=== PATIENT | female | born 1940 | race Caucasian/White ===

== ENCOUNTER → 2017-04-30 10:43 | Outpatient (CLI) | payer MEDICARE, SELFPAY ==
[2017-04-30 12:15] LABS: Absolute Lymphocyte Count 0.93 X10^3/ul (0.83-4.51); Absolute Neutrophil Count 2.8 X10^3/uL (2.0-7.7); Basophil# 0.02 X10^3/uL; Basophil% 0.5 % (0-1); Eosinophil# 0.13 X10^3/uL; Hematocrit 44.8 % (37-47); Hemoglobin 15.1 g/dl (12.0-15.0); Lymphocyte # 0.93 X10^3/ul (4.0); Lymphocyte % 21.8 % (19-41); Mean Corp Hgb Conc 33.7 g/gl (32-36); Mean Corpuscular Hgb 31.3 pg (27.0-32.0); Mean Corpuscular Volume 92.9 fL (81-99); Mean Platelet Vol. 10.4 fl (6.2-12.0); Monocyte# 0.42 X10^3/uL; Monocyte% 9.8 % (0-10); Neutrophil # 2.76 X10^3/uL (2.7-7.7); Neutrophil % 64.7 % (47-70); Platelet Count 221 K/mm3 (150-450); RBC Distribution Width CV 13.1 % (11.6-14.6); RBC Distribution Width SD 43.3 fl (35.1-43.9); Red Blood Count 4.82 M/mm3 (4.2-5.4); White Blood Count 4.3 K/mm3 (4.4-11.0)
[2017-04-30 12:30] LABS: POSITIVE COUNT NO; POSITIVE DIFFERENTIAL NO; POSITIVE MORPHOLOGY NO
[2017-04-30 12:34] LABS: ALB/GLOB Ratio 1.1 RATIO (0.9-2.4); AST(SGOT) 15 U/L (15-37); Alanine Aminotransfer ALT/SGPT 22 U/L (13-56); Albumin, Serum 3.7 g/dL (3.2-5.0); Alkaline Phosphatase 84 U/L (45-117); Anion Gap 8 (5-15); BUN 16 mg/dL (7-18); BUN/Creat Ratio 20.1 RATIO (10-20); Calcium,Total 9.3 mg/dL (8.5-10.1); Chloride 106 mmol/L (98-107); EST Glomerular Filtration Rate 75 mL/min (>60); Est Glom Filt Rate - Afr Amer 90 mL/min (>60); Globulin 3.3 g/dL (2.2-4.2); Glucose 91 mg/dL (70-110); Potassium 4.3 mmol/L (3.5-5.1); Sodium Level 141 mmol/L (136-145)
== END ==
PROVIDERS: Family Provider Family Medicine; PCP Family Medicine; Visit Provider Internal Medicine Rheumatology
DX: M06.4 Inflammatory polyarthropathy (principal); I25.10 Atherosclerotic heart disease of native coronary artery without angina pectoris; K21.0 Gastro-esophageal reflux disease with esophagitis; M47.897 Other spondylosis, lumbosacral region; M16.11 Unilateral primary osteoarthritis, right hip; Q66.7 Congenital pes cavus; E78.5 Hyperlipidemia, unspecified; H93.13 Tinnitus, bilateral; M51.37 Other intervertebral disc degeneration, lumbosacral region
CPT/HCPCS: 36415; 80053; 85025

== ENCOUNTER → 2017-06-18 09:20 | Outpatient (CLI) | payer MEDICARE, SELFPAY ==
[2017-06-18 12:24] LABS: Cholesterol 234 mg/dL (200); High Density Lipoprotein 57 mg/dL; Triglycerides 186 mg/dL; Very Low Density Lipoprotein 37 mg/dL (5-40)
[2017-06-18 13:25] LABS: Vitamin D,25 Hydroxy 25.6 ng/mL (29.95-100.01)
== END ==
PROVIDERS: Family Provider Family Medicine; PCP Family Medicine; Visit Provider Family Medicine
DX: I10 Essential (primary) hypertension (principal); I25.10 Atherosclerotic heart disease of native coronary artery without angina pectoris; M81.0 Age-related osteoporosis without current pathological fracture
CPT/HCPCS: 36415; 80061; 82306

== ENCOUNTER → 2017-07-16 12:30 | Outpatient (CLI) | payer MEDICARE, SELFPAY ==
--- NOTE | 2017-07-16 12:32 | BI_ITS ---
MAMMOGRAPHY - BILATERAL SCREENING REASON FOR EXAM: Female, 76 years old. Routine annual screening examination. PERTINENT HISTORY: Aunt with breast cancer. Remote left excisional breast biopsy. TECHNIQUE: Digital bilateral breast hussein (3D mammographic acquisition) in the CC and MLO projections. 2-D mediolateral oblique (MLO) and craniocaudad (CC) views of both breasts were obtained. CAD: Full Field Digital Mammography with Computer Added Detection was performed. COMPARISON: Comparison is made with prior study dated March 03, 2015 and March 28, 2016. FINDINGS: Breast Composition: The breasts are heterogeneously dense, which may obscure small masses. There are no dominant masses or suspicious calcifications. Stable scattered bilateral calcifications. Focal skin thickening along the superior lateral portion of the left breast incomplete with prior excisional breast biopsy. No other significant abnormalities are identified. There has been no significant change since the prior study. BI/SCREENING MAMM (CAD), BILAT IMPRESSION: Stable bilateral screening mammogram. Yearly follow-up mammogram recommended. (A) ASSESSMENT CATEGORY: BIRADS Category 2: Benign. A letter regarding these results will be sent to the patient by the facility within 30 days. Approximately 10% of breast cancers are not detected by mammography. A normal mammogram should not delay biopsy of a clinically suspicious abnormality. [id number] Electronically Signed: Matty Hannah MD at 8:19 EDT Tel [phone], Service support ,
--- NOTE | 2017-07-16 12:36 | BD_ITS ---
STUDY: DUAL ENERGY X-RAY ABSORPTIOMETRY / DXA REASON FOR EXAM: Female, 76 years old. The patient is postmenopausal. Loss of height of 2 inches. TECHNIQUE: Bone Mineral Density (BMD) measurements of lumbar spine and left hip were obtained. The patient is status post right total hip replacement. COMPARISON: Comparison is made with prior study dated March 03, 2015. FINDINGS: Lumbar Spine (L1-L4): g/cm2 (0.936) / T-score (-1.9) / Z-score (-0.1) Findings are suggestive of normal bone density with a low fracture risk. Left Femur Total: g/cm2 (0.926) / T-score (-0.6) / Z-score (1.2) Left Femoral Neck: g/cm2 (0.878) / T-score (-1.2) / Z-score (0.8) The T-Scores on the most recent prior examination were: Lumbar Spine (L1-L4): There has been worsening of bone density since the previous examination. Left Femur Total: which represents a worsening of 2.8%. Right Femur Total: . BD/Dexa Bone Density Study IMPRESSION: The patient is considered osteopenic as outlined below according to World Geoffrey Organization (WHO) criteria with a moderate fracture risk. There has been worsening of bone density since the previous examination. Reference Information: The T-score is the number of standard deviations above or below the standard which is normal for young adults at their peak bone mineral density. The World Health Organization (WHO) interprets the T-scores as follows: Above -1 Normal bone density Between -1 and -2.5 Osteopenia Equal to / or below -2.5 Osteoporosis As a practical clinical guideline, osteopenia may be graded as follows: Mild -1 through -1.5 Moderate -1.6 through -2.0 Severe -2.1 through -2.4 The Z-score is the number of standard deviations above or below age-matched controls. A Z-score of less than -1.5 would be considered abnormal. References: 1. NIH Osteoporosis and Related Bone Diseases http://www.osteo.org 2. International Society for Clinical Densitometry http://www.iscd.org 3. National Osteoporosis Foundation http://www.nof.org Electronically Signed: Matty Hannah MD at 15:49 EDT Tel [phone], Service support ,
== END ==
PROVIDERS: Family Provider Family Medicine; PCP Family Medicine; Visit Provider Family Medicine
DX: Z12.31 Encounter for screening mammogram for malignant neoplasm of breast (principal); M81.0 Age-related osteoporosis without current pathological fracture
CPT/HCPCS: 77063; 77067; 77080

== ENCOUNTER → 2017-10-28 07:28 | Outpatient (CLI) | payer MEDICARE, SELFPAY ==
[2017-10-28 10:11] LABS: Absolute Lymphocyte Count 1.04 X10^3/ul (0.83-4.51); Absolute Neutrophil Count 2.9 X10^3/uL (2.0-7.7); Basophil# 0.01 X10^3/uL; Basophil% 0.2 % (0-1); Eosinophil# 0.15 X10^3/uL; Eosinophils% 3.4 % (0-5); Hematocrit 44.7 % (37-47); Lymphocyte # 1.04 X10^3/ul (4.0); Lymphocyte % 23.9 % (19-41); Mean Corp Hgb Conc 33.6 g/gl (32-36); Mean Corpuscular Hgb 31.1 pg (27.0-32.0); Mean Corpuscular Volume 92.7 fL (81-99); Mean Platelet Vol. 10.4 fl (6.2-12.0); Monocyte# 0.28 X10^3/uL; Monocyte% 6.4 % (0-10); Neutrophil # 2.86 X10^3/uL (2.7-7.7); Neutrophil % 65.9 % (47-70); Platelet Count 209 K/mm3 (150-450); RBC Distribution Width CV 12.6 % (11.6-14.6); Red Blood Count 4.82 M/mm3 (4.2-5.4); White Blood Count 4.4 K/mm3 (4.4-11.0)
[2017-10-28 10:20] LABS: Albumin, Serum 3.7 g/dL (3.2-5.0); BUN 16 mg/dL (7-18); BUN/Creat Ratio 19.4 RATIO (10-20); Creatinine, Serum 0.83 mg/dL (0.55-1.02); EST Glomerular Filtration Rate 71 mL/min (>60); Est Glom Filt Rate - Afr Amer 86 mL/min (>60); Glucose 92 mg/dL (74-106); POSITIVE COUNT NO; POSITIVE DIFFERENTIAL NO; POSITIVE MORPHOLOGY NO; Protein, Total 6.8 g/dL (6.4-8.2)
[2017-10-28 10:21] LABS: ALB/GLOB Ratio 1.2 RATIO (0.9-2.4); AST(SGOT) 16 U/L (15-37); Alanine Aminotransfer ALT/SGPT 21 U/L (13-56); Alkaline Phosphatase 71 U/L (45-117); Anion Gap 9 (5-15); Calcium,Total 9.2 mg/dL (8.5-10.1); Chloride 108 mmol/L (98-107); Globulin 3.1 g/dL (2.2-4.2); Potassium 4.1 mmol/L (3.5-5.1); Sodium Level 144 mmol/L (136-145)
== END ==
PROVIDERS: Family Provider Family Medicine; PCP Family Medicine; Visit Provider Internal Medicine Rheumatology
DX: M06.4 Inflammatory polyarthropathy (principal); K21.0 Gastro-esophageal reflux disease with esophagitis; M47.897 Other spondylosis, lumbosacral region; M16.11 Unilateral primary osteoarthritis, right hip
CPT/HCPCS: 36415; 80053; 85025

== ENCOUNTER → 2018-02-27 06:39 | Outpatient (CLI) | payer MEDICARE, SELFPAY ==
--- NOTE | 2018-02-27 06:41 | ECHOCS_ITS ---
Reason For Study: AFIB Procedure This was a 2D Doppler, Color Flow transthoracic echocardiogram. The study was technically difficult. Contrast injection was performed. ALLERGIC REACTION TO DEFINITY. Exam performed in department. Left Ventricle Normal LV size. Left ventricular systolic function is normal. The estimated ejection fraction is 65 %. No evidence for diastolic dysfunction. No regional wall motion abnormalities noted. Right Ventricle Normal RV size. Normal systolic function. Atria The left atrium is mildly enlarged. Normal right atrium. No doppler evidence for ASD. Mitral Valve There is mild mitral annular calcification. Extension of the mitral annular calcification onto the posterior mitral valve leaflet. Mild (1+) mitral valve insufficiency. Tricuspid Valve Normal tricuspid valve. Mild to moderate (1-2+) tricuspid valve insufficiency. Right ventricular systolic pressure estimated to be 28 mmHg. Aortic Valve Trisinus/trileaflet aortic valve. Normal aortic valve. Pulmonic Valve The pulmonic valve is not well visualized. Trivial pulmonic valve insufficiency. Great Vessels Normal sized aortic root. Pericardium/Pleural No pericardial effusion. Medication Diluted definity 3ml given slow IV push to enhance endocardial definition. PT EXPERIENCED FLANK PAIN REACTION TO USE OF DEFINITY. . MMode/2D Measurements & Calculations LVIDd: 3.8 cm IVSd: 1.1 cm Ao root diam: 2.9 cm LVIDs: 2.5 cm LVPWd: 1.1 cm RVDd: 3.3 cm FS: 35.0 % LAV(MOD-bp): 31.0 ml LA A4 area: 12.0 cm2 LA dimension(2D): 4.0 cm LAV(MOD-bp) Indexed: 18.3 ml/m2 LAV(MOD-sp2): 41.3 ml LAV(MOD-sp4): 23.3 ml RA A4 area: 9.4 cm2 Time Measurements MV dec time: 0.36 sec Doppler Measurements & Calculations MV E max ojsiah: 53.7 cm/sec Lat Peak E' Josiah: 8.5 cm/sec Med Peak E' Josiah: 5.7 cm/sec MV A max josiah: 81.2 cm/sec E/E' lat: 6.3 E/E' med: 9.3 MV E/A: 0.66 Ao V2 max: 110.3 cm/sec LV V1 max: 95.9 cm/sec PA V2 max: 80.7 cm/sec Ao max P.9 mmHg LV V1 max P.7 mmHg PI end-d josiah: 58.0 cm/sec TR max josiah: 252.0 cm/sec TR max P.4 mmHg Interpretation Summary The study was technically difficult. Contrast injection was performed. Left ventricular systolic function is normal. The estimated ejection fraction is 65 %. The left atrium is mildly enlarged. There is mild mitral annular calcification. Extension of the mitral annular calcification onto the posterior mitral valve leaflet. Mild (1+) mitral valve insufficiency. Mild to moderate (1-2+) tricuspid valve insufficiency. Trivial pulmonic valve insufficiency. Right ventricular systolic pressure estimated to be 28 mmHg. No evidence for diastolic dysfunction. Ordering Physician: Elan Barrios Referring Physician: MAYURI LEWIS Performed By: Aziza Chilel, DEREK, RVT
--- NOTE | 2018-02-27 09:26 | STRESSREP ---
Stress Test Report Date: 02/27/2018 Procedure: Exercise tolerance test/imaging study Indications: Shortness of breath/dyspnea; CAD; CABG; non-ST segment elevation VT; paroxysmal atrial fibrillation Consent: Per the patient Procedure: The patient exercised on a Rolo protocol for 5 minutes completing Stage I and 2 minutes of Stage II achieving a peak heart rate of 155 bpm (108 % predicted maximal heart rate) with a peak blood pressure 202/80 mmHg and a peak MET capacity of 7 METs. The baseline ECG demonstrated normal sinus rhythm. The peak exercise ECG demonstrated no obvious ECG changes. There was a rare PVC during recovery. The functional capacity was considered average. There was no complaint of chest discomfort during exercise or recovery. The examination was discontinued secondary to dyspnea. Impression: 1. Technically adequate (percent predicted maximal heart rate greater than 85%) exercise tolerance test 2. Peak exercise ECG no obvious ECG changes 3. There was a rare PVC during recovery 4. Nuclear images pending Myocardial perfusion imaging study: Technique: The patient was injected with 10.8 mCi of technetium 99m Cardiolite and subsequently rest SPECT Cardiolite nuclear imaging was obtained in the horizontal long, vertical long, and short axis views. The patient exercised on a Rolo protocol for 5 minutes completing Stage I and 2 minutes of Stage II achieving a peak heart rate of 155 bpm (108 % predicted maximal heart rate) with a peak blood pressure 202/80 mmHg and a peak MET capacity of 7 METs. The patient was injected with 31.2 mCi of technetium 99m Cardiolite and subsequently stress SPECT Cardiolite nuclear imaging was obtained in the horizontal long, vertical long, and short axis views. A gated Cardiolite study at peak stress was obtained. Interpretation: Rest and stress SPECT Cardiolite nuclear imaging status post realignment, normalization, and attenuation correction, demonstrates at rest of an area of diminished tracer uptake in portions of the mid to distal anterior segments which status post stress appears to improved/normalized. Otherwise status post stress there appears to be relative uniform tracer uptake.. There is end systolic thickening and brightening. The gated Cardiolite study demonstrates myocardial thickening and inward wall motion. The reported LVEF is 88 %. Impression: 1. Rest and stress SPECT Cardiolite nuclear imaging demonstrate myocardial perfusion changes at rest which appeared to improve/normalized following stress appearing compatible shifting soft tissue attenuation/artifact with no myocardial perfusion changes considered diagnostic for associated stress-induced myocardial ischemia or previous myocardial injury/infarction. 2. The gated Cardiolite study reports an LVEF of 88 %. This note was generated with [employer] software. It may contain incorrect words, spelling, and punctuation that were not noted in checking the note before signing.
--- NOTE | 2018-02-27 09:32 | STRESSREP_ITS ---
Stress Test Report Date: 02/27/2018 Procedure: Exercise tolerance test/imaging study Indications: Shortness of breath/dyspnea; CAD; CABG; non-ST segment elevation NM; paroxysmal atrial fibrillation Consent: Per the patient Procedure: The patient exercised on a Rolo protocol for 5 minutes completing Stage I and 2 minutes of Stage II achieving a peak heart rate of 155 bpm (108 % predicted maximal heart rate) with a peak blood pressure 202/80 mmHg and a peak MET capacity of 7 METs. The baseline ECG demonstrated normal sinus rhythm. The peak exercise ECG demonstrated no obvious ECG changes. There was a rare PVC during recovery. The functional capacity was considered average. There was no complaint of chest discomfort during exercise or recovery. The examination was discontinued secondary to dyspnea. Impression: 1. Technically adequate (percent predicted maximal heart rate greater than 85%) exercise tolerance test 2. Peak exercise ECG no obvious ECG changes 3. There was a rare PVC during recovery 4. Nuclear images pending Myocardial perfusion imaging study: Technique: The patient was injected with 10.8 mCi of technetium 99m Cardiolite and subsequently rest SPECT Cardiolite nuclear imaging was obtained in the horizontal long, vertical long, and short axis views. The patient exercised on a Rolo protocol for 5 minutes completing Stage I and 2 minutes of Stage II achieving a peak heart rate of 155 bpm (108 % predicted maximal heart rate) with a peak blood pressure 202/80 mmHg and a peak MET capacity of 7 METs. The patient was injected with 31.2 mCi of technetium 99m Cardiolite and subsequently stress SPECT Cardiolite nuclear imaging was obtained in the horizontal long, vertical long, and short axis views. A gated Cardiolite study at peak stress was obtained. Interpretation: Rest and stress SPECT Cardiolite nuclear imaging status post realignment, normalization, and attenuation correction, demonstrates at rest of an area of diminished tracer uptake in portions of the mid to distal anterior segments which status post stress appears to improved/normalized. Otherwise status post stress there appears to be relative uniform tracer uptake.. There is end systolic thickening and brightening. The gated Cardiolite study demonstrates myocardial thickening and inward wall motion. The reported LVEF is 88 %. Impression: 1. Rest and stress SPECT Cardiolite nuclear imaging demonstrate myocardial perfusion changes at rest which appeared to improve/normalized following stress appearing compatible shifting soft tissue attenuation/artifact with no myocardial perfusion changes considered diagnostic for associated stress-induced myocardial ischemia or previous myocardial injury/infarction. 2. The gated Cardiolite study reports an LVEF of 88 %. This note was generated with [employer] software. It may contain incorrect words, spelling, and punctuation that were not noted in checking the note before signing.
--- OUTSIDE RECORDS SUMMARY | 2018-04-24 06:41 | XMS RPT_ITS ---
:1940 Author Organization OHIP Support Name Relationship Address Phone MARLONFIGUEROA Unavailable [address] + [place] [address] R Unavailable Unavailable Unavailable FIGUEROA ALCALA Unavailable [address] + [place] [address] R Unavailable Unavailable Unavailable FIGUEROA ALCALA Unavailable [address] + [place] [address] R Unavailable Unavailable Unavailable FIGUEROA ALCALA Unavailable [address] + [place] [address] R Unavailable Unavailable Unavailable FIGUEROA ALCALA Unavailable [address] + [place] [address] R Unavailable Unavailable Unavailable FIGUEROA ALCALA Unavailable [address] + [place] [address] R Unavailable Unavailable Unavailable FIGUEROA ALCALA Unavailable [address] + [place] [address] R Unavailable Unavailable Unavailable FIGUEROA ALCALA Unavailable [address] + [place] [address] R Unavailable Unavailable Unavailable FIGUEROA ALCALA Unavailable [address] + [place] [address] R Unavailable Unavailable Unavailable FIGUEROA ALCALA Unavailable [address] + [place] [address] R Unavailable Unavailable Unavailable Care Team Providers Name Role Phone Elan Barrios Attending Unavailable Elan Barrios Referring Unavailable Elan Barrios Attending Unavailable Elan Barrios Referring Unavailable Jovanna Parish Attending Unavailable Jovanna Parish Referring Unavailable Mayuri Salas Primary Care Unavailable Mayuri Salas Attending Unavailable Mayuri Salas Primary Care Unavailable Mayuri Salas Attending Unavailable Mayuri Salas Primary Care Unavailable Jovanna Parish Attending Unavailable Jovanna Parish Referring Unavailable Josue, Mayuri Primary Care Unavailable Ayush, Figueroa Desouza Attending Unavailable Josue, Mayrui Referring Unavailable Josue, Mayuri Primary Care Unavailable Roof, Figueroa H Attending Unavailable Josue, Mayuri Primary Care Unavailable Moodispacamila, Elan Attending Unavailable Josue, Mayuri Referring Unavailable Moodispacamila, Elan Attending Unavailable Moodispaw, Elan Referring Unavailable Josue, Mayuri Primary Care Unavailable PROBLEMS PROBLEMS DATE TYPE CONDITION / CODE ATTENDING STATUS SOURCE 02/27/2018 Unknown I10 - Essential Moodispacamila, Elan Active [facility] (primary) Community hypertension / Hospital I10(ICD-10) Repository 02/27/2018 Unknown I25.10 - Moodispacamila, Elan Active [facility] Atherosclerotic heart Community disease of [facility] coronary artery Repository without angina pectoris / I25.10(ICD-10) 02/27/2018 Unknown I97.89 - Other Moodispaw, Elan Active [facility] postprocedural Community complications and Hospital disorders of the Repository circulatory system, not elsewhere classified / I97.89(ICD-10) 02/27/2018 Unknown I48.91 - Unspecified Moodispacamila, Elan Active [facility] atrial fibrillation / Community I48.91(ICD-10) Hospital Repository 02/27/2018 Unknown Z95.1 - Presence of Kelseaispacamila, Elan Active [facility] aortocoronary bypass Community graft / Z95.1(ICD-10) Hospital Repository 02/27/2018 Unknown E78.5 - Moodispacamila, Elan Active [facility] Hyperlipidemia, Community unspecified / Hospital E78.5(ICD-10) Repository 03/14/2018 Unknown R00.2 - Palpitations Elan Barrios Active [facility] / R00.2(ICD-10) Community Hospital Repository 10/28/2017 Unknown 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 / Community M06.4(ICD-10) Hospital Repository 10/28/2017 Unknown 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0 - Age-related Mayuri Salas Active [facility] osteoporosis without Community current pathological Hospital fracture / Repository M81.0(ICD-10) PROCEDURES PROCEDURES No Procedure Records FoundRESULTS RESULTS ECHO, COMPLETE W/ Observed: 02/27/2018 Status: F Source: [place] CONTRAST 2:14 PM [facility] REPOSITORY [facility] Cardiovascular Services [address] [place] [address] Echo Complete W/ Contrast 02/27/18 0929 MR#: [id number] Acct: [id number] Name: WESTON ALCALA Rep #: [id number] : 1940 77 From: Elan Barrios MD Attending Dr: Elan Barrios MD Status: REG CLI Ordering Dr: Elan Barrios MD Date: 02/27/18 Location: [facility] Sex: F C Admitted: Reason For Study: AFIB Procedure This was a 2D Doppler, Color Flow transthoracic echocardiogram. The study was technically difficult. Contrast injection was performed. ALLERGIC REACTION TO DEFINITY. Exam performed in department. Left Ventricle Normal LV size. Left ventricular systolic function is normal. The estimated ejection fraction is 65 %. No evidence for diastolic dysfunction. No regional wall motion abnormalities noted. Right Ventricle Normal RV size. Normal systolic function. Atria The left atrium is mildly enlarged. Normal right atrium. No doppler evidence for ASD. Mitral Valve There is mild mitral annular calcification. Extension of the mitral annular calcification onto the posterior mitral valve leaflet. Mild (1+) mitral valve insufficiency. Tricuspid Valve Normal tricuspid valve. Mild to moderate (1-2+) tricuspid valve insufficiency. Right ventricular systolic pressure estimated to be 28 mmHg. Aortic Valve Trisinus/trileaflet aortic valve. Normal aortic valve. Pulmonic Valve The pulmonic valve is not well visualized. Trivial pulmonic valve insufficiency. Great Vessels Normal sized aortic root. Pericardium/Pleural No pericardial effusion. Medication Diluted definity 3ml given slow IV push to enhance endocardial definition. PT EXPERIENCED FLANK PAIN REACTION TO USE OF DEFINITY. . MMode/2D Measurements AND Calculations LVIDd: 3.8 cm IVSd: 1.1 cm Ao root diam: 2.9 cm LVIDs: 2.5 cm LVPWd: 1.1 cm RVDd: 3.3 cm FS: 35.0 % LAV(MOD-bp): 31.0 ml LA A4 area: 12.0 cm2 LA dimension(2D): 4.0 cm LAV(MOD-bp) Indexed: 18.3 ml/m2 LAV(MOD-sp2): 41.3 ml LAV(MOD-sp4): 23.3 ml RA A4 area: 9.4 cm2 Time Measurements MV dec time: 0.36 sec Doppler Measurements AND Calculations MV E max josiah: 53.7 cm/sec Lat Peak E' Josiah: 8.5 cm/sec Med Peak E' Josiah: 5.7 cm/sec MV A max josiah: 81.2 cm/sec E/E' lat: 6.3 E/E' med: 9.3 MV E/A: 0.66 Ao V2 max: 110.3 cm/sec LV V1 max: 95.9 cm/sec PA V2 max: 80.7 cm/sec Ao max P.9 mmHg LV V1 max P.7 mmHg PI end-d josiah: 58.0 cm/sec TR max josiah: 252.0 cm/sec TR max P.4 mmHg Interpretation Summary The study was technically difficult. Contrast injection was performed. Left ventricular systolic function is normal. The estimated ejection fraction is 65 %. The left atrium is mildly enlarged. There is mild mitral annular calcification. Extension of the mitral annular calcification onto the posterior mitral valve leaflet. Mild (1+) mitral valve insufficiency. Mild to moderate (1-2+) tricuspid valve insufficiency. Trivial pulmonic valve insufficiency. Right ventricular systolic pressure estimated to be 28 mmHg. No evidence for diastolic dysfunction. Ordering Physician: Elan Barrios Referring Physician: MAYURI SALAS Performed By: Aziza Chilel, RDCS, RVT 02/27/18 1413 Date Elan Barrios MD CC: Mayuri Salas DO; Elan Barrios MD Date Dictated: 02/27/18 0929 Date Transcribed: 02/27/181412 Drier Helper: Signed STRESS REPORT Observed: 02/27/2018 Status: F Source: [place] 9:32 AM [facility] REPOSITORY [facility] Cardiovascular Services [place] [address] MR#: [id number] Acct: [id number] Name: WESTON ALCALA Rep #: [id number] : 1940 77 From: Elan Barrios MD Primary Care: Josue Mayuri CHAPA Status: REG CLI Ordering Dr: Sex: F C Stress Test Report Date: 02/27/2018 Procedure: Exercise tolerance test/imaging study Indications: Shortness of breath/dyspnea; CAD; CABG; non-ST segment elevation [place]; paroxysmal atrial fibrillation Consent: Per the patient Procedure: The patient exercised on a Rolo protocol for 5 minutes completing Stage I and 2 minutes of Stage II achieving a peak heart rate of 155 bpm (108 % predicted maximal heart rate) with a peak blood pressure 202/80 mmHg and a peak MET capacity of 7 METs. The baseline ECG demonstrated normal sinus rhythm. The peak exercise ECG demonstrated no obvious ECG changes. There was a rare PVC during recovery. The functional capacity was considered average. There was no complaint of chest discomfort during exercise or recovery. The examination was discontinued secondary to dyspnea. Impression: 1. Technically adequate (percent predicted maximal heart rate greater than 85%) exercise tolerance test 2. Peak exercise ECG no obvious ECG changes 3. There was a rare PVC during recovery 4. Nuclear images pending Myocardial perfusion imaging study: Technique: The patient was injected with 10.8 mCi of technetium 99m Cardiolite and subsequently rest SPECT Cardiolite nuclear imaging was obtained in the horizontal long, vertical long, and short axis views. The patient exercised on a Rolo protocol for 5 minutes completing Stage I and 2 minutes of Stage II achieving a peak heart rate of 155 bpm (108 % predicted maximal heart rate) with a peak blood pressure 202/80 mmHg and a peak MET capacity of 7 METs. The patient was injected with 31.2 mCi of technetium 99m Cardiolite and subsequently stress SPECT Cardiolite nuclear imaging was obtained in the horizontal long, vertical long, and short axis views. A gated Cardiolite study at peak stress was obtained. Interpretation: Rest and stress SPECT Cardiolite nuclear imaging status post realignment, normalization, and attenuation correction, demonstrates at rest of an area of diminished tracer uptake in portions of the mid to distal anterior segments which status post stress appears to improved/normalized. Otherwise status post stress there appears to be relative uniform tracer uptake.. There is end systolic thickening and brightening. The gated Cardiolite study demonstrates myocardial thickening and inward wall motion. The reported LVEF is 88 %. Impression: 1. Rest and stress SPECT Cardiolite nuclear imaging demonstrate myocardial perfusion changes at rest which appeared to improve/normalized following stress appearing compatible shifting soft tissue attenuation/artifact with no myocardial perfusion changes considered diagnostic for associated stress-induced myocardial ischemia or previous myocardial injury/infarction. 2. The gated Cardiolite study reports an LVEF of 88 %. This note was generated with [employer] software. It may contain incorrect words, spelling, and punctuation that were not noted in checking the note before signing. 02/27/18931 <Electronically signed by Elan Barrios MD> Date Elan Barrios MD CC: Mayuri Salas DO; Elan Barrios MD Date Dictated: 02/27/18925 Date Transcribed: 02/27/18925 Drier Helper: PM Signed CARDIOLOGY VISIT Observed: 02/07/2018 Status: F Source: [place] REPORT 5:44 PM [facility] REPOSITORY [facility] [address] [place] [address]. [address] [place] [address] OFFICE VISIT Date of Service: 02/07/18 MR#: [id number] Acct: [id number] Name: WESTON ALCALA Rep #: [id number] : 1940 Provider: Elan Barrios MD Age/Sex: 77/F Location: [facility] [place] Status: Signed HPI HPI Details: WESTON ALCALA, is a 77 F who presents to the office today for outpatient cardiovascular follow-up. She has been undergoing further evaluation and care of concerns of palpitations. She underwent a 30-day event monitor. She had an episode of an irregular nonsustained wide-complex tachycardia concerning for paroxysmal atrial fibrillation with aberrancy. She does describe intermittent symptoms of palpitations and/or flutters in her chest. She has had no near syncope or syncope. There is been no other concerning chest discomfort or difficulty breathing at this time. Intake Vital Signs02/07/18 Height 5 ft 3 in 02/07/18 Weight: 147 lb 02/07/18 Body Mass Index (BMI) 26.0 02/07/18 Blood Pressure 108/64 Intake Visit Reasons: PVCs Allergies Penicillins Adverse Reaction (Verified 02/07/18 09:18) Itching Tetanus Vaccines and Toxoid [Tetanus Vaccines AND Toxoid] Adverse Reaction (Verified 02/07/18 09:18) Swelling Medications Aspirin E.C. [Ecotrin] 81 mg PO DAILY@0800 11/26/16 [History Confirmed 02/07/18] alendronate 10 mg tablet 10 mg PO .week tab 11/25/17 [History Confirmed 02/07/18] hydroxychloroquine 200 mg tablet 300 mg PO DAILY 11/25/17 [History Confirmed 02/07/18] meloxicam 15 mg tablet 15 mg PO DAILY PRN 11/25/17 [History Confirmed 02/07/18] omeprazole 20 mg capsule,delayed release 20 mg PO .every other day cap 11/25/17 [History Confirmed 02/07/18] sertraline 25 mg tablet 25 mg PO DAILY 11/25/17 [History Confirmed 02/07/18] metoprolol tartrate 25 mg tablet 25 mg PO BID #180 tab 12/09/17 [Rx Confirmed 02/07/18] apixaban 5 mg tablet 5 mg PO BID #60 tab 02/07/18 [Rx Confirmed 02/07/18] calcium carbonate-vitamin D3 600 mg (1,500 mg)-800 unit tablet 1 tab PO DAILY 02/07/18 [History Confirmed 02/07/18] clindamycin HCl 300 mg capsule 600 mg PO DAILY PRN cap 02/07/18 [History Confirmed 02/07/18] [facility] Medical History Hyperlipemia (Chronic) Essential hypertension (Chronic) Postoperative atrial fibrillation (Acute) GERD (gastroesophageal reflux disease) (Chronic) Osteoarthritis (Chronic) NSTEMI (non-ST elevated myocardial infarction) (Chronic) Vitamin D deficiency (Chronic) Statin intolerance (Chronic) Hypercalcemia (Chronic) Angina pectoris (Resolved) Dyslipidemia (Inactive) Hypertension (Inactive) Surgical History History of coronary artery bypass graft (Chronic 09/17/16) History of cholecystectomy (Resolved) History of facial surgery (Resolved) History of foot surgery (Resolved) History of removal of cyst (Resolved) History of repair of right rotator cuff (Resolved) History of right hip replacement (Resolved) History of tubal ligation (Resolved) Family History Mother Heart disease Father Heart disease Brother Heart disease Brother Heart disease Sister Heart disease Social History Smoking Status: Never smoker alcohol intake: current alcohol intake frequency: a few times a month caffeine: No ROS Const Const: Positive for fatigue (tires out easily by the afternoon); negative for weakness, weight gain, weight loss, frequent falls or excessive sweating Eyes Eyes: Negative for change in vision, blurry vision or transient loss of vision ENT ENT: Positive for balance problems (slight unsteadiness); negative for dizziness Cardio Chest Pain: No Palpitations: Yes (occasional; feeling is brief, causes lightheadedness) feels like its: other (flutter) Edema: None Muscle aches with walking: None Resp Respiratory: Positive for SOB with activity (slight); negative for SOB at rest GI GI: Negative vomiting or vomiting blood/hematemesis : Negative for hematuria Musc Musc: Positive for balance problems (slight unsteadiness); negative for muscle aches/ myalgia, muscle weakness or joint pain Skin Skin: Negative non-healing lesions or rash Neuro Neuro: Negative for weakness, blurry vision, dizziness, lightheadedness, frequent falls or orthostatic symptoms Didier Hematologic/Lymphatic: Negative for easy bleeding Endo Endo: Positive for fatigue (tires out easily by the afternoon); negative for excessive sweating Psych Psych: Negative for anxiety or depression Allergy Allergy/Immunology: Negative for hives, Negative for rash Cardiology Exam Const Appearance: cooperative, healthy appearing, comfortable, no acute distress, well developed and well groomed Nutritional Appearance: average body habitus and well nourished Orientation: alert, awake and oriented x3 Head Head: normal to inspection, normocephalic and atraumatic Ears: hearing grossly normal bilaterally Nose: external nose normal Face and Sinus: face symmetric Mouth: oral mucosae normal Teeth and gingiva: fair dentition Eyes Eyelids: eyelids normal Conjunctivae: conjunctivae normal Pupils: PERRL EOM: EOM intact bilaterally Neck Neck: no JVD, normal visual inspection and full ROM Carotids: normal carotid upstroke Chest Chest inspection: normal inspection of the chest, normal respiratory effort and symmetric chest movement; negative cough Auscultation: Bilateral: Clear to Auscultation Cardio Palpation: normal PMI Rate: regular rate Rhythm: regular rhythm Heart sounds: S1 normal and S2 normal; negative rub, gallop or murmur GI GI: normal to inspection, bowel sounds present and soft Neuro General: alert, awake, oriented x3 and moves all extremities Skin Skin: no rashes or lesions noted Extremities Pulses: Normal: Right Posterior Tibial Pulse, Left Posterior Tibial Pulse, Right Radial Pulse, Left Radial Pulse Lower Extremity Edema: None: Bilateral Psych Psychological: normal affect Supplemental Info Stress test from October 2016 was a technically adequate ETT, peak ECG with no obvious ECG changes at heart rate achieved, and decreased functional capacity. Echocardiogram from August 2016 showed an estimate ejection fraction of 60%, trivial mitral valve regurgitation, and trivial tricuspid regurgitation. Assessment AND Plan 1. Atherosclerosis of campo coronary artery of campo heart without angina pectoris I25.10 S/P CABG with HALL to LAD, SVG to first diagonal, SVG to second diagonal, SVG to obtuse marginal, and SVG to PDA in August 2016; Plan At the present time she appears without any acute symptoms. She will continue evaluation care. Based upon her recurrent cardiac dysrhythmias was felt reasonable to reassess her for any obvious evidence of ongoing myocardial ischemia that may be contributing to her symptoms of these findings. Thus she will have a follow-up exercise tolerance test/imaging study. Orders Orders: 2. History of coronary artery bypass graft Z95.1 S/P CABG with HALL to LAD, SVG to first diagonal, SVG to second diagonal, SVG to obtuse marginal, and SVG to PDA in August 2016; Plan She does have a history of previous CABG. Again she will undergo medical management and follow-up as described above. Orders Orders: 3. Postoperative atrial fibrillation I97.89; I48.91 Plan She has had a history of postoperative atrial fibrillation. Her event monitor as noted above. She will be placed on additional medical therapy with an anticoagulant such as apixaban/Eliquis. She will undergo further noninvasive evaluation as deemed appropriate. Consideration will be given based on her evaluation with respect to possible antiarrhythmic therapy as well. This could include agents at her age with her cardiovascular disease process such as amiodarone therapy. Orders Orders: 4. Hyperlipidemia, unspecified hyperlipidemia type E78.5 Plan She will continue risk factor evaluation and care. Orders Orders: 5. Essential hypertension I10 Plan Her blood pressure appears to be reasonably well-controlled at this time. She will continue medical therapy and follow-up. Orders Orders: 6. Statin intolerance Z78.9 myalgia of the legs Plan She does have a history of statin intolerance. She is hesitant to restart any statin or other lipid-lowering therapy. Plan Detail Other Medications New: Additional Comments The above was discussed with her. She was agreeable to this approach. Thank you for allowing me to participate in the care of your patient. Please don't hesitate to call if any issues arise. This note was generated using a voice recognition system and there may be incorrect words, spelling or punctuation that were not noted when reviewing the office note prior to saving. 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 [place] [address] OFFICE VISIT Date of Service: 11/25/17 MR#: [id number] Acct: [id number] Name: WESTON ALCALA Rep #: [id number] : 1940 Provider: ASHLEY Peacock Age/Sex: 76/F Location: [facility] Status: Signed HPI HPI Details: WESTON ALCALA, is a 76 F who presents to the office today for a cardiovascular outpatient follow-up. She has a history of coronary artery disease status post bypass surgery with an HALL to LAD, SVG to first diagonal, SVG to second diagonal, SVG to obtuse marginal, and SVG to PDA in August 2016, possible postoperative atrial fibrillation, hypertension, and hyperlipidemia. Pt. denies chest, arm, jaw, or neck discomfort. Her exercise tolerance is stable via biking three days the week. Pt. denies symptoms of CHF, near syncope, or syncopal episodes. Pt. denies edema or claudication issues. Pt. denies orthopnea, PND, fever, chills, blood in urine, blood in stool, myalgia, or unexplainable fatigue. She states one episode of dizziness related to vertigo. She states brief random episodes of palpitations without secondary symptoms. Intake Vital Signs11/25/17 Height 5 ft 3 in 11/25/17 Weight: 149 lb 11/25/17 Body Mass Index (BMI) 26.4 11/25/17 Blood Pressure 128/70 11/25/17 Blood Pressure Location Lt brachial Intake Visit Reasons: 6 M FU Yam Curer Required: No Accompanied by: None Is patient in pain?: No Allergies Penicillins Adverse Reaction (Verified 11/25/17 11:23) Itching Tetanus Vaccines and Toxoid [Tetanus Vaccines AND Toxoid] Adverse Reaction (Verified 11/25/17 11:23) Swelling Medications Aspirin E.C. [Ecotrin] 81 mg PO DAILY@0800 11/26/16 [History Confirmed 11/25/17] Clindamycin 300 mg/50 ml-Ns 300 mg PO PRN PRN 11/26/16 [History Confirmed 11/25/17] Melatonin/Pyridoxine [Melatonin 5 mg Tablet] 1 ea PO 11/26/16 [History Confirmed 11/25/17] alendronate 10 mg tablet 10 mg PO .week tab 11/25/17 [History Confirmed 11/25/17] hydroxychloroquine 200 mg tablet 300 mg PO DAILY 11/25/17 [History Confirmed 11/25/17] meloxicam 15 mg tablet 15 mg PO DAILY PRN 11/25/17 [History Confirmed 11/25/17] metoprolol tartrate 25 mg tablet 25 mg PO BID 11/25/17 [History Confirmed 11/25/17] omeprazole 20 mg capsule,delayed release 20 mg PO .every other day cap 11/25/17 [History Confirmed 11/25/17] sertraline 25 mg tablet 25 mg PO DAILY 11/25/17 [History Confirmed 11/25/17] Ejection fraction %: 60 to 64 PFSH Medical History GERD (gastroesophageal reflux disease) (Chronic) Osteoarthritis (Chronic) NSTEMI (non-ST elevated myocardial infarction) (Chronic) Hypertension (Chronic) Dyslipidemia (Chronic) Vitamin D deficiency (Chronic) Statin intolerance (Chronic) Hypercalcemia (Chronic) Angina pectoris (Resolved) Surgical History History of coronary artery bypass graft (Chronic) History of cholecystectomy (Resolved) History of facial surgery (Resolved) History of foot surgery (Resolved) History of removal of cyst (Resolved) History of repair of right rotator cuff (Resolved) History of right hip replacement (Resolved) History of tubal ligation (Resolved) Family History Mother Heart disease Father Heart disease Brother Heart disease Brother Heart disease Sister Heart disease Social History Smoking Status: Never smoker alcohol intake: current alcohol intake frequency: a few times a month caffeine: No ROS Const Const: Negative for fatigue, weakness, body ache, fever(s) or chills ENT ENT: Positive for dizziness Cardio Chest Pain: No Palpitations: Yes Edema: None Muscle aches with walking: None Resp Respiratory: Negative for SOB with activity, SOB at rest, SOB orthopnea\SOB lying down or paroxysmal nocturnal dyspnea GI GI: Negative nausea, black,tarry stools, bright, red blood in stools or vomiting blood/hematemesis : Negative for hematuria or frequent nighttime urination/ nocturia Musc Musc: Negative for muscle aches/ myalgia Skin Skin: Negative non-healing lesions or rash Neuro Neuro: Positive for dizziness and lightheadedness; negative for weakness, near syncope, syncope or orthostatic symptoms Endo Endo: Negative for fatigue Allergy Allergy/Immunology: Negative for rash Cardiology Exam Const Appearance: cooperative, healthy appearing, comfortable and no acute distress Nutritional Appearance: average body habitus and well nourished Orientation: alert, awake and oriented x3 Head Head: normal to inspection Ears: hearing grossly normal bilaterally Nose: external nose normal Face and Sinus: face symmetric Mouth: oral mucosae normal Eyes General: appearance normal, both eyes and all related structures Eyelids: eyelids normal EOM: EOM intact bilaterally Neck Neck: no JVD and normal visual inspection Carotids: normal carotid upstroke Chest Chest inspection: normal inspection of the chest and normal respiratory effort; negative cough Auscultation: Bilateral: Clear to Auscultation Cardio Rate: regular rate Rhythm: regular rhythm Heart sounds: S1 normal and S2 normal; negative rub, gallop or murmur GI GI: normal to inspection Neuro General: alert, awake, oriented x3 and CN's II-XI intact bilaterally Skin Skin: no rashes or lesions noted Extremities Pulses: Normal: Right Posterior Tibial Pulse, Left Posterior Tibial Pulse, Right Radial Pulse, Left Radial Pulse Lower Extremity Edema: None: Bilateral Psych Psychological: normal affect Supplemental Info Stress test from October 2016 was a technically adequate ETT, peak ECG with no obvious ECG changes at heart rate achieved, and decreased functional capacity. Echocardiogram from August 2016 showed an estimate ejection fraction of 60%, trivial mitral valve regurgitation, and trivial tricuspid regurgitation. Assessment AND Plan 1. 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 Echocardiogram in August 2016 showed ejection fraction of 60%. Patient denies any chest pain, arm pain, jaw pain, neck pain, shortness of breath, or fatigue suggestive of angina at this time. We will continue to monitor this. We will not make any medication regimen changes and will continue risk factor modification. 2. History of coronary artery bypass graft Z95.1 S/P CABG with HALL to LAD, SVG to first diagonal, SVG to second diagonal, SVG to obtuse marginal, and SVG to PDA in August 2016; Plan She will continue current treatment plan as outlined above. 3. Palpitations R00.2 Plan Her palpitations are very brief and appear randomly. She denies any secondary symptoms with this. At this time we will continue to monitor. She was instructed to contact our office if her palpitations increase in frequency and/or a pattern develops. She will continue current beta-fabián and we will continue to monitor. 4. Essential hypertension I10 Plan Patient's blood pressure is well-controlled today in the office. We will continue to monitor this. We will not make any medication regimen changes. 5. Dyslipidemia E78.5 Plan Lipid panel from May showed cholesterol: 234, HDL: 57, LDL: 140, and triglycerides: 186. She states have upcoming appointment with primary care physician in which she believes this will be reevaluated. She has been installed intolerant to statin medications in the past. Thus, depending on her overall course she may require non-statin medications to assist this. 6. 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 Plan Detail Additional Comments Thank you for allowing us to participate in the patient's plan of care, if you have any questions please do not hesitate to call. This note was generated using a voice recognition system and there may be incorrect words, spelling, or punctuation that were not noted upon reviewing the office note prior to saving. 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 I25.10 History of coronary artery bypass graft Z95.1 Palpitations R00.2 Essential hypertension I10 Hypertension type: essential hypertension Dyslipidemia E78.5 Statin intolerance Z78.9 11/25/17 1641 <Electronically signed by Figueroa H Roof CHECK OUT CASHIER-C> Date Figueroa Desouza Roof CHECK OUT CASHIER-C Cosigner Signature: Date (if applicable) CC: Mayuri Salas DO CBC W/DIFF, AUTOMATED Collected: 10/28/2017 Status: F Source: [place] 7:35 AM [facility] REPOSITORY TYPE CODE TESTS RESULT OUT OF RANGE REFERENCE UNITS LAB L100.1000 4.4-11.0 K/mm3 Normal WBC 4.4 LAB L100.1200 4.2-5.4 M/mm3 Normal RBC 4.82 LAB L100.1300 12.0-15.0 g/dl Normal HGB 15.0 LAB L100.1400 37-47 % Normal HCT 44.7 LAB L100.1500 81-99 fL Normal MCV 92.7 LAB L100.1600 27.0-32.0 pg Normal MCH 31.1 LAB L100.1700 32-36 g/gl Normal MCHC 33.6 LAB L100.1810 11.6-14.6 % Normal RDW CV 12.6 LAB L100.1820 35.1-43.9 fl Normal RDW SD 42.0 LAB L100.1900 150-450 K/mm3 Normal PLT 209 LAB L100.2000 6.2-12.0 fl Normal MPV 10.4 LAB L100.2100 47-70 % Normal NEUT% 65.9 LAB L100.2200 19-41 % Normal LY% 23.9 LAB L100.2300 0-10 % Normal MONO% 6.4 LAB L100.2400 0-5 % Normal EO% 3.4 LAB L100.2500 0-1 % Normal BASO% 0.2 LAB L100.2550 0.0-0.9 % Normal IM GRAN % 0.200 Result Comment: IG% - Immature Granulocytes (promyelocytes, myelocytes and metamyelocytes) > 1% indicates that a LEFT SHIFT is Present. LAB L100.2620 2.0-7.7 X10 3/uL Normal Absolute Neut 2.9 LAB L100.2720 0.83-4.51 X10 3/ul Normal Absolute Lymph 1.04 Performed By: #### L100.0100 #### [facility] [address] [place], [address] COMPREHENSIVE METABOLIC Collected: 10/28/2017 Status: F Source: [place] [facility] 7:35 AM [facility] REPOSITORY TYPE CODE TESTS RESULT OUT OF RANGE REFERENCE UNITS LAB L501.0100 74-106 mg/dL Normal GLU 92 Result Comment: Please note revised GLUCOSE reference range effective 2017. LAB L501.1000 7-18 mg/dL Normal BUN 16 LAB L501.1100 0.55-1.02 mg/dL Normal CREAT,SERUM 0.83 Result Comment: The validity of the calculated GFR AND GFRAA in patients over 70 years has not been determined. Clinical correlation is essential. LAB L501.1110 >60 mL/min Normal EST GFR 71 Result Comment: Non- GFR Calc LAB L501.1115 >60 mL/min Normal EST GFR - AA 86 Result Comment: GFR Calc LAB L501.1300 10-20 RATIO Normal BUN/CRE 19.4 LAB L501.1500 6.4-8.2 g/dL T Normal PROT 6.8 LAB L501.1800 3.2-5.0 g/dL Normal ALB 3.7 LAB L501.1950 2.2-4.2 g/dL Normal GLOB 3.1 LAB L501.2000 0.9-2.4 RATIO Normal A/G 1.2 LAB L501.2200 8.5-10.1 mg/dL CA Normal 9.2 LAB L501.4100 15-37 U/L Normal AST 16 LAB L501.4305 45-117 U/L Normal ALK P 71 LAB L501.4405 13-56 U/L Normal ALT 21 LAB L501.4600 0.20-1.00 mg/dL T Normal BILI 0.60 LAB L501.5300 136-145 mmol/L NA Normal 144 LAB L501.5600 3.5-5.1 mmol/L K Normal 4.1 LAB L501.5900 98-107 mmol/L High CL 108 LAB L501.6100 21.0-32.0 mmol/L Normal CO2 27.0 LAB L501.6200 5-15 Normal GAP 9 Performed By: #### L500.4050 #### [facility] [address] [place], [address] DEXA BONE DENSITY Observed: 07/16/2017 Status: F Source: [place] STUDY 12:33 PM [facility] REPOSITORY [facility] Imaging Services [address] [place] [address] Dexa Bone Density Study MR#: [id number] Acct: [id number] Name: WESTON ALCALA Rep #: [id number] : 1940 F 76 From: Matty Hannah MD PCP: Mayuri Salas DO Status: REG CLI Study: Dexa Bone Density Study Date of Exam: 07/16/17 Exam# [id number] Ordering Dr: Mayuri Salas DO STUDY: DUAL ENERGY X-RAY ABSORPTIOMETRY / DXA REASON FOR EXAM: Female, 76 years old. The patient is postmenopausal. Loss of height of 2 inches. TECHNIQUE: Bone Mineral Density (BMD) measurements of lumbar spine and left hip were obtained. The patient is status post right total hip replacement. COMPARISON: Comparison is made with prior study dated March 03, 2015. FINDINGS: Lumbar Spine (L1-L4): g/cm2 (0.936) / T-score (-1.9) / Z-score (-0.1) Findings are suggestive of normal bone density with a low fracture risk. Left Femur Total: g/cm2 (0.926) / T-score (-0.6) / Z- score (1.2) Left Femoral Neck: g/cm2 (0.878) / T-score (-1.2) / Z- score (0.8) The T-Scores on the most recent prior examination were: Lumbar Spine (L1-L4): There has been worsening of bone density since the previous examination. Left Femur Total: which represents a worsening of 2.8%. Right Femur Total: . BD/Dexa Bone Density Study IMPRESSION: The patient is considered osteopenic as outlined below according to World Geoffrey Organization (WHO) criteria with a moderate fracture risk. There has been worsening of bone density since the previous examination. Reference Information: The T-score is the number of standard deviations above or below the standard which is normal for young adults at their peak bone mineral density. The World Health Organization (WHO) interprets the T-scores as follows: Above -1 Normal bone density Between -1 and -2.5 Osteopenia Equal to / or below -2.5 Osteoporosis As a practical clinical guideline, osteopenia may be graded as follows: Mild -1 through -1.5 Moderate -1.6 through -2.0 Severe -2.1 through -2.4 The Z-score is the number of standard deviations above or below age-matched controls. A Z-score of less than -1.5 would be considered abnormal. References: 1. NIH Osteoporosis and Related Bone Diseases http://www.osteo.org 2. International Society for Clinical Densitometry http://www.iscd.org 3. National Osteoporosis Foundation http://www.nof.org Electronically Signed: Matty Hannah MD at 15:49 EDT Tel [phone], Service support , CC: Mayuri Salas DO Drier Helper: Signed SCREENING MAMM (CAD), Observed: 07/16/2017 Status: F Source: [place] 12:33 PM [facility] REPOSITORY [facility] Imaging Services [address] [place] [address] SCREENING MAMM (CAD), BILAT MR#: [id number] Acct: [id number] Name: WESTON ALCALA Rep #: [id number] : 1940 F 76 From: Matty Hannah MD PCP: Mayuri Salas DO Status: REG CLI Study: SCREENING MAMM (CAD), BILAT Date of Exam: 07/16/17 Exam# [id number] Ordering Dr: Mayuri Salas DO MAMMOGRAPHY - BILATERAL SCREENING REASON FOR EXAM: Female, 76 years old. Routine annual screening examination. PERTINENT HISTORY: Aunt with breast cancer. Remote left excisional breast biopsy. TECHNIQUE: Digital bilateral breast hussein (3D mammographic acquisition) in the CC and MLO projections. 2-D mediolateral oblique (MLO) and craniocaudad (CC) views of both breasts were obtained. CAD: Full Field Digital Mammography with Computer Added Detection was performed. COMPARISON: Comparison is made with prior study dated March 03, 2015 and March 28, 2016. FINDINGS: Breast Composition: The breasts are heterogeneously dense, which may obscure small masses. There are no dominant masses or suspicious calcifications. Stable scattered bilateral calcifications. Focal skin thickening along the superior lateral portion of the left breast incomplete with prior excisional breast biopsy. No other significant abnormalities are identified. There has been no significant change since the prior study. BI/SCREENING MAMM (CAD), BILAT IMPRESSION: Stable bilateral screening mammogram. Yearly follow-up mammogram recommended. (A) ASSESSMENT CATEGORY: BIRADS Category 2: Benign. A letter regarding these results will be sent to the patient by the facility within 30 days. Approximately 10% of breast cancers are not detected by mammography. A normal mammogram should not delay biopsy of a clinically suspicious abnormality. [id number] Electronically Signed: Matty Hannah MD at 8:19 EDT Tel [phone], Service support , CC: Mayuri Salas DO Drier Helper: Signed LIPID PROFILE Collected: 06/18/2017 Status: F Source: [place] 9:23 AM [facility] REPOSITORY TYPE CODE TESTS RESULT OUT OF RANGE REFERENCE UNITS LAB L501.4900 200 mg/dL High CHOL 234 Result Comment: <200 mg/dL Desirable 200-240 mg/dL Borderline >240 mg/dL High Risk LAB L501.5000 mg/dL Normal TRIG 186 Result Comment: The drugs N-Acetylcysteine and Metamizole may falsely depress this assay. Serum Triglycerides Reference Interval Normal <150 mg/dL Borderline high 150 - 199 mg/dL High 200 - 499 mg/dL Very High > or = 500 mg/dL LAB L501.6400 mg/dL Normal HDL 57 Result Comment: The drugs N-Acetylcysteine and Metamizole may falsely depress this assay. Reference Range HDL <40 mg/dL Low HDL Cholesterol HDL >or= 60 mg/dL High HDL Cholesterol LAB L501.6500 0-130 mg/dL High LDL 140 LAB L501.6600 5-40 mg/dL Normal VLDL 37 Performed By: #### L500.4100 #### [facility] [address] [place], [address] VITAMIN D,25 HYDROXY Collected: 06/18/2017 Status: F Source: [place] 9:23 AM [facility] REPOSITORY TYPE CODE TESTS RESULT OUT OF REFERENCE UNITS RANGE LAB L506.1000 29.95-100.01 ng/mL Low Vitamin D 25.6 25-OH Result Comment: Vitamin D 25(OH) Status Range Deficiency <20 ng/mL (50nmol/L) Insuffciency 20 - 30 ng/mL (50 - 75 nmol/L) Sufficiency 30 - 100 ng/mL (75 - 250 nmol/L) Toxicity >100 ng/mL (>250 nmol/L) Performed By: #### L506.1000 #### [facility] [address] [place], [address] CBC W/DIFF, AUTOMATED Collected: 04/30/2017 Status: F Source: [place] 10:51 AM [facility] REPOSITORY TYPE CODE TESTS RESULT OUT OF RANGE REFERENCE UNITS LAB L100.1000 4.4-11.0 K/mm3 Low WBC 4.3 LAB L100.1200 4.2-5.4 M/mm3 Normal RBC 4.82 LAB L100.1300 12.0-15.0 g/dl High HGB 15.1 LAB L100.1400 37-47 % Normal HCT 44.8 LAB L100.1500 81-99 fL Normal MCV 92.9 LAB L100.1600 27.0-32.0 pg Normal MCH 31.3 LAB L100.1700 32-36 g/gl Normal MCHC 33.7 LAB L100.1810 11.6-14.6 % Normal RDW CV 13.1 LAB L100.1820 35.1-43.9 fl Normal RDW SD 43.3 LAB L100.1900 150-450 K/mm3 Normal PLT 221 LAB L100.2000 6.2-12.0 fl Normal MPV 10.4 LAB L100.2100 47-70 % Normal NEUT% 64.7 LAB L100.2200 19-41 % Normal LY% 21.8 LAB L100.2300 0-10 % Normal MONO% 9.8 LAB L100.2400 0-5 % Normal EO% 3.0 LAB L100.2500 0-1 % Normal BASO% 0.5 LAB L100.2550 0.0-0.9 % Normal IM GRAN % 0.200 Result Comment: IG% - Immature Granulocytes (promyelocytes, myelocytes and metamyelocytes) > 1% indicates that a LEFT SHIFT is Present. LAB L100.2620 2.0-7.7 X10 3/uL Normal Absolute Neut 2.8 LAB L100.2720 0.83-4.51 X10 3/ul Normal Absolute Lymph 0.93 Performed By: #### L100.0100 #### [facility] [address] [place], [place], [address] COMPREHENSIVE METABOLIC Collected: 04/30/2017 Status: F Source: [facility] 10:51 AM [facility] REPOSITORY TYPE CODE TESTS RESULT OUT OF RANGE REFERENCE UNITS LAB L501.0100 70-110 mg/dL Normal GLU 91 LAB L501.1000 7-18 mg/dL Normal BUN 16 LAB L501.1100 0.55-1.02 mg/dL Normal 0.80 CREAT,SERUM Result Comment: The validity of the calculated GFR AND GFRAA in patients over 70 years has not been determined. Clinical correlation is essential. LAB L501.1110 >60 mL/min Normal EST GFR 75 Result Comment: Non- GFR Calc LAB L501.1115 >60 mL/min Normal EST GFR - AA 90 Result Comment: GFR Calc LAB L501.1300 10-20 RATIO High BUN/CRE 20.1 LAB L501.1500 6.4-8.2 g/dL T Normal PROT 7.0 LAB L501.1800 3.2-5.0 g/dL Normal ALB 3.7 LAB L501.1950 2.2-4.2 g/dL Normal GLOB 3.3 LAB L501.2000 0.9-2.4 RATIO Normal A/G 1.1 LAB L501.2200 8.5-10.1 mg/dL CA Normal 9.3 LAB L501.4100 15-37 U/L Normal AST 15 LAB L501.4305 45-117 U/L Normal ALK P 84 LAB L501.4405 13-56 U/L Normal ALT 22 Result Comment: Please note revised ALT reference range effective 2017. LAB L501.4600 0.20-1.00 mg/dL Normal T BILI 0.70 LAB L501.5300 136-145 mmol/L Normal NA 141 LAB L501.5600 3.5-5.1 mmol/L Normal K 4.3 LAB L501.5900 98-107 mmol/L Normal CL 106 LAB L501.6100 21.0-32.0 mmol/L Normal CO2 27.0 LAB L501.6200 5-15 Normal GAP 8 Performed By: #### L500.4050 #### [facility] [address] [place], [address] ALLERGIES ALLERGIES DATE TYPE / CODE NAME / CODE REACTION SEVERITY SOURCE 02/07/2018 Drug Penicillins/F00 Itching Unknown [facility] Allergy/307 8431663(RXNORM) Hospital 906163(SNOM Repository ED CT) 02/07/2018 Drug Tetanus Swelling Unknown [facility] Allergy/416 [facility] 358558(SN Toxoid/[id number] Repository ED CT) 19(RXNORM) ENCOUNTERS ENCOUNTERS ADMIT/DISCHARGE ACCOUNT ADMITTING ENCOUNTER LOCATION SOURCE NUMBER CLASS 02/27/2018 [id number] Ambulatory BMSBuilding:[place] [facility] Repository 02/27/2018 [id number] Ambulatory [place] [facility] ing:[facility] Repository 02/07/2018/ [id number] Ambulatory BMSBuilding:B [place] [facility] 0 [facility] Repository 12/24/2017 [id number] Ambulatory [place] 6 [facility] Hospital ing:[facility] Repository 12/24/2017 [id number] Ambulatory BMSBuilding:[place] [facility] Repository 11/25/2017/ [id number] Ambulatory BMSBuilding:[place] [facility] 3 [facility] Repository 10/28/2017 [id number] Ambulatory [place] [facility] ing:MTLAB Repository 07/16/2017 [id number] Ambulatory [place] [facility] ing:OPBD Repository 06/18/2017 [id number] Ambulatory [place] [facility] ing:BFHLAB Repository 04/30/2017 [id number] Ambulatory [place] [facility] ing:MTLAB Repository PAYERS PAYERS ENCOUNTER GUARANTOR PAYER SUBSCRIBER SOURCE 02/27/2018 FIGUEROA [id number] Primary [place] Insurance[place] [facility] [place]: [id number] Hospital [address]Rlz: (330) [id number] Repository [phone] () Date:2507-69-77RJ [address] [place] [address]SK: 02/27/2018 Secondary NOT GIVENUNK [place] Insurance:SELF PAY [facility] Number: Effective Repository Date:2018-02-27 02/27/2018 FIGUEROA [id number] Primary [place] Insurance:AETTAYLOR TRANERB: [facility] [place]: [id number] Hospital [id number]: (330 [id number] Repository [phone] () Date:5453-07-39RU [address] [place] [address]AM: 02/27/2018 Secondary NOT GIVENUNK [place] Insurance:SELF PAY [facility] Number: Effective Repository Date:2018-02-07 02/07/2018 FIGUEROA Grady [id number] Primary [place] Insurance:AETNA [facility]: [id number] [facility] [address]Nau: (330) [id number] Repository [phone] ([phone]) Date:0512-83-31[address], [place] [address]UP: 02/07/2018 Secondary NOT GIVENUNK [place] Insurance:SELF PAY [facility] Number: Effective Repository Date:2018-02-07 12/24/2017 FIGUEROA Rasmussen [id number] Primary NOT GIVENUNK [place] Insurance:SELF PAY [facility] [address]Ihu: (330) Number: Effective Repository [phone] () Date:2017-12-23 12/24/2017 FIGUEROA Grady [id number] Primary [place] L [place] Insurance:AETNA [facility]: [id number] [address]Vqq: (330) [id number] Repository [phone] () Date:1108-88-42[address], [place] [address]SN: 12/24/2017 Secondary NOT GIVENUNK [place] Insurance:SELF PAY [facility] Number: Effective Repository Date:2017-10-25 11/25/2017 FIGUEROA Grady [id number] Primary [place] Insurance:[place]ETNA [place]OB[place] [facility] [place]: [id number] Hospital [address]Qwu: (330) [id number] Repository [phone] () Date:0902-56-18RY [address], [place] [address]TE: 11/25/2017 Secondary NOT GIVENUNK [place] Insurance:SELF PAY [facility] Number: Effective Repository Date:2017-10-25 10/28/2017 FIGUEROA [id number] Primary [place] L [place] Insurance:AETNA [facility]: [id number] Hospital [address]Zrp: (330) [id number] Repository [phone] () Date:3814-06-78[address], [place] [address]OV: 10/28/2017 Secondary NOT GIVENUNK [place] Insurance:SELF PAY [facility] Number: Effective Repository Date:2017-10-28 07/16/2017 FIGUEROA ALCALA3107 Primary [place] L [place] Insurance:AETNA MARCERDOB[facility] Number: [id number] Hospital [id number]: (330) [id number] Repository [phone] () Date:4369-06-24FA [address] [address]SX: 07/16/2017 Secondary NOT GIVENUNK [place] Insurance:SELF PAY [facility] Number: Effective Repository Date:2017-06-18 06/18/2017 FIGUEROA [id number] Primary [place] L [place] Insurance:AETNA MARCERDOB: [facility] Number: [id number] Hospital [address]Zmq: (330) [id number] Repository [phone] () Date:1787-27-39SZ [address], [place] [address]VD: 06/18/2017 Secondary NOT GIVENUNK [place] Insurance:SELF PAY [facility] Number: Effective Repository Date:2017-06-18 04/30/2017 Figueroa Alcala3107 Primary [place]STON L [place] Insurance:AETNA MARCERDOB[facility] Number: [id number] Hospital [address]Mgm: (576) [id number] Repository [phone] () Date:1260-18-80HE [address] [place] [address]TO: 04/30/2017 Secondary NOT GIVENUNK [place] Insurance:SELF PAY [facility]: Effective Repository Date:2017-04-30
== END ==
PROVIDERS: Family Provider Family Medicine; PCP Family Medicine; Referring Provider Internal Medicine Cardiovascular Disease; Visit Provider Internal Medicine Cardiovascular Disease
DX: I25.10 Atherosclerotic heart disease of native coronary artery without angina pectoris (principal); I48.91 Unspecified atrial fibrillation; E78.5 Hyperlipidemia, unspecified; I10 Essential (primary) hypertension; I97.89 Other postprocedural complications and disorders of the circulatory system, not elsewhere classified; Z95.1 Presence of aortocoronary bypass graft
CPT/HCPCS: 78452; 93017; 93306; A9500; Q9957; A4216; C8929

== ENCOUNTER → 2018-04-17 10:42 | Outpatient (CLI) | payer MEDICARE, SELFPAY ==
[2018-04-17 12:18] LABS: Absolute Lymphocyte Count 0.65 X10^3/ul (0.83-4.51); Absolute Neutrophil Count 2.9 X10^3/uL (2.0-7.7); Basophil# 0.01 X10^3/uL; Basophil% 0.3 % (0-1); Eosinophil# 0.14 X10^3/uL; Eosinophils% 3.6 % (0-5); Hematocrit 43.8 % (37-47); Hemoglobin 14.5 g/dl (12.0-15.0); Lymphocyte # 0.65 X10^3/ul (4.0); Lymphocyte % 16.5 % (19-41); Mean Corp Hgb Conc 33.1 g/gl (32-36); Mean Corpuscular Volume 93.8 fL (81-99); Mean Platelet Vol. 10.5 fl (6.2-12.0); Monocyte# 0.24 X10^3/uL; Monocyte% 6.1 % (0-10); Neutrophil # 2.88 X10^3/uL (2.7-7.7); Neutrophil % 73.2 % (47-70); Platelet Count 214 K/mm3 (150-450); RBC Distribution Width SD 43.4 fl (35.1-43.9); Red Blood Count 4.67 M/mm3 (4.2-5.4); White Blood Count 3.9 K/mm3 (4.4-11.0)
[2018-04-17 12:24] LABS: POSITIVE COUNT NO; POSITIVE DIFFERENTIAL NO; POSITIVE MORPHOLOGY NO
[2018-04-17 12:54] LABS: ALB/GLOB Ratio 1.1 RATIO (0.9-2.4); AST(SGOT) 16 U/L (15-37); Alanine Aminotransfer ALT/SGPT 25 U/L (13-56); Albumin, Serum 3.6 g/dL (3.2-5.0); Alkaline Phosphatase 72 U/L (45-117); Anion Gap 12 (5-15); BUN 17 mg/dL (7-18); BUN/Creat Ratio 20.2 RATIO (10-20); Calcium,Total 9.4 mg/dL (8.5-10.1); Chloride 108 mmol/L (98-107); Creatinine, Serum 0.84 mg/dL (0.55-1.02); EST Glomerular Filtration Rate 70 mL/min (>60); Est Glom Filt Rate - Afr Amer 84 mL/min (>60); Globulin 3.2 g/dL (2.2-4.2); Glucose 146 mg/dL (74-106); Potassium 4.1 mmol/L (3.5-5.1); Protein, Total 6.8 g/dL (6.4-8.2); Sodium Level 140 mmol/L (136-145)
--- OUTSIDE RECORDS SUMMARY | 2018-06-22 01:31 | XMS RPT_ITS ---
:1940 Author Organization OHIP Support Name Relationship Address Phone FIGUEROA ALCALA Unavailable [address] + [place] [address] R Unavailable Unavailable Unavailable FIGUEROA ALCALA Unavailable [address] + [place] [address] R Unavailable Unavailable Unavailable FIGUEROA ALCALA Unavailable [address] + [place] [address] R Unavailable Unavailable Unavailable FIGUEROA ALCALA Unavailable [address] + [place] [address] R Unavailable Unavailable Unavailable FIGUEROA ALCALA Unavailable [address] + [place] [address] R Unavailable Unavailable Unavailable FIGUEROA ALCALA Unavailable [address] + [place] [address] R Unavailable Unavailable Unavailable FIGUEROA ALCALA Unavailable [address] + [place] [address] R Unavailable Unavailable Unavailable FIGUEROA ALCALA Unavailable [address] + [place] [address] R Unavailable Unavailable Unavailable FIGUEROA ALCALA Unavailable [address] + [place] [address] R Unavailable Unavailable Unavailable FIGUEROA ALCALA Unavailable [address] + [place] [address] R Unavailable Unavailable Unavailable FIGUEROA ALCALA Unavailable [address] + [place] [address] R Unavailable Unavailable Unavailable Care Team Providers Name Role Phone Elan Barrios Attending Unavailable Elan Barrios Referring Unavailable Elan Barrios Attending Unavailable Elan Barrios Referring Unavailable Jovanna Parish Attending Unavailable Jovanna Parish Referring Unavailable Mayuri Salas Primary Care Unavailable Mayuri Salas Attending Unavailable Josue, Mayuri Primary Care Unavailable Josue, Mayuri Attending Unavailable Josue, Mayuri Primary Care Unavailable Vellansantos, Jovanna Attending Unavailable Vellansantos, Jovanna Referring Unavailable Josue, Mayuri Primary Care Unavailable Vellanki, Jovanna Attending Unavailable Vellanki, Jovanna Referring Unavailable Josue, Mayuri Primary Care Unavailable Ayush Figueroa Desouza Attending Unavailable Josue, Mayuri Referring Unavailable Josue, Mayuri Primary Care Unavailable Roof, Figueroa H Attending Unavailable Josue, Mayuri Primary Care Unavailable Moodisadriano, Elan Attending Unavailable Josue, Mayuri Referring Unavailable Moodispaw, Elan Attending Unavailable Moodispaw, Elan Referring Unavailable Josue, Mayuri Primary Care Unavailable PROBLEMS PROBLEMS DATE TYPE CONDITION / CODE ATTENDING STATUS SOURCE 02/27/2018 Unknown I10 - Essential MoodElan soto Active [place] (primary) Community hypertension / Hospital I10(ICD-10) Repository 02/27/2018 Unknown I25.10 - MoodispaElan jensen Active [place] Atherosclerotic heart Community disease of [facility] coronary artery Repository without angina pectoris / I25.10(ICD-10) 02/27/2018 Unknown I97.89 - Other MoodispaElan jensen Active [place] postprocedural Community complications and Hospital disorders of the Repository circulatory system, not elsewhere classified / I97.89(ICD-10) 02/27/2018 Unknown I48.91 - Unspecified MoodisElan [place] Active [place] atrial fibrillation / Community I48.91(ICD-10) Hospital Repository 02/27/2018 Unknown Z95.1 - Presence of Elan Barrios Active [place] aortocoronary bypass Community graft / Z95.1(ICD-10) Hospital Repository 02/27/2018 Unknown E78.5 - MoodispaElan jensen Active [place] Hyperlipidemia, Community unspecified / Hospital E78.5(ICD-10) Repository 03/14/2018 Unknown R00.2 - Palpitations Elan Barrios Active [place] / R00.2(ICD-10) Community Hospital Repository 10/28/2017 Unknown 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 / Community M06.4(ICD-10) Hospital Repository 10/28/2017 Unknown 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, Community unspecified / Hospital M15.9(ICD-10) Repository 10/28/2017 Unknown K21.0 - Jovanna Parish Active [place] Gastro-esophageal Community reflux disease with Hospital esophagitis / Repository K21.0(ICD-10) 10/28/2017 Unknown M47.897 - Other Jovanna Parish Active [place] spondylosis, Community lumbosacral region / Hospital M47.897(ICD-10) Repository 10/28/2017 Unknown M16.11 - Unilateral oJvanna Parish Active [place] primary Community osteoarthritis, right Hospital hip / M16.11(ICD-10) Repository 06/18/2017 Unknown M81.0 - Age-related Mayuri Salas Active [place] osteoporosis without Community current pathological Hospital fracture / Repository M81.0(ICD-10) PROCEDURES PROCEDURES No Procedure Records FoundRESULTS RESULTS CBC W/DIFF, AUTOMATED Collected: 04/17/2018 Status: F Source: [place] 10:45 AM [facility] RE[facility] TYPE CODE TESTS RESULT OUT OF RANGE REFERENCE UNITS LAB L100.1000 4.4-11.0 K/mm3 Low WBC 3.9 LAB L100.1200 4.2-5.4 M/mm3 Normal RBC 4.67 LAB L100.1300 12.0-15.0 g/dl Normal HGB 14.5 LAB L100.1400 37-47 % Normal HCT 43.8 LAB L100.1500 81-99 fL Normal MCV 93.8 LAB L100.1600 27.0-32.0 pg Normal MCH 31.0 LAB L100.1700 32-36 g/gl Normal MCHC 33.1 LAB L100.1810 11.6-14.6 % Normal RDW CV 13.0 LAB L100.1820 35.1-43.9 fl Normal RDW SD 43.4 LAB L100.1900 150-450 K/mm3 Normal PLT 214 LAB L100.2000 6.2-12.0 fl Normal MPV 10.5 LAB L100.2100 47-70 % High NEUT% 73.2 LAB L100.2200 19-41 % Low LY% 16.5 LAB L100.2300 0-10 % Normal MONO% 6.1 LAB L100.2400 0-5 % Normal EO% 3.6 LAB L100.2500 0-1 % Normal BASO% 0.3 LAB L100.2550 0.0-0.9 % Normal IM GRAN % 0.300 Result Comment: IG% - Immature Granulocytes (promyelocytes, myelocytes and metamyelocytes) > 1% indicates that a LEFT SHIFT is Present. LAB L100.2620 2.0-7.7 X10 3/uL Normal Absolute Neut 2.9 LAB L100.2720 0.83-4.51 X10 3/ul Low Absolute Lymph 0.65 Performed By: #### L100.0100 #### [facility] [place] [facility] [address] [place], [address] COMPREHENSIVE METABOLIC Collected: 04/17/2018 Status: F Source: [facility] 10:45 AM [facility] REPOSITORY TYPE CODE TESTS RESULT OUT OF RANGE REFERENCE UNITS LAB L501.0100 74-106 mg/dL High GLU 146 Result Comment: Fasting Glucose result greater than or equal to 126 mg/dL suggests DIABETES MELLITUS per A.D.A. criteria. Please note revised GLUCOSE reference range effective 2017. LAB L501.1000 7-18 mg/dL Normal BUN 17 LAB L501.1100 0.55-1.02 mg/dL Normal CREAT,SERUM 0.84 Result Comment: The validity of the calculated GFR AND GFRAA in patients over 70 years has not been determined. Clinical correlation is essential. LAB L501.1110 >60 mL/min Normal EST GFR 70 Result Comment: Non- GFR Calc LAB L501.1115 >60 mL/min Normal EST GFR - AA 84 Result Comment: GFR Calc LAB L501.1300 10-20 RATIO High BUN/CRE 20.2 LAB L501.1500 6.4-8.2 g/dL T Normal PROT 6.8 LAB L501.1800 3.2-5.0 g/dL Normal ALB 3.6 LAB L501.1950 2.2-4.2 g/dL Normal GLOB 3.2 LAB L501.2000 0.9-2.4 RATIO Normal A/G 1.1 LAB L501.2200 8.5-10.1 mg/dL CA Normal 9.4 LAB L501.4100 15-37 U/L Normal AST 16 Result Comment: Slight Hemolysis, Result may be falsely increased. LAB L501.4305 45-117 U/L Normal ALK P 72 LAB L501.4405 13-56 U/L Normal ALT 25 LAB L501.4600 0.20-1.00 mg/dL Normal T BILI 0.50 LAB L501.5300 136-145 mmol/L Normal NA 140 LAB L501.5600 3.5-5.1 mmol/L Normal K 4.1 Result Comment: Slight Hemolysis, Result may be falsely increased. LAB L501.5900 98-107 mmol/L High CL 108 LAB L501.6100 21.0-32.0 mmol/L Low CO2 20.0 LAB L501.6200 5-15 Normal GAP 12 Performed By: #### L500.4050 #### [facility] [place] [facility] [address] [place], [address] ECHO, COMPLETE W/ Observed: 02/27/2018 Status: F Source: [place] CONTRAST 2:14 PM [facility] REPOSITORY [facility] Cardiovascular Services [address] [place] [address] Echo Complete W/ Contrast 02/27/18 0929 MR#: [id number] Acct: [id number] Name: WESTON ALCALA Rep #: [id number] : 1940 77 From: Elan Barrios MD Attending Dr: Elan Barrios MD Status: REG CLI Ordering Dr: Elan Barrios MD Date: 02/27/18 Location: [facility] Sex: F C Admitted: Reason For Study: [...] Referring Physician: MAYURI SALAS Performed By: Aziza Chilel RDCS, RVT 02/27/18 1413 Date Elan Barrios MD CC: Mayuri Salas DO; Elan Barrios MD Date Dictated: 02/27/18928 Date Transcribed: 02/27/18 141 Rn Building: Signed STRESS REPORT Observed: 02/27/2018 Status: F Source: [place] 9:32 AM [facility] REPOSITORY [facility] Cardiovascular Services [address] [place] [address] MR#: [id number] Acct: [id number] Name: WESTON ALCALA Rep #: [id number] : 1940 77 From: Elan Barrios MD Primary Care: Mayuri Salas DO Status: REG CLI Ordering Dr: Sex: F C Stress Test Report Date: 02/27/2018 Procedure: Exercise tolerance test/imaging study Indications: Shortness of breath/dyspnea; CAD; CABG; non-ST segment elevation GA; paroxysmal atrial fibrillation Consent: Per the patient [...] 88 %. This note was generated with Placester software. It may contain incorrect words, spelling, and punctuation that were not noted in checking the note before signing. 02/27/18931 <Electronically signed by Elan Barrios MD> Date Elan Barrios MD CC: Mayuri Salas DO; Elan Barrios MD Date Dictated: 02/27/18925 Date Transcribed: 02/27/18925 Rn Building: PM Signed CARDIOLOGY VISIT Observed: 02/07/2018 Status: F Source: [place] REPORT 5:44 PM [facility] REPOSITORY [place] [facility] [address] [place] [address] OFFICE VISIT Date of Service: 02/07/18 MR#: [id number] Acct: [id number] Name: WESTON ALCALA Rep #: [id number] : 1940 Provider: Elan Barrios MD Age/Sex: 77/F Location: [facility] Status: Signed HPI HPI [...] [Tetanus Vaccines AND Toxoid] Adverse Reaction (Verified 02/07/18:) Swelling Medications Aspirin E.C. [Ecotrin] 81 mg [...] DAILY PRN cap 02/07/18 [History Confirmed 02/07/18] [facility] Medical History Hyperlipemia (Chronic) Essential hypertension [...] regurgitation. Assessment AND Plan 1. Atherosclerosis of [place] coronary artery of [place] heart without angina pectoris I25.10 S/P CABG [...] Code Off vis,est,level 4 Diagnoses Atherosclerosis of [place] coronary artery of [place] heart without angina pectoris I25.10 History of coronary artery bypass graft Z95.1 Postoperative atrial fibrillation I97.89; I48.91 Hyperlipidemia, unspecified hyperlipidemia type E78.5 Hyperlipidemia type: unspecified Essential hypertension I10 Statin intolerance Z78.9 Coding Level of Care Code Off vis,est,level 4 Diagnoses Atherosclerosis of [place] coronary artery of [place] heart without angina pectoris I25.10 History of coronary artery bypass graft Z95.1 Postoperative atrial fibrillation I97.89; I48.91 Hyperlipidemia, unspecified hyperlipidemia type E78.5 Hyperlipidemia type: unspecified Essential hypertension I10 Statin intolerance Z78.9 02/07/18 1744 <Electronically signed by Elan Barrios MD> Date Elan Barrios MD Cosigner Signature: Date (if applicable) CC: Mayuri Salas DO CARDIOLOGY VISIT Observed: 11/25/2017 Status: F Source: [place] REPORT 4:41 PM [facility] REPOSITORY [place] [facility] [address] [place] [address] OFFICE VISIT Date of Service: 11/25/17 MR#: [id number] Acct: [id number] Name: WESTON ALCALA Rep #: [id number] : 1940 Provider: ASHLEY Peacock Age/Sex: 76/F Location: [facility] Status: Signed HPI HPI [...] brachial Intake Visit Reasons: 6 M FU Registration Scheduling Specialist Required: No Accompanied by: None Is patient [...] regurgitation. Assessment AND Plan 1. Atherosclerosis of [place] coronary artery of [place] heart without angina pectoris I25.10 S/P CABG [...] prior to saving. 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) 14 Months Coding Level of Care Code Off vis,est,level 3 Diagnoses Atherosclerosis of [place] coronary artery of [place] heart without angina pectoris I25.10 History of coronary artery bypass graft Z95.1 Palpitations R00.2 Essential hypertension I10 Hypertension type: essential hypertension Dyslipidemia E78.5 Statin intolerance Z78.9 Coding Level of Care Code Off vis,est,level 3 Diagnoses Atherosclerosis of [place] coronary artery of [place] heart without angina pectoris I25.10 History of coronary artery bypass graft Z95.1 Palpitations R00.2 Essential hypertension I10 Hypertension type: essential hypertension Dyslipidemia E78.5 Statin intolerance Z78.9 11/25/17 1641 <Electronically signed by Figueroa VICK> Date Figueroa VICK Cosigner Signature: Date (if applicable) CC: Mayuri Salas DO CBC W/DIFF, AUTOMATED Collected: 10/28/2017 Status: F Source: [place] 7:35 AM [facility] REPOSITORY TYPE CODE TESTS RESULT OUT [...] Lymph 1.04 Performed By: #### L100.0100 #### [facility] [address] [place], [address] COMPREHENSIVE METABOLIC Collected: 10/28/2017 Status: F Source: [facility] 7:35 AM [facility] REPOSITORY TYPE CODE TESTS RESULT OUT [...] GAP 9 Performed By: #### L500.4050 #### [facility] [place] [facility] [address] [facility] [place], [address] DEXA BONE DENSITY Observed: 07/16/2017 Status: F Source: [place] STUDY 12:33 PM [facility] REPOSITORY [facility] Imaging Services [address] [place] [address] Dexa Bone Density Study MR#: [id number] Acct: [id number] Name: WESTON ALCALA Rep #: [id number] : 1940 F 76 From: Matty Hannah MD PCP: Mayuri Salas DO Status: REG CLI Study: Dexa Bone Density Study Date of Exam: 07/16/17 Exam# [id number] Ordering Dr: Mayuri Salas DO STUDY: DUAL [...] Matty Hannah MD at 15:49 EDT Tel [phone], Service support , CC: Mayuri Salas DO Rn Building: Signed SCREENING MAMM (CAD), Observed: 07/16/2017 Status: F Source: [place] BILAT 12:33 PM [facility] REPOSITORY [facility] Imaging Services [address] [place] [address] SCREENING MAMM (CAD), BILAT MR#: [id number] Acct: [id number] Name: WESTON ALCALA Rep #: [id number] : 1940 F 76 From: Matty Hannah MD PCP: Mayuri Salas DO Status: REG CLI Study: SCREENING MAMM (CAD), BILAT Date of Exam: 07/16/17 Exam# [id number] Ordering Dr: Mayuri Salas DO MAMMOGRAPHY - [...] delay biopsy of a clinically suspicious abnormality. [id number] Electronically Signed: Matty [place] MD at 8:19 EDT Tel [phone], Service support , CC: Mayuri Salas DO Rn Building: Signed LIPID PROFILE Collected: 06/18/2017 Status: F Source: [place] 9:23 AM [facility] REPOSITORY TYPE CODE TESTS RESULT OUT [...] VLDL 37 Performed By: #### L500.4100 #### [facility] [place] [facility] [address] [place], [place], [address] VITAMIN D,25 HYDROXY Collected: 06/18/2017 Status: F Source: [place] 9:23 AM [facility] REPOSITORY TYPE CODE TESTS RESULT OUT OF REFERENCE UNITS RANGE LAB L506.1000 29.95-100.01 ng/mL Low Vitamin D 25.6 25-OH Result Comment: Vitamin D 25(OH) Status Range Deficiency <20 ng/mL (50nmol/L) Insuffciency 20 - 30 ng/mL (50 - 75 nmol/L) Sufficiency 30 - 100 ng/mL (75 - 250 nmol/L) Toxicity >100 ng/mL (>250 nmol/L) Performed By: #### L506.1000 #### [facility] [address] [place], [address] CBC W/DIFF, AUTOMATED Collected: 04/30/2017 Status: F Source: [place] 10:51 AM [facility] REPOSITORY TYPE CODE TESTS RESULT OUT [...] Lymph 0.93 Performed By: #### L100.0100 #### [facility] [address] [place], [place], [address] COMPREHENSIVE METABOLIC Collected: 04/30/2017 Status: F Source: [facility] 10:51 AM [facility] REPOSITORY TYPE CODE TESTS RESULT OUT [...] GAP 8 Performed By: #### L500.4050 #### [facility] [address] [facility] [place], [address] ALLERGIES ALLERGIES DATE TYPE / CODE NAME / CODE REACTION SEVERITY SOURCE 02/07/2018 Drug Penicillins/F00 Itching Unknown [facility] Allergy/176 5530187(RXNORM) Hospital 619504(SNOM Repository ED CT) 02/07/2018 Drug Tetanus Swelling Unknown [facility] Allergy/416 Vaccines and Hospital 529586([facility] Toxoid/[id number] Repository ED CT) 19(RXNORM) ENCOUNTERS ENCOUNTERS ADMIT/DISCHARGE ACCOUNT ADMITTING ENCOUNTER LOCATION SOURCE NUMBER CLASS 04/17/2018 [id number] Ambulatory [place] 6 [facility] Hospital ing:MTLAB Repository 02/27/2018 [id number] Ambulatory BMSBuilding:W [place] 9 [facility] Repository 02/27/2018 [id number] Ambulatory [place] 8 [facility] Hospital ing:[facility] Repository 02/07/2018/ [id number] Ambulatory BMSBuilding:B [place] 8 0 [facility] Repository 12/24/2017 [id number] Ambulatory [place] 6 [facility] ing:[facility] Repository 12/24/2017 [id number] Ambulatory BMSBuilding:W [place] 9 [facility] Repository 11/25/2017/ [id number] Ambulatory BMSBuilding:B [place] 8 3 [facility] Repository 10/28/2017 [id number] Ambulatory [place] 2 [facility] Hospital ing:MTLAB Repository 07/16/2017 [id number] Amb[place] 8 [facility] Hospital ing:OPBD Repository 06/18/2017 [id number] Ambulatory [place] 9 [facility] Hospital ing:BFHLAB Repository 04/30/2017 [id number] Ambulatory [place] 0 [facility] Hospital ing:MTLAB Repository PAYERS PAYERS ENCOUNTER GUARANTOR PAYER SUBSCRIBER SOURCE 04/17/2018 FIGUEROA ALCALA3107 Primary WESTON L [place] [address] Insurance:NOLA MARINB: [facility] Number: [id number] Hospital [address]Djd: (325) [id number] Repository [phone] () Date:1857-36-52CO [address] [place] [address]YC: 04/17/2018 Secondary NOT GIVENUNK [place] Insurance:SELF PAY [facility] Number: Effective Repository Date:2018-04-17 02/27/2018 FIGUEROA ARMENTA07 Primary WESTON L [place] [address] Insurance[facility]NOLA MARINB[facility]: [id number] Hospital 67234Kex: (330) [id number] Repository [phone] (HP) Date:3863-06-81JJ [address], [place] [address]HR: 02/27/2018 Secondary NOT GIVENUNK [place] Insurance:SELF PAY [facility] Number: Effective Repository Date:2018-02-27 02/27/2018 FIGUEROA ALCALA3107 Primary WESTON L [place] [address] Insurance:AETTAYLOR MARINB: [facility]: [id number] Hospital 63300Pgt: (330) [id number] Repository [phone] () Date:1310-88-23AU [address], [place] [address]BR: 02/27/2018 Secondary NOT GIVENUNK [place] Insurance:SELF PAY [facility] Number: Effective Repository Date:2018-02-07 02/07/2018 FIGUEROA ALCALA3107 Primary WESTON L [place] [address] Insurance:AEKYLE MARINB[facility] Number: [id number] Hospital [address]29[address]Obj: (330) [id number] Repository [phone] () Date:5800-57-96SU [address] [place] [address]YB: 02/07/2018 Secondary NOT GIVENUNK [place] Insurance:SELF PAY [facility] Number: Effective Repository Date:2018-02-07 12/24/2017 FIGUEROA TRANER3107 Primary NOT GIVENUNK [place] [address] Insurance:SELF PAY [facility] [address]Pih: (330) Number: Effective Repository [phone] () Date:2017-12-23 12/24/2017 FIGUEROA TRANER3107 Primary WESTON L [place] [address] Insurance:AETNA MARLONDOB: [facility]: [id number] Hospital [address]Efh: (330) [id number] Repository [phone] (HP) Date:0663-40-91MB [address] [place], [place] [address]WH: 12/24/2017 Secondary NOT GIVENUNK [place] Insurance:SELF PAY [facility] Number: Effective Repository Date:2017-10-25 11/25/2017 FIGUEROA ALCALA3107 Primary WESTON L [place] [address] Insurance:AETNA HOWERDOB: [facility] luz [facility]: [id number] Hospital 18237Zvo: (330) [id number] Repository [phone] (HP) Date:5061-88-38MI [address] [place] [address]KE: 11/25/2017 Secondary NOT GIVENUNK [place] Insurance:SELF PAY [facility] Number: Effective Repository Date:2017-10-25 10/28/2017 FIGUEROA ALCALA3107 Primary WESTON L [place] [address] Insurance:AETNA HOWERDOB: [facility] luz [facility] Number: [id number] Hospital [address]Uat: (330) [id number] Repository [phone] (HP) Date:1853-09-81VY [address] [place] [address]WB: 10/28/2017 Secondary NOT GIVENUNK [place] Insurance:SELF PAY [facility] Number: Effective Repository Date:2017-10-28 07/16/2017 FIGUEROA ALCALA3107 Primary WESTON L [place] [address] Insurance:AETNA MARCERDOB: [facility]: [id number] Hospital 65[address]Rcu: (330) [id number] Repository [phone] (HP) Date:5849-09-17FN [address] [place] [address]YA: 07/16/2017 Secondary NOT GIVENUNK [place] Insurance:SELF PAY [facility] Number: Effective Repository Date:2017-06-18 06/18/2017 FIGUEROA ALCALA3107 Primary WESTON L [place] [address] Insurance:AETTAYLOR MARINB: [facility] Number: [id number] Hospital [address]Bvf: (330) [id number] Repository [phone] () Date:9469-19-40VJ [address], [place] [address]FQ: 06/18/2017 Secondary NOT GIVENUNK [place] Insurance:SELF PAY [facility] Number: Effective Repository Date:2017-06-18 04/30/2017 Figueroa Alcala3107 Primary WESTON L [place] Insurance:AETTAYLOR MARINB: [facility] Number: [id number] Hospital [address]Drx: (330) [id number] Repository [phone] () Date:3909-01-23XF [address], [place] [address]KO: 04/30/2017 Secondary NOT GIVENUNK [place] Insurance:SELF PAY [facility] Number: Effective Repository Date:2017-04-30
== END ==
PROVIDERS: Family Provider Family Medicine; PCP Family Medicine; Referring Provider Internal Medicine Rheumatology; Visit Provider Internal Medicine Rheumatology
DX: K21.0 Gastro-esophageal reflux disease with esophagitis (principal); M06.4 Inflammatory polyarthropathy; M47.897 Other spondylosis, lumbosacral region; M16.11 Unilateral primary osteoarthritis, right hip
CPT/HCPCS: 36415; 80053; 85025

== ENCOUNTER → 2018-06-13 10:51 | Outpatient (CLI) | payer MEDICARE, SELFPAY ==
[2018-05-28 11:01] VITALS: BMI 26.0
[2018-06-13 13:17] LABS: CRP < 2.90 mg/L (0.0-3.0); Cholesterol 218 mg/dL (200); High Density Lipoprotein 61 mg/dL; Triglycerides 159 mg/dL; Very Low Density Lipoprotein 32 mg/dL (5-40)
[2018-06-13 13:22] LABS: Vitamin D,25 Hydroxy 31.7 ng/mL (29.95-100.01)
== END ==
PROVIDERS: Family Provider Family Medicine; PCP Family Medicine; Visit Provider Family Medicine
DX: I10 Essential (primary) hypertension (principal); I25.10 Atherosclerotic heart disease of native coronary artery without angina pectoris; E55.9 Vitamin D deficiency, unspecified; M85.80 Other specified disorders of bone density and structure, unspecified site
CPT/HCPCS: 36415; 80061; 82306; 86140

== ENCOUNTER → 2018-10-09 | Outpatient (CLI) | payer MEDICARE, SELFPAY ==
[2018-05-28 11:01] VITALS: BMI 26.0
[2018-10-09 12:37] LABS: Absolute Lymphocyte Count 0.61 X10^3/ul (0.83-4.51); Absolute Neutrophil Count 2.2 X10^3/uL (2.0-7.7); Basophil# 0.03 X10^3/uL; Basophil% 0.8 % (0-1); Eosinophil# 0.27 X10^3/uL; Eosinophils% 7.6 % (0-5); Hematocrit 43.4 % (37-47); Hemoglobin 14.3 g/dl (12.0-15.0); Lymphocyte # 0.61 X10^3/ul (4.0); Lymphocyte % 17.2 % (19-41); Mean Corp Hgb Conc 32.9 g/gl (32-36); Mean Platelet Vol. 10.4 fl (6.2-12.0); Monocyte# 0.38 X10^3/uL; Monocyte% 10.7 % (0-10); Neutrophil # 2.24 X10^3/uL (2.7-7.7); Neutrophil % 63.4 % (47-70); Platelet Count 217 K/mm3 (150-450); RBC Distribution Width CV 13.1 % (11.6-14.6); RBC Distribution Width SD 42.9 fl (35.1-43.9); Red Blood Count 4.77 M/mm3 (4.2-5.4); White Blood Count 3.5 K/mm3 (4.4-11.0)
[2018-10-09 12:40] LABS: POSITIVE COUNT NO; POSITIVE DIFFERENTIAL NO; POSITIVE MORPHOLOGY NO
[2018-10-09 12:46] LABS: ALB/GLOB Ratio 1.1 RATIO (0.9-2.4); AST(SGOT) 17 U/L (15-37); Alanine Aminotransfer ALT/SGPT 22 U/L (13-56); Albumin, Serum 3.5 g/dL (3.2-5.0); Alkaline Phosphatase 74 U/L (45-117); Anion Gap 5 (5-15); BUN 14 mg/dL (7-18); BUN/Creat Ratio 16.9 RATIO (10-20); Chloride 110 mmol/L (98-107); Creatinine, Serum 0.83 mg/dL (0.55-1.02); EST Glomerular Filtration Rate 71 mL/min (>60); Est Glom Filt Rate - Afr Amer 86 mL/min (>60); Globulin 3.1 g/dL (2.2-4.2); Glucose 81 mg/dL (74-106); Potassium 4.2 mmol/L (3.5-5.1); Protein, Total 6.6 g/dL (6.4-8.2); Sodium Level 140 mmol/L (136-145)
== END | disposition home or self-care (01) ==
LOC: MTLAB 09:51
PROVIDERS: Family Provider Family Medicine; PCP Family Medicine; Referring Provider Internal Medicine Rheumatology; Visit Provider Internal Medicine Rheumatology
DX: M06.4 Inflammatory polyarthropathy (principal); K21.0 Gastro-esophageal reflux disease with esophagitis; M47.897 Other spondylosis, lumbosacral region; M16.11 Unilateral primary osteoarthritis, right hip; Q66.7 Congenital pes cavus; E78.5 Hyperlipidemia, unspecified; H93.13 Tinnitus, bilateral; M51.37 Other intervertebral disc degeneration, lumbosacral region; I25.10 Atherosclerotic heart disease of native coronary artery without angina pectoris; Z95.5 Presence of coronary angioplasty implant and graft
CPT/HCPCS: 36415; 80053; 85025

== ENCOUNTER → 2019-01-26 | Outpatient (CLI) | payer MEDICARE, SELFPAY ==
[2019-01-19 11:14] VITALS: BMI 26.7
[2019-01-26 12:45] LABS: AST(SGOT) 18 U/L (15-37); Alanine Aminotransfer ALT/SGPT 21 U/L (13-56); Albumin, Serum 3.8 g/dL (3.2-5.0); Alkaline Phosphatase 77 U/L (45-117); Cholesterol 236 mg/dL (200); Globulin 3.3 g/dL (2.2-4.2); High Density Lipoprotein 59 mg/dL; Protein, Total 7.1 g/dL (6.4-8.2); Triglycerides 240 mg/dL; Very Low Density Lipoprotein 48 mg/dL (5-40)
== END | disposition home or self-care (01) ==
LOC: MTLAB 09:59
PROVIDERS: Family Provider Family Medicine; PCP Family Medicine; Referring Provider Internal Medicine Cardiovascular Disease; Visit Provider Internal Medicine Cardiovascular Disease
DX: E78.00 Pure hypercholesterolemia, unspecified (principal)
CPT/HCPCS: 36415; 80061; 80076

== ENCOUNTER → 2019-04-13 10:21 | Outpatient (CLI) | payer MEDICARE, SELFPAY ==
[2019-01-19 11:14] VITALS: BMI 26.7
[2019-04-13 13:07] LABS: Absolute Lymphocyte Count 0.71 X10^3/uL (0.83-4.51); Absolute Neutrophil Count 2.6 X10^3/uL (2.0-7.7); Basophil# 0.02 X10^3/uL; Basophil% 0.5 % (0-1); Eosinophil# 0.08 X10^3/uL; Eosinophils% 2.2 % (0-5); Hematocrit 43.8 % (37-47); Hemoglobin 14.4 g/dL (12.0-15.0); Lymphocyte # 0.71 X10^3/ul (4.0); Lymphocyte % 19.2 % (19-41); Mean Corp Hgb Conc 32.9 g/dL (32-36); Mean Corpuscular Hgb 30.6 pg (27.0-32.0); Mean Platelet Vol. 10.2 fl (6.2-12.0); Monocyte# 0.29 X10^3/uL; Monocyte% 7.9 % (0-10); NRBC Flagged by Analyzer 0 % (0-5); Neutrophil # 2.57 X10^3/uL (2.7-7.7); Neutrophil % 69.7 % (47-70); Platelet Count 227 K/mm3 (150-450); RBC Distribution Width CV 12.6 % (11.6-14.6); RBC Distribution Width SD 43.2 fl (35.1-43.9); Red Blood Count 4.71 M/mm3 (4.2-5.4); White Blood Count 3.7 K/mm3 (4.4-11.0)
[2019-04-13 13:44] LABS: ALB/GLOB Ratio 1.3 RATIO (0.9-2.4); AST(SGOT) 16 U/L (15-37); Alanine Aminotransfer ALT/SGPT 20 U/L (13-56); Albumin, Serum 3.8 g/dL (3.2-5.0); Alkaline Phosphatase 73 U/L (45-117); Anion Gap 6 (5-15); BUN 10 mg/dL (7-18); BUN/Creat Ratio 12.5 RATIO (10-20); Calcium,Total 9.5 mg/dL (8.5-10.1); Chloride 111 mmol/L (98-107); EST Glomerular Filtration Rate 74 mL/min (>60); Est Glom Filt Rate - Afr Amer 90 mL/min (>60); Glucose 103 mg/dL (74-106); Potassium 4.1 mmol/L (3.5-5.1); Protein, Total 6.8 g/dL (6.4-8.2); Sodium Level 140 mmol/L (136-145)
[2019-05-02 13:57] VITALS: BMI 26.7
== END ==
PROVIDERS: Family Provider Family Medicine; PCP Family Medicine; Referring Provider Internal Medicine Rheumatology; Visit Provider Internal Medicine Rheumatology
DX: M06.4 Inflammatory polyarthropathy (principal); K21.0 Gastro-esophageal reflux disease with esophagitis; M47.897 Other spondylosis, lumbosacral region; M16.11 Unilateral primary osteoarthritis, right hip; E78.5 Hyperlipidemia, unspecified; H93.13 Tinnitus, bilateral; M51.37 Other intervertebral disc degeneration, lumbosacral region; I25.10 Atherosclerotic heart disease of native coronary artery without angina pectoris; Z95.1 Presence of aortocoronary bypass graft
CPT/HCPCS: 36415; 80053; 85025

== ENCOUNTER 2019-08-26 12:18 | Emergency (ER) | payer MEDICARE, SELFPAY ==
[2019-07-21 11:46] VITALS: BMI 26.7
[2019-08-26 12:20] VITALS: BP 117/82; PULSE 85; RESP 17; TEMP 36.1; O2SAT 95; BMI 26.4
--- NOTE | 2019-08-26 12:45 | CT_ITS ---
STUDY: CT ABDOMEN AND PELVIS WITH CONTRAST REASON FOR EXAM: Female, 78 years old. PT STATED RT ABDOMINAL PAIN, HX HTN, GERD, CABG, GAGE, TUBAL LIGATION, RT HIP REPLACEMENT RADIATION DOSAGE (If Supplied By Facility): CTDIvol = ( 10.75 ) mGy, DLP = ( 435.33 ) mGycm TECHNIQUE: Transaxial images were obtained from the dome of the diaphragm to the symphysis pubis without oral contrast. IV 100mL Isovue-300 was administered. Sagittal and coronal images were reconstructed. Individualized dose optimization techniques were used for this CT. COMPARISON: None. FINDINGS: Calcified granuloma in the left lower lobe. Prior CABG. There is decreased attenuation of the liver consistent with steatosis. There are surgical clips in the gallbladder fossa consistent with a prior cholecystectomy. Minimal dilatation of the central intrahepatic biliary ducts most likely secondary to the postcholecystectomy state. The distal common bile duct measures 7.1 mm. Normal spleen. Normal pancreas. Normal bilateral adrenal glands. Normal right kidney. There is a 1.7 cm cyst in the midportion of the left kidney. Normal visualized stomach. Normal small intestine. There are multiple colonic diverticula consistent with diverticulosis. Diverticulosis of the right hemicolon. The appendix is visualized and appears normal. There is diffuse atherosclerotic calcification of the abdominal aorta and major visceral branches., without a demonstrated aneurysm. Normal inferior vena cava. Normal retroperitoneum. Normal urinary bladder. There is a 2.4 cm x 2.1 cm cyst in the right ovary. There is also evidence of a 3.1 cm x 2.7 cm cyst in the left ovary. Normal abdominal wall. There are mild degenerative changes of the visualized lumbar spine. The patient is status post right total hip replacement. CT/Abdomen/Pelvis W IV Cont ONLY IMPRESSION: Bilateral ovarian cysts. Fatty infiltration of the liver. The patient is status post cholecystectomy. Small left renal cyst. Electronically Signed: Matty Hannah, at 15:03 EDT , Service support ,
--- NOTE | 2019-08-26 12:47 | RAD_ITS ---
STUDY: X-RAY - PELVIS AND RIGHT HIP REASON FOR EXAM: Female, 78 years old. CHRONIC PAIN, WORSE TODAY, NO INJURY TECHNIQUE: 3 views of the pelvis and hip. COMPARISON: Comparison is made with prior examination dated November 30, 2014 and April 12, 2015. FINDINGS: There is a non-specific bowel gas pattern. Contrast is seen within the urinary bladder most likely secondary to recent contrast injection. There are multiple calcified phleboliths. Normal bilateral iliac wings, sacroiliac joints and visualized sacrum. Normal bilateral superior and inferior pubic rami. Normal pubic symphysis. Normal bilateral ischial tuberosities. The patient is status post right total hip replacement. There is good alignment. No acute abnormality is seen. RAD/HIP, UNI W/ Pelvis 2-3 Views IMPRESSION: Status post right total hip replacement. No acute abnormality is seen. Electronically Signed: Matty Hannah, at 14:51 EDT , Service support ,
[2019-08-26] MEDS: Morphine 2 MG/ML Syringe IV (13:03)
[2019-08-26] MEDS: Ondansetron 4 MG/2 ML Vial IV (13:03)
[2019-08-26 13:05] LABS: Absolute Lymphocyte Count 0.47 X10^3/uL (0.83-4.51); Absolute Neutrophil Count 5.4 X10^3/uL (2.0-7.7); Basophil# 0.02 X10^3/uL; Basophil% 0.3 % (0-1); Eosinophil# 0.03 X10^3/uL; Eosinophils% 0.5 % (0-5); Hematocrit 42.3 % (37-47); Hemoglobin 13.9 g/dL (12.0-15.0); Lymphocyte # 0.47 X10^3/ul (4.0); Lymphocyte % 7.5 % (19-41); Mean Corp Hgb Conc 32.9 g/dL (32-36); Mean Corpuscular Hgb 31.2 pg (27.0-32.0); Mean Corpuscular Volume 95.1 fL (81-99); Mean Platelet Vol. 10.2 fl (6.2-12.0); Monocyte# 0.32 X10^3/uL; Monocyte% 5.1 % (0-10); NRBC Flagged by Analyzer 0 % (0-5); Neutrophil # 5.44 X10^3/uL (2.7-7.7); Neutrophil % 86.3 % (47-70); POSITIVE DIFFERENTIAL YES; Platelet Count 187 K/mm3 (150-450); RBC Distribution Width CV 12.7 % (11.6-14.6); RBC Distribution Width SD 44.1 fl (35.1-43.9); Red Blood Count 4.45 M/mm3 (4.2-5.4); White Blood Count 6.3 K/mm3 (4.4-11.0)
--- NOTE | 2019-08-26 13:13 | ED.DCSUM_ITS ---
- ER Visit Summary Date of Service: 08/26/19 Chief Complaint: Right hip pain History of Present Illness: The patient is a 78 F presenting with right hip pain. Patient states this started 2 days ago. She states she was planting jiménez before this started but does not believe this is related. No recent fa lls. She is able to ambulate. She tried Tylenol this morning. She has pain in her right posterior hip/buttock. Pain does not radiate to her leg. Denies numbness or weakness. Denies bowel or bladder incontinence. She states she also has right lower abdominal pain. She denies nausea or vomiting. Denies urinary complaints. Denies other complaints. Physical Examination: Vitals are stable. Patient is afebrile. Alert no acute distress. HEENT exam is unremarkable. Neck is supple. Lungs are clear and equal bilaterally. Heart is regular rate and rhythm. Abdomen is soft mild right lower quadrant tenderness no guarding or rebound Back: Tenderness of the right sciatic notch. No midline tenderness Extremities right hip nontender to palpation. No pain with logrolling Skin is warm and dry. No focal neurologic deficit. Remainder of exam is unremarkable. Emergency Department Course and Treatment: She was given morphine, Zofran IV. CBC unremarkable. Right hip x-ray and CT abdomen are pending. This will be checked out to the oncoming physician. Disposition: Pending Impression: Right hip pain This note was generated with makemoji dictation software. It may contain incorrect words, spelling, and punctuation that were not noted in review of the chart prior to signing ED Disposition - Plan for ED Patient: Referrals: Joss Salas DO [Primary Care Provider] -
--- NOTE | 2019-08-26 13:13 | NURSING ---
CHEMISTRIES HEMOLIZED
[2019-08-26 13:30] LABS: Differential Indicated SCAN CRITERIA MET
[2019-08-26 13:37] LABS: Differential Comment SCANNED
[2019-08-26 14:14] LABS: Anion Gap 6 (5-15); BUN 19 mg/dL (7-18); BUN/Creat Ratio 24.5 RATIO (10-20); Chloride 113 mmol/L (98-107); Creatinine, Serum 0.78 mg/dL (0.55-1.02); EST Glomerular Filtration Rate 76 mL/min (>60); Est Glom Filt Rate - Afr Amer 92 mL/min (>60); Estimated Creatinine Clearance 38.35 ml/min; Glucose 124 mg/dL (74-106); Potassium 4.1 mmol/L (3.5-5.1); Sodium Level 141 mmol/L (136-145)
--- NOTE | 2019-08-26 14:26 | ED.DEP ---
ED Disposition - Plan for ED Patient: Instructions: Understanding Sciatica Prescriptions: Hydrocodone Bitart/Apap 5-325 [[place] 5MG-325MG] 1 tablet PO Q6H PRN PRN 3 Days #10 tablet PRN Reason: Pain Referrals: Joss Salas DO [Primary Care Provider] -
[2019-08-26 14:49] LABS: Bacteria 0 SEEN /hpf (None Seen); Mucous, Urine 0 SEEN /hpf (<or=2+); Red Blood Cells-Urine 0 SEEN /hpf (0-5)
[2019-08-26 14:53] LABS: Color, Urine Yellow (Yellow); Glucose, Dipstick Normal (Normal); Ketone-Dipstick Negative (Negative); Leukocyte Esterase-Dipstick 25 /ul (Negative); Nitrite-Dipstick Negative (Negative); Occult Blood-Urine Negative /ul (Negative); Protein-Dipstick Negative (Negative); Urine Bilirubin Dipstick Negative (Negative); Urine Clarity Sl. Cloudy (Clear); Urine Urobilinogen Normal (Normal); Urine pH 6.5 (5.0 - 8.0)
[2019-08-26 15:04] VITALS: BP 123/71; PULSE 67; RESP 16; O2SAT 96
[2019-08-26 15:05] LABS: Squamous Epithelial Cells - UA 0-5 SEEN /hpf (5-10); White Blood Cells 0-5 SEEN /hpf (0-5)
--- NOTE | 2019-08-26 15:28 | ED.RN ---
pt very pleasant
== END 2019-08-26 15:28 | disposition home or self-care (01) ==
LOC: ED 13:12
PROVIDERS: Emergency Provider Emergency Medicine; PCP Family Medicine
DX: M25.551 Pain in right hip (principal); M54.30 Sciatica, unspecified side; I25.10 Atherosclerotic heart disease of native coronary artery without angina pectoris; I10 Essential (primary) hypertension; Z95.1 Presence of aortocoronary bypass graft; Z79.899 Other long term (current) drug therapy; Z79.82 Long term (current) use of aspirin; K21.9 Gastro-esophageal reflux disease without esophagitis
CPT/HCPCS: 73502; 74177; 80048; 81001; 85025; 96374; 96375; 99284; Q9967; A4216; J2405

== ENCOUNTER → 2019-09-24 12:21 | Outpatient (CLI) | payer MEDICARE, SELFPAY ==
[2019-08-26 12:20] VITALS: BMI 26.4
[2019-09-24 15:18] LABS: Absolute Lymphocyte Count 0.94 X10^3/uL (0.83-4.51); Absolute Neutrophil Count 2.9 X10^3/uL (2.0-7.7); Basophil# 0.02 X10^3/uL; Basophil% 0.5 % (0-1); Eosinophil# 0.09 X10^3/uL; Eosinophils% 2.1 % (0-5); Hematocrit 45.1 % (37-47); Hemoglobin 14.1 g/dL (12.0-15.0); Lymphocyte # 0.94 X10^3/ul (4.0); Lymphocyte % 21.7 % (19-41); Mean Corp Hgb Conc 31.3 g/dL (32-36); Mean Corpuscular Hgb 30.4 pg (27.0-32.0); Mean Corpuscular Volume 97.2 fL (81-99); Mean Platelet Vol. 10.3 fl (6.2-12.0); Monocyte# 0.37 X10^3/uL; Monocyte% 8.5 % (0-10); NRBC Flagged by Analyzer 0 % (0-5); Neutrophil # 2.91 X10^3/uL (2.7-7.7); Platelet Count 239 K/mm3 (150-450); RBC Distribution Width CV 12.8 % (11.6-14.6); RBC Distribution Width SD 45.5 fl (35.1-43.9); Red Blood Count 4.64 M/mm3 (4.2-5.4); White Blood Count 4.3 K/mm3 (4.4-11.0)
[2019-09-24 15:36] LABS: ALB/GLOB Ratio 1.1 RATIO (0.9-2.4); AST(SGOT) 16 U/L (15-37); Alanine Aminotransfer ALT/SGPT 23 U/L (13-56); Albumin, Serum 3.6 g/dL (3.2-5.0); Alkaline Phosphatase 73 U/L (45-117); Anion Gap 8 (5-15); BUN 13 mg/dL (7-18); BUN/Creat Ratio 16.2 RATIO (10-20); Calcium,Total 9.7 mg/dL (8.5-10.1); Chloride 109 mmol/L (98-107); EST Glomerular Filtration Rate 74 mL/min (>60); Est Glom Filt Rate - Afr Amer 89 mL/min (>60); Globulin 3.2 g/dL (2.2-4.2); Glucose 101 mg/dL (74-106); Potassium 4.2 mmol/L (3.5-5.1); Protein, Total 6.8 g/dL (6.4-8.2); Sodium Level 140 mmol/L (136-145)
== END ==
PROVIDERS: PCP Family Medicine; Referring Provider Internal Medicine Rheumatology; Visit Provider Internal Medicine Rheumatology
DX: M06.4 Inflammatory polyarthropathy (principal); K21.0 Gastro-esophageal reflux disease with esophagitis; M47.897 Other spondylosis, lumbosacral region; M16.11 Unilateral primary osteoarthritis, right hip; E78.5 Hyperlipidemia, unspecified; H93.13 Tinnitus, bilateral; M51.37 Other intervertebral disc degeneration, lumbosacral region; I25.10 Atherosclerotic heart disease of native coronary artery without angina pectoris; I97.89 Other postprocedural complications and disorders of the circulatory system, not elsewhere classified
CPT/HCPCS: 36415; 80053; 85025

== ENCOUNTER → 2020-03-28 11:50 | Outpatient (CLI) | payer MEDICARE, SELFPAY ==
[2020-03-28 15:22] LABS: Absolute Lymphocyte Count 0.78 X10^3/uL (0.83-4.51); Basophil# 0.02 X10^3/uL; Basophil% 0.5 % (0-1); Eosinophil# 0.07 X10^3/uL; Eosinophils% 1.7 % (0-5); Hematocrit 42.5 % (37-47); Hemoglobin 13.8 g/dL (12.0-15.0); Lymphocyte # 0.78 X10^3/ul (4.0); Lymphocyte % 18.8 % (19-41); Mean Corp Hgb Conc 32.5 g/dL (32-36); Mean Corpuscular Volume 92.4 fL (81-99); Mean Platelet Vol. 10.2 fl (6.2-12.0); Monocyte# 0.31 X10^3/uL; Monocyte% 7.5 % (0-10); NRBC Flagged by Analyzer 0 % (0-5); Neutrophil # 2.97 X10^3/uL (2.7-7.7); Neutrophil % 71.3 % (47-70); Platelet Count 203 K/mm3 (150-450); RBC Distribution Width CV 12.6 % (11.6-14.6); White Blood Count 4.2 K/mm3 (4.4-11.0)
[2020-03-28 16:08] LABS: ALB/GLOB Ratio 1.2 RATIO (0.9-2.4); AST(SGOT) 19 U/L (15-37); Alanine Aminotransfer ALT/SGPT 24 U/L (13-56); Albumin, Serum 3.5 g/dL (3.2-5.0); Alkaline Phosphatase 75 U/L (45-117); Anion Gap 8 (5-15); BUN 16 mg/dL (7-18); BUN/Creat Ratio 21.2 RATIO (10-20); Calcium,Total 9.5 mg/dL (8.5-10.1); Chloride 108 mmol/L (98-107); Creatinine, Serum 0.76 mg/dL (0.55-1.02); EST Glomerular Filtration Rate 79 mL/min (>60); Est Glom Filt Rate - Afr Amer 95 mL/min (>60); Glucose 82 mg/dL (74-106); Potassium 4.2 mmol/L (3.5-5.1); Protein, Total 6.5 g/dL (6.4-8.2); Sodium Level 139 mmol/L (136-145)
== END ==
PROVIDERS: PCP Family Medicine; Referring Provider Internal Medicine Rheumatology; Visit Provider Internal Medicine Rheumatology
DX: M06.4 Inflammatory polyarthropathy (principal); M47.897 Other spondylosis, lumbosacral region; M16.11 Unilateral primary osteoarthritis, right hip
CPT/HCPCS: 36415; 80053; 85025

== ENCOUNTER → 2020-04-19 09:05 | Outpatient (CLI) | payer MEDICARE, SELFPAY ==
[2020-04-18 15:04] VITALS: BMI 26.4
[2020-04-19 10:22] LABS: AST(SGOT) 14 U/L (15-37); Alanine Aminotransfer ALT/SGPT 19 U/L (13-56); Albumin, Serum 3.6 g/dL (3.2-5.0); Alkaline Phosphatase 80 U/L (45-117); Bilirubin, Direct 0.11 mg/dL (0.00-0.30); Cholesterol 212 mg/dL (200); Globulin 3.2 g/dL (2.2-4.2); High Density Lipoprotein 60 mg/dL; Protein, Total 6.8 g/dL (6.4-8.2); Triglycerides 152 mg/dL; Very Low Density Lipoprotein 30 mg/dL (5-40)
== END ==
PROVIDERS: PCP Family Medicine; Referring Provider Internal Medicine Cardiovascular Disease; Visit Provider Internal Medicine Cardiovascular Disease
DX: E78.00 Pure hypercholesterolemia, unspecified (principal)
CPT/HCPCS: 36415; 80061; 80076

== ENCOUNTER 2020-05-18 15:52 | Outpatient (RCR) | payer MEDICARE, SELFPAY ==
[2020-04-18 15:04] VITALS: BMI 26.4
== END 2020-05-18 23:59 ==
LOC: IMMUN 15:52
PROVIDERS: PCP Family Medicine; Referring Provider Family Medicine; Visit Provider Family Medicine
DX: Z23 Encounter for immunization (principal)
CPT/HCPCS: 0011A; 0012A; 91301

== ENCOUNTER → 2020-09-21 13:27 | Outpatient (CLI) | payer MEDICARE, SELFPAY ==
[2020-04-18 15:04] VITALS: BMI 26.4
[2020-09-21 15:09] LABS: Absolute Neutrophil Count 4.4 X10^3/uL (2.0-7.7); Basophil# 0.02 X10^3/uL; Basophil% 0.4 % (0-1); Eosinophil# 0.12 X10^3/uL; Eosinophils% 2.2 % (0-5); Hematocrit 44.4 % (37-47); Hemoglobin 14.3 g/dL (12.0-15.0); Lymphocyte % 12.6 % (19-41); Mean Corp Hgb Conc 32.2 g/dL (32-36); Mean Corpuscular Hgb 30.7 pg (27.0-32.0); Mean Corpuscular Volume 95.3 fL (81-99); Mean Platelet Vol. 9.7 fl (6.2-12.0); Monocyte# 0.33 X10^3/uL; Monocyte% 5.9 % (0-10); NRBC Flagged by Analyzer 0 % (0-5); Neutrophil # 4.37 X10^3/uL (2.7-7.7); Neutrophil % 78.5 % (47-70); Platelet Count 224 K/mm3 (150-450); RBC Distribution Width CV 12.6 % (11.6-14.6); RBC Distribution Width SD 44.4 fl (35.1-43.9); Red Blood Count 4.66 M/mm3 (4.2-5.4); White Blood Count 5.6 K/mm3 (4.4-11.0)
[2020-09-21 15:28] LABS: ALB/GLOB Ratio 1.2 RATIO (0.9-2.4); AST(SGOT) 18 U/L (15-37); Alanine Aminotransfer ALT/SGPT 22 U/L (13-56); Albumin, Serum 3.7 g/dL (3.2-5.0); Alkaline Phosphatase 83 U/L (45-117); Anion Gap 4 (5-15); BUN 14 mg/dL (7-18); BUN/Creat Ratio 15.9 RATIO (10-20); Calcium,Total 9.4 mg/dL (8.5-10.1); Chloride 110 mmol/L (98-107); Creatinine, Serum 0.88 mg/dL (0.55-1.02); EST Glomerular Filtration Rate 66 mL/min (>60); Est Glom Filt Rate - Afr Amer 79 mL/min (>60); Globulin 3.2 g/dL (2.2-4.2); Glucose 127 mg/dL (74-106); Potassium 4.3 mmol/L (3.5-5.1); Protein, Total 6.9 g/dL (6.4-8.2); Sodium Level 140 mmol/L (136-145)
== END ==
PROVIDERS: PCP Family Medicine; Referring Provider Internal Medicine Rheumatology; Visit Provider Internal Medicine Rheumatology
DX: M06.4 Inflammatory polyarthropathy (principal); M47.897 Other spondylosis, lumbosacral region; M16.11 Unilateral primary osteoarthritis, right hip; E78.5 Hyperlipidemia, unspecified; H93.13 Tinnitus, bilateral; M51.37 Other intervertebral disc degeneration, lumbosacral region; I25.10 Atherosclerotic heart disease of native coronary artery without angina pectoris; I97.89 Other postprocedural complications and disorders of the circulatory system, not elsewhere classified
CPT/HCPCS: 36415; 80053; 85025

== ENCOUNTER → 2020-10-13 12:32 | Outpatient (CLI) | payer MEDICARE, SELFPAY ==
[2020-04-18 15:04] VITALS: BMI 26.4
--- NOTE | 2020-10-13 12:37 | BI_ITS ---
MAMMOGRAPHY - BILATERAL SCREENING REASON FOR EXAM: Female, 79 years old. Routine annual screening examination. PERTINENT HISTORY: Aunt with breast cancer. Remote left excisional breast biopsy. TECHNIQUE: Digital bilateral breast sandy (3D mammographic acquisition) in the CC and MLO projections. 2-D mediolateral oblique (MLO) and craniocaudad (CC) views of both breasts were obtained. CAD: Full Field Digital Mammography with Computer Added Detection was performed. COMPARISON: Comparison is made with prior study dated 07/16/2017 and 03/28/2016. FINDINGS: Breast Composition: The breasts are heterogeneously dense, which may obscure small masses. There are no dominant masses or suspicious calcifications. Scattered bilateral calcifications. No focal cluster is seen. Once again, focal skin thickening is seen along the superior lateral portion of the left breast in keeping with history of prior excisional biopsy. No other significant abnormalities are identified. There has been no significant change since the prior study. BI/SCRN MAMM (CAD)W/SANDY BILAT IMPRESSION: Stable bilateral screening mammogram. Yearly follow-up mammogram recommended. (A) ASSESSMENT CATEGORY: BIRADS Category 2: Benign. A letter regarding these results will be sent to the patient by the facility within 30 days. Approximately 10% of breast cancers are not detected by mammography. A normal mammogram should not delay biopsy of a clinically suspicious abnormality. [id number] Electronically Signed: Matty Hannah MD at 13:38 EDT , Service support ,
--- NOTE | 2020-10-13 12:59 | BD_ITS ---
STUDY: DUAL ENERGY X-RAY ABSORPTIOMETRY / DXA REASON FOR EXAM: Female, 79 years old. M810. The patient is postmenopausal. Loss of height. TECHNIQUE: Bone Mineral Density (BMD) measurements of lumbar spine and left hip were obtained. The patient is status post right hip replacement. COMPARISON: Comparison is made with prior study dated 07/16/2017. FINDINGS: Lumbar Spine (L1-L4): g/cm2 (0.925) / T-score (-0.8) / Z-score (1.7) Findings are suggestive of normal bone density with a low fracture risk. Left Femur Total: g/cm2 (0.858) / T-score (-0.7) / Z-score (1.4) Left Femoral Neck: g/cm2 (0.732) / T-score (-1.1) / Z-score (1.2) The T-Scores on the most recent prior examination were: Lumbar Spine (L1-L4): There has been worsening of bone density since the previous examination. Left Femur Total: which represents a worsening of 0.4%. BD/Dexa Bone Density Study IMPRESSION: The patient is considered osteopenic as outlined below according to World Geoffrey Organization (WHO) criteria with a low fracture risk. There has been worsening of bone density since the previous examination. Reference Information: The T-score is the number of standard deviations above or below the standard which is normal for young adults at their peak bone mineral density. The World Health Organization (WHO) interprets the T-scores as follows: Above -1 Normal bone density Between -1 and -2.5 Osteopenia Equal to / or below -2.5 Osteoporosis As a practical clinical guideline, osteopenia may be graded as follows: Mild -1 through -1.5 Moderate -1.6 through -2.0 Severe -2.1 through -2.4 The Z-score is the number of standard deviations above or below age-matched controls. A Z-score of less than -1.5 would be considered abnormal. References: 1. NIH Osteoporosis and Related Bone Diseases www osteo.org 2. International Society for Clinical Densitometry www iscd.org 3. National Osteoporosis Foundation www nof.org Electronically Signed: Matty Hannah MD at 12:00 EDT , Service support ,
== END ==
PROVIDERS: PCP Family Medicine; Referring Provider Family Medicine; Visit Provider Family Medicine
DX: M81.0 Age-related osteoporosis without current pathological fracture (principal); Z12.31 Encounter for screening mammogram for malignant neoplasm of breast
CPT/HCPCS: 77063; 77067; 77080

== ENCOUNTER → 2020-10-21 10:47 | Outpatient (CLI) | payer MEDICARE, SELFPAY ==
[2020-10-20 14:33] VITALS: BMI 26.7
[2020-10-21 12:29] LABS: AST(SGOT) 15 U/L (15-37); Alanine Aminotransfer ALT/SGPT 22 U/L (13-56); Albumin, Serum 3.7 g/dL (3.2-5.0); Alkaline Phosphatase 71 U/L (45-117); Bilirubin, Direct 0.16 mg/dL (0.00-0.30); Cholesterol 134 mg/dL (200); Globulin 2.9 g/dL (2.2-4.2); High Density Lipoprotein 67 mg/dL; Protein, Total 6.6 g/dL (6.4-8.2); Triglycerides 134 mg/dL; Very Low Density Lipoprotein 27 mg/dL (5-40)
== END ==
PROVIDERS: PCP Family Medicine; Referring Provider Nurse Practitioner Family; Visit Provider Nurse Practitioner Family
DX: E78.2 Mixed hyperlipidemia (principal)
CPT/HCPCS: 36415; 80061; 80076

== ENCOUNTER → 2021-02-01 12:59 | Outpatient (CLI) | payer MEDICARE, SELFPAY ==
--- NOTE | 2021-02-01 13:02 | US_ITS ---
STUDY: ULTRASOUND OF THE FEMALE PELVIS - COMPLETE REASON FOR EXAM: Female, 80 years old. RLQ PAIN LMP: Patient is postmenopausal. TECHNIQUE: Transabdominal and Transvaginal TECHNICAL QUALITY: Adequate. COMPARISON: None. FINDINGS: The uterus is anteverted and is in a midline position. The uterus measures 5.6 cm x 3.3 cm x 1.6 cm. Normal uterine cervix. The endometrium measures 2 mm in thickness, and is hyperechoic. There is no demonstrated endometrial mass. There is no demonstrated myometrial mass. I.U.D. - The patient does not have an I.U.D. The right ovary is visualized. The right ovary measures 1.1 cm x 0.9 cm x 0.8 cm. There is no right ovarian cyst or ovarian mass. There is no visualized right adnexal mass or complex lesion. There is normal arterial and normal venous vascularity. The left ovary is non-visualized. There is no fluid in the cul-de-sac. The pre void volume of the bladder was 131 ml. US/Pelvic (Non ) IMPRESSION: Normal female pelvis. Electronically Signed: Matty Hannah MD at 15:37 EDT , Service support ,
--- NOTE | 2021-02-01 13:03 | US_ITS ---
STUDY: ULTRASOUND OF THE FEMALE PELVIS - COMPLETE REASON FOR EXAM: Female, 80 years old. RLQ PAIN LMP: Patient is postmenopausal. TECHNIQUE: Transabdominal and Transvaginal TECHNICAL QUALITY: Adequate. COMPARISON: None. FINDINGS: The uterus is anteverted and is in a midline position. The uterus measures 5.6 cm x 3.3 cm x 1.6 cm. Normal uterine cervix. The endometrium measures 2 mm in thickness, and is hyperechoic. There is no demonstrated endometrial mass. There is no demonstrated myometrial mass. I.U.D. - The patient does not have an I.U.D. The right ovary is visualized. The right ovary measures 1.1 cm x 0.9 cm x 0.8 cm. There is no right ovarian cyst or ovarian mass. There is no visualized right adnexal mass or complex lesion. There is normal arterial and normal venous vascularity. The left ovary is non-visualized. There is no fluid in the cul-de-sac. The pre void volume of the bladder was 131 ml. US/Transvaginal Non- IMPRESSION: Normal female pelvis. Electronically Signed: Matty Hannah MD at 15:37 EDT , Service support ,
== END ==
PROVIDERS: PCP Family Medicine; Referring Provider Family Medicine; Visit Provider Family Medicine
DX: R10.31 Right lower quadrant pain (principal)
CPT/HCPCS: 76830; 76856

== ENCOUNTER → 2021-03-17 13:36 | Outpatient (CLI) | payer MEDICARE, SELFPAY ==
[2021-03-17 15:21] LABS: Absolute Lymphocyte Count 0.68 X10^3/uL (0.83-4.51); Absolute Neutrophil Count 3.2 X10^3/uL (2.0-7.7); Basophil# 0.04 X10^3/uL; Basophil% 0.9 % (0-1); Eosinophil# 0.31 X10^3/uL; Eosinophils% 6.7 % (0-5); Hematocrit 42.1 % (37-47); Lymphocyte # 0.68 X10^3/ul (0.83-4.51); Lymphocyte % 14.7 % (19-41); Mean Corp Hgb Conc 33.3 g/dL (32-36); Mean Corpuscular Hgb 30.4 pg (27.0-32.0); Mean Corpuscular Volume 91.5 fL (81-99); Mean Platelet Vol. 9.7 fl (6.2-12.0); Monocyte# 0.35 X10^3/uL; Monocyte% 7.5 % (0-10); NRBC Flagged by Analyzer 0 % (0-5); Neutrophil # 3.23 X10^3/uL (2.7-7.7); Neutrophil % 69.6 % (47-70); Platelet Count 252 K/mm3 (150-450); RBC Distribution Width CV 12.4 % (11.6-14.6); RBC Distribution Width SD 41.7 fl (35.1-43.9); White Blood Count 4.6 K/mm3 (4.4-11.0)
[2021-03-17 15:44] LABS: ALB/GLOB Ratio 1.1 RATIO (0.9-2.4); AST(SGOT) 17 U/L (15-37); Alanine Aminotransfer ALT/SGPT 25 U/L (13-56); Albumin, Serum 3.5 g/dL (3.2-5.0); Alkaline Phosphatase 85 U/L (45-117); Anion Gap 5 (5-15); BUN 15 mg/dL (7-18); Calcium,Total 9.7 mg/dL (8.5-10.1); Chloride 111 mmol/L (98-107); Creatinine, Serum 0.88 mg/dL (0.55-1.02); EST Glomerular Filtration Rate 66 mL/min (>60); Est Glom Filt Rate - Afr Amer 79 mL/min (>60); Globulin 3.2 g/dL (2.2-4.2); Glucose 103 mg/dL (74-106); Potassium 4.1 mmol/L (3.5-5.1); Protein, Total 6.7 g/dL (6.4-8.2); Sodium Level 141 mmol/L (136-145)
== END ==
PROVIDERS: PCP Family Medicine; Referring Provider Internal Medicine Rheumatology; Visit Provider Internal Medicine Rheumatology
DX: M06.4 Inflammatory polyarthropathy (principal); K21.00 Gastro-esophageal reflux disease with esophagitis, without bleeding; M47.897 Other spondylosis, lumbosacral region; M16.11 Unilateral primary osteoarthritis, right hip; Q66.70 Congenital pes cavus, unspecified foot; E78.5 Hyperlipidemia, unspecified; H93.13 Tinnitus, bilateral; M51.37 Other intervertebral disc degeneration, lumbosacral region; I25.10 Atherosclerotic heart disease of native coronary artery without angina pectoris; I97.89 Other postprocedural complications and disorders of the circulatory system, not elsewhere classified
CPT/HCPCS: 36415; 80053; 85025

== ENCOUNTER 2021-04-22 08:20 | Outpatient (CLI) | payer MEDICARE, SELFPAY ==
[2021-04-22 09:48] LABS: AST(SGOT) 16 U/L (15-37); Alanine Aminotransfer ALT/SGPT 22 U/L (13-56); Albumin, Serum 3.7 g/dL (3.2-5.0); Alkaline Phosphatase 79 U/L (45-117); Bilirubin, Direct 0.15 mg/dL (0.00-0.30); Cholesterol 142 mg/dL (200); Globulin 3.3 g/dL (2.2-4.2); High Density Lipoprotein 69 mg/dL; Triglycerides 113 mg/dL; Very Low Density Lipoprotein 23 mg/dL (5-40)
== END 2021-04-22 23:59 | disposition short-term general hospital (02) ==
LOC: LAB 08:24
PROVIDERS: PCP Family Medicine; Visit Provider Nurse Practitioner Family
DX: E78.00 Pure hypercholesterolemia, unspecified (principal); E78.2 Mixed hyperlipidemia
CPT/HCPCS: 36415; 80061; 80076

== ENCOUNTER 2021-05-12 15:11 | Observation (INO) | payer MEDICARE, SELFPAY ==
[2021-05-12] VITALS (12 sets, daily range): BP systolic 97–132; BP diastolic 68–102; PULSE 74–102; RESP 11–18; TEMP 36.1–37.6; O2SAT 95–99; BMI 25.0; BMI 24.6
--- NOTE | 2021-05-12 16:07 | EDS_ITS ---
HPI History of Present Illness Chief Complaint: Chest Pain Informant: patient Onset/Context/Timing Onset: Days (2) Activity at onset: gradual Timing: Intermittent Location: Substernal Worsened By: Nothing Relieved By: Rest Associated Symptoms: Positive for Palpitations; Negative for Nausea, Vomiting, Diaphoresis, Dyspnea, Cough, Fever, Lightheadedness and Acid Reflux Narrative Narrative: Patient presents with chest pain that has been intermittent over the past 2 days. Patient states it comes on gradually. Patient is unsure how long it lasts for. Patient states it is over the substernal area. Patient states it goes away with rest. Patient describes it as a dull, aching, and pressure. Patient admits to some occasional palpitations. Patient denies any nausea or vomiting. Patient denies any diaphoresis. Patient denies any shortness of breath or cough. Patient denies any radiation of the pain. CVD Risk Factors: Positive for Hypertension, Hypercholesterolemia and Family History 1' </=55; Negative for Diabetes and Smoking PE Risk Factors: Negative for Recent Travel/Surgery, Recent Immobilization, Prior DVT or PE, Cancer and OCP + Smoking + >/=35 PFSH PFS Medical History Angina pectoris Arthritis Atherosclerotic heart disease of [place] coronary artery without angina pectoris Dyslipidemia Essential hypertension GERD (gastroesophageal reflux disease) Hemorrhoids Hypercalcemia Hypertension Mixed hyperlipidemia Myocardial infarct NSTEMI (non-ST elevated myocardial infarction) Osteoarthritis Osteoporosis Postoperative atrial fibrillation Vitamin D deficiency Wears hearing aid in both ears Home Medications aspirin 81 mg PO DAILY@199911/26/16 [History Last Taken 05/11/21] sertraline 25 mg tablet 25 mg PO DAILY 11/25/17 [History Last Taken 05/12/21] cholecalciferol (vitamin D3) 50 mcg (2,000 unit) tablet 2,000 unit PO DAILY 01/19/19 [History Last Taken 05/12/21] metoprolol tartrate 25 mg tablet 25 mg PO BID #180 tab 09/19/20 [Rx Last Taken 05/12/21] apixaban 5 mg tablet 5 mg PO BID #180 tab 09/28/20 [Rx Last Taken 05/12/21] alendronate 70 mg tablet 70 mg PO SA tab 03/15/21 [History Last Taken 05/06/21] hydroxychloroquine 200 mg tablet 200 mg PO DAILY tab 03/15/21 [History Last Taken 05/12/21] evolocumab 140 mg/mL subcutaneous pen injector 140 mg SC Q2W #2 ml 03/16/21 [Rx Last Taken 05/04/21] hydroxychloroquine 100 mg PO QHS 05/12/21 [History Last Taken 05/11/21] Allergy/AdvReac Type Severity Reaction Status Date / Time Zsfzpev-LEI-PwZ Reductase AdvReac Severe myalgias Verified 05/12/21 15:14 Inhibitor [Yboqgmz-Sjz-Aap Reductase Inhibitor] Penicillins AdvReac Itching Verified 05/12/21 15:14 Tetanus Vaccines and Toxoid AdvReac Swelling Verified 05/12/21 15:14 [Tetanus Vaccines & Toxoid] Family History Mother Heart disease Father Heart disease Brother Heart disease Brother Heart disease Sister Heart disease Surgical History History of cholecystectomy History of coronary artery bypass graft (~09/17/16) History of facial surgery History of foot surgery History of removal of cyst History of repair of right rotator cuff History of right hip replacement History of tubal ligation Social History Smoking Status: Never smoker alcohol intake: current alcohol intake frequency: a few times a month caffeine: No ROS ROS ED Constitutional Constitutional ED: Denies chills or fever(s) Eyes Eyes: Denies blurry vision or change in vision ENT ENT ED: Denies rhinorrhea or sore throat Cardiovascular Cardiovascular: Reports chest pain and palpitations Respiratory/Chest Respiratory/Chest: Denies cough or dyspnea Gastrointestinal Gastrointestinal: Reports nausea; Denies abdominal pain or vomiting Genitourinary Genitourinary ED: Denies dysuria or hematuria Musculoskeletal Musculoskeletal: Reports back pain; Denies neck pain Integumentary Denies abscess or rash Neurologic Neurologic: Denies headache(s) or weakness Allergic/Immunologic Allergic/Immunologic ED: Denies mouth swelling or urticaria EXAM Physical Exam Const Vital Signs: 05/12/21 15:12 05/12/21 15:29 05/12/21 16:17 Temperature 97 F L Temperature Source Temporal Pulse Rate 102 H 101 H 74 Respiratory Rate 18 11 L 16 Respiratory Effort Normal Blood Pressure 132/102 H 131/97 H 122/68 H Blood Pressure Mean 112 108 86 Pulse Ox 99 98 97 Oxygen Delivery Method Room Air Room Air Room Air 05/12/21 17:04 05/12/21 17:06 Temperature Temperature Source Pulse Rate 94 Respiratory Rate 13 Respiratory Effort Blood Pressure 97/78 Blood Pressure Mean 84 Pulse Ox 98 97 Oxygen Delivery Method Room Air Room Air Positive well nourished and well developed General Appearance ED: well developed HEENT normocephalic and atraumatic Eyes PERRL and EOMs intact bilaterally Neck supple and no JVD Chest Wall palpation of chest normal Resp normal respiratory effort and clear to auscultation bilaterally Effort and Inspection: Negative for respiratory distress Cardio regular rate, regular rhythm and no murmurs GI normal to inspection, nondistended, normoactive bowel sounds, soft to palpation, non-tender and non-distended Extremity normal to inspection General Extremety ED: Negative for edema or tenderness General Extremity: Negative for edema Neuro oriented x3, CN's II-XII intact bilaterally and no sensory deficits noted Sensorium / Orientation: awake and alert Motor Exam: strength 5/5 throughout Psych mental status grossly normal Heart Score History: Moderately Suspicious ECG: Nonspecific Repolarization Age: >/= 65 years Risk Factors: >/= 3 Risk Factors or History of CAD Troponin: </= Normal Limit Score: 6 MDM MDM MDM Narrative Medical decision making narrative: EKG was obtained. On my interpretation, there is a sinus tachycardia with a rate of 101. There are nonspecific ST-T wave changes. Portable 1 view chest x-ray was obtained. On my interpretation, lung crouch are clear. There is normal cardiac silhouette. Bony thorax is normal. There is no acute process noted. Radiologist also interpreted the x- ray and agrees. CBC and basic metabolic profile were obtained and were within normal limits. Initial high-sensitivity troponin was normal at 4. 2-hour repeat high-sensitivity troponin was ordered and is unchanged at 4. Case was discussed with the hospitalist. She will admit the patient to PCU for observation. Patient understood and was agreeable with the plan. All questions were answered. Lab Data Attestation: I reviewed the patient's lab results. Labs: Laboratory Results - last 24 hr 05/12/21 05/12/21 05/12/21 15:30 15:30 17:40 WBC 4.5 RBC 4.96 Hgb 15.3 H Hct 45.2 MCV 91.1 MCH 30.8 MCHC 33.8 RDW Std Deviation 42.8 RDW Coeff of [place] 12.9 Plt Count 227 MPV 10.0 Immature Gran % (Auto) 0.400 Neut % (Auto) 65.9 Lymph % (Auto) 22.3 [place] % (Auto) 7.6 Eos % (Auto) 3.1 Baso % (Auto) 0.7 Absolute Neuts (auto) 3.0 Absolute Lymphs (auto) 1.00 Nucleated RBC % 0 Sodium 140 Potassium 4.1 Chloride 110 H Carbon Dioxide 25.0 Anion Gap 5 BUN 16 Creatinine 0.90 Estim Creat Clear Calc 44.86 Est GFR (MDRD) Af Amer 77 Est GFR (MDRD) Non-Af 64 BUN/Creatinine Ratio 17.7 Glucose 98 Calcium 9.9 Troponin I High Sens 4 4 Radiography Chest X-Ray - ED: 1 View, Read by ED Physician, Read by Radiologist and Normal Diagnostic Testing: Clinical Impression(s) from Imaging Studies Chest X-Ray 05/12/21 16:55 IMPRESSION: No radiographic evidence of acute cardiopulmonary disease. at 1716 Reported and signed by: Liu Barrera MD Electronically Signed: Liu Barrera MD at 17:15 EST Reading Location ID and State: [address] [place] [address] Tel , Service support , EKG Initial EKG: Attestation: I personally reviewed and interpreted this EKG as follows: Interpretation: Sinus Rhythm (101) and Non-Specific ST Changes Treatment and Re-Evaluation Vital Sign Attestation:: Vital signs were reviewed prior to admission. They are stable. Discharge Plan Dx/Rx/DC Orders Clinical Impression: Chest pain Disposition Disposition: Acute Care Hospital [facility] Discharge Date/Time: 05/12/21 19:19
--- NOTE | 2021-05-12 16:37 | EKG12_ITS ---
Test Reason : CP Blood Pressure : / mmHG Vent. Rate : 101 BPM Atrial Rate : 101 BPM P-R Int : 080 ms QRS Dur : 074 ms QT Int : 346 ms P-R-T Axes : 000 050 031 degrees QTc Int : 448 ms Ectopic atrial tachycardia with Premature atrial complexes Nonspecific ST abnormality Abnormal ECG Confirmed by DENTON THOMPSON, RUBEN ([id number]), market editor KAMRAN CHAVEZ ([id number]) on 05/16/2021 9:52:07 AM Referred By: JOSE ALFREDO/TUCKER Confirmed By:RUBEN CHAWLA MD
--- NOTE | 2021-05-12 16:55 | RAD_ITS ---
HISTORY: chest pain EXAMINATION/TECHNIQUE: XR Chest 1 View: Portable upright AP chest x-ray COMPARISON: 09/11/16 FINDINGS: LINES/DEVICES: None. LUNGS: No consolidation, edema or effusion. No pneumothorax. MEDIASTINUM AND CARDIOVASCULAR STRUCTURES: Cardiac silhouette not enlarged. Stable CABG changes. Central airways and mediastinal contour are unremarkable. BONES AND SOFT TISSUES: No acute bony abnormalities. RAD/Chest 1 View (Portable) IMPRESSION: No radiographic evidence of acute cardiopulmonary disease. at 1716 Reported and signed by: Liu Barrera MD Electronically Signed: Liu Barrera MD at 17:15 EST ,
[2021-05-12 16:58] LABS: Basophil# 0.03 X10^3/uL; Basophil% 0.7 % (0-1); Eosinophil# 0.14 X10^3/uL; Eosinophils% 3.1 % (0-5); Hematocrit 45.2 % (37-47); Hemoglobin 15.3 g/dL (12.0-15.0); Lymphocyte % 22.3 % (19-41); Mean Corp Hgb Conc 33.8 g/dL (32-36); Mean Corpuscular Hgb 30.8 pg (27.0-32.0); Mean Corpuscular Volume 91.1 fL (81-99); Monocyte# 0.34 X10^3/uL; Monocyte% 7.6 % (0-10); NRBC Flagged by Analyzer 0 % (0-5); Neutrophil # 2.95 X10^3/uL (2.7-7.7); Neutrophil % 65.9 % (47-70); Platelet Count 227 K/mm3 (150-450); RBC Distribution Width CV 12.9 % (11.6-14.6); RBC Distribution Width SD 42.8 fl (35.1-43.9); Red Blood Count 4.96 M/mm3 (4.2-5.4); White Blood Count 4.5 K/mm3 (4.4-11.0)
[2021-05-12 17:19] LABS: Anion Gap 5 (5-15); BUN 16 mg/dL (7-18); BUN/Creat Ratio 17.7 RATIO (10-20); Calcium,Total 9.9 mg/dL (8.5-10.1); Chloride 110 mmol/L (98-107); EST Glomerular Filtration Rate 64 mL/min (>60); Est Glom Filt Rate - Afr Amer 77 mL/min (>60); Estimated Creatinine Clearance 44.86 ml/min; Glucose 98 mg/dL (74-106); Potassium 4.1 mmol/L (3.5-5.1); Sodium Level 140 mmol/L (136-145); Troponin-I HS 4 pg/mL (3.0-54.0)
[2021-05-12] MEDS: Aspirin 81 MG TAB.CHEW 324 MG PO (17:38)
[2021-05-12 18:17] LABS: Troponin-I HS 4 pg/mL (3.0-54.0)
--- NOTE | 2021-05-12 19:17 | PCM.HP.STD ---
[facility] - General General Date of Admission: 05/12/21 Date of Service: 05/12/21 HPI Narrative WESTON MASON, is a 80 F who presented to the emergency department was [facility] on 05/12/2021 with a chief complaint of chest pain. The patient has a known history of coronary artery disease and had a CABG 5 years ago. She states that over the last couple days she has had some intermittent chest pain that seems to be worse with exertion. It is located in the left substernal area and radiates into her left arm and her subscapular area. She has no associated shortness of breath, diaphoresis, or nausea. She does state the symptoms improved with rest. She indicates that the symptoms are similar to the symptoms she had prior to her CABG being performed for her coronary artery disease. In the emergency department her vital signs were stable. Her CBC is unremarkable other than a mildly elevated hemoglobin of 15.3. Her BMP is unremarkable. Her EKG shows no ST-T wave changes consistent with acute ischemia. A troponin and a delta troponin were negative at 4. Her chest x-ray shows no acute cardiopulmonary process. Given a heart score of 5 and her symptoms being similar to previous coronary disease request for admission was made. There was indication at her last cardiology appointment that if she has symptoms a stress test and echo would be performed. I did discuss the case with cardiology to assure that they would not want to just proceed with cardiac catheterization given her previous CABG and symptoms being similar and they were okay with proceeding with a stress test at this time. [facility] Medical History Angina pectoris Arthritis Atherosclerotic heart disease of [place] coronary artery without angina pectoris Dyslipidemia Essential hypertension GERD (gastroesophageal reflux disease) Hemorrhoids Hypercalcemia Hypertension Mixed hyperlipidemia Myocardial infarct NSTEMI (non-ST elevated myocardial infarction) Osteoarthritis Osteoporosis Postoperative atrial fibrillation Vitamin D deficiency Wears hearing aid in both ears Home Medications aspirin 81 mg PO DAILY@199911/26/16 [History Last Taken 05/11/21] sertraline 25 mg tablet 25 mg PO DAILY 11/25/17 [History Last Taken 05/12/21] cholecalciferol (vitamin D3) 50 mcg (2,000 unit) tablet 2,000 unit PO DAILY 01/19/19 [History Last Taken 05/12/21] metoprolol tartrate 25 mg tablet 25 mg PO BID #180 tab 06/21/21 [Rx Last Taken 05/12/21] apixaban 5 mg tablet 5 mg PO BID #180 tab 09/28/20 [Rx Last Taken 05/12/21] alendronate 70 mg tablet 70 mg PO SA tab 03/15/21 [History Last Taken 05/06/21] hydroxychloroquine 200 mg tablet 200 mg PO DAILY tab 03/15/21 [History Last Taken 05/12/21] evolocumab 140 mg/mL subcutaneous pen injector 140 mg SC Q2W #2 ml 03/16/21 [Rx Last Taken 05/04/21] hydroxychloroquine 100 mg PO QHS 05/12/21 [History Last Taken 05/11/21] Allergy/AdvReac Type Severity Reaction Status Date / Time [id number]-[id number]-CeH Reductase AdvReac Severe myalgias Verified 05/12/21 15:14 Inhibitor [Fxifhtv-Vuc-Zjf Reductase Inhibitor] Penicillins AdvReac Itching Verified 05/12/21 15:14 Tetanus Vaccines and Toxoid AdvReac Swelling Verified 05/12/21 15:14 [Tetanus Vaccines & Toxoid] Family History Mother Heart disease Father Heart disease Brother Heart disease Brother Heart disease Sister Heart disease Surgical History History of cholecystectomy History of coronary artery bypass graft (~09/17/16) History of facial surgery History of foot surgery History of removal of cyst History of repair of right rotator cuff History of right hip replacement History of tubal ligation Social History Smoking Status: Never smoker alcohol intake: current alcohol intake frequency: a few times a month caffeine: No ROS Constitutional Constitutional: Denies anorexia, change in weight, chills, fatigue, fever(s), malaise, night sweats, weakness or other Eyes Eyes: Denies blurry vision, change in eye color, change in vision, discharge from eye(s), double vision, erythema, eye pain, loss of vision or other ENT HEENT: Denies abnormal hearing, dysphagia, ear pain, epistaxis, headache(s), hearing loss, nasal congestion, nasal discharge, post nasal drip, sinus pressure, sore throat or other Cardiovascular Cardiovascular: Reports chest pain; Denies claudication, dyspnea on exertion, edema, lightheadedness, orthopnea, palpitations, paroxysmal nocturnal dyspnea, rapid heart rate, syncope or other Respiratory/Chest Respiratory/Chest: Denies cough, dyspnea, excessive phlegm production, hemoptysis, productive cough, shortness of breath at rest, shortness of breath with exertion, wheezing or other Gastrointestinal Gastrointestinal: Denies abdominal pain, coffee ground emesis, constipation, diarrhea, dyspepsia, hematemesis, hematochezia, loose stools, melena, nausea, vomiting or other Genitourinary Genitourinary: Denies burning urination, difficulty urinating, dysuria, hematuria, nocturia, urinary frequency, urinary hesitancy, urinary incontinence, urinary urgency or other Musculoskeletal Musculoskeletal: Reports back pain; Denies arthralgias, joint pain, joint stiffness, joint swelling, myalgias, neck pain or other Neurologic Neurologic: Denies abnormal gait, abnormal speech, confusion, disequilibrium, dizziness, focal weakness, headache(s), numbness, paresthesias, seizure-like activity, seizures, syncope, tingling, tremor(s) or other Psychiatric Psychiatric: Denies anxiety, depression, homicidal ideation, suicidal ideation or other Endocrine Endocrinology: Denies change in body appearance, cold intolerance, excessive sweating, heat intolerance, polydipsia, polyuria or other Hematologic/Lymphatic Hematologic/Lymphatic: Denies anemia, easy bleeding, easy bruising, lymphadenopathy or other Allergic/Immunologic Allergic/Immunologic: Denies rhinitis, hives, eczemia, asthma or other Vital Signs Vital Signs Vital Signs: 05/12/21 15:12 05/12/21 15:29 05/12/21 16:17 Temperature 97 F L Temperature Source Temporal Pulse Rate 102 H 101 H 74 Respiratory Rate 18 11 L 16 Respiratory Effort Normal Blood Pressure 132/102 H 131/97 H 122/68 H Blood Pressure Mean 112 108 86 Pulse Ox 99 98 97 Oxygen Delivery Method Room Air Room Air Room Air 05/12/21 17:04 05/12/21 17:06 05/12/21 18:18 Temperature Temperature Source Pulse Rate 94 92 Respiratory Rate 13 16 Respiratory Effort Blood Pressure 97/78 124/73 H Blood Pressure Mean 84 90 Pulse Ox 98 97 95 Oxygen Delivery Method Room Air Room Air Room Air 05/12/21 18:25 Temperature 97.0 F L Temperature Source Temporal Pulse Rate 98 Respiratory Rate 16 Respiratory Effort Blood Pressure 124/73 H Blood Pressure Mean 90 Pulse Ox 98 Oxygen Delivery Method Room Air Weight Weight: 68.039 kg Body Mass Index (BMI) 25.0 Physical Exam Const alert, oriented x3, no apparent distress, average body habitus, healthy appearing and well nourished Constitutional Narrative: Older white female sitting up in bed in the emergency department, appears comfortable nontoxic, very pleasant General Appearance: cooperative HEENT normocephalic, head/scalp atraumatic, hearing grossly normal bilaterally and moist oral mucous membranes HEENT Narrative: Mallampati is 2, no thrush Eyes PERRL, EOMs intact bilaterally and conjunctivae normal Eyes Narrative: No scleral icterus Neck no lymphadenopathy, supple, no JVD and no carotid bruits Neck Narrative: Trachea midline, no thyroid enlargement noted Resp normal respiratory effort, no retractions, no use of accessory muscles and clear to auscultation bilaterally Auscultation: Negative for crackles, rales, rhonchi or wheezes Cardio regular rate, regular rhythm, S1 normal heart sound, S2 normal heart sound, no murmurs, no rub, no gallops, no clicks and no JVD GI normal to inspection, nondistended, normoactive bowel sounds, soft to palpation, non-tender and non-distended; Negative for hepatosplenomegaly Extremity no clubbing, cyanosis or edema Peripheral Pulses: Yes pulses 2+ throughout Skin no rashes or lesions noted, no wounds, skin turgor normal, no jaundice, no petechiae and no mottling Neuro oriented x3, CN's II-XII intact bilaterally, moves all extremities and no focal motor deficits Sensorium / Orientation: awake and alert Speech: speech normal Motor Exam: strength 5/5 throughout Psych affect normal Psych Narrative: Very pleasant Results Lab / Micro Data Attestation: I reviewed the patient's lab results. Result Diagrams: 05/12/21 15:30 05/12/21 15:30 Labs: Laboratory Results - last 24 hr 05/12/21 15:30: WBC 4.5, RBC 4.96, Hgb 15.3 H, Hct 45.2, MCV 91.1, MCH 30.8, MCHC 33.8, RDW Std Deviation 42.8, RDW Coeff of [place] 12.9, Plt Count 227, MPV 10.0, Immature Gran % (Auto) 0.400, Neut % (Auto) 65.9, Lymph % (Auto) 22.3, [place] % (Auto) 7.6, Eos % (Auto) 3.1, Baso % (Auto) 0.7, Absolute Neuts (auto) 3.0, Absolute Lymphs (auto) 1.00, Nucleated RBC % 0 05/12/21 15:30: Sodium 140, Potassium 4.1, Chloride 110 H, Carbon Dioxide 25.0, Anion Gap 5, BUN 16, Creatinine 0.90, Estim Creat Clear Calc 44.86, Est GFR (MDRD) Af Amer 77, Est GFR (MDRD) Non-Af 64, BUN/Creatinine Ratio 17.7, Glucose 98, Calcium 9.9, Troponin I High Sens 4 05/12/21 17:40: Troponin I High Sens 4 Micro: Microbiology 05/12/21 18:25 Nasal Secretion SARS-CoV-2 Antigen (Rapid) - Final Radiology Impression Chest X-Ray 05/12/21 16:55 IMPRESSION: No radiographic evidence of acute cardiopulmonary disease. at 1716 Reported and signed by: Liu Barrera MD Electronically Signed: Liu Barrera MD at 17:15 EST Reading Location ID and State: [address] [place] [address] Tel , Service support , Assessment & Plan Assessment/Plan (1) Chest pain: PLAN: Chest pain -Cardiac enzymes -EKG with no changes consistent with acute ischemia -Continue home aspirin -Continue home metoprolol -Check echocardiogram -Stress test as per discussion with cardiology -Cardiology consult CAD -Patient with CABG in 2017 with HALL to LAD, SVG to first diagonal, SVG to second diagonal, SVG to obtuse marginal, and SVG to PDA -Continue home medications -Assessment as above Postoperative atrial fibrillation -Continue beta-fabián and home Eliquis -Patient is currently in sinus rhythm Hyperlipidemia -Patient is statin intolerant -Takes Repatha at home -Restart upon discharge Hypertension -Continue metoprolol Rheumatoid arthritis -Continue hydroxychloroquine Vitamin D deficiency -Continue home vitamin D supplementation Osteoporosis -Restart alendronate at discharge DVT prophylaxis -Continue apixaban CODE STATUS -Full code as verified with the patient upon admission to the emergency department Charges/Coding Visit Charges Inpatient E&M: 41279 Init Hosp L3
--- NOTE | 2021-05-12 21:24 | EKG12_ITS ---
Test Reason : CP ADMISSION Blood Pressure : / mmHG Vent. Rate : 090 BPM Atrial Rate : 090 BPM P-R Int : 084 ms QRS Dur : 078 ms QT Int : 374 ms P-R-T Axes : -87 058 031 degrees QTc Int : 457 ms Unusual P axis: Consider ectopic atrial rhythm Abnormal ECG Confirmed by DENTON THOMPSON, RUBEN ([id number]), pictures editor KAMRAN CHAVEZ ([id number]) on 05/16/2021 1:18:54 PM Referred By: NATIVIDAD Confirmed By:RUBEN CHAWLA MD
[2021-05-12] MEDS: Hydroxychloroquine 200 MG Tablet 100 MG PO (22:06)
[2021-05-12] MEDS: APIXABAN 5 MG TABLET PO (22:06)
[2021-05-12] MEDS: Metoprolol Tartrate 25 MG Tablet PO (22:06)
[2021-05-12] MEDS: 0.9% Saline Lock 10 ML Syringe IV (22:10)
[2021-05-12 23:26] LABS: Troponin-I HS 6 pg/mL (3.0-54.0)
[2021-05-13] VITALS (7 sets, daily range): BP systolic 106–144; BP diastolic 66–72; PULSE 75–90; RESP 16–18; TEMP 36.3–37; O2SAT 95–99
[2021-05-13 05:25] LABS: Absolute Lymphocyte Count 0.75 X10^3/uL (0.83-4.51); Absolute Neutrophil Count 2.1 X10^3/uL (2.0-7.7); Basophil# 0.03 X10^3/uL; Basophil% 0.9 % (0-1); Eosinophil# 0.15 X10^3/uL; Eosinophils% 4.5 % (0-5); Hematocrit 41.6 % (37-47); Hemoglobin 14.1 g/dL (12.0-15.0); Lymphocyte # 0.75 X10^3/ul (0.83-4.51); Lymphocyte % 22.6 % (19-41); Mean Corp Hgb Conc 33.9 g/dL (32-36); Mean Corpuscular Hgb 31.2 pg (27.0-32.0); Mean Platelet Vol. 9.3 fl (6.2-12.0); Monocyte# 0.32 X10^3/uL; Monocyte% 9.6 % (0-10); NRBC Flagged by Analyzer 0 % (0-5); Neutrophil # 2.07 X10^3/uL (2.7-7.7); Neutrophil % 62.4 % (47-70); Platelet Count 185 K/mm3 (150-450); RBC Distribution Width CV 12.9 % (11.6-14.6); RBC Distribution Width SD 43.4 fl (35.1-43.9); Red Blood Count 4.52 M/mm3 (4.2-5.4); White Blood Count 3.3 K/mm3 (4.4-11.0)
[2021-05-13 05:52] LABS: ALB/GLOB Ratio 1.1 RATIO (0.9-2.4); AST(SGOT) 15 U/L (15-37); Alanine Aminotransfer ALT/SGPT 23 U/L (13-56); Albumin, Serum 3.2 g/dL (3.2-5.0); Alkaline Phosphatase 69 U/L (45-117); Anion Gap 5 (5-15); BUN 12 mg/dL (7-18); BUN/Creat Ratio 15.6 RATIO (10-20); Calcium,Total 9.2 mg/dL (8.5-10.1); Chloride 110 mmol/L (98-107); Creatinine, Serum 0.77 mg/dL (0.55-1.02); EST Glomerular Filtration Rate 77 mL/min (>60); Est Glom Filt Rate - Afr Amer 93 mL/min (>60); Estimated Creatinine Clearance 40.38 ml/min; Globulin 2.9 g/dL (2.2-4.2); Glucose 98 mg/dL (74-106); Potassium 3.9 mmol/L (3.5-5.1); Protein, Total 6.1 g/dL (6.4-8.2); Sodium Level 141 mmol/L (136-145)
--- NOTE | 2021-05-13 05:55 | EKG12_ITS ---
Test Reason : AM EKG Blood Pressure : / mmHG Vent. Rate : 080 BPM Atrial Rate : 080 BPM P-R Int : 124 ms QRS Dur : 088 ms QT Int : 390 ms P-R-T Axes : -84 070 042 degrees QTc Int : 449 ms Unusual P axis: consider ectopic atrial rhythm Abnormal ECG Confirmed by DENTON THOMPSON, RUBEN ([id number]), editorial assistant KAMRAN CHAVEZ ([id number]) on 05/16/2021 1:17:43 PM Referred By: MARLON Confirmed By:RUBEN CHAWLA MD
--- NOTE | 2021-05-13 05:55 | ECHOD_ITS ---
Reason For Study: CHEST PAIN Procedure This was a 2D Doppler, Color Flow transthoracic echocardiogram. The study was technically difficult. PREVIOUS REACTION TO DEFINITY - DO NOT USE. Exam performed portable in patient room. Left Ventricle Normal left ventricle. The estimated ejection fraction is 55-60 %. Right Ventricle Normal right ventricle. Atria Normal left atrium. Normal right atrium. Mitral Valve There is mild mitral annular calcification. Mild (1+) mitral valve insufficiency. Tricuspid Valve Normal tricuspid valve. Aortic Valve Aortic sclerosis, no stenosis. Pulmonic Valve The pulmonic valve is not well visualized. Great Vessels Normal aortic root. Pericardium/Pleural No pericardial effusion. MMode/2D Measurements & Calculations LVIDd: 3.6 cm IVSd: 0.82 cm Ao root diam: 3.2 cm LVIDs: 2.8 cm LVPWd: 0.85 cm RVDd: 3.5 cm FS: 20.0 % LAV(MOD-bp): 29.6 ml LVAd ap4: 17.2 cm2 SV(MOD-sp4): 23.0 ml LAV(MOD-bp) Indexed: 17.4 ml/m2 LVLd ap4: 6.1 cm LAV(MOD-sp2): 30.9 ml EDV(MOD-sp4): 39.9 ml LAV(MOD-sp4): 27.9 ml EDV(sp4-el): 40.9 ml LVAs ap4: 10.0 cm2 LVLs ap4: 5.0 cm ESV(MOD-sp4): 16.9 ml ESV(sp4-el): 16.9 ml EF(MOD-sp4): 57.6 % EF(sp4-el): 58.7 % SV(sp4-el): 24.0 ml LA A4 area: 12.7 cm2 LA dimension(2D): 3.2 cm RA A4 area: 8.9 cm2 Doppler Measurements & Calculations MV E max josiah: 65.0 cm/sec Lat Peak E' Josiah: 10.3 cm/sec Med Peak E' Josiah: 8.3 cm/sec MV A max josiah: 97.1 cm/sec E/E' lat: 6.3 E/E' med: 7.9 MV E/A: 0.67 Ao V2 max: 86.2 cm/sec LV V1 max: 77.7 cm/sec Ao max P.0 mmHg LV V1 max P.4 mmHg ECHO/Echo Complete Interpretation Summary The estimated ejection fraction is 55-60 %. Mild MR Grade #1 Diastolic Dysfunction Ordering Physician: Angie Lara Referring Physician: MAYURI LEWIS Performed By: Aziza Chilel, DEREK, RVT
[2021-05-13] MEDS: Aspirin E.C. 81 MG Tablet PO (06:24)
--- NOTE | 2021-05-13 08:25 | NURSING ---
Pt to stress test via [employer]
[2021-05-13] MEDS: Hydroxychloroquine 200 MG Tablet PO (10:17)
[2021-05-13] MEDS: Metoprolol Tartrate 25 MG Tablet PO (10:20)
[2021-05-13] MEDS: Cholecalciferol (VIT D3) 25 MCG TABLET (1,000 UNITS) 50 MCG PO (10:21)
[2021-05-13] MEDS: Sertraline 50 MG Tablet 25 MG PO (10:22)
--- NOTE | 2021-05-13 10:29 | STRESSREP ---
Stress Test Report Pharmacologic/regadenoson myocardial perfusion stress test. Indication; 80-year-old patient with known history of CAD, has coronary artery bypass surgery/CABG 5 years ago, history of hypertension, paroxysmal atrial fibrillation and history of rheumatoid arthritis with hypertension hyperlipidemia Presented to the ER complaining of symptoms of chest pain, has been ongoing for couple of days with some radiation to the left shoulder and relieved with rest Cardiac evaluation with a series of high sensitive troponin is negative and based on her risk factors with a history of CAD and presented with chest pain she underwent Lexiscan sestamibi stress test. Stress protocol: Resting EKG demonstrates. Normal sinus rhythm. Nonspecific T wave changes noted in V1 0.4 mg of regadenoson was infused per usual protocol followed by rapid intravenous saline flush injection continuous EKG monitoring was performed. The maximum heart rate attained was 103 bpm which was 73% of maximum predicted heart rate. Stress EKG showed[, no significant change from the resting EKG, with maximum heart rate of 103 bpm. Arrhythmia: No arrhythmia demonstrated Symptoms: Patient had no symptoms of chest pain Blood pressure at rest: 142/72 mmHg blood pressure at the end of stress: 142/72 mmHg Myocardial perfusion protocol. 13.6 mCi ]of Technetium 99m Sestamibi was injected at rest. [ 0.4 mg ]of Regadenoson was infused per usual protocol peak infusion 41.8 mCi ]of Technetium 99m sestamibi was injected. Stress images were obtained stress and rest images were reconstructed and compared in the short axis vertical and horizontal long axis. Gated images were also obtained Perfusion SPECT analysis: Review of the images demonstrate normal uptake of sestamibi at rest, post stress images demonstrate similar uptake of sestamibi to the resting images, homogeneous tracer uptake With no evidence of reversible myocardial ischemia. Gated SPECT analysis: The gated ejection fraction is 77% with normal LV wall motion Normal LV systolic function Conclusion: Negative Lexiscan sestamibi myocardial perfusion study for reversible myocardial ischemia Normal LV systolic function with normal Low ventricular wall motion. Lulu Knight MD,FACC,[facility]
--- NOTE | 2021-05-13 11:34 | PCM.DC.SUM ---
Providers Date of Admission: 05/12/21 Primary Care Physician: Dr. Joss Salas, Consultations 05/12/21 19:35 Consult: Cardiology Routine Consulting Provider: Lulu Knight Reason for Consult: Chest pain EMERGENT Consult: No MD Notified: Yes Date Notified: 05/12/21 Time Notified: 18:49 Method of Notification: Text Reason For Visit: CHEST PAIN Diagnosis Discharge Diagnosis (1) Chest pain: Status: Acute Code(s): R07.9 - Chest pain, unspecified Medications at Discharge Home Medications aspirin 81 mg PO DAILY@199911/26/16 sertraline 25 mg tablet 25 mg PO DAILY 11/25/17 cholecalciferol (vitamin D3) 50 mcg (2,000 unit) tablet 2,000 unit PO DAILY 01/19/19 metoprolol tartrate 25 mg tablet 25 mg PO BID #180 tab 09/19/20 apixaban 5 mg tablet 5 mg PO BID #180 tab 09/28/20 alendronate 70 mg tablet 70 mg PO SA tab 03/15/21 hydroxychloroquine 200 mg tablet 200 mg PO DAILY tab 03/15/21 evolocumab 140 mg/mL subcutaneous pen injector 140 mg SC Q2W #2 ml 03/16/21 hydroxychloroquine 100 mg PO QHS 05/12/21 Hospital Course Procedures 2-D Echocardiogram and Stress test Summary of Care Provided Minutes Spent on Discharge: 37 Hospital Course: Mrs Alcala, is a 80 F who presented to the emergency department was [facility] on 05/12/2021 with a chief complaint of chest pain. The patient has a known history of coronary artery disease and had a CABG 5 years ago. She stated that over the last couple days prior to admission she had been experiencing some intermittent chest pain that seems to be worse with exertion. It is located in the left substernal area and radiates into her left arm and her subscapular area. She had no associated shortness of breath, diaphoresis, or nausea. She did state the symptoms improved with rest. She indicated that the symptoms are similar to the symptoms she had prior to her CABG being performed for her coronary artery disease but not exactly the same. In the emergency department her vital signs were stable. Her CBC is unremarkable other than a mildly elevated hemoglobin of 15.3. Her BMP is unremarkable. Her EKG shows no ST-T wave changes consistent with acute ischemia. A troponin and a delta troponin were negative at 4. Her chest x-ray shows no acute cardiopulmonary process. Given a heart score of 5 and her symptoms being similar to previous coronary disease she was admitted to the PCU for further work-up. I did discuss the case with cardiology to assure that they would not want to just proceed with cardiac catheterization given her previous CABG and symptoms on presentation and they recommended proceeding with a stress test. Her stress test was able to be performed on 05/13/2021 and was negative for any reversible myocardial ischemia and her LV was noted to be low normal wall motion. An echocardiogram was also performed and showed an EF of 55 to 60% with normal wall motion, mild mitral regurgitation, and grade 1 diastolic dysfunction. She was having no chest pain on the day of discharge and was anxious to go home. It was recommended she follow-up with her patient care provider in the next 1 to 2 months and follow-up with her PCP in the next 1 to 2 weeks. Discharge Diagnosis: Atypical chest pain Mitral regurgitation Grade 1 diastolic dysfunction CAD Postoperative atrial fibrillation Hyperlipidemia Hypertension RA Vitamin D deficiency Osteoporosis Physical Exam Const alert, oriented x3, no apparent distress, average body habitus, healthy appearing and well nourished Constitutional Narrative: Older white female sitting up in bed in the emergency department, appears comfortable nontoxic, very pleasant General Appearance: cooperative Orientation / Consciousness: awake Exam Limitations: no limitations HEENT normocephalic, head/scalp atraumatic, hearing grossly normal bilaterally and moist oral mucous membranes HEENT Narrative: Mallampati is two, no thrush, dentition is fair Eyes PERRL, EOMs intact bilaterally and conjunctivae normal Eyes Narrative: No scleral icterus Neck no lymphadenopathy, supple, no JVD and no carotid bruits Neck Narrative: Trachea midline, no thyroid enlargement noted Resp normal respiratory effort, no retractions, no use of accessory muscles and clear to auscultation bilaterally Auscultation: Negative for crackles, rales, rhonchi or wheezes Cardio regular rate, regular rhythm, S1 normal heart sound, S2 normal heart sound, no murmurs, no rub, no gallops, no clicks and no JVD GI normal to inspection, nondistended, normoactive bowel sounds, soft to palpation, non-tender and non-distended; Negative for hepatosplenomegaly Extremity no clubbing, cyanosis or edema Extremity Narrative: Pedal pulses are 2+ Skin no rashes or lesions noted, no wounds, skin turgor normal, no jaundice, no petechiae and no mottling Neuro oriented x3, CN's II-XII intact bilaterally, moves all extremities and no focal motor deficits Sensorium / Orientation: awake and alert Speech: speech normal Motor Exam: strength 5/5 throughout Psych affect normal Psych Narrative: Very pleasant Weight / BMI Weight Weight: 67.086 kg Body Mass Index (BMI) 24.6 ABG / Lab / Microbiology Data Result Diagrams: 05/13/21 05:08 05/13/21 05:08 Laboratory: Laboratory Results - last 24 hr 05/12/21 15:30: WBC 4.5, RBC 4.96, Hgb 15.3 H, Hct 45.2, MCV 91.1, MCH 30.8, MCHC 33.8, RDW Std Deviation 42.8, RDW Coeff of Dimas 12.9, Plt Count 227, MPV 10.0, Immature Gran % (Auto) 0.400, Neut % (Auto) 65.9, Lymph % (Auto) 22.3, Harding % (Auto) 7.6, Eos % (Auto) 3.1, Baso % (Auto) 0.7, Absolute Neuts (auto) 3.0, Absolute Lymphs (auto) 1.00, Nucleated RBC % 0 05/12/21 15:30: Sodium 140, Potassium 4.1, Chloride 110 H, Carbon Dioxide 25.0, Anion Gap 5, BUN 16, Creatinine 0.90, Estim Creat Clear Calc 44.86, Est GFR (MDRD) Af Amer 77, Est GFR (MDRD) Non-Af 64, BUN/Creatinine Ratio 17.7, Glucose 98, Calcium 9.9, Troponin I High Sens 4 05/12/21 17:40: Troponin I High Sens 4 05/12/21 22:40: Troponin I High Sens 6 05/13/21 05:08: WBC 3.3 L, RBC 4.52, Hgb 14.1, Hct 41.6, MCV 92.0, MCH 31.2, MCHC 33.9, RDW Std Deviation 43.4, RDW Coeff of Dimas 12.9, Plt Count 185, MPV 9.3, Immature Gran % (Auto) 0.000, Neut % (Auto) 62.4, Lymph % (Auto) 22.6, Hard[place] % (Auto) 9.6, Eos % (Auto) 4.5, Baso % (Auto) 0.9, Absolute Neuts (auto) 2.1, Absolute Lymphs (auto) 0.75 L, Nucleated RBC % 0 05/13/21 05:08: Sodium 141, Potassium 3.9, Chloride 110 H, Carbon Dioxide 26.0, Anion Gap 5, BUN 12, Creatinine 0.77, Estim Creat Clear Calc 40.38, Est GFR (MDRD) Af Amer 93, Est GFR (MDRD) Non-Af 77, BUN/Creatinine Ratio 15.6, Glucose 98, Calcium 9.2, Phosphorus 3.0, Total Bilirubin 0.60, AST 15, ALT 23, Alkaline Phosphatase 69, Total Protein 6.1 L, Albumin 3.2, Globulin 2.9, Albumin/Globulin Ratio 1.1 Microbiology: Microbiology 05/12/21 18:25 Nasal Secretion SARS-CoV-2 Antigen (Rapid) - Final Radiography Diagnostic Testing: Radiology Impression Chest X-Ray 05/12/21 16:55 IMPRESSION: No radiographic evidence of acute cardiopulmonary disease. at 1716 Reported and signed by: Liu Barrera MD Electronically Signed: Liu Barrera MD at 17:15 EST Reading Location ID and State: [address] [place] [address] Tel , Service support , D/C Instructions Discharge Diet: Low fat / Low cholesterol Discharge Activity: Return to Normal Activity Meaningful Use Info Meaningful Use Diagnoses (Choose all that apply): None applicable Discharge Plan Admission Admit Date/Time: 05/12/21 18:15 Primary Reason for Your Visit: Chest Pain Attending Provider: Angie Lara Primary Care Provider: Joss Salas Consulting Providers: Lulu Knight Discharge Orders/Prescriptions Prescriptions: Continued sertraline 25 mg tablet 25 mg PO DAILY RF: 0 cholecalciferol (vitamin D3) 2,000 unit tablet 2,000 unit PO DAILY RF: 0 hydroxychloroquine [Plaquenil] 200 mg tablet 200 mg PO DAILY RF: 0 alendronate 70 mg tablet 70 mg PO SA RF: 0 aspirin 81 MG tablet 81 mg PO DAILY@1999 RF: 0 hydroxychloroquine 200 mg tablet 100 mg PO QHS RF: 0 metoprolol tartrate 25 mg tablet 25 mg PO BID Qty: 180 RF: 3 Eliquis 5 mg tablet 5 mg PO BID Qty: 180 RF: 3 Repatha SureClick 140 mg/mL pen injector 140 mg SC Q2W Qty: 2 RF: 11 Referrals / Follow Up: Joss Salas DO [Primary Care Provider] - Within 2 Weeks Elan Barrios MD [STAFF PHYSICIAN] - Within 1 Month Disposition Disposition (needs filled in before D/C Order can be placed): Home, Self Care Charges/Coding Visit Charges Inpatient E&M: 23770 Disch Hosp
[2021-05-13] MEDS: APIXABAN 5 MG TABLET PO (11:40)
--- NOTE | 2021-05-13 14:01 | NURSING ---
Reviewed and agree with Lexi ROBERTO documentation.
--- NOTE | 2021-05-13 15:04 | CON.PCM.CA_ITS ---
Assessment & Plan Assessment/Plan (1) Atherosclerosis of [place] coronary artery of [place] heart without angina pectoris: (2) Mixed hyperlipidemia: (3) History of coronary artery bypass graft: (4) Postoperative atrial fibrillation: (5) Angina pectoris: PLAN: This patient 8-year-old with known history of CAD Shawna had a history of CABG With HALL to LAD, SVG to D1, SVG to second diagonal, SVG to obtuse marginal and SVG to PDA this was done in August 2016 Patient also had a history of hypertension, hyperlipidemia and has paroxysmal atrial fibrillation she has been in sinus rhythm This presentation is with symptoms of chest pain with negative cardiac biomarkers and there were no significant change in the electrocardiogram Cardiac exam essentially normal. Cardiac care plan recommendations; 1. Marker perfusion study using regadenoson sestamibi myocardial perfusion study showed no evidence of reversible ischemia 2. The echocardiographic assessment showed LV function is preserved 3. I reviewed all the current medication, will continue current treatment 4. Patient to follow-up with the primary child protective services social worker Dr. Barrios for continuation of cardiac care Under evaluation of her angina, possible adding long-acting nitrate and Ranexa as an outpatient if she continues to have symptoms of chest pain. And patient had a history of rheumatoid arthritis and osteoporosis which could explain her symptoms of left shoulder discomfort HPI Consult Data Date of Consult: 05/13/21 HPI Narrative Reason for Consultation: Patient with known CAD, CABG, presented with chest pain HPI Narrative: WESTON MASON, is a 80 F who presents [facility] Medical History Angina pectoris Arthritis Atherosclerotic heart disease of [place] coronary artery without angina pectoris Dyslipidemia Essential hypertension GERD (gastroesophageal reflux disease) Hemorrhoids Hypercalcemia Hypertension Mixed hyperlipidemia Myocardial infarct NSTEMI (non-ST elevated myocardial infarction) Osteoarthritis Osteoporosis Postoperative atrial fibrillation Vitamin D deficiency Wears hearing aid in both ears Home Medications aspirin 81 mg PO DAILY@199911/26/16 [History Last Taken 05/11/21] sertraline 25 mg tablet 25 mg PO DAILY 11/25/17 [History Last Taken 05/12/21] cholecalciferol (vitamin D3) 50 mcg (2,000 unit) tablet 2,000 unit PO DAILY 01/19/19 [History Last Taken 05/12/21] metoprolol tartrate 25 mg tablet 25 mg PO BID #180 tab 09/19/20 [Rx Last Taken 05/12/21] apixaban 5 mg tablet 5 mg PO BID #180 tab 09/28/20 [Rx Last Taken 05/12/21] alendronate 70 mg tablet 70 mg PO SA tab 03/15/21 [History Last Taken 05/06/21] hydroxychloroquine 200 mg tablet 200 mg PO DAILY tab 03/15/21 [History Last Taken 05/12/21] evolocumab 140 mg/mL subcutaneous pen injector 140 mg SC Q2W #2 ml 03/16/21 [Rx Last Taken 05/04/21] hydroxychloroquine 100 mg PO QHS 05/12/21 [History Last Taken 05/11/21] Allergy/AdvReac Type Severity Reaction Status Date / Time Oiojmqv-EMI-VvQ Reductase AdvReac Severe myalgias Verified 05/12/21 15:14 Inhibitor [Yzctatg-Yat-Gzt Reductase Inhibitor] Penicillins AdvReac Itching Verified 05/12/21 15:14 Tetanus Vaccines and Toxoid AdvReac Swelling Verified 05/12/21 15:14 [Tetanus Vaccines & Toxoid] Family History Mother Heart disease Father Heart disease Brother Heart disease Brother Heart disease Sister Heart disease Surgical History History of cholecystectomy History of coronary artery bypass graft (~09/17/16) History of facial surgery History of foot surgery History of removal of cyst History of repair of right rotator cuff History of right hip replacement History of tubal ligation Social History Smoking Status: Never smoker alcohol intake: current alcohol intake frequency: a few times a month caffeine: No Physical Exam Narrative Patient alert and orientated Symptom chest pain resolved Cardiovascular exam; S1-S2 regular, no murmur no systolic or diastolic murmur Chest exam clear to auscultation bilaterally Examination abdomen is soft Examination lower extremity no clubbing no cyanosis no extremity edema. Risk Stratification Risk Stratification Applicable: No Objective Data Vital Signs: Vital Signs Temp Pulse Resp BP Pulse Ox 98.6 F 85 16 115/72 99 05/13/21 10:00 05/13/21 10:20 05/13/21 10:00 05/13/21 10:20 05/13/21 10:00 Oxygen Delivery Method Room Air Weight: 147 lb 14.4 oz Body Mass Index (BMI) 24.6 Intake & Output: Intake and Output for Last 24 Hours 05/11/21 05/12/21 05/13/21 23:59 23:59 23:59 Intake Total 300 / 300 480 / 480 Balance 300 / 300 480 / 480 Lab / Micro Data Result Diagrams: 05/13/21 05:08 05/13/21 05:08 Labs: Laboratory Results - last 24 hr 05/12/21 15:30: WBC 4.5, RBC 4.96, Hgb 15.3 H, Hct 45.2, MCV 91.1, MCH 30.8, MCHC 33.8, RDW Std Deviation 42.8, RDW Coeff of Dimas 12.9, Plt Count 227, MPV 10.0, Immature Gran % (Auto) 0.400, Neut % (Auto) 65.9, Lymph % (Auto) 22.3, [place] % (Auto) 7.6, Eos % (Auto) 3.1, Baso % (Auto) 0.7, Absolute Neuts (auto) 3.0, Absolute Lymphs (auto) 1.00, Nucleated RBC % 0 05/12/21 15:30: Sodium 140, Potassium 4.1, Chloride 110 H, Carbon Dioxide 25.0, Anion Gap 5, BUN 16, Creatinine 0.90, Estim Creat Clear Calc 44.86, Est GFR (MDRD) Af Amer 77, Est GFR (MDRD) Non-Af 64, BUN/Creatinine Ratio 17.7, Glucose 98, Calcium 9.9, Troponin I High Sens 4 05/12/21 17:40: Troponin I High Sens 4 05/12/21 22:40: Troponin I High Sens 6 05/13/21 05:08: WBC 3.3 L, RBC 4.52, Hgb 14.1, Hct 41.6, MCV 92.0, MCH 31.2, MCHC 33.9, RDW Std Deviation 43.4, RDW Coeff of Dimas 12.9, Plt Count 185, MPV 9.3, Immature Gran % (Auto) 0.000, Neut % (Auto) 62.4, Lymph % (Auto) 22.6, [place] % (Auto) 9.6, Eos % (Auto) 4.5, Baso % (Auto) 0.9, Absolute Neuts (auto) 2.1, Absolute Lymphs (auto) 0.75 L, Nucleated RBC % 0 05/13/21 05:08: Sodium 141, Potassium 3.9, Chloride 110 H, Carbon Dioxide 26.0, Anion Gap 5, BUN 12, Creatinine 0.77, Estim Creat Clear Calc 40.38, Est GFR (MDRD) Af Amer 93, Est GFR (MDRD) Non-Af 77, BUN/Creatinine Ratio 15.6, Glucose 98, Calcium 9.2, Phosphorus 3.0, Total Bilirubin 0.60, AST 15, ALT 23, Alkaline Phosphatase 69, Total Protein 6.1 L, Albumin 3.2, Globulin 2.9, Albumin/Globulin Ratio 1.1 Micro: Microbiology 05/12/21 18:25 Nasal Secretion SARS-CoV-2 Antigen (Rapid) - Final Cardiology Labs/Tests 05/12/21 15:30: WBC 4.5, RBC 4.96, Hgb 15.3 H, Hct 45.2, MCV 91.1, MCH 30.8, MCHC 33.8, Plt Count 227, MPV 10.0, Immature Gran % (Auto) 0.400, Neut % (Auto) 65.9, Lymph % (Auto) 22.3, [place] % (Auto) 7.6, Eos % (Auto) 3.1, Baso % (Auto) 0.7, Absolute Neuts (auto) 3.0, Nucleated RBC % 0 05/12/21 15:30: Sodium 140, Potassium 4.1, Chloride 110 H, Carbon Dioxide 25.0, Anion Gap 5, BUN 16, Creatinine 0.90, Est GFR (MDRD) Af Amer 77, Est GFR (MDRD) Non-Af 64, BUN/Creatinine Ratio 17.7, Glucose 98, Calcium 9.9 05/13/21 05:08: WBC 3.3 L, RBC 4.52, Hgb 14.1, Hct 41.6, MCV 92.0, MCH 31.2, MCHC 33.9, Plt Count 185, MPV 9.3, Immature Gran % (Auto) 0.000, Neut % (Auto) 62.4, Lymph % (Auto) 22.6, [place] % (Auto) 9.6, Eos % (Auto) 4.5, Baso % (Auto) 0.9, Absolute Neuts (auto) 2.1, Nucleated RBC % 0 05/13/21 05:08: Sodium 141, Potassium 3.9, Chloride 110 H, Carbon Dioxide 26.0, Anion Gap 5, BUN 12, Creatinine 0.77, Est GFR (MDRD) Af Amer 93, Est GFR (MDRD) Non-Af 77, BUN/Creatinine Ratio 15.6, Glucose 98, Calcium 9.2, Phosphorus 3.0, Total Bilirubin 0.60 Rhythm: EKG: ECHO: Stress Test: Cardiac Cath: PCI: CT Surgery: Holter monitor: EPS: PPM: CXR: Chest CT Scan: Radiography Diagnostic Testing: Radiology Impression Chest X-Ray 05/12/21 16:55 IMPRESSION: No radiographic evidence of acute cardiopulmonary disease. at 1716 Reported and signed by: Liu Barrera MD Electronically Signed: Liu Barrera MD at 17:15 EST Reading Location ID and State: [facility] / [place] Tel , Service support , Echocardiogram 05/13/21 05:55 Interpretation Summary The estimated ejection fraction is 55-60 %. Mild MR Grade #1 Diastolic Dysfunction Ordering Physician: Angie Lara Referring Physician: MAYURI LEWIS Performed By: Aziza Chilel, RDCS, RVT
== END 2021-05-13 14:00 | disposition home or self-care (01) ==
LOC: ED 18:22 → PCU 18:37
PROVIDERS: Admitting Provider Internal Medicine; Emergency Provider Emergency Medicine; PCP Family Medicine; Visit Provider Internal Medicine
DX: I25.10 Atherosclerotic heart disease of native coronary artery without angina pectoris (principal); M06.9 Rheumatoid arthritis, unspecified; I48.0 Paroxysmal atrial fibrillation; M81.0 Age-related osteoporosis without current pathological fracture; E55.9 Vitamin D deficiency, unspecified; Z79.01 Long term (current) use of anticoagulants; I10 Essential (primary) hypertension; I34.0 Nonrheumatic mitral (valve) insufficiency; R00.2 Palpitations; E78.2 Mixed hyperlipidemia; K21.9 Gastro-esophageal reflux disease without esophagitis; M19.90 Unspecified osteoarthritis, unspecified site; I25.2 Old myocardial infarction; Z95.1 Presence of aortocoronary bypass graft; Z79.82 Long term (current) use of aspirin; Z79.899 Other long term (current) drug therapy; Z79.83 Long term (current) use of bisphosphonates; R94.31 Abnormal electrocardiogram [ECG] [EKG]
CPT/HCPCS: 36415; 71045; 78452; 80048; 80053; 84100; 84484; 85025; 87426; 93005; 93017; 93306; 99218; 99251; 99285; A9500; A4216; G0378; G0463; J2785

== ENCOUNTER → 2021-09-15 | Outpatient (CLI) | payer MEDICARE, SELFPAY ==
[2021-09-15 11:58] LABS: Absolute Lymphocyte Count 0.79 X10^3/uL (0.83-4.51); Absolute Neutrophil Count 2.6 X10^3/uL (2.0-7.7); Basophil# 0.03 X10^3/uL; Basophil% 0.8 % (0-1); Eosinophil# 0.15 X10^3/uL; Eosinophils% 3.8 % (0-5); Hematocrit 42.6 % (37-47); Hemoglobin 14.2 g/dL (12.0-15.0); Lymphocyte # 0.79 X10^3/ul (0.83-4.51); Lymphocyte % 20.1 % (19-41); Mean Corp Hgb Conc 33.3 g/dL (32-36); Mean Corpuscular Hgb 31.1 pg (27.0-32.0); Mean Corpuscular Volume 93.4 fL (81-99); Mean Platelet Vol. 9.5 fl (6.2-12.0); Monocyte# 0.28 X10^3/uL; Monocyte% 7.1 % (0-10); NRBC Flagged by Analyzer 0 % (0-5); Neutrophil # 2.64 X10^3/uL (2.7-7.7); Neutrophil % 66.9 % (47-70); Platelet Count 205 K/mm3 (150-450); RBC Distribution Width CV 12.9 % (11.6-14.6); RBC Distribution Width SD 44.2 fl (35.1-43.9); Red Blood Count 4.56 M/mm3 (4.2-5.4); White Blood Count 3.9 K/mm3 (4.4-11.0)
[2021-09-15 12:13] LABS: ALB/GLOB Ratio 1.2 RATIO (0.9-2.4); AST(SGOT) 14 U/L (15-37); Alanine Aminotransfer ALT/SGPT 21 U/L (13-56); Albumin, Serum 3.5 g/dL (3.2-5.0); Alkaline Phosphatase 78 U/L (45-117); Anion Gap 6 (5-15); BUN 19 mg/dL (7-18); BUN/Creat Ratio 20.1 RATIO (10-20); Calcium,Total 9.7 mg/dL (8.5-10.1); Chloride 110 mmol/L (98-107); Creatinine, Serum 0.94 mg/dL (0.55-1.02); EST Glomerular Filtration Rate 61 mL/min (>60); Est Glom Filt Rate - Afr Amer 73 mL/min (>60); Globulin 2.8 g/dL (2.2-4.2); Glucose 128 mg/dL (74-106); Potassium 4.2 mmol/L (3.5-5.1); Protein, Total 6.3 g/dL (6.4-8.2); Sodium Level 141 mmol/L (136-145)
== END | disposition home or self-care (01) ==
LOC: LAB 11:19
PROVIDERS: PCP Family Medicine; Referring Provider Internal Medicine Rheumatology; Visit Provider Internal Medicine Rheumatology
DX: M06.4 Inflammatory polyarthropathy (principal); K21.00 Gastro-esophageal reflux disease with esophagitis, without bleeding; M47.897 Other spondylosis, lumbosacral region; M16.11 Unilateral primary osteoarthritis, right hip; Q66.70 Congenital pes cavus, unspecified foot; E78.5 Hyperlipidemia, unspecified; H93.13 Tinnitus, bilateral; M51.37 Other intervertebral disc degeneration, lumbosacral region; I25.10 Atherosclerotic heart disease of native coronary artery without angina pectoris; I97.89 Other postprocedural complications and disorders of the circulatory system, not elsewhere classified
CPT/HCPCS: 36415; 80053; 85025

== ENCOUNTER → 2021-10-25 | Outpatient (CLI) | payer MEDICARE, SELFPAY ==
[2021-10-30 21:01] LABS: Fats, Neutral Normal (.); Fats, Total Increased (.)
== END | disposition home or self-care (01) ==
LOC: LABSPEC 10:42
PROVIDERS: PCP Family Medicine; Referring Provider Internal Medicine Gastroenterology; Visit Provider Internal Medicine Gastroenterology
DX: R10.9 Unspecified abdominal pain (principal); R19.7 Diarrhea, unspecified
CPT/HCPCS: 82705

== ENCOUNTER → 2021-11-10 | Outpatient (CLI) | payer MEDICARE, SELFPAY ==
[2021-11-15 12:31] LABS: Pancreatic Elastase, Fecal 116 (>200)
== END | disposition home or self-care (01) ==
LOC: MTLAB 15:36
PROVIDERS: PCP Family Medicine; Referring Provider Internal Medicine Gastroenterology; Visit Provider Internal Medicine Gastroenterology
DX: R10.9 Unspecified abdominal pain (principal); R19.7 Diarrhea, unspecified
CPT/HCPCS: 82653

== ENCOUNTER → 2022-04-17 | Outpatient (CLI) | payer MEDICARE, SELFPAY ==
[2022-04-17 11:19] LABS: AST(SGOT) 19 U/L (15-37); Alanine Aminotransfer ALT/SGPT 25 U/L (13-56); Albumin, Serum 3.7 g/dL (3.2-5.0); Alkaline Phosphatase 74 U/L (45-117); Bilirubin, Direct 0.18 mg/dL (0.00-0.30); Cholesterol 138 mg/dL (200); High Density Lipoprotein 74 mg/dL; Protein, Total 6.7 g/dL (6.4-8.2); Triglycerides 124 mg/dL; Very Low Density Lipoprotein 25 mg/dL (5-40)
== END | disposition home or self-care (01) ==
LOC: LAB 09:50
PROVIDERS: PCP Family Medicine; Referring Provider Internal Medicine Cardiovascular Disease; Visit Provider Internal Medicine Cardiovascular Disease
DX: E78.00 Pure hypercholesterolemia, unspecified (principal)
CPT/HCPCS: 36415; 80061; 80076

== ENCOUNTER → 2022-04-30 | Outpatient (CLI) | payer MEDICARE, SELFPAY ==
[2022-04-30 13:40] LABS: Absolute Lymphocyte Count 0.86 X10^3/uL (0.83-4.51); Basophil# 0.04 X10^3/uL; Basophil% 0.9 % (0-1); Eosinophil# 0.17 X10^3/uL; Eosinophils% 3.8 % (0-5); Hematocrit 44.7 % (37-47); Hemoglobin 14.5 g/dL (12.0-15.0); Lymphocyte # 0.86 X10^3/ul (0.83-4.51); Lymphocyte % 19.1 % (19-41); Mean Corp Hgb Conc 32.4 g/dL (32-36); Mean Corpuscular Hgb 30.6 pg (27.0-32.0); Mean Corpuscular Volume 94.3 fL (81-99); Mean Platelet Vol. 10.1 fl (6.2-12.0); Monocyte% 8.9 % (0-10); NRBC Flagged by Analyzer 0 % (0-5); Neutrophil # 3.01 X10^3/uL (2.7-7.7); Neutrophil % 66.9 % (47-70); Platelet Count 230 K/mm3 (150-450); RBC Distribution Width CV 12.6 % (11.6-14.6); RBC Distribution Width SD 43.7 fl (35.1-43.9); Red Blood Count 4.74 M/mm3 (4.2-5.4); White Blood Count 4.5 K/mm3 (4.4-11.0)
[2022-04-30 14:10] LABS: ALB/GLOB Ratio 1.2 RATIO (0.9-2.4); AST(SGOT) 24 U/L (15-37); Alanine Aminotransfer ALT/SGPT 33 U/L (13-56); Albumin, Serum 3.6 g/dL (3.2-5.0); Alkaline Phosphatase 91 U/L (45-117); Anion Gap 8 (5-15); BUN 16 mg/dL (7-18); BUN/Creat Ratio 18.9 RATIO (10-20); Calcium,Total 9.8 mg/dL (8.5-10.1); Chloride 107 mmol/L (98-107); Creatinine, Serum 0.85 mg/dL (0.55-1.02); EST Glomerular Filtration Rate 68 mL/min (>60); Est Glom Filt Rate - Afr Amer 83 mL/min (>60); Globulin 3.1 g/dL (2.2-4.2); Glucose 96 mg/dL (74-106); Potassium 4.4 mmol/L (3.5-5.1); Protein, Total 6.7 g/dL (6.4-8.2); Sodium Level 141 mmol/L (136-145)
== END | disposition home or self-care (01) ==
PROVIDERS: PCP Family Medicine; Referring Provider Internal Medicine Rheumatology; Visit Provider Internal Medicine Rheumatology
DX: M06.4 Inflammatory polyarthropathy (principal); K21.00 Gastro-esophageal reflux disease with esophagitis, without bleeding; M47.897 Other spondylosis, lumbosacral region; M16.11 Unilateral primary osteoarthritis, right hip; Q66.70 Congenital pes cavus, unspecified foot; E78.5 Hyperlipidemia, unspecified; H93.13 Tinnitus, bilateral; M51.37 Other intervertebral disc degeneration, lumbosacral region; I97.89 Other postprocedural complications and disorders of the circulatory system, not elsewhere classified
CPT/HCPCS: 36415; 80053; 85025

== ENCOUNTER → 2023-01-09 | Outpatient (CLI) | payer MEDICARE, SELFPAY ==
--- NOTE | 2023-01-09 10:55 | BD_ITS ---
STUDY: DUAL ENERGY X-RAY ABSORPTIOMETRY / DXA REASON FOR EXAM: Female, 82 years old. 733.00OsteoporosisBONE DENSITY REASON FOR EXAM TECHNIQUE: Bone Mineral Density (BMD) measurements of lumbar spine and left hip were obtained. COMPARISON: Comparison is made with prior study dated October 13, 2020. FINDINGS: Lumbar Spine (L1-L4): g/cm2 (0.905) / T-score (-1.0) / Z-score (1.7) Findings are suggestive of osteopenia with a low fracture risk. Left Femur Total: g/cm2 (0.861) / T-score (-0.7) / Z-score (1.5) Left Femoral Neck: g/cm2 (0.686) / T-score (-1.5) / Z-score (0.9) The T-Scores on the most recent prior examination were: Lumbar Spine (L1-L4): There has been worsening of bone density since the previous examination. Left Femur Total: which represents an improvement of 0.3%. BD/Dexa Bone Density Study IMPRESSION: The patient is considered osteopenic as outlined below according to World Geoffrey Organization (WHO) criteria with a low fracture risk. There has been worsening of bone density since the previous examination. Reference Information: The T-score is the number of standard deviations above or below the standard which is normal for young adults at their peak bone mineral density. The World Health Organization (WHO) interprets the T-scores as follows: Above -1 Normal bone density Between -1 and -2.5 Osteopenia Equal to / or below -2.5 Osteoporosis As a practical clinical guideline, osteopenia may be graded as follows: Mild -1 through -1.5 Moderate -1.6 through -2.0 Severe -2.1 through -2.4 The Z-score is the number of standard deviations above or below age-matched controls. A Z-score of less than -1.5 would be considered abnormal. References: 1. NIH Osteoporosis and Related Bone Diseases www osteo.org 2. International Society for Clinical Densitometry www iscd.org 3. National Osteoporosis Foundation www nof.org Electronically Signed: Matty Hannah MD at 12:26 EDT ,
== END | disposition home or self-care (01) ==
LOC: OPBD 10:49
PROVIDERS: PCP Family Medicine; Referring Provider Family Medicine; Visit Provider Family Medicine
DX: M81.0 Age-related osteoporosis without current pathological fracture (principal)
CPT/HCPCS: 77080

== ENCOUNTER 2023-05-03 11:41 | Observation (INO) | payer MEDICARE, SELFPAY ==
[2023-05-03 11:41] VITALS: BP 144/77; PULSE 79; RESP 16; TEMP 36.3; O2SAT 98; BMI 26.7
--- NOTE | 2023-05-03 12:45 | RAD_ITS ---
STUDY: X-RAY CHEST REASON FOR EXAM: Female, 82 years old. Chest pain TECHNIQUE: Single AP portable view of the chest. COMPARISON: None. FINDINGS: EKG electrodes are seen. Stable elevation of the right hemidiaphragm. The lungs are clear and expanded. There is no demonstrated pleural abnormality. Sternal cerclage wires and vascular clips are present from a prior sternotomy and coronary artery bypass graft procedure (CABG). Normal mediastinum and shirin. Normal visualized pulmonary arteries. There is atherosclerotic calcification of the aortic arch with tortuosity. Normal visualized thoracic spine. Normal visualized ribs, clavicles, and shoulders. There is no demonstrated abnormality of the visualized soft tissue structures of the upper abdomen. RAD/Chest 1 View (Portable) IMPRESSION: No acute abnormality is seen. Electronically Signed: Matty Hannah MD at 13:23 EST ,
--- NOTE | 2023-05-03 12:47 | ED.VIS.DYS ---
HPI History of Present Illness Chief Complaint: Upper Extremity Injury Detail of Chief Complaint: Exertional dyspnea for weeks to months. Atypical left arm pain. Informant: patient Onset/Context/Timing Onset: Weeks and Month(s) Context: gradual and exertion Timing: Intermittent Quality: Positive for Dyspnea on exertion Current Severity: Gone Maximum Severity: Mild Worsened by: Exertion Relieved by: Rest Associated Symptoms Negative for cough or rhinorrhea Chest Pain: Positive for None Narrative Narrative: 82-year-old female history of prior NE, A-fib, CAD on Eliquis. She had a 5 way bypass 78 years ago at [facility]. Patient states over the last several weeks to months she has had exertional dyspnea worse with steps and walking. She denies any chest pain. The last several days she has had 8 traumatic left arm pain that comes and goes. No history of DVT or PE. No recent cardiac workup. Denies recent stress test. PE Risk Factors: Negative for Cancer, OCP + Smoking + > 35, Prior DVT or PE, Recent immobilization, Recent surgery or Recent travel Prior similar symptoms: No Recent Illness/Hospitalization: No PFSH PFSH Medical History Angina pectoris Arthritis Dyslipidemia Essential hypertension GERD (gastroesophageal reflux disease) Hemorrhoids Hypercalcemia Hypertension Mixed hyperlipidemia Myocardial infarct NSTEMI (non-ST elevated myocardial infarction) Osteoarthritis Osteoporosis Postoperative atrial fibrillation Vitamin D deficiency Wears hearing aid in both ears Home Medications aspirin 81 mg tablet,delayed release 81 mg PO DAILY@1999 heart health 11/26/16 [History Last Taken 05/11/21] sertraline 25 mg tablet 25 mg PO DAILY mental health 11/25/17 [History Last Taken 05/12/21] cholecalciferol (vitamin D3) 50 mcg (2,000 unit) tablet 2,000 unit PO DAILY vitamin 01/19/19 [History Last Taken 05/12/21] alendronate 70 mg tablet 70 mg PO SA BONES 03/15/21 [History Last Taken 05/06/21] clindamycin HCl 150 mg capsule 150 mg PO ONCE PRN Dentist 06/01/21 [History Last Taken Unknown] hydroxychloroquine 200 mg tablet (Plaquenil) 300 mg PO DAILY arthritis 04/16/22 [History Last Taken Unknown] metoprolol tartrate 25 mg tablet 25 mg PO BID #180 tabs 06/19/22 [Rx Last Taken Unknown] swumzl-ebhliwfh-kxyjfoq 36,000-114,000-180,000 unit capsule,delay rel (Creon) 1 cap PO BID 10/15/22 [History Last Taken Unknown] apixaban 5 mg tablet (Eliquis) 5 mg PO BID #180 tabs 02/15/23 [Rx Last Taken Unknown] evolocumab 140 mg/mL subcutaneous pen injector (Repatha SureClick) 140 mg subcut Q2W Hyperlipidemia, cannot take statins #2 mL 04/03/23 [Rx Last Taken Unknown] Allergy/AdvReac Type Severity Reaction Status Date / Time Fojgkyq-KSH-BeY Reductase AdvReac Severe myalgias Verified 10/15/22 14:33 Inhibitor [Nfsfkfr-Yui-Yvm Reductase Inhibitor] Penicillins AdvReac Itching Verified 10/15/22 14:33 Tetanus Vaccines and Toxoid AdvReac Swelling Verified 10/15/22 14:33 [Tetanus Vaccines & Toxoid] Family History Mother Heart disease Father Heart disease Brother Heart disease Brother Heart disease Sister Heart disease Surgical History History of cholecystectomy History of coronary artery bypass graft (~09/17/16) History of facial surgery History of foot surgery History of removal of cyst History of repair of right rotator cuff History of right hip replacement History of tubal ligation Social History Smoking Status: Never smoker alcohol intake: current alcohol intake frequency: a few times a month caffeine: No ROS ROS ED ROS Narrative Exertional dyspnea. Atypical left arm pain. Review of Systems ROS Unobtainable: Denies due to encephalopathy Constitutional Constitutional ED: Denies chills or fever(s) Eyes Eyes: Denies blurry vision ENT ENT ED: Denies ear pain Cardiovascular Cardiovascular: Denies chest pain, orthopnea, palpitations or racing heartbeat Respiratory/Chest Respiratory/Chest: Reports dyspnea and dyspnea on exertion; Denies cough or orthopnea Gastrointestinal Gastrointestinal: Denies abdominal pain Genitourinary Genitourinary ED: Denies dysuria or hematuria Musculoskeletal Musculoskeletal: Denies arthralgias, back pain or myalgias Integumentary Denies abscess or Abrasions Neurologic Neurologic: Denies headache(s) or paresthesias Psychiatric Psychiatric: Denies anxiety or depression Endocrine Endocrinology: Denies cold intolerance Hematologic/Lymphatic Hematologic/Lymphatic: Denies easy bleeding, easy bruising or lymphadenopathy Allergic/Immunologic Allergic/Immunologic ED: Denies mouth swelling, tongue swelling or urticaria EXAM Physical Exam Narrative Exam Narrative: 82-year-old female vital signs stable afebrile. Pulse ox 98% on room air no signs hypoxia. H EENT exam unremarkable. Neck nontender no JVD. Lungs are to auscultation bilaterally. Heart regular rate and rhythm rate about 80 no murmur. Chest wall nontender. Abdomen soft nontender. Moving all 4 extremities. Nontender no edema. Equal symmetrical radial pulses. Neurologically she is awake and alert with no focal motor deficits. Const Vital Signs: 05/03/23 11:41 05/03/23 12:58 05/03/23 13:01 Temperature 97.3 F L Temperature Source Temporal Pulse Rate 79 Respiratory Rate 16 Respiratory Effort Normal Blood Pressure 144/77 H Blood Pressure Mean 99 Pulse Ox 98 Oxygen Delivery Method Room Air Room Air Positive well nourished and well developed; Negative for obese, cachectic, contractures or unkempt General Appearance ED: well developed and NAD; Negative for unkempt, cachectic, contractures or pallor Nutritional Appearance: Negative for cachectic or obese HEENT Reports moist mucous membranes; Denies dry mucous membranes or other atraumatic; Negative for trauma, tenderness or other Mouth ED: No dry mucous membranes Mouth: No dry mucous membranes Eyes PERRL and EOMs intact bilaterally General Eye ED: Negative for pale conjunctiva, scleral icterus or other Neck no lymphadenopathy, supple, no meningeal signs and no JVD General: Negative for tenderness Lymph Lymphatic: Negative for other Chest Wall Chest: Negative for other Resp normal respiratory effort and clear to auscultation bilaterally Effort and Inspection: Negative for pain with movement Auscultation: Negative for rales, rhonchi or wheezes Cardio regular rate, regular rhythm, S1 normal heart sound, S2 normal heart sound and no murmurs Rate: Negative for bradycardia or tachycardic Rhythm: Negative for abnormal rhythm GI non-tender, non-distended and no masses Auscultation: normoactive bowel sounds Palpation: soft; Negative for tender, guarding or rebound tenderness present Back/Spine no CVA tenderness and normal to inspection General Back: Negative for CVA tenderness or tenderness Extremity normal to inspection General Extremety ED: Negative for edema or tenderness General Extremity: Negative for edema Neuro oriented x3 and CN's II-XII intact bilaterally Sensorium / Orientation: alert, oriented to person, oriented to place and oriented to time; Negative for orientation impaired or confused Speech: speech normal Motor Exam: strength 5/5 throughout Psych mental status grossly normal Appearance: Negative for unkempt Attitude: No agitated Mood & Affect: Negative for depressed, anxious or tearful Thought Process: normal thought process Skin no wounds and skin turgor normal General Skin Exam: Negative for jaundice or pallor Lesions: no lesions Rashes: no rashes Trauma: Negative for abrasion or laceration MDM MDM MDM Narrative Medical decision making narrative: 80-year-old female history of prior fibroid bypass and prior NE with exertional dyspnea progressing over the last several weeks to months. Today had atypical left arm pain that clinically did not appear to be musculoskeletal nor is reproducible. She will be put through a cardiac workup and discussion of inpatient versus outpatient stress testing. Repeat exam at 2:12 PM patient doing well. Symptom-free. She and I and her daughter discussed all her test results. Also her symptoms of exertional dyspnea now nonreproducible arm pain with her history of a 5 way bypass I think she needs stress testing or further cardiac workup they are comfortable with the plan. I have the hospitalist page. History & Record Review Discussion w/independent historian: Patient Additional record(s) reviewed:: Prior inpatient record, Prior outpatient record, Prior ED visit, Prior labs and No prior records Lab Data Attestation: I reviewed the patient's lab results. Lab results narrative: CBC normal. White count of 4. H&H 14 and 43. Platelets 209. Electrolytes gap of 1. Normal BUN and creatinine. Glucose 99. Initial troponin 4. Chest x-ray unremarkable. Labs: Laboratory Results - last 24 hr 05/03/23 12:55 WBC 4.8 RBC 4.67 Hgb 14.2 Hct 43.5 MCV 93.1 MCH 30.4 MCHC 32.6 RDW Std Deviation 43.4 RDW Coeff of Dimas 12.7 Plt Count 209 MPV 9.3 Immature Gran % (Auto) 0.600 Neut % (Auto) 74.5 H Lymph % (Auto) 15.1 L [place] % (Auto) 7.1 Eos % (Auto) 2.1 Baso % (Auto) 0.6 Absolute Neuts (auto) 3.5 Absolute Lymphs (auto) 0.72 L Nucleated RBC % 0 Sodium 141 Potassium 4.3 Chloride 112 H Carbon Dioxide 28.0 Anion Gap 1 L BUN 14 Creatinine 0.77 Estim Creat Clear Calc 52.27 Est GFR (MDRD) Af Amer 92 Est GFR (MDRD) Non-Af 76 BUN/Creatinine Ratio 18.2 Glucose 99 Calcium 10.0 Troponin I High Sens 4 Radiography Chest X-Ray - ED: 1 View, Read by ED Physician, Normal, Heart, Lungs, Mediastinum, Bony Structures, No Acute Disease and Chronic Changes Diagnostic Testing: Clinical Impression(s) from Imaging Studies Chest X-Ray 05/03/23 12:45 IMPRESSION: No acute abnormality is seen. Electronically Signed: Matty Hannah MD at 13:23 EST , Chest x-ray, portable, single view shows no acute abnormality. Interpreted both by myself and radiologist. Prior sternotomy. Normal cardiac silhouette. No infiltrates. No effusions. Rhythm Strip Rhythm Strip: Sinus Rhythm Rate: 80 Ectopy: None EKG Initial EKG: Attestation: I personally reviewed and interpreted this EKG as follows: Interpretation: Sinus Rhythm and No Acute Injury Pattern Comments: Normal sinus rhythm rate 80 no acute signs of NE or ischemia. No dysrhythmia. No S1Q3T3. Discharge Plan Triage Chief Complaint: Upper Extremity Injury ED Provider: Kee Sanchez Dx/Rx/DC Orders Clinical Impression: Exertional dyspnea, Hx of CABG, History of CAD (coronary artery disease) Prescriptions: No Action sertraline 25 mg tablet 25 mg PO DAILY cholecalciferol (vitamin D3) 2,000 unit tablet 2,000 unit PO DAILY hydroxychloroquine [Plaquenil] 200 mg tablet 300 mg PO DAILY alendronate 70 mg tablet 70 mg PO SA clindamycin HCl 150 mg capsule 150 mg PO ONCE PRN (Reason: Dentist) Creon 36,000-114,000- 180,000 unit capsule,delayed release(DR/EC) 1 cap PO BID Rx Instructions: administer with meals and/or snacks aspirin 81 MG tablet 81 mg PO DAILY@2000 metoprolol tartrate 25 mg tablet 25 mg PO BID Qty: 180 3RF Eliquis 5 mg tablet 5 mg PO BID Qty: 180 4RF Repatha SureClick 140 mg/mL pen injector 140 mg SC Q2W Qty: 2 11RF Primary Care Provider: Joss Salas Referrals: Joss Salas DO [Primary Care Provider] - Disposition Disposition: Acute Care Hospital [facility]
[2023-05-03 13:05] LABS: Absolute Lymphocyte Count 0.72 X10^3/uL (0.83-4.51); Absolute Neutrophil Count 3.5 X10^3/uL (2.0-7.7); Basophil# 0.03 X10^3/uL; Basophil% 0.6 % (0-1); Eosinophils% 2.1 % (0-5); Hematocrit 43.5 % (37-47); Hemoglobin 14.2 g/dL (12.0-15.0); Lymphocyte # 0.72 X10^3/ul (0.83-4.51); Lymphocyte % 15.1 % (19-41); Mean Corp Hgb Conc 32.6 g/dL (32-36); Mean Corpuscular Hgb 30.4 pg (27.0-32.0); Mean Corpuscular Volume 93.1 fL (81-99); Mean Platelet Vol. 9.3 fl (6.2-12.0); Monocyte# 0.34 X10^3/uL; Monocyte% 7.1 % (0-10); NRBC Flagged by Analyzer 0 % (0-5); Neutrophil # 3.54 X10^3/uL (2.7-7.7); Neutrophil % 74.5 % (47-70); Platelet Count 209 K/mm3 (150-450); RBC Distribution Width CV 12.7 % (11.6-14.6); RBC Distribution Width SD 43.4 fl (35.1-43.9); Red Blood Count 4.67 M/mm3 (4.2-5.4); White Blood Count 4.8 K/mm3 (4.4-11.0)
[2023-05-03 13:22] LABS: Anion Gap 1 (5-15); BUN 14 mg/dL (7-18); BUN/Creat Ratio 18.2 RATIO (10-20); Chloride 112 mmol/L (98-107); Creatinine, Serum 0.77 mg/dL (0.55-1.02); EST Glomerular Filtration Rate 76 mL/min (>60); Est Glom Filt Rate - Afr Amer 92 mL/min (>60); Estimated Creatinine Clearance 52.27 ml/min; Glucose 99 mg/dL (74-106); Potassium 4.3 mmol/L (3.5-5.1); Sodium Level 141 mmol/L (136-145); Troponin-I HS 4 pg/mL (3.0-54.0)
[2023-05-03 13:41] VITALS: BP 137/68; PULSE 71; RESP 16; O2SAT 96
[2023-05-03 14:28] VITALS: BP 147/73; PULSE 63; RESP 18; O2SAT 97
--- NOTE | 2023-05-03 14:52 | HP.PCM.HOS_ITS ---
HPI - General General Date of Admission: 05/03/23 Date of Service: 05/03/23 Chief Complaint: Arm pain and SOB HPI Narrative WESTON MASON, is a 82 F with a history of coronary artery disease status post CABG around 2016, A-fib on RA Sol who presented to [facility] 05/03/2023 due to increasing shortness of breath on exertion and left arm discomfort. Reports that the shortness of breath has been present for a couple of months and is worse with exertion and better with rest and over the past couple weeks she began to have dull left arm pain that radiates down her left arm has difficulty associating any relieving or exacerbating factors. In the ED workup fairly benign however given patient's risk factors and history hospitalist contacted for admission for cardiac workup. Patient evaluated with family member at bedside and she reports she has been trying to ignore her symptoms thinking that maybe they will get better however today she is having shortness of breath and arm pain and overall was not feeling well and said that these are the same symptoms she had before she was evaluated and had to have her CABG after which her symptoms subsequently went away. No swelling in extremities, denies any other current complaints. [facility] Medical History Angina pectoris Arthritis Dyslipidemia Essential hypertension GERD (gastroesophageal reflux disease) Hemorrhoids Hypercalcemia Hypertension Mixed hyperlipidemia Myocardial infarct NSTEMI (non-ST elevated myocardial infarction) Osteoarthritis Osteoporosis Postoperative atrial fibrillation Vitamin D deficiency Wears hearing aid in both ears Home Medications aspirin 81 mg tablet,delayed release 81 mg PO DAILY@1999 heart health 11/26/16 [History Last Taken 05/03/23] sertraline 25 mg tablet 25 mg PO DAILY mental health 11/25/17 [History Last Taken 05/03/23] cholecalciferol (vitamin D3) 50 mcg (2,000 unit) tablet 2,000 unit PO DAILY vitamin 01/19/19 [History Last Taken 05/02/23] clindamycin HCl 150 mg capsule 150 mg PO ONCE PRN Dentist 06/01/21 [History Last Taken Unknown] metoprolol tartrate 25 mg tablet 25 mg PO BID #180 tabs 06/19/22 [Rx Last Taken 05/03/23] klgvio-aggzfzlf-dcgdzue 36,000-114,000-180,000 unit capsule,delay rel (Creon) 1 cap PO BID 10/15/22 [History Last Taken Unknown] apixaban 5 mg tablet (Eliquis) 5 mg PO BID #180 tabs 02/15/23 [Rx Last Taken 05/03/23] evolocumab 140 mg/mL subcutaneous pen injector (Repatha SureClick) 140 mg subcut Q2W Hyperlipidemia, cannot take statins #2 mL 04/03/23 [Rx Last Taken 05/02/23] Al hyd-Mg tr-alg ac-sod bicarb 80 mg-14.2 mg chewable tablet (Gaviscon) 1 tab PO DAILY PRN heartburn 05/03/23 [History Last Taken Unknown] ascorbic acid (vitamin C) 500 mg tablet (Vitamin C) 500 mg PO DAILY supplement 05/03/23 [History Last Taken 05/02/23] chlorhexidine gluconate 0.12 % mouthwash 15 ml PO BID dental implant 05/03/23 [History Last Taken Unknown] dexlansoprazole 60 mg capsule,biphase delayed release 60 mg PO DAILY heartburn 05/03/23 [History Last Taken 05/03/23] Allergy/AdvReac Type Severity Reaction Status Date / Time Ronomyw-WSH-UcO Reductase AdvReac Severe myalgias Verified 10/15/22 14:33 Inhibitor [Aqxjlep-Oju-Hcj Reductase Inhibitor] Penicillins AdvReac Itching Verified 10/15/22 14:33 Tetanus Vaccines and Toxoid AdvReac Swelling Verified 10/15/22 14:33 [Tetanus Vaccines & Toxoid] Family History Mother Heart disease Father Heart disease Brother Heart disease Brother Heart disease Sister Heart disease Surgical History History of cholecystectomy History of coronary artery bypass graft (~09/17/16) History of facial surgery History of foot surgery History of removal of cyst History of repair of right rotator cuff History of right hip replacement History of tubal ligation Social History Smoking Status: Never smoker alcohol intake: current alcohol intake frequency: a few times a month caffeine: No ROS ROS Narrative General: Denies fever/chills HENT: Denies headache, denies stuffy nose, denies sore throat EYES: Denies changes in vision Resp: Denies cough, increasing shortness of breath on exertion Cardiac: Denies chest pain does have pain into the left arm GI: Denies abdominal pain, denies changes in bowel, denies nausea/vomiting : Denies changes in urination Extremity: Denies swelling MSK: Denies weakness Neuro: Denies any numbness/tingling Heme: Denies any bleeding or bruising Skin: Denies rashes Psychiatric: No complaints voiced Vital Signs Vital Signs Vital Signs: 05/03/23 11:41 05/03/23 12:58 05/03/23 13:01 Temperature 97.3 F L Temperature Source Temporal Pulse Rate 79 Respiratory Rate 16 Respiratory Effort Normal Blood Pressure 144/77 H Blood Pressure Mean 99 Pulse Ox 98 Oxygen Delivery Method Room Air Room Air 05/03/23 13:41 05/03/23 14:28 Temperature Temperature Source Pulse Rate 71 63 Respiratory Rate 16 18 Respiratory Effort Blood Pressure 137/68 H 147/73 H Blood Pressure Mean 91 97 Pulse Ox 96 97 Oxygen Delivery Method Room Air Weight Weight: 70.624 kg Body Mass Index (BMI) 26.7 Physical Exam Narrative General: Alert, oriented, no apparent distress HEENT: Atraumatic, normocephalic Eyes: Anicteric, normal conjunctiva, extraocular movements grossly intact Neck: Supple Respiratory: Clear to auscultation bilaterally, normal respiratory effort Cardiovascular: Regular rate and rhythm GI: Soft, nontender, nondistended Extremities: No edema Musculoskeletal: Moving all extremities Neuro: No overt focal neurological deficits Skin: No rashes appreciated Psych: Cooperative Results Lab / Micro Data 05/03/23 12:55 05/03/23 12:55 Labs: Laboratory Results - last 24 hr 05/03/23 12:55: WBC 4.8, RBC 4.67, Hgb 14.2, Hct 43.5, MCV 93.1, MCH 30.4, MCHC 32.6, RDW Std Deviation 43.4, RDW Coeff of Dimas 12.7, Plt Count 209, MPV 9.3, Immature Gran % (Auto) 0.600, Neut % (Auto) 74.5 H, Lymph % (Auto) 15.1 L, [place] % (Auto) 7.1, Eos % (Auto) 2.1, Baso % (Auto) 0.6, Absolute Neuts (auto) 3.5, Absolute Lymphs (auto) 0.72 L, Nucleated RBC % 0, Sodium 141, Potassium 4.3, Chloride 112 H, Carbon Dioxide 28.0, Anion Gap 1 L, BUN 14, Creatinine 0.77, Estim Creat Clear Calc 52.27, Est GFR (MDRD) Af Amer 92, Est GFR (MDRD) Non-Af 76, BUN/Creatinine Ratio 18.2, Glucose 99, Calcium 10.0, Troponin I High Sens 4 Rhythm Strip Rhythm Strip: Sinus Rhythm Rate: 80 Ectopy: None Imaging Radiology Impression Chest X-Ray 05/03/23 12:45 IMPRESSION: No acute abnormality is seen. Electronically Signed: Matty Hannah MD at 13:23 EST , Assessment & Plan Assessment/Plan (1) Dyspnea: (2) Atherosclerosis of [place] coronary artery of [place] heart without angina pectoris: (3) Essential hypertension: (4) GERD (gastroesophageal reflux disease): (5) Postoperative atrial fibrillation: PLAN: Plan #SOB and arm pain, concern for anginal equivalent -Has history of CABG in 2016 and reports she had the same symptoms leading up to that and the symptoms resolved after intervention -Patient had a stress test in 2021 which was negative, given patient's history and symptoms unclear if repeating stress test is of high utility as if it was negative I would still have suspicion that this could be anginal equivalent so we will consult cardiology for stress versus cath -EKG normal sinus rhythm with rate of 80 -Initial troponin 4, will trend troponin -Will order echo -Aspirin, patient intolerant of statins -Continue beta-fabián -Lipid panel in the a.m. -Heart healthy diet, n.p.o. at midnight in the event patient does require any te sting or intervention # A-fib -Presently normal sinus rhythm -Continue metoprolol -Continue Eliquis #Rheumatoid arthritis -Patient on hydroxychloroquine #HPL -Intolerant of statins -On repatha at home #GERD -Continue PPI -Not complaining of any symptoms of GERD # Depression -Does not seem to be presently having any symptoms -Continue sertraline #DVT ppx: Eliquis Rina Cosby, MD Charges/Coding Visit Charges Inpatient E&M: 98380 Init Hosp L2
--- NOTE | 2023-05-03 15:34 | ECHOD_ITS ---
Reason For Study: Dyspnea/SOB Procedure This was a 2D Doppler, Color Flow transthoracic echocardiogram. PREVIOUS REACTION TO DEFINITY - DO NOT USE. Exam performed portable in patient room. Left Ventricle Normal left ventricle. The estimated ejection fraction is 55-60 %. Right Ventricle Normal right ventricle. Normal systolic function. Atria Normal left atrium. Normal right atrium. Mitral Valve There is mild mitral annular calcification. Mild (1+) mitral valve insufficiency. Tricuspid Valve Normal tricuspid valve. Aortic Valve Trisinus/trileaflet aortic valve. Pulmonic Valve The pulmonic valve is not well visualized. Great Vessels Normal aortic root. Pericardium/Pleural No pericardial effusion. MMode/2D Measurements & Calculations LVIDd: 3.1 cm IVSd: 1.3 cm Ao root diam: 2.8 cm LVIDs: 1.8 cm LVPWd: 1.3 cm RVDd: 3.9 cm FS: 41.6 % LAV(MOD-bp): 20.8 ml LVAd ap4: 16.4 cm2 SV(MOD-sp4): 22.5 ml LAV(MOD-bp) Indexed: 11.8 ml/m2 LVLd ap4: 5.8 cm LAV(MOD-sp2): 21.4 ml EDV(MOD-sp4): 37.9 ml LAV(MOD-sp4): 15.9 ml EDV(sp4-el): 39.3 ml LVAs ap4: 9.2 cm2 LVLs ap4: 4.7 cm ESV(MOD-sp4): 15.4 ml ESV(sp4-el): 15.3 ml EF(MOD-sp4): 59.5 % EF(sp4-el): 61.1 % SV(sp4-el): 24.0 ml LA A4 area: 9.6 cm2 LA dimension(2D): 3.5 cm RA A4 area: 7.4 cm2 TAPSE: 1.7 cm Time Measurements MV dec time: 0.24 sec Doppler Measurements & Calculations MV E max josiah: 60.5 cm/sec Lat Peak E' Josiah: 10.9 cm/sec Med Peak E' Josiah: 7.1 cm/sec MV A max josiah: 95.3 cm/sec E/E' lat: 5.5 E/E' med: 8.5 MV E/A: 0.63 Ao V2 max: 89.5 cm/sec LV V1 max: 82.6 cm/sec MV dec slope: 248.3 cm/sec2 Ao max P.2 mmHg LV V1 max P.7 mmHg Ao V2 mean: 67.1 cm/sec Ao mean P.0 mmHg Ao V2 VTI: 20.4 cm PA V2 max: 80.1 cm/sec TR max josiah: 209.1 cm/sec TR max P.5 mmHg ECHO/Echo Complete Interpretation Summary The estimated ejection fraction is 55-60 %. Mild mitral regurgitation/MR In comparison to previous echo in May 2021 no significant change noted. Ordering Physician: Rina Cosby Referring Physician: Joss Salas Performed By: Olya Peacock, DEREK, RVT
--- OUTSIDE RECORDS SUMMARY | 2023-05-03 16:08 | XMS RPT_ITS | CCD ---
Author Name Unknown Address [address] [place] [address] Organization [facility] Care Team Providers Care Supervisor Border Department Name Role Phone Bakari Skeltoni Unavailable Unavailable TRISTIN JONES Unavailable Unavailable NOEL BRUNSON Unavailable Unavailable EVERARDO CANTU Unavailable Unavailable Allergies Allergy Classification Reported Allergen(s) Allergy Type Date of Onset Reaction(s) Facility (2 sources) Hmg-Coa Reductase Inhibitors (Statins) drug allergy 11-14-2016 myalgias [facility] Work Phone: (1 source) Penicillins (Antibiotic) drug allergy 11-14-2016 [facility] Work Phone: (1 source) TETNUS TOXOID drug allergy 11-14-2016 [facility] Work Phone: Medications Completed/Discontinued Medications Medication Drug Class(es) Dates Sig (Normalized) Sig (Original) aspirin 81 mg oral tablet (2 sources) Nonsteroidal Anti-inflammatory Drug Start: 7 take 1 tablet by mouth once daily ASPIRIN EC LOW DOSE 81 MG TBEC One tablet by mouth daily ASPIRIN [id number] Elan Barrios MD clindamycin 300 mg oral capsule (1 source) Lincosamide Antibacterial Start: 7 take 2 tablets by mouth every hour CLINDAMYCIN HCL 300 MG CAPS 2 tablets by mouth 1 hr prior to procedure CLINDAMYCIN HCL [id number] Elan Barrios MD clopidogrel 75 mg oral tablet (3 sources) P2Y12 Platelet Inhibitor Start: 7 End: 7 take 1 tablet by mouth once daily PLAVIX 75 MG TABS One tablet by mouth daily for 3 months post op 09/18/16 CLOPIDOGREL BISULFATE [id number] Elan Barrios MD hydroxychloroquine sulfate 200 mg oral tablet (1 source) Antirheumatic Agent Start: 7 take 1 tablet by mouth once daily PLAQUENIL 200 MG TABS One and one half tablet by mouth daily HYDROXYCHLOROQUINE SULFATE [id number] Elan Barrios MD melatonin 5 mg oral tablet (2 sources) Start: 7 take 1 tablet by mouth once daily as needed MELATONIN 5 MG TABS One tablet by mouth daily as needed MELATONIN [id number] Elan Barrios MD meloxicam 15 mg oral tablet (1 source) Nonsteroidal Anti-inflammatory Drug Start: 7 MELOXICAM 15 MG TABS as needed MELOXICAM [id number] Arya Peacock NP metoprolol tartrate 25 mg oral tablet (2 sources) beta-Adrenergic Glory Start: 7 take 1 tablet by mouth twice daily METOPROLOL TARTRATE 25 MG TABS One tablet by mouth twice daily METOPROLOL TARTRATE [id number] Arya Peacock NP Problems Active Problems Problem Classification Problem Date Documented Date Episodic/Chronic Acute myocardial infarction (1 source) Non-ST elevation (NSTEMI) myocardial infarction; Translations: [Non-ST elevation (NSTEMI) myocardial infarction] Onset: 11-14-2016 11-14-2016 Chronic Coronary atherosclerosis and other heart disease (1 source) Atherosclerotic heart disease of [place] coronary artery without angina pectoris; Translations: [Atherosclerotic heart disease of [place] coronary artery without angina pectoris] Onset: 11-14-2016 11-14-2016 Chronic Disorders of lipid metabolism (1 source) Hyperlipidemia; Translations: [Hyperlipidemia, unspecified] Onset: 11-14-2016 11-14-2016 Chronic Essential hypertension (1 source) Hypertensive disorder; Translations: [Essential (primary) hypertension] Onset: 11-14-2016 11-14-2016 Chronic Unclassified (1 source) Long-term drug therapy; Translations: [Other 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) drug therapy] Onset: 11-14-2016 11-14-2016 Unclassified (1 source) Unknown / UNK(Unknown) Onset: 10-03-2016 Past or Other Problems Problem Classification Problem Date Documented Da te Episodic/Chronic Coronary atherosclerosis and other heart disease (1 source) Presence of aortocoronary bypass graft; Translations: [Presence of aortocoronary bypass graft] Onset: 11-14-2016 11-14-2016 Episodic Pleurisy; pneumothorax; pulmonary collapse (1 source) Pleural effusion Onset: 10-03-2016 Episodic Unclassified (1 source) Liver function tests abnormal; Translations: [Abnormal results of liver function studies] Onset: 11-14-2016 11-14-2016 Episodic Results Test Name Value Interpretation Reference Range Facil ity Vital Signs Date Time Vital Sign Value Performing Clinician Guillermo dow 02-18-2017 08:43-0500 BMI (Body Mass Index) 24.97 kg/m2 [facility] Work Phone: 02-18-2017 08:43-0500 BP Diastolic 62 mm[Hg] [facility] Work Phone: 02-18-2017 08:43-0500 BP Systolic 112 mm[Hg] [facility] Work Phone: 02-18-2017 08:43-0500 Height 160.02 cm [facility] Work Phone: 02-18-2017 08:43-0500 Pulse (Heart Rate) 84 /min [facility] Work Phone: 02-18-2017 08:43-0500 Respiratory Rate 20 /min [facility] Work Phone: 02-18-2017 08:43-0500 Weight 63.96 kg [facility] Work Phone: Encounters Encounter Date Encounter Type Care Provider Facility Start: 10-03-2016 End: 10-04-2016 Ambulatory PHY WO ID REFERRING Facility:[facility] Procedures Date Procedure Procedure Detail Performing Clinician Start: 02-18-2017 End: 02-18-2017 Follow Up Appt 9 months Arya Peacock NP Work Phone: Start: 02-18-2017 End: 02-18-2017 PFM Arya Peacock NP Work Phone: Start: 11-15-2016 End: 11-28-2016 Cardiovascular stress test using treadmill Elan Barrios MD Start: 11-15-2016 End: 11-15-2016 Ecg routine ecg w/least 12 lds w/i&r Elan Barrios MD Start: 11-15-2016 End: 11-15-2016 Follow Up Appt 3 months Elan Barrios MD Start: 11-15-2016 End: 11-15-2016 MMM Elan Barrios MD Start: 11-15-2016 End: 11-16-2016 Referral to emergency service restorer Elan jensen MD Plan of Treatment Date Care Activity Detail Author Start: 11-25-2017 End: 11-25-2017 Appointment Appointment [facility] Phone: Start: 02-18-2017 End: 02-18-2017 Follow Up Appt 9 months Follow Up Appt 9 months [facility] Work Phone: Start: 02-18-2017 End: 02-18-2017 PFM PFM [facility] Work Phone: Start: 11-15-2016 End: 11-21-2016 Cardiac [facility] [address] [facility] [place] [address] [facility] Phone: Start: 11-15-2016 End: 11-15-2016 Cardiovascular stress test using treadmill Treadmill stress test (no imaging) [facility] Phone: Start: 11-15-2016 End: 11-15-2016 Ecg routine ecg w/least 12 lds w/i&r EKG (In office) [facility] Phone: Start: 11-15-2016 End: 11-15-2016 Follow Up Appt 3 months Follow Up Appt 3 months [employer] Phone: Start: 11-15-2016 End: 11-15-2016 MMM MMM [facility] [employer] [facility] [facility] Work Phone: Payers Date Payer Category Payer Unknown [id number] Summary Purpose Family History No Family History Records Found Advance Directives No Advanced Directives Records Found Additional Source Comments INFORMATION SOURCE (unrecogn ized section and content) FOR RECORDS PERTAINING TO PATIENTS WHO ARE OR HAVE BEEN ENROLLED IN A CHEMICAL DEPENDENCY/SUBSTANCEABUSE PROGRAM, SOME INFORMATION MAY BE OMITTED. This clinical summary was aggregated from multiple sources. Caution should be exercised in using it in the provision of clinical care. This summary normalizes information from multiple sources, and as a consequence, information in this document may materially change the coding, format and clinical context of patient data. In addition, data may be omitted in some cases. CLINICAL DECISIONS SHOULD BE BASED ON THE PRIMARY CLINICAL RECORDS. [employer] provides no warranty or guarantee of the accuracy or completeness of information in this document.
[2023-05-03 16:40] LABS: Troponin-I HS 5 pg/mL (3.0-54.0)
[2023-05-03 16:42] VITALS: BMI 26.9
[2023-05-03 16:50] VITALS: BP 141/66; PULSE 63; RESP 18; TEMP 36.3; O2SAT 100
--- NOTE | 2023-05-03 16:52 | PCM.CONS.C ---
Assessment & Plan Assessment/Plan (1) History of CAD (coronary artery disease): (2) Hx of CABG: (3) History of coronary artery bypass graft: (4) Exertional dyspnea: (5) Angina pectoris: PLAN: 82-year-old patient admitted through the ED?[facility] With symptoms of left arm discomfort with increasing symptoms of shortness of breath on exertion. Evidently the symptoms have been for a couple of months and is worse with exertion relieved with rest. She been seen and followed at the cardiology clinic and she has been stable from cardiac standpoint Patient has history of CAD status post CABG August 2016 With HALL to LAD, SVG to OM, SVG to diagonal, SVG to PDA. Also had a history of hyperlipidemia and hypertension She usually checks her blood pressure at home she noted blood pressure elevated to the range of 170s. Card exam essentially normal Cardiac care plan recommendations; I reviewed the current evaluation in the hospital which included the EKG I do not see an significant ST?T abnormality in the EKG And the cardiac biomarkers have been negative. Also reviewed and discussed her current medication continue current treatment Will evaluate dysphagia and further with a D-dimer level as well Lexiscan sestamibi and echocardiogram which will be set up for tomorrow. Lulu Knight MD,[facility] HPI Consult Data Date of Consult: 05/03/23 HPI Narrative Reason for Consultation: Chest pain/unstable angina HPI Narrative: WESTON MASON, is a 82 F who presents [facility] Medical History Angina pectoris Arthritis Dyslipidemia Essential hypertension GERD (gastroesophageal reflux disease) Hemorrhoids Hypercalcemia Hypertension Mixed hyperlipidemia Myocardial infarct NSTEMI (non-ST elevated myocardial infarction) Osteoarthritis Osteoporosis Postoperative atrial fibrillation Vitamin D deficiency Wears hearing aid in both ears Home Medications aspirin 81 mg tablet,delayed release 81 mg PO DAILY@1999 heart health 11/26/16 [History Last Taken 05/03/23] sertraline 25 mg tablet 25 mg PO DAILY mental health 11/25/17 [History Last Taken 05/03/23] cholecalciferol (vitamin D3) 50 mcg (2,000 unit) tablet 2,000 unit PO DAILY vitamin 01/19/19 [History Last Taken 05/02/23] clindamycin HCl 150 mg capsule 150 mg PO ONCE PRN Dentist 06/01/21 [History Last Taken Unknown] metoprolol tartrate 25 mg tablet 25 mg PO BID #180 tabs 06/19/22 [Rx Last Taken 05/03/23] yijhgn-cukatagz-rszhdmh 36,000-114,000-180,000 unit capsule,delay rel (Creon) 1 cap PO BID 10/15/22 [History Last Taken Unknown] apixaban 5 mg tablet (Eliquis) 5 mg PO BID #180 tabs 02/15/23 [Rx Last Taken 05/03/23] evolocumab 140 mg/mL subcutaneous pen injector (Repatha SureClick) 140 mg subcut Q2W Hyperlipidemia, cannot take statins #2 mL 04/03/23 [Rx Last Taken 05/02/23] Al hyd-Mg tr-alg ac-sod bicarb 80 mg-14.2 mg chewable tablet (Gaviscon) 1 tab PO DAILY PRN heartburn 05/03/23 [History Last Taken Unknown] ascorbic acid (vitamin C) 500 mg tablet (Vitamin C) 500 mg PO DAILY supplement 05/03/23 [History Last Taken 05/02/23] chlorhexidine gluconate 0.12 % mouthwash 15 ml PO BID dental implant 05/03/23 [History Last Taken Unknown] dexlansoprazole 60 mg capsule,biphase delayed release 60 mg PO DAILY heartburn 05/03/23 [History Last Taken 05/03/23] Allergy/AdvReac Type Severity Reaction Status Date / Time Jeftpzk-OFM-JfE Reductase AdvReac Severe myalgias Verified 10/15/22 14:33 Inhibitor [Zkwuhjm-Cmf-Abn Reductase Inhibitor] Penicillins AdvReac Itching Verified 10/15/22 14:33 Tetanus Vaccines and Toxoid AdvReac Swelling Verified 10/15/22 14:33 [Tetanus Vaccines & Toxoid] Family History Mother Heart disease Father Heart disease Brother Heart disease Brother Heart disease Sister Heart disease Surgical History History of cholecystectomy History of coronary artery bypass graft (~09/17/16) History of facial surgery History of foot surgery History of removal of cyst History of repair of right rotator cuff History of right hip replacement History of tubal ligation Social History Smoking Status: Never smoker alcohol intake: current alcohol intake frequency: a few times a month caffeine: No Physical Exam Cardio Cardio Narrative: Seen and evaluated bedside along with the nursing staff jail manager showed normal sinus Cardiac exam S1-S2 regular Chest exam clear to auscultation bilaterally Examination lower extremity no lower extremity edema. Risk Stratification Risk Stratification Applicable: Yes Age >/= 65: Yes >/= 3 CAD Risk Factors (HTN, HLD, DM, family hx of CAD, or current smoker): Yes Aspirin Use in the Past 7 Days: Yes Severe Angina (>/= episodes in 24 hours): No EKG ST Changes >/= 0.5mm: No Positive Cardiac Marker: No GLORIA Risk Stratification Score: 3 GLORIA % Risk: 13% Risk Objective Data Vital Signs: Vital Signs Temp Pulse Resp BP Pulse Ox O2 Del Method 97.3 F L 63 18 147/73 H 97 Room Air 05/03/23 11:41 05/03/23 14:28 05/03/23 14:28 05/03/23 14:28 05/03/23 14:28 05/03/23 13:41 Oxygen Delivery Method Room Air Weight: 152 lb 1.903 oz Body Mass Index (BMI) 26.9 Lab / Micro Data 05/03/23 12:55 05/03/23 12:55 Labs: Laboratory Results - last 24 hr 05/03/23 12:55: WBC 4.8, RBC 4.67, Hgb 14.2, Hct 43.5, MCV 93.1, MCH 30.4, MCHC 32.6, RDW Std Deviation 43.4, RDW Coeff of Dimas 12.7, Plt Count 209, MPV 9.3, Immature Gran % (Auto) 0.600, Neut % (Auto) 74.5 H, Lymph % (Auto) 15.1 L, [place] % (Auto) 7.1, Eos % (Auto) 2.1, Baso % (Auto) 0.6, Absolute Neuts (auto) 3.5, Absolute Lymphs (auto) 0.72 L, Nucleated RBC % 0, Sodium 141, Potassium 4.3, Chloride 112 H, Carbon Dioxide 28.0, Anion Gap 1 L, BUN 14, Creatinine 0.77, Estim Creat Clear Calc 52.27, Est GFR (MDRD) Af Amer 92, Est GFR (MDRD) Non-Af 76, BUN/Creatinine Ratio 18.2, Glucose 99, Calcium 10.0, Troponin I High Sens 4 05/03/23 15:50: Troponin I High Sens 5 Rhythm Strip Rhythm Strip: Sinus Rhythm Rate: 80 Ectopy: None Cardiology Labs/Tests 05/03/23 12:55: WBC 4.8, RBC 4.67, Hgb 14.2, Hct 43.5, MCV 93.1, MCH 30.4, MCHC 32.6, Plt Count 209, MPV 9.3, Immature Gran % (Auto) 0.600, Neut % (Auto) 74.5 H, Lymph % (Auto) 15.1 L, [place] % (Auto) 7.1, Eos % (Auto) 2.1, Baso % (Auto) 0.6, Absolute Neuts (auto) 3.5, Nucleated RBC % 0, Sodium 141, Potassium 4.3, Chloride 112 H, Carbon Dioxide 28.0, Anion Gap 1 L, BUN 14, Creatinine 0.77, Est GFR (MDRD) Af Amer 92, Est GFR (MDRD) Non-Af 76, BUN/Creatinine Ratio 18.2, Glucose 99, Calcium 10.0 Rhythm: EKG: ECHO: Stress Test: Cardiac Cath: PCI: CT Surgery: Holter monitor: EPS: PPM: CXR: Chest CT Scan: Radiography Diagnostic Testing: Radiology Impression Chest X-Ray 05/03/23 12:45 IMPRESSION: No acute abnormality is seen. Electronically Signed: Matty Hannah MD at 13:23 EST ,
[2023-05-03 17:09] LABS: D-Dimer Quantitative (DVT/PE) 0.34 FEU/ug/m (0.27-0.49)
[2023-05-03] MEDS: Aspirin 81 MG TAB.CHEW 324 MG PO (17:15)
--- OUTSIDE RECORDS SUMMARY | 2023-05-03 17:57 | XMS RPT_ITS | CCD ---
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 Name Role Phone Bakari Skeltoni Unavailable Unavailable TRISTIN JONES Unavailable Unavailable NOEL BRUNSON Unavailable Unavailable EVERARDO CANTU Unavailable Unavailable Allergies Allergy Classification Reported Allergen(s) Allergy Type Date of Onset Reaction(s) Facility (2 sources) Hmg-Coa Reductase Inhibitors (Statins) drug allergy 11-14-2016 myalgias [facility] Work Phone: (1 source) Penicillins (Antibiotic) drug allergy 11-14-2016 [facility] Work Phone: (1 source) TETNUS TOXOID drug allergy 11-14-2016 [facility] Work Phone: Medications Completed/Discontinued Medications Medication Drug Class(es) Dates Sig (Normalized) Sig (Original) aspirin 81 mg oral tablet (2 sources) Nonsteroidal Anti-inflammatory Drug Start: 7 take 1 tablet by mouth once daily ASPIRIN EC LOW DOSE 81 MG TBEC One tablet by mouth daily ASPIRIN [id number] Elan Barrios MD clindamycin 300 mg oral capsule (1 source) Lincosamide Antibacterial Start: 7 take 2 tablets by mouth every hour CLINDAMYCIN HCL 300 MG CAPS 2 tablets by mouth 1 hr prior to procedure CLINDAMYCIN HCL 59938043601 Elan Barrios MD clopidogrel 75 mg oral tablet (3 sources) P2Y12 Platelet Inhibitor Start: 7 End: 7 take 1 tablet by mouth once daily PLAVIX 75 MG TABS One tablet by mouth daily for 3 months post op 09/18/16 CLOPIDOGREL BISULFATE [id number] Elan Barrios MD hydroxychloroquine sulfate 200 mg oral tablet (1 source) Antirheumatic Agent Start: 7 take 1 tablet by mouth once daily PLAQUENIL 200 MG TABS One and one half tablet by mouth daily HYDROXYCHLOROQUINE SULFATE 46859560486 Elan Barrios MD melatonin 5 mg oral tablet (2 sources) Start: 7 take 1 tablet by mouth once daily as needed MELATONIN 5 MG TABS One tablet by mouth daily as needed MELATONIN [id number] Elan Barrios MD meloxicam 15 mg oral tablet (1 source) Nonsteroidal Anti-inflammatory Drug Start: 7 MELOXICAM 15 MG TABS as needed MELOXICAM [id number] Arya Peacock NP metoprolol tartrate 25 mg oral tablet (2 sources) beta-Adrenergic Glory Start: 7 take 1 tablet by mouth twice daily METOPROLOL TARTRATE 25 MG TABS One tablet by mouth twice daily METOPROLOL TARTRATE [id number] Arya Peacock NP Problems Active Problems Problem Classification Problem Date Documented Date Episodic/Chronic Acute myocardial infarction (1 source) Non-ST elevation (NSTEMI) myocardial infarction; Translations: [Non-ST elevation (NSTEMI) myocardial infarction] Onset: 11-14-2016 11-14-2016 Chronic Coronary atherosclerosis and other heart disease (1 source) Atherosclerotic heart disease of [place] coronary artery without angina pectoris; Translations: [Atherosclerotic heart disease of [place] coronary artery without angina pectoris] Onset: 11-14-2016 11-14-2016 Chronic Disorders of lipid metabolism (1 source) Hyperlipidemia; Translations: [Hyperlipidemia, unspecified] Onset: 11-14-2016 11-14-2016 Chronic Essential hypertension (1 source) Hypertensive disorder; Translations: [Essential (primary) hypertension] Onset: 11-14-2016 11-14-2016 Chronic Unclassified (1 source) Long-term drug therapy; Translations: [Other intermission coordinator (current) drug therapy] Onset: 11-14-2016 11-14-2016 Unclassified [...] End: 10-04-2016 Ambulatory PHY WO ID REFERRING Facility:[facility] Procedures Date Procedure Procedure Detail Performing Clinician [...] MD Start: 11-15-2016 End: 11-16-[address] Referral to performing arts road manager Elan jensen MD Plan of Treatment Date Care Activity Detail Author Start: 11-25-2017 End: 11-25-2017 Appointment Appointment [email or web address] Phone: Start: 02-18-2017 End: 02-18-2017 Follow Up Appt 9 months Follow Up Appt 9 months [employer] Work Phone: Start: 02-18-2017 End: 02-18-2017 PFM PFM [facility] Work Phone: Start: 11-15-2016 End: 11-21-2016 Cardiac Rehab [facility] [address] [facility] [place] [place], [address] [email or web address] Phone: Start: 11-15-2016 End: 11-15-2016 Cardiovascular stress test using treadmill Treadmill stress test (no imaging) [email or web address] Phone: Start: 11-15-2016 End: 11-15-2016 Ecg routine ecg w/least 12 lds w/i&r EKG (In office) [email or web address] Phone: Start: 11-15-2016 End: 11-15-2016 Follow Up Appt 3 months Follow Up Appt 3 months [employer] Phone: Start: 11-15-2016 End: 11-15-2016 MMM MMM [facility] Work Phone: Payers Date Payer Category Payer Unknown [id number] Summary Purpose Family History No Family History [...] BE BASED ON THE PRIMARY CLINICAL RECORDS. [employer] provides no warranty or guarantee of the accuracy or completeness of information in this document.
[2023-05-03 19:51] LABS: Troponin-I HS 4 pg/mL (3.0-54.0)
[2023-05-03 21:06] VITALS: BP 116/62; PULSE 62
[2023-05-03] MEDS: Metoprolol Tartrate 25 MG Tablet PO (21:06)
[2023-05-03 22:20] VITALS: BP 116/62; PULSE 92; RESP 16; TEMP 36.7; O2SAT 98
[2023-05-04 04:40] VITALS: BP 127/59; PULSE 68; RESP 18; TEMP 36.6; O2SAT 97
[2023-05-04] MEDS: Aspirin E.C. 81 MG Tablet PO (04:55)
[2023-05-04 06:16] LABS: Absolute Lymphocyte Count 0.73 X10^3/uL (0.83-4.51); Basophil# 0.03 X10^3/uL; Basophil% 0.7 % (0-1); Eosinophil# 0.09 X10^3/uL; Eosinophils% 2.1 % (0-5); Hematocrit 39.6 % (37-47); Hemoglobin 13.1 g/dL (12.0-15.0); Lymphocyte # 0.73 X10^3/ul (0.83-4.51); Lymphocyte % 17.2 % (19-41); Mean Corp Hgb Conc 33.1 g/dL (32-36); Mean Corpuscular Volume 90.8 fL (81-99); Mean Platelet Vol. 9.5 fl (6.2-12.0); Monocyte# 0.36 X10^3/uL; Monocyte% 8.5 % (0-10); NRBC Flagged by Analyzer 0 % (0-5); Neutrophil # 3.01 X10^3/uL (2.7-7.7); Platelet Count 183 K/mm3 (150-450); RBC Distribution Width CV 12.7 % (11.6-14.6); RBC Distribution Width SD 41.8 fl (35.1-43.9); Red Blood Count 4.36 M/mm3 (4.2-5.4); White Blood Count 4.2 K/mm3 (4.4-11.0)
[2023-05-04 07:03] LABS: Anion Gap 3 (5-15); BUN 13 mg/dL (7-18); BUN/Creat Ratio 19.3 RATIO (10-20); Calcium,Total 9.6 mg/dL (8.5-10.1); Chloride 112 mmol/L (98-107); Cholesterol 120 mg/dL (200); Creatinine, Serum 0.67 mg/dL (0.55-1.02); EST Glomerular Filtration Rate 89 mL/min (>60); Est Glom Filt Rate - Afr Amer 108 mL/min (>60); Estimated Creatinine Clearance 50.53 ml/min; Glucose 115 mg/dL (74-106); High Density Lipoprotein 60 mg/dL; Potassium 4.1 mmol/L (3.5-5.1); Sodium Level 141 mmol/L (136-145); Thyroid Stim Hormone (TSH) 2.27 uIU/mL (0.358-3.74); Triglycerides 145 mg/dL; Very Low Density Lipoprotein 29 mg/dL (5-40)
[2023-05-04 09:11] VITALS: BP 136/69; PULSE 83; RESP 12; TEMP 36.6; O2SAT 98
[2023-05-04] MEDS: Acetaminophen 325 MG Tablet 650 MG PO (09:12)
[2023-05-04 09:13] VITALS: PULSE 83
[2023-05-04] MEDS: Metoprolol Tartrate 25 MG Tablet PO (09:13)
--- NOTE | 2023-05-04 12:25 | PN.CARD_ITS ---
Subjective Subjective Seen and evaluated today at bedside along with the nursing staff Symptoms of chest pain resolved no further reported symptoms Objective Data Vital Signs: Vital Signs Temp Pulse Resp BP Pulse Ox O2 Del Method 97.9 F 83 12 136/69 H 98 Room Air 05/04/23 09:11 05/04/23 09:13 05/04/23 09:11 05/04/23 09:11 05/04/23 09:11 05/04/23 09:11 Oxygen Delivery Method Room Air Weight: 152 lb 1.903 oz Body Mass Index (BMI) 26.9 Intake & Output: Intake and Output for Last 24 Hours 05/02/23 05/03/23 05/04/23 23:59 23:59 23:59 Intake Total 240 / 540 300 / 300 Balance 240 / 540 300 / 300 Lab / Micro Data 05/04/23 05:29 05/04/23 05:29 Labs: Laboratory Results - last 24 hr 05/03/23 12:55: WBC 4.8, RBC 4.67, Hgb 14.2, Hct 43.5, MCV 93.1, MCH 30.4, MCHC 32.6, RDW Std Deviation 43.4, RDW Coeff of Dimas 12.7, Plt Count 209, MPV 9.3, Immature Gran % (Auto) 0.600, Neut % (Auto) 74.5 H, Lymph % (Auto) 15.1 L, [place] % (Auto) 7.1, Eos % (Auto) 2.1, Baso % (Auto) 0.6, Absolute Neuts (auto) 3.5, Absolute Lymphs (auto) 0.72 L, Nucleated RBC % 0, D-Dimer Quant (PE/DVT) 0.34, Sodium 141, Potassium 4.3, Chloride 112 H, Carbon Dioxide 28.0, Anion Gap 1 L, BUN 14, Creatinine 0.77, Estim Creat Clear Calc 52.27, Est GFR (MDRD) Af Amer 92, Est GFR (MDRD) Non-Af 76, BUN/Creatinine Ratio 18.2, Glucose 99, Calcium 10.0, Troponin I High Sens 4 05/03/23 15:50: Troponin I High Sens 5 05/03/23 19:17: Troponin I High Sens 4 05/04/23 05:29: WBC 4.2 L, RBC 4.36, Hgb 13.1, Hct 39.6, MCV 90.8, MCH 30.0, MCHC 33.1, RDW Std Deviation 41.8, RDW Coeff of Dimas 12.7, Plt Count 183, MPV 9.5, Immature Gran % (Auto) 0.500, Neut % (Auto) 71.0 H, Lymph % (Auto) 17.2 L, [place] % (Auto) 8.5, Eos % (Auto) 2.1, Baso % (Auto) 0.7, Absolute Neuts (auto) 3.0, Absolute Lymphs (auto) 0.73 L, Nucleated RBC % 0, Sodium 141, Potassium 4.1, Chloride 112 H, Carbon Dioxide 26.0, Anion Gap 3 L, BUN 13, Creatinine 0.67, Estim Creat Clear Calc 50.53, Est GFR (MDRD) Af Amer 108, Est GFR (MDRD) Non-Af 89, BUN/Creatinine Ratio 19.3, Glucose 115 H, Calcium 9.6, Triglycerides 145, Cholesterol 120, LDL Cholesterol 31, VLDL Cholesterol 29, HDL Cholesterol 60, TSH 2.27 Rhythm Strip Rhythm Strip: Sinus Rhythm Rate: 80 Ectopy: None Cardiology Labs/Tests 05/03/23 12:55: WBC 4.8, RBC 4.67, Hgb 14.2, Hct 43.5, MCV 93.1, MCH 30.4, MCHC 32.6, Plt Count 209, MPV 9.3, Immature Gran % (Auto) 0.600, Neut % (Auto) 74.5 H , Lymph % (Auto) 15.1 L, [place] % (Auto) 7.1, Eos % (Auto) 2.1, Baso % (Auto) 0.6, Absolute Neuts (auto) 3.5, Nucleated RBC % 0, D-Dimer Quant (PE/DVT) 0.34, Sodium 141, Potassium 4.3, Chloride 112 H, Carbon Dioxide 28.0, Anion Gap 1 L, BUN 14, Creatinine 0.77, Est GFR (MDRD) Af Amer 92, Est GFR (MDRD) Non-Af 76, BUN/Creatinine Ratio 18.2, Glucose 99, Calcium 10.0 05/04/23 05:29: WBC 4.2 L, RBC 4.36, Hgb 13.1, Hct 39.6, MCV 90.8, MCH 30.0, MCHC 33.1, Plt Count 183, MPV 9.5, Immature Gran % (Auto) 0.500, Neut % (Auto) 71.0 H, Lymph % (Auto) 17.2 L, [place] % (Auto) 8.5, Eos % (Auto) 2.1, Baso % (Auto) 0.7, Absolute Neuts (auto) 3.0, Nucleated RBC % 0, Sodium 141, Potassium 4.1, Chloride 112 H, Carbon Dioxide 26.0, Anion Gap 3 L, BUN 13, Creatinine 0.67, Est GFR (MDRD) Af Amer 108, Est GFR (MDRD) Non-Af 89, BUN/Creatinine Ratio 19.3, Glucose 115 H, Calcium 9.6, Triglycerides 145, Cholesterol 120, LDL Cholesterol 31, VLDL Cholesterol 29, HDL Cholesterol 60 Rhythm: EKG: ECHO: Stress Test: Cardiac Cath: PCI: CT Surgery: Holter monitor: EPS: PPM: CXR: Chest CT Scan: Radiography Diagnostic Testing: Radiology Impression Chest X-Ray 05/03/23 12:45 IMPRESSION: No acute abnormality is seen. Electronically Signed: Matty Hannah MD at 13:23 EST , Assessment & Plan Assessment/Plan (1) History of CAD (coronary artery disease): (2) History of coronary artery bypass graft: (3) Hx of CABG: (4) Exertional dyspnea: PLAN: Plan 82-year-old patient with known history of CAD -CABG 2017 Paroxysmal A-fib has been on Eliquis. Presented to the hospital with increasing symptoms of shortness of breath on exertion and symptoms of chest pain with some radiation to the left arm She had further evaluation by nuclear stress test which showed no evidence of reversible ischemia. Cardiac care plan recommendation I reviewed and discussed all her current medication. Patient has a extensive cardiac history with a history of CABG 2017 With HALL to LAD, SVG to diagonal, SVG to OM and SVG to PDA. Also she has a atrial fibrillation and has been on anticoagulation with Eliquis. 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 Underlying cardiac rhythm is normal sinus And the EKG showed normal sinus rhythm Recommend to follow-up with the cardiology team to establish for cardiac care Patient can be discharged from cardiac standpoint.
--- NOTE | 2023-05-04 12:59 | DCINST_ITS ---
Discharge Instructions Diet Discharge Diet: Low fat / Low cholesterol Activity Discharge Activity: Return to Normal Activity Dressing / Incision Call your doctor if you observe: Fever of 101 or Higher, Shortness of breath, Dizziness, Fainting spells, Swelling in the ankles, Chest pain and Increased palpitations (irregular heartbeat) Follow Up Care Test Results: Test results from this visit will be discussed in further detail at your follow- up appointment, if applicable. Discharge Plan Admission Admit Date/Time: 05/03/23 15:00 Attending Provider: Neftaly Yanez Primary Care Provider: Joss Salas Consulting Providers: Lulu Knight; Rina Cosby Discharge Orders/Prescriptions Prescriptions: Continued sertraline 25 mg tablet 25 mg PO DAILY cholecalciferol (vitamin D3) 2,000 unit tablet 2,000 unit PO DAILY clindamycin HCl 150 mg capsule 150 mg PO ONCE PRN (Reason: Dentist) Patient Comments: pt state she takes when she goes to the dentist. taken in april, but not within the past week. Creon 36,000-114,000- 180,000 unit capsule,delayed release(DR/EC) 1 cap PO BID Patient Comments: pt states she hasnt had med in about 3 weeks, on backorder Rx Instructions: administer with meals and/or snacks aspirin 81 MG tablet 81 mg PO DAILY@2000 dexlansoprazole 60 mg capsule,biphase delayed releas 60 mg PO DAILY Rx Instructions: takes in am Gaviscon 80-14.2 mg tablet,chewable 1 tab PO DAILY PRN (Reason: heartburn) chlorhexidine gluconate 0.12 % mouthwash 15 ml PO BID Patient Comments: daughter states she is going to take a cotton ball and dab some of this mouthwash on dental implant. implant scheduled for 05/29/23, pt not using this med yet ascorbic acid (vitamin C) [Vitamin C] 500 mg tablet 500 mg PO DAILY metoprolol tartrate 25 mg tablet 25 mg PO BID Qty: 180 3RF Eliquis 5 mg tablet 5 mg PO BID Qty: 180 4RF Repatha SureClick 140 mg/mL pen injector 140 mg SC Q2W Qty: 2 11RF Referrals / Follow Up: Jorge L Merchant MD [Med Staff - Active Staff] - Within 1 Month Joss Salas DO [Primary Care Provider] - Within 1 Week Disposition Disposition (needs filled in before D/C Order can be placed): Home, Self Care
--- NOTE | 2023-05-04 13:03 | STRESSREP_ITS ---
Stress Test Report Pharmacologic Lexiscan myocardial perfusion stress test. Indication; 82-year-old patient presented with symptoms of shortness of breath and chest pain Patient had history of CAD CABG in 2017 Stress protocol: Resting EKG demonstrates. Normal sinus rhythm. 0.4 mg of regadenoson was infused per usual protocol followed by rapid intravenous saline flush injection continuous EKG monitoring was performed. The maximum heart rate attained was 107 bpm which was 77% of maximum predicted heart . Stress EKG showed[, no significant change from the resting EKG, with maximum heart rate of 107bpm. Arrhythmia: No arrhythmia demonstrated Symptoms: Patient had no symptoms of chest pain Blood pressure at rest: 130/84 mmHg blood pressure at the end of stress: 130/84 mmHg Myocardial perfusion protocol. 11 mCi ]of Technetium 99m Sestamibi was injected at rest. [ 0.4 mg ]of Regadenoson was infused per usual protocol peak infusion[36 mCi ]of Technetium 99m sestamibi was injected. Stress images were obtained stress and rest images were reconstructed and compared in the short axis vertical and horizontal long axis. Gated images were also obtained Perfusion SPECT analysis: Review of the images demonstrate normal uptake of sestamibi at rest, post stres s images demonstrate similar uptake of sestamibi to the resting images, homogeneous tracer uptake With no evidence of reversible myocardial ischemia. Gated SPECT analysis: The gated ejection fraction is 81%. LV wall motion showed hyperdynamic left ventricle. Conclusion: Negative Lexiscan sestamibi myocardial perfusion study for reversible myocardial ischemia Hyperdynamic left ventricle. Patient has no symptoms to report, in particular no chest pain Lulu Knight MD,FACC,[facility] [place]
--- NOTE | 2023-05-04 14:42 | PCM.DC.SUM ---
Providers Date of Admission: 05/03/23 Primary Care Physician: Dr. Joss Salas, DO Consultations 05/03/23 15:34 Consult: Cardiology Routine Consulting Provider: Lulu Knight Reason for Consult: Hx CABG, concern for anginal equivalent, sx same as before cabg EMERGENT Consult: No MD Notified: Yes Date Notified: 05/03/23 Time Notified: 15:39 Method of Notification: Text Reason For Visit: CP R/O Diagnosis Discharge Diagnosis (1) History of CAD (coronary artery disease): Status: Acute Code(s): Z86.79 - Personal history of other diseases of the circulatory system (2) History of coronary artery bypass graft: Status: Chronic Code(s): Z95.1 - Presence of aortocoronary bypass graft (3) Exertional dyspnea: Status: Acute Code(s): R06.09 - Other forms of dyspnea Medications at Discharge Home Medications aspirin 81 mg tablet,delayed release 81 mg PO DAILY@1999 heart health 11/26/16 sertraline 25 mg tablet 25 mg PO DAILY mental health 11/25/17 cholecalciferol (vitamin D3) 50 mcg (2,000 unit) tablet 2,000 unit PO DAILY vitamin 01/19/19 clindamycin HCl 150 mg capsule 150 mg PO ONCE PRN Dentist 06/01/21 metoprolol tartrate 25 mg tablet 25 mg PO BID #180 tabs 06/19/22 nxhcxa-[id number]-bjzpeyf 36,000-114,000-180,000 unit capsule,delay rel (Creon) 1 cap PO BID 10/15/22 apixaban 5 mg tablet (Eliquis) 5 mg PO BID #180 tabs 02/15/23 evolocumab 140 mg/mL subcutaneous pen injector (Repatha SureClick) 140 mg subcut Q2W Hyperlipidemia, cannot take statins #2 mL 04/03/23 Al hyd-Mg tr-alg ac-sod bicarb 80 mg-14.2 mg chewable tablet (Gaviscon) 1 tab PO DAILY PRN heartburn 05/03/23 ascorbic acid (vitamin C) 500 mg tablet (Vitamin C) 500 mg PO DAILY supplement 05/03/23 chlorhexidine gluconate 0.12 % mouthwash 15 ml PO BID dental implant 05/03/23 dexlansoprazole 60 mg capsule,biphase delayed release 60 mg PO DAILY heartburn 05/03/23 Hospital Course Operations None Procedures Nuclear stress test and Transthoracic echo Summary of Care Provided Minutes Spent on Discharge: 31 Hospital Course: Per HPI: WESTON MASON, is a 82 F with a history of coronary artery disease status post CABG around 2016, A-fib on Eliquis, RA who presented to [facility] 05/03/2023 due to increasing shortness of breath on exertion and left arm discomfort. Reports that the shortness of breath has been present for a couple of months and is worse with exertion and better with rest and over the past couple weeks she began to have dull left arm pain that radiates down her left arm has difficulty associating any relieving or exacerbating factors. In the ED workup fairly benign however given patient's risk factors and history hospitalist contacted for admission for cardiac workup. Patient evaluated with family member at bedside and she reports she has been trying to ignore her symptoms thinking that maybe they will get better however today she is having shortness of breath and arm pain and overall was not feeling well and said that these are the same symptoms she had before she was evaluated and had to have her CABG after which her symptoms subsequently went away. No swelling in extremities, denies any other current complaints. Hospital Course: 1. Shortness of breath with arm pain/CAD status post CABG/A-fib/HTN/HLD?82-year-old female presented to the hospital with left arm pain and numbness all the way down to her left pinky finger. She states that it is similar to her previous CABG but she does not remember having the numbness in her pinky. Given her her history of a 5 vessel CABG, she was admitted and cardiology was consulted. Cardiology felt that we could proceed with an echo and stress test and depending on results potentially of further with a heart cath. Stress test and echo were performed on the day of discharge and they were both unremarkable. Cardiology felt that she would be safe for discharge with close outpatient follow-up with cardiology and to continue her current medications. She denies any chest pain today and says that her left arm pain is resolved. She will resume her Eliquis as well as her aspirin and metoprolol on discharge. Unfortunately she is allergic to statin therapy. I discussed with her the plan for discharge today she expressed understanding of the risk benefits of going home and would like to go home today. 2. Anxiety, depression, rheumatoid arthritis, GERD are all chronic medical conditions which complicate her care. Her home medications were continued where appropriate Physical Exam Narrative General: Alert, Oriented x3, Cooperative, No apparent distress HEENT: Atraumatic, PERRLA, EOMI, Normocephalic Oral: Moist Mucosa Neck: Supple, No JVD Lungs: Diminished, Normal air movement, No rhonchi, No wheeze, No rales Cardiovascular: Regular rate, Regular Rhythm, Normal S1, Normal S2, No murmurs Abdomen: Soft, Non Tender, Non-Distended, No Hepato-splenomegaly Extremities: No edema, Capillary Refill Less than 3 Seconds Skin: No rashes, No breakdown Musculoskeletal: No Tenderness to Palpation of Joints or Extremities, left upper extremity exam does not elicit any further pain or numbness or tingling in her left arm or hand. Neurological: No focal neurological deficits, Motor Exam 5/5 strength throughout, Sensory exam intact to light touch and pain Psych/Mental Status: Normal Affect, Appropriate Weight / BMI Weight Weight: 152 lb 1.903 oz Body Mass Index (BMI) 26.9 ABG / Lab / Microbiology Data 05/04/23 05:29 05/04/23 05:29 Laboratory: Laboratory Results - last 24 hr 05/03/23 12:55: D-Dimer Quant (PE/DVT) 0.34 05/03/23 15:50: Troponin I High Sens 5 05/03/23 19:17: Troponin I High Sens 4 05/04/23 05:29: WBC 4.2 L, RBC 4.36, Hgb 13.1, Hct 39.6, MCV 90.8, MCH 30.0, MCHC 33.1, RDW Std Deviation 41.8, RDW Coeff of Dimas 12.7, Plt Count 183, MPV 9.5, Immature Gran % (Auto) 0.500, Neut % (Auto) 71.0 H, Lymph % (Auto) 17.2 L, [place] % (Auto) 8.5, Eos % (Auto) 2.1, Baso % (Auto) 0.7, Absolute Neuts (auto) 3.0, Absolute Lymphs (auto) 0.73 L, Nucleated RBC % 0, Sodium 141, Potassium 4.1, Chloride 112 H, Carbon Dioxide 26.0, Anion Gap 3 L, BUN 13, Creatinine 0.67, Estim Creat Clear Calc 50.53, Est GFR (MDRD) Af Amer 108, Est GFR (MDRD) Non-Af 89, BUN/Creatinine Ratio 19.3, Glucose 115 H, Calcium 9.6, Triglycerides 145, Cholesterol 120, LDL Cholesterol 31, VLDL Cholesterol 29, HDL Cholesterol 60, TSH 2.27 Radiography Diagnostic Testing: Radiology Impression Echocardiogram 05/03/23 15:34 Interpretation Summary The estimated ejection fraction is 55-60 %. Mild mitral regurgitation/MR In comparison to previous echo in May 2021 no significant change noted. Ordering Physician: Rina Cosby Referring Physician: Joss Salas Performed By: Olya Peacock RDCS, RVT D/C Instructions Discharge Diet: Low fat / Low cholesterol Call your doctor if you observe: Fever of 101 or Higher, Shortness of breath, Dizziness, Fainting spells, Swelling in the ankles, Chest pain and Increased palpitations (irregular heartbeat) Meaningful Use Info Meaningful Use Diagnoses (Choose all that apply): None applicable Discharge Plan Admission Admit Date/Time: 05/03/23 15:00 Attending Provider: Neftaly Yanez Primary Care Provider: Joss Salas Consulting Providers: Lulu Knight; Rina Cosby Discharge Orders/Prescriptions Prescriptions: Continued sertraline 25 mg tablet 25 mg PO DAILY cholecalciferol (vitamin D3) 2,000 unit tablet 2,000 unit PO DAILY clindamycin HCl 150 mg capsule 150 mg PO ONCE PRN (Reason: Dentist) Patient Comments: pt state she takes when she goes to the dentist. taken in april, but not within the past week. Creon 36,000-114,000- 180,000 unit capsule,delayed release(DR/EC) 1 cap PO BID Patient Comments: pt states she hasnt had med in about 3 weeks, on backorder Rx Instructions: administer with meals and/or snacks aspirin 81 MG tablet 81 mg PO DAILY@2000 dexlansoprazole 60 mg capsule,biphase delayed releas 60 mg PO DAILY Rx Instructions: takes in am Gaviscon 80-14.2 mg tablet,chewable 1 tab PO DAILY PRN (Reason: heartburn) chlorhexidine gluconate 0.12 % mouthwash 15 ml PO BID Patient Comments: daughter states she is going to take a cotton ball and dab some of this mouthwash on dental implant. implant scheduled for 05/29/23, pt not using this med yet ascorbic acid (vitamin C) [Vitamin C] 500 mg tablet 500 mg PO DAILY metoprolol tartrate 25 mg tablet 25 mg PO BID Qty: 180 3RF Eliquis 5 mg tablet 5 mg PO BID Qty: 180 4RF Repatha SureClick 140 mg/mL pen injector 140 mg SC Q2W Qty: 2 11RF Referrals / Follow Up: Jorge L Merchant MD [Med Staff - Active Staff] - Within 1 Month Joss Salas DO [Primary Care Provider] - Within 1 Week Disposition Disposition (needs filled in before D/C Order can be placed): Home, Self Care Charges/Coding Visit Charges Inpatient E&M: 19462 Disch Hosp >30min
== END 2023-05-04 13:03 | disposition home or self-care (01) ==
LOC: ED 14:36 → PCU 15:27
PROVIDERS: Internal Medicine Interventional Cardiology; Admitting Provider Internal Medicine; Emergency Provider Emergency Medicine; PCP Family Medicine; Visit Provider Family Medicine
DX: R06.02 Shortness of breath (principal); M06.9 Rheumatoid arthritis, unspecified; I48.91 Unspecified atrial fibrillation; I25.10 Atherosclerotic heart disease of native coronary artery without angina pectoris; K21.9 Gastro-esophageal reflux disease without esophagitis; Z79.01 Long term (current) use of anticoagulants; I10 Essential (primary) hypertension; Z79.82 Long term (current) use of aspirin; E78.2 Mixed hyperlipidemia; F41.9 Anxiety disorder, unspecified; Z95.1 Presence of aortocoronary bypass graft; I25.2 Old myocardial infarction; E55.9 Vitamin D deficiency, unspecified; Z79.899 Other long term (current) drug therapy; F32.A Depression, unspecified; M79.602 Pain in left arm; R20.0 Anesthesia of skin
CPT/HCPCS: 36415; 71045; 78452; 80048; 80061; 84443; 84484; 85025; 85379; 93005; 93017; 93306; 99221; 99285; A9500; G0378; J2785

== ENCOUNTER → 2023-05-31 | Outpatient (CLI) | payer MEDICARE, SELFPAY ==
--- NOTE | 2023-05-31 13:52 | CDU_ITS ---
Reason For Study: DIZZINESS Rt. Velocities/BP Lt. Velocities/BP Prox CCA 99.2/14.6 cm/sec. Prox CCA 95.7/22.0 cm/sec. Mid CCA 68.8/12.7 cm/sec. Mid CCA 88.3/20.8 cm/sec. Dist CCA 58.9/9.5 cm/sec. Dist CCA 96.5/25.3 cm/sec. Prox ICA 80.9/8.5 cm/sec. Prox ICA 63.6/18.6 cm/sec. Mid ICA 50.4/12.0 cm/sec. Mid ICA 75.7/20.8 cm/sec. Dist ICA 71.3/19.7 cm/sec. Dist ICA 76.8/23.0 cm/sec. Rt. ICA/CCA = 80.9/68.8=1.2. Lt. ICA/CCA = 76.8/88.3=0.9. Prox ECA 78.7/12.7 cm/sec. Prox ECA 73.2/8.1 cm/sec. Rt. Vert. 50.0/18.8 cm/sec. Lt. Vert. 57.0/13.1 cm/sec. Right Extracranial There is homogeneous, smooth atherosclerotic plaque noted in the right common carotid artery. There is homogeneous, smooth atherosclerotic plaque noted in the right internal carotid artery. There is homogeneous, smooth atherosclerotic plaque noted in the right external carotid artery. Antegrade flow is noted in the right vertebral artery. Left Extracranial There is intimal thickening but no significant atherosclerotic plaque noted in the left common carotid artery. There is intimal thickening but no significant atherosclerotic plaque noted in the left internal carotid artery. There is homogeneous, smooth atherosclerotic plaque noted in the left external carotid artery. Antegrade flow is noted in the left vertebral artery. Procedure Carotid Duplex [id number]. This is a Carotid Duplex examination using B-mode, color flow and specral Doppler. Exam performed in department. VL/Carotid Duplex Ultrasound Interpretation Summary Mild (<50%) stenosis right extracranial internal carotid. Normal left extracranial internal carotid. Patent and antegrade vertebrals bilaterally. Ordering Physician: Malika Henson Referring Physician: Joss Salas Performed By: Laurie Sloan, DEREK, RVT
== END | disposition home or self-care (01) ==
LOC: CVS 13:51
PROVIDERS: PCP Family Medicine; Referring Provider Nurse Practitioner Gerontology; Visit Provider Nurse Practitioner Gerontology
DX: R42 Dizziness and giddiness (principal)
CPT/HCPCS: 93880

== ENCOUNTER → 2023-11-20 | Outpatient (CLI) | payer MEDICARE, SELFPAY | END | disposition home or self-care (01) | LOC: LABSPEC 12:29 | PROVIDERS: PCP Family Medicine; Referring Provider Family Medicine; Visit Provider Family Medicine | DX: R82.90 Unspecified abnormal findings in urine (principal) | CPT/HCPCS: 87086; 87088; 87186 ==

== ENCOUNTER 2023-11-21 10:31 | Observation (INO) | payer MEDICARE, SELFPAY ==
[2023-11-21] VITALS (16 sets, daily range): BP systolic 118–151; BP diastolic 61–87; PULSE 53–81; RESP 14–19; TEMP 36.1–36.6; O2SAT 97–99; BMI 38.2; BMI 26.4
--- NOTE | 2023-11-21 10:47 | CT_ITS ---
STUDY: CTA HEAD AND NECK WITH CONTRAST REASON FOR EXAM: Female, 82 years old. Neuro deficit, acute, stroke suspected RADIATION DOSAGE (If Supplied By Facility): CTDIvol = ( 27.80 ) mGy, DLP = ( 1353.96 ) mGycm TECHNIQUE: CT angiography was performed with a multi-detector CT scanner. Data acquisition was obtained from the skull base through the vertex following intravenous administration of 100mL [id number]. MIP images were reconstructed from the axial data set. Post-processing of the angiographic images was performed, with multiplanar reformation and 3D reconstruction. Individualized dose optimization techniques were used for this CT. COMPARISON: No relevant priors. FINDINGS: Normal bilateral petrous carotid arteries. There is calcified plaque formation of the right cavernous carotid artery, with a moderate stenosis (50-75%). There is calcified plaque formation of the left cavernous carotid artery, with a mild stenosis (less than 50%). Normal right A1 segments of the anterior cerebral artery. Normal left A1 segments of the anterior cerebral artery. Normal intact anterior communicating artery (ACOM). Normal bilateral A2 segments of the anterior cerebral arteries. Normal right M1 and M2 segments of the middle cerebral arteries, with a normal M1 bifurcation. Normal left M1 and M2 segments of the middle cerebral arteries, with a normal M1 bifurcation. Normal right posterior communicating artery (PCOM). Normal left posterior communicating artery (PCOM). Normal bilateral vertebral arteries. Normal basilar artery with a normal basilar bifurcation. The visualized bilateral superior cerebellar (SCA) arteries are normal. Normal bilateral P1, P2 and visualized P3 segments of the posterior cerebral arteries. There is no demonstrated aneurysm of the tetlin of [place]. Mild cerebral atrophy. Mild degree of cerebellar atrophy. Prior midline sternotomy. AORTIC ARCH: There is atherosclerotic calcific plaque formation of the aortic arch and great vessels arising from the aortic arch, without a hemodynamically significant stenosis. There is a normal origin of the brachiocephalic, left common carotid, and left subclavian arteries. RIGHT CAROTID ARTERIES: Normal right common carotid artery (CCA). Normal right common carotid bulb. Normal origin of the right internal carotid (ICA) artery without a hemodynamically significant stenosis. Normal visualized cervical portion of the right internal carotid artery. Normal origin of the right external carotid artery (ECA). LEFT CAROTID ARTERIES: Normal left common carotid artery (CCA). Normal left common carotid bulb. Normal origin of the left internal carotid (ICA) artery without a hemodynamically significant stenosis. Normal visualized cervical portion of the left internal carotid artery. Normal origin of the left external carotid artery (ECA). VERTEBRAL ARTERIES: Normal bilateral vertebral arteries. CT/CTA Head AND Neck W/ Contrast IMPRESSION: Cerebral and cerebellar atrophy. 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 Electronically Signed: Matty Hannah MD at 12:39 EDT ,
--- NOTE | 2023-11-21 10:59 | EDS_ITS ---
HPI History of Present Illness Chief Complaint: Dizziness Informant: patient and family Onset/Context/Timing Onset: Today Context: Gradual Onset Timing: Continuous Current Severity: Mild Maximum Severity: Mild Narrative Narrative: 80-year-old female history of prior OR and [address] way bypass. Was diagnosed with a UTI and took her for Cipro this morning. Today around 8 AM had dizziness. Just felt off balance and generally weak. Double vision. Denies vomiting. No diarrhea or fever. No headache or falls. She actually drove herself to the dentist this morning told him she was not feeling well and her daughter came in picked her up took her home and then brought her into the emergency department. Patient is never had a stroke. She is on the blood thinner Eliquis due to her cardiac history. She took that this morning also. Prior similar symptoms: No Recent Illness/Hospitalization: No PFSH PFSH Medical History Wears hearing aid in both ears Osteoporosis Myocardial infarct Hemorrhoids Arthritis Mixed hyperlipidemia Essential hypertension Postoperative atrial fibrillation Angina pectoris Hypercalcemia Vitamin D deficiency Dyslipidemia Hypertension NSTEMI (non-ST elevated myocardial infarction) Osteoarthritis GERD (gastroesophageal reflux disease) Home Medications ?Medication ?Instructions ?Recorded ?Last Taken ?Type aspirin 81 mg tablet,delayed 81 mg PO DAILY@1999 heart health 11/26/16 05/03/23 History release sertraline 25 mg tablet 25 mg PO DAILY mental health 11/25/17 05/03/23 History cholecalciferol (vitamin D3) 50 2,000 unit PO DAILY vitamin 01/19/19 05/02/23 History mcg (2,000 unit) tablet clindamycin HCl 150 mg capsule 150 mg PO ONCE PRN Dentist 06/01/21 11/21/23 History nzgkhd-gcwzcfqy-bvnyimc 1 cap PO BID 10/15/22 Unknown History 36,000-114,000-180,000 unit capsule,delay rel (Creon) Al hyd-Mg tr-alg ac-sod bicarb 80 1 tab PO DAILY PRN heartburn 05/03/23 Unknown History mg-14.2 mg chewable tablet (Gaviscon) dexlansoprazole 60 mg 60 mg PO DAILY heartburn 05/03/23 05/03/23 History capsule,biphase delayed release metoprolol tartrate 25 mg tablet 25 mg PO BID #180 tabs 06/14/23 11/21/23 Rx evolocumab 140 mg/mL subcutaneous 140 mg subcut Q2W Hyperlipidemia, 07/01/23 Unknown Rx pen injector (Osbaldo Diego) cannot take statins #6 mL apixaban 5 mg tablet (Eliquis) 5 mg PO BID #180 tabs 07/22/23 11/21/23 Rx ciprofloxacin HCl 500 mg tablet 500 mg PO BID 11/21/23 Unknown History Allergy/AdvReac Type Severity Reaction Status Date / Time Fsdmgyr-KZV-IpK Reductase AdvReac Severe myalgias Verified 05/23/23 10:36 Inhibitor (Wlcjfhc-Itv-Dvt Reductase Inhibitor) Penicillins AdvReac Itching Verified 05/23/23 10:36 Tetanus Vaccines and Toxoid AdvReac Swelling Verified 05/23/23 10:36 (Tetanus Vaccines & Toxoid) Family History Mother Heart disease Father Heart disease Brother Heart disease Brother Heart disease Sister Heart disease Surgical History History of coronary artery bypass graft (~09/17/16) History of tubal ligation History of removal of cyst History of repair of right rotator cuff History of right hip replacement History of cholecystectomy History of foot surgery History of facial surgery Social History Smoking Status: Never smoker alcohol intake: current alcohol intake frequency: a few times a month caffeine: No ROS ROS ED ROS Narrative Denies recent illness. Is being treated for UTI. Denies vomiting, diarrhea or fever. Constitutional Constitutional ED: Denies chills or fever(s) Eyes Eyes: Denies blurry vision ENT ENT ED: Denies ear pain Cardiovascular Cardiovascular: Denies chest pain Respiratory/Chest Respiratory/Chest: Denies cough or dyspnea Gastrointestinal Gastrointestinal: Denies abdominal pain Genitourinary Genitourinary ED: Denies dysuria or hematuria Musculoskeletal Musculoskeletal: Denies arthralgias Integumentary Denies abscess Neurologic Neurologic: Denies headache(s) Psychiatric Psychiatric: Denies anxiety Endocrine Endocrinology: Denies cold intolerance Hematologic/Lymphatic Hematologic/Lymphatic: Reports none Allergic/Immunologic Allergic/Immunologic ED: Denies mouth swelling, tongue swelling or urticaria EXAM Physical Exam Narrative Exam Narrative: Well-appearing 82-year-old female. Vital signs stable afebrile. Pulse ox 98% on room air no hypoxia. No distress. Sitting upright in bed. Daughter in the room. H EENT exam unremarkable. No droop. Normal voice. No slurring. Pupils round reactive light. No trauma. Neck nontender. Lungs clear. Heart regular rhythm no murmur. Chest wall nontender. Abdomen soft nontender. Moving all 4 extremities. 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 Dorsi plantarflexion intact. Fingertip to nose within normal limits. She can lift either leg without a drift. Her NIH score is currently 0. Const Vital Signs: 11/21/23 10:33 11/21/23 10:54 11/21/23 10:57 Temperature 97 F L Temperature Source Temporal Pulse Rate 81 60 Respiratory Rate 14 19 H Blood Pressure 139/61 H 140/63 H Blood Pressure Mean 87 88 Pulse Ox 98 99 Oxygen Delivery Method Room Air Room Air 11/21/23 11:47 11/21/23 12:00 11/21/23 12:00 Temperature Temperature Source Pulse Rate 66 59 L 61 Respiratory Rate 15 17 16 Blood Pressure 131/63 H 118/61 124/87 H Blood Pressure Mean 85 80 99 Pulse Ox 97 99 Oxygen Delivery Method Room Air Room Air 11/21/23 12:30 11/21/23 13:00 11/21/23 13:30 Temperature Temperature Source Pulse Rate 62 60 61 Respiratory Rate 16 16 16 Blood Pressure 118/61 151/73 H 138/80 H Blood Pressure Mean 80 99 99 Pulse Ox 99 99 99 Oxygen Delivery Method Room Air 11/21/23 14:00 11/21/23 15:11 Temperature 97.2 F L Temperature Source Oral Pulse Rate 59 L 54 L Respiratory Rate 16 17 Blood Pressure 118/64 142/69 H Blood Pressure Mean 82 93 Pulse Ox 98 97 Oxygen Delivery Method Positive well nourished and well developed; Negative for cachectic, contractures or unkempt General Appearance ED: well developed and NAD; Negative for unkempt, cachectic, contractures, cyanotic, diaphoretic or pallor Nutritional Appearance: Negative for cachectic HEENT Reports moist mucous membranes Negative for trauma or tenderness Eyes PERRL and EOMs intact bilaterally General Eye ED: Negative for pale conjunctiva Neck no lymphadenopathy, supple and no JVD General: Negative for tenderness Chest Wall inspection of chest normal and palpation of chest normal Resp normal respiratory effort and clear to auscultation bilaterally Effort and Inspection: Negative for retractions Auscultation: Negative for rales, rhonchi or wheezes Cardio regular rate, regular rhythm, S1 normal heart sound, S2 normal heart sound and no murmurs GI normal to inspection, nondistended, normoactive bowel sounds, non-tender, non- distended and no masses Auscultation: normoactive bowel sounds Palpation: soft; Negative for tender, guarding or rebound tenderness present Back/Spine no CVA tenderness General Back: Negative for CVA tenderness Cervical Spine: Negative for cervical spine tenderness Thoracic Spine / Upper Back: Negative for thoracic spinal tenderness or paraspinal muscle tenderness Lumbar Spine / Lower Back: Negative for lumbar spinal tenderness Extremity normal to inspection General Extremety ED: Negative for edema, tenderness or other findings General Extremity: Negative for edema or other findings Neuro oriented x3, CN's II-XII intact bilaterally and no sensory deficits noted Sensorium / Orientation: alert; Negative for orientation impaired, lethargic or stuporous Motor Exam: strength 5/5 throughout; Negative for general weakness or strength abnormal Psych mental status grossly normal Appearance: Negative for unkempt Attitude: No agitated Mood & Affect: Negative for depressed, anxious or tearful Skin no rashes or lesions noted, no wounds and skin turgor normal General Skin Exam: elasticity normal; Negative for jaundice or pallor Lesions: No lesion noted Rashes: No rashes noted Trauma: Negative for abrasion Wounds: Negative for wounds noted MDM MDM MDM Narrative Medical decision making narrative: 82-year-old female recent UTI just started on antibiotics today. Complaining of being off balance, generally weak and double vision. Family states the patient's sister gets this way when she has UTIs also. Clinically in bed she has a normal neurologic exam and NIH is 0. I do not think this is an acute stroke but with her symptoms and her age she will be placed through stroke protocol. She is on Eliquis and given a normal neurologic exam she is not a TNK candidate. She will be put through a stroke workup but not a stroke team. Will eventually ambulate her. Repeat exam unchanged. I did get the patient up and walked her in the hallway she seems off balance when she walks. The family member that is with her agrees that this is not her normal gait. Given that she has no signs of any infection her labs are unremarkable with her CT findings I think she needs to be admitted for further evaluation to rule out possible stroke. I have the hospitalist on page for admission. History & Record Review Discussion w/independent historian: Patient and Family Additional record(s) reviewed:: Prior inpatient record, Prior outpatient record, Prior ED visit and Prior labs Lab Data Attestation: I reviewed the patient's lab results. Lab results narrative: CBC unremarkable. White count of 4. H&H 13 and 42. Platelets 198. PT, INR and PTT were 15, 130. Electrolytes showed gap 5. Normal BUN and creatinine. Glucose 120. Troponin was 4. Urinalysis is normal. No white or red cells. No bacteria or nitrites. CT of the brain showed no acute bleed or stroke but there is significant stenosis of a portion of the right carotid. Labs: Laboratory Results - last 24 hr 11/21/23 11/21/23 11/21/23 10:47 10:50 11:50 WBC 4.4 RBC 4.58 Hgb 13.4 Hct 42.8 MCV 93.4 MCH 29.3 MCHC 31.3 L RDW Std Deviation 44.0 H RDW Coeff of Dimas 12.9 Plt Count 198 MPV 9.7 Immature Gran % (Auto) 0.700 Neut % (Auto) 69.9 Lymph % (Auto) 17.9 L Mccone % (Auto) 6.9 Eos % (Auto) 3.7 Baso % (Auto) 0.9 Absolute Neuts (auto) 3.1 Absolute Lymphs (auto) 0.78 L Nucleated RBC % 0 PT 15.6 H INR 1.2 APTT 30.8 Sodium 136 Potassium 4.6 Chloride 105 Carbon Dioxide 26.0 Anion Gap 5 BUN 15 Creatinine 0.82 Est GFR (MDRD) Af Amer 86 Est GFR (MDRD) Non-Af 71 BUN/Creatinine Ratio 18.3 Glucose 120 H Calcium 10.0 Troponin I High Sens 4 Urine Color Straw Urine Clarity Clear Urine pH 7.0 Ur Specific [place] 1.005 Urine Protein Negative Urine Glucose (UA) Normal Urine Ketones Negative Urine Occult Blood Negative Urine Nitrite Negative Urine Bilirubin Negative Urine Urobilinogen Normal Ur Leukocyte Esterase Negative Urine RBC 0 SEEN Urine WBC 0 SEEN Ur Squamous Epith Cells 0 SEEN Urine Bacteria 0 SEEN Urine Mucus 0 SEEN POC Glucose 127 H Radiography Chest X-Ray - ED: 1 View and Read by ED Physician Diagnostic Testing: Clinical Impression(s) from Imaging Studies Head/Neck CTA 11/21/23 10:47 IMPRESSION: Cerebral and cerebellar atrophy. 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 Electronically Signed: Matty Hannah MD at 12:39 EDT , Chest X-Ray 11/21/23 11:32 IMPRESSION: No radiographic evidence of acute cardiopulmonary disease. Electronically Signed: Melvi Murphy MD at 12:26 EDT , Chest x-ray, portable, single view interpreted both by myself and the radiologist shows no acute abnormality. Discharge Plan Triage Chief Complaint: Dizziness ED Provider: Kee Sanchez Dx/Rx/DC Orders Clinical Impression: Ataxic gait, Double vision, Carotid arterial disease, History of hypertension Prescriptions: No Action sertraline 25 mg tablet 25 mg PO DAILY cholecalciferol (vitamin D3) 2,000 unit tablet 2,000 unit PO DAILY clindamycin HCl 150 mg capsule 150 mg PO ONCE PRN (Reason: Dentist) Patient Comments: pt state she takes when she goes to the dentist. taken in april, but not within the past week. Creon 36,000-114,000- 180,000 unit capsule,delayed release(DR/EC) 1 cap PO BID Patient Comments: pt states she hasnt had med in about 3 weeks, on backorder Rx Instructions: administer with meals and/or snacks aspirin 81 MG tablet 81 mg PO DAILY@2000 dexlansoprazole 60 mg capsule,biphase delayed releas 60 mg PO DAILY Rx Instructions: takes in am Gaviscon 80-14.2 mg tablet,chewable 1 tab PO DAILY PRN (Reason: heartburn) ciprofloxacin HCl 500 mg tablet 500 mg PO BID metoprolol tartrate 25 mg tablet 25 mg PO BID Qty: 180 3RF Repatha SureClick 140 mg/mL pen injector 140 mg SC Q2W Qty: 6 3RF Eliquis 5 mg tablet 5 mg PO BID Qty: 180 4RF Primary Care Provider: Joss Salas Referrals: Joss Salas DO [Primary Care Provider] - Print Language: Yi Disposition Disposition: Acute Care Hospital [facility]
[2023-11-21 11:00] LABS: Absolute Lymphocyte Count 0.78 X10^3/uL (0.83-4.51); Absolute Neutrophil Count 3.1 X10^3/uL (2.0-7.7); Basophil# 0.04 X10^3/uL; Basophil% 0.9 % (0-1); Eosinophil# 0.16 X10^3/uL; Eosinophils% 3.7 % (0-5); Hematocrit 42.8 % (37-47); Hemoglobin 13.4 g/dL (12.0-15.0); Lymphocyte # 0.78 X10^3/ul (0.83-4.51); Lymphocyte % 17.9 % (19-41); Mean Corp Hgb Conc 31.3 g/dL (32-36); Mean Corpuscular Hgb 29.3 pg (27.0-32.0); Mean Corpuscular Volume 93.4 fL (81-99); Mean Platelet Vol. 9.7 fl (6.2-12.0); Monocyte% 6.9 % (0-10); NRBC Flagged by Analyzer 0 % (0-5); Neutrophil # 3.05 X10^3/uL (2.7-7.7); Neutrophil % 69.9 % (47-70); Platelet Count 198 K/mm3 (150-450); RBC Distribution Width CV 12.9 % (11.6-14.6); Red Blood Count 4.58 M/mm3 (4.2-5.4); White Blood Count 4.4 K/mm3 (4.4-11.0)
[2023-11-21 11:06] LABS: Bedside Glucose 127 mg/dL (74-106)
[2023-11-21 11:09] LABS: International Normalized Ratio 1.2; Partial Thromboplast Time 30.8 Seconds (24.1-36.2); Prothrombin Time (Protime)PT. 15.6 SECONDS (11.7-14.9)
--- NOTE | 2023-11-21 11:12 | ED.RN ---
Based off presenting symptoms, Dr. Sanchez notified of potential for stroke right after patient was roomed. Patient has some slowed speech but is clear and appropriate, patient c/o being off balance w/ double vision, is on Eliquis. Dr. Sanchez at bedside, NIH 0 currently.
[2023-11-21 11:18] LABS: Anion Gap 5 (5-15); BUN 15 mg/dL (7-18); BUN/Creat Ratio 18.3 RATIO (10-20); Chloride 105 mmol/L (98-107); Creatinine, Serum 0.82 mg/dL (0.55-1.02); EST Glomerular Filtration Rate 71 mL/min (>60); Est Glom Filt Rate - Afr Amer 86 mL/min (>60); Glucose 120 mg/dL (74-106); Potassium 4.6 mmol/L (3.5-5.1); Sodium Level 136 mmol/L (136-145); Troponin-I HS 4 pg/mL (3.0-54.0)
--- NOTE | 2023-11-21 11:32 | RAD_ITS ---
INDICATION: Neuro deficit, acute, stroke suspected EXAMINATION/TECHNIQUE: X-RAY - XR Chest 1 View COMPARISON: May 03, 2023 FINDINGS: LINES/DEVICES: None. LUNGS: There is stable elevation of the right hemidiaphragm. No consolidation, edema or effusion. No pneumothorax. MEDIASTINUM AND CARDIOVASCULAR STRUCTURES: There are sternotomy wires in place. Cardiac silhouette not enlarged. Central airways and mediastinal contour are unremarkable. BONES AND SOFT TISSUES: Unremarkable. RAD/Chest 1 View IMPRESSION: No radiographic evidence of acute cardiopulmonary disease. Electronically Signed: Melvi Murphy MD at 12:26 EDT ,
[2023-11-21 11:57] LABS: Bacteria 0 SEEN /hpf (None Seen); Mucous, Urine 0 SEEN /hpf (<or=2+); Red Blood Cells-Urine 0 SEEN /hpf (0-5); Squamous Epithelial Cells - UA 0 SEEN /hpf (5-10); White Blood Cells 0 SEEN /hpf (0-5)
[2023-11-21 11:59] LABS: Color, Urine Straw (Yellow); Glucose, Dipstick Normal (Normal); Ketone-Dipstick Negative (Negative); Leukocyte Esterase-Dipstick Negative /ul (Negative); Nitrite-Dipstick Negative (Negative); Occult Blood-Urine Negative /ul (Negative); Protein-Dipstick Negative (Negative); Specific Gravity, Urine 1.005 (1.002-1.030); Urine Bilirubin Dipstick Negative (Negative); Urine Clarity Clear (Clear); Urine Urobilinogen Normal (Normal)
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
--- NOTE | 2023-11-21 17:34 | ED.RN ---
CALLED DIETARY TRAY TO GO TO FLOOR. PT HEADING TO PCU AT THIS TIME.
--- NOTE | 2023-11-21 17:42 | MRI_ITS ---
EXAM: MR HEAD WITHOUT INTRAVENOUS CONTRAST CLINICAL INDICATION: Suspected stroke. -- went to dentist apt and was unable to walk a straight line and had slurred speech TECHNIQUE: Multiplanar and multisequence MR images of the brain were obtained without intravenous contrast. COMPARISON: CT angiogram head and neck, same date. MRI brain, 09/18/2006. FINDINGS: BRAIN AND EXTRA-AXIAL SPACES: Small chronic infarct in the left cerebellum. There is non-specific periventricular T2 and T2 FLAIR hyperintensity which is most commonly related to chronic microvascular ischemic disease in a patient of this age. There is no mass, mass-effect, or shift of the midline structures. No evidence of acute infarct or acute intracranial hemorrhage. There is no evidence of pathologic extra-axial fluid. There is no hydrocephalus. Patent basal cisterns. SELLA: No significant abnormality. Normal sella turcica, pituitary gland, infundibular stalk, optic chiasm and hypothalamus. AUDITORY SYSTEM: No significant abnormality. The internal auditory canals are patent. BONES/JOINTS: Mesh repair of the left orbital floor. No discrete lytic or blastic abnormalities. SINUSES: Normal as visualized. Clear. MASTOID AIR CELLS: Normal as visualized. Clear. ORBITS: Bilateral ocular lens extraction presumptively for the treatment of cataracts. Otherwise, no acute orbital pathology. VASCULATURE: Normal as visualized. Normal flow voids in the major intracranial circulation. MRI/Brain without Contrast IMPRESSION: Chronic ischemic changes. No evidence of acute infarct or hemorrhage. Electronically Signed: Franklin Wells DO at 20:47 EDT ,
--- NOTE | 2023-11-21 17:42 | ECHOD_ITS ---
Reason For Study: TIA/CVA Procedure This was a 2D Doppler, Color Flow transthoracic echocardiogram. PREVIOUS DEFINITY REACTION; DO NOT USE DEFINITY. Exam performed portable in patient room. Left Ventricle Normal size and thickness. The left ventricular ejection fraction is 65 %. Normal diastology for age. Right Ventricle Normal right ventricle. Atria The left atrium is mildly enlarged. Normal right atrium. Bubble contrast study is negative for PFO/ASD. Mitral Valve Mild (1+) mitral valve insufficiency. Tricuspid Valve Trivial tricuspid valve insufficiency. Normal pulmonary artery pressure. Aortic Valve Trisinus/trileaflet aortic valve. Pulmonic Valve The pulmonic valve is not well visualized. Great Vessels Normal sized aortic root. Pericardium/Pleural No pericardial effusion. Medication Performed a rapid injection of agitated mix of 9 cc saline and 1cc air to assess for atrial septal defect. MMode/2D Measurements & Calculations LVIDd: 4.3 cm IVSd: 0.84 cm Ao root diam: 2.9 cm LVIDs: 2.7 cm LVPWd: 0.89 cm RVDd: 2.9 cm FS: 36.5 % LAV(MOD-bp): 44.1 ml LVAd ap4: 19.8 cm2 SV(MOD-sp4): 37.3 ml LAV(MOD-bp) Indexed: 25.2 ml/m2 LVLd ap4: 6.3 cm LAV(MOD-sp2): 43.5 ml EDV(MOD-sp4): 54.0 ml LAV(MOD-sp4): 43.6 ml EDV(sp4-el): 52.2 ml LVAs ap4: 10.1 cm2 LVLs ap4: 5.4 cm ESV(MOD-sp4): 16.6 ml ESV(sp4-el): 16.1 ml EF(MOD-sp4): 69.2 % EF(sp4-el): 69.2 % SV(sp4-el): 36.2 ml LA A4 area: 16.3 cm2 LA dimension(2D): 4.1 cm RA A4 area: 11.7 cm2 TAPSE: 1.8 cm Time Measurements MV dec time: 0.17 sec Doppler Measurements & Calculations MV E max josiah: 71.7 cm/sec Lat Peak E' Josiah: 11.1 cm/sec Med Peak E' Josiah: 8.5 cm/sec MV A max josiah: 80.9 cm/sec E/E' lat: 6.5 E/E' med: 8.5 MV E/A: 0.89 MV V2 max: 104.1 cm/sec MV P1/2t max josiah: 81.1 cm/sec Ao V2 max: 100.2 cm/sec MV max P.3 mmHg MV P1/2t: 68.4 msec Ao max P.0 mmHg MV V2 mean: 48.0 cm/sec MV dec slope: 347.3 cm/sec2 Ao V2 mean: 69.4 cm/sec MV mean P.2 mmHg MVA(P1/2t): 3.2 cm2 Ao mean P.1 mmHg MV V2 VTI: 22.7 cm Ao V2 VTI: 22.5 cm AV (velocity ratio): 0.89 LV V1 max: 92.9 cm/sec MR max josiah: 428.5 cm/sec PA V2 max: 73.2 cm/sec LV V1 max P.5 mmHg MR max P.4 mmHg PA V2 mean: 50.9 cm/sec LV V1 mean P.5 mmHg PA V2 VTI: 17.0 cm LV V1 mean: 57.5 cm/sec LV V1 VTI: 20.1 cm TR max josiah: 230.5 cm/sec TR max P.2 mmHg ECHO/Echo Complete Interpretation Summary The left ventricular ejection fraction is 65 %. The left atrium is mildly enlarged. Bubble contrast study is negative for PFO/ASD. Mild (1+) mitral valve insufficiency. Ordering Physician: Eloisa Gallardo Referring Physician: Joss Briones Performed By: Laurie Sloan, DEREK, RVT
[2023-11-21 17:44] LABS: Magnesium 2.2 mg/dL (1.6-2.6)
[2023-11-21 18:35] LABS: Bedside Glucose 82 mg/dL (74-106)
[2023-11-21] MEDS: 0.9% Normal Saline (1000mL) 1,000 ML 75 ML IV (18:36)
[2023-11-21 23:25] LABS: Bedside Glucose 114 mg/dL (74-106)
[2023-11-22 00:31] VITALS: BMI 38.2
[2023-11-22 01:15] VITALS: BP 127/56; PULSE 68; RESP 18; TEMP 36.1; O2SAT 92
[2023-11-22 05:15] VITALS: BP 130/72; PULSE 65; RESP 16; TEMP 36.3; O2SAT 94
[2023-11-22 05:21] LABS: Bedside Glucose 123 mg/dL (74-106)
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
--- NOTE | 2023-11-22 06:34 | CDU_ITS ---
Reason For Study: Carotid Disease Rt. Velocities/BP Lt. Velocities/BP Prox CCA 70/11 cm/sec. Prox CCA 87/12 cm/sec. Mid CCA 74/11 cm/sec. Mid CCA 66/14 cm/sec. Dist CCA 58/10 cm/sec. Dist CCA 70/16 cm/sec. Prox ICA 72/7 cm/sec. Prox ICA 69/15 cm/sec. Mid ICA 61/16 cm/sec. Mid ICA 81/20 cm/sec. Dist ICA 53/18 cm/sec. Dist ICA 97/27 cm/sec. Rt. ICA/CCA = 1.0. Lt. ICA/CCA = 1.5. Prox ECA 80/5 cm/sec. Prox ECA 63/5 cm/sec. Rt. Vert. 57/16 cm/sec. Lt. Vert. 37/9 cm/sec. Right Extracranial There is intimal thickening but no significant atherosclerotic plaque noted in the right common carotid artery. There is heterogeneous, smooth atherosclerotic plaque noted in the right internal carotid artery. There is intimal thickening but no significant atherosclerotic plaque noted in the right external carotid artery. Antegrade flow is noted in the right vertebral artery. Left Extracranial There is intimal thickening but no significant atherosclerotic plaque noted in the left common carotid artery. There is intimal thickening but no significant atherosclerotic plaque noted in the left internal carotid artery. There is intimal thickening but no significant atherosclerotic plaque noted in the left external carotid artery. Antegrade flow is noted in the left vertebral artery. Procedure Carotid Duplex [id number]. This is a Carotid Duplex examination using B-mode, color flow and specral Doppler. Exam performed portable in patient room. VL/Carotid Duplex Ultrasound Interpretation Summary Mild (<50%) stenosis right extracranial internal carotid. No significant athero sclerotic plaque or stenosis noted in the left internal carotid artery. Flow within the vertebral a rteries is antegrade bilaterally. Ordering Physician: Eloisa Gallardo Referring Physician: Joss Salas Performed By: Olya Peacock, RDCS, RVT
[2023-11-22 08:16] LABS: Cholesterol 130 mg/dL (200); High Density Lipoprotein 58 mg/dL; Triglycerides 172 mg/dL; Very Low Density Lipoprotein 34 mg/dL (5-40)
[2023-11-22 08:19] LABS: Absolute Neutrophil Count 3.2 X10^3/uL (2.0-7.7); Basophil# 0.02 X10^3/uL; Basophil% 0.4 % (0-1); Eosinophil# 0.18 X10^3/uL; Hematocrit 44.2 % (37-47); Hemoglobin 14.1 g/dL (12.0-15.0); Lymphocyte % 15.7 % (19-41); Mean Corp Hgb Conc 31.9 g/dL (32-36); Mean Corpuscular Hgb 29.3 pg (27.0-32.0); Mean Corpuscular Volume 91.9 fL (81-99); Monocyte# 0.31 X10^3/uL; NRBC Flagged by Analyzer 0 % (0-5); Neutrophil # 3.23 X10^3/uL (2.7-7.7); Neutrophil % 72.7 % (47-70); Platelet Count 213 K/mm3 (150-450); RBC Distribution Width CV 12.9 % (11.6-14.6); RBC Distribution Width SD 43.6 fl (35.1-43.9); Red Blood Count 4.81 M/mm3 (4.2-5.4); White Blood Count 4.5 K/mm3 (4.4-11.0)
[2023-11-22 08:25] LABS: ALB/GLOB Ratio 1.1 RATIO (0.9-2.4); AST(SGOT) 14 U/L (15-37); Alanine Aminotransfer ALT/SGPT 18 U/L (13-56); Albumin, Serum 3.4 g/dL (3.2-5.0); Alkaline Phosphatase 90 U/L (45-117); Anion Gap 6 (5-15); BUN 14 mg/dL (7-18); BUN/Creat Ratio 17.5 RATIO (10-20); Calcium,Total 9.6 mg/dL (8.5-10.1); Chloride 108 mmol/L (98-107); EST Glomerular Filtration Rate 73 mL/min (>60); Est Glom Filt Rate - Afr Amer 88 mL/min (>60); Estimated Creatinine Clearance 52.06 ml/min; Globulin 3.1 g/dL (2.2-4.2); Glucose 117 mg/dL (74-106); Potassium 4.4 mmol/L (3.5-5.1); Protein, Total 6.5 g/dL (6.4-8.2); Sodium Level 140 mmol/L (136-145)
[2023-11-22 08:50] VITALS: BP 144/62; PULSE 61; RESP 16; TEMP 36.4; O2SAT 98
[2023-11-22] MEDS: Pantoprazole Sodium 40 MG Tablet PO (09:01)
[2023-11-22] MEDS: Sertraline 50 MG Tablet 25 MG PO (09:01)
[2023-11-22 09:02] VITALS: BP 144/62; PULSE 61
[2023-11-22] MEDS: Creon 12,000 unit DR CapSULE 1 CAP PO (09:02)
[2023-11-22] MEDS: Metoprolol Tartrate 25 MG Tablet PO (09:02)
[2023-11-22] MEDS: Creon 24,000 unit DR Capsule 1 CAP PO (09:02)
[2023-11-22] MEDS: APIXABAN 5 MG TABLET PO (09:02)
--- NOTE | 2023-11-22 11:13 | CON.PCM.NE_ITS ---
Assessment and Plan: Neuro Assessment/Plan WESTON MASON is a 82 F being evaluated by Teleneurology for episode of altered sensorium. Patient remember driving to dentist and felling dizzy before the episode however does not remember the event. As per chart review , she felt difficulty with coordination and double vision. Denies tongue biting , Bowel/bladder incontinence ,twitching/shaking during the event. CT angio with stenosis of right carotid artery at supraclinoid portion which is incidental finding. Recommend TIA /syncope work up that include following: Diagnosis:TIA/Syncopal event Plan: EKG , Echo , LDL, HbA1C , aspirin 81 g , statin with LDL goal less than 70, continue Aspirin 81 mg. Recommend event monitor at discharge and cardiology follow up as an outpatient to rule out cardiogenic syncope. I personally attended this patient and spent a total time of 50 minutes evaluating this patient including clinical assessment, review of chart, medical history imaging, and determining appropriate treatment and workup. Lupe Faulkner MD [facility] Neurology Department HPI Consult Data Date of Consult: 11/22/23 HPI Narrative HPI Narrative: WESTON MASON, is a 82 F who presents with episode of impaired awareness. Patient does not remember the event. She was driving and does not felt very good and thereafter went to see her dentist. She felt lightheadedness before the episode. She does not remember the episode of concern. As per HPI, patient was ataxic and had double vision. Ct head /CT angio /Mri brain negative .Concern for TIA. She is feeling back to normal. [facility] Medical History Wears hearing aid in both ears Osteoporosis Myocardial infarct Hemorrhoids Arthritis Mixed hyperlipidemia Essential hypertension Postoperative atrial fibrillation Angina pectoris Hypercalcemia Vitamin D deficiency Dyslipidemia Hypertension NSTEMI (non-ST elevated myocardial infarction) Osteoarthritis GERD (gastroesophageal reflux disease) Home Medications ?Medication ?Instructions ?Recorded ?Last Taken ?Type aspirin 81 mg tablet,delayed 81 mg PO DAILY@1999 heart health 11/26/16 05/03/23 History release sertraline 25 mg tablet 25 mg PO DAILY mental health 11/25/17 05/03/23 History cholecalciferol (vitamin D3) 50 2,000 unit PO DAILY vitamin 01/19/19 05/02/23 History mcg (2,000 unit) tablet clindamycin HCl 150 mg capsule 150 mg PO ONCE PRN Dentist 06/01/21 11/21/23 History daxmqa-bqxwgjby-svxvqii 1 cap PO BID 10/15/22 Unknown History 36,000-114,000-180,000 unit capsule,delay rel (Creon) Al hyd-Mg tr-alg ac-sod bicarb 80 1 tab PO DAILY PRN heartburn 05/03/23 Unknown History mg-14.2 mg chewable tablet (Gaviscon) dexlansoprazole 60 mg 60 mg PO DAILY heartburn 05/03/23 05/03/23 History capsule,biphase delayed release metoprolol tartrate 25 mg tablet 25 mg PO BID #180 tabs 06/14/23 11/21/23 Rx evolocumab 140 mg/mL subcutaneous 140 mg subcut Q2W Hyperlipidemia, 07/01/23 Unknown Rx pen injector (Osbaldo Diego) cannot take statins #6 mL apixaban 5 mg tablet (Eliquis) 5 mg PO BID #180 tabs 07/22/23 11/21/23 Rx ciprofloxacin HCl 500 mg tablet 500 mg PO BID 11/21/23 Unknown History Allergy/AdvReac Type Severity Reaction Status Date / Time Vpejvlu-KSM-GwM Reductase AdvReac Severe myalgias Verified 05/23/23 10:36 Inhibitor (Zhrwnwo-Gbl-Oeo Reductase Inhibitor) Penicillins AdvReac Itching Verified 05/23/23 10:36 Tetanus Vaccines and Toxoid AdvReac Swelling Verified 05/23/23 10:36 (Tetanus Vaccines & Toxoid) Family History Mother Heart disease Father Heart disease Brother Heart disease Brother Heart disease Sister Heart disease Surgical History History of coronary artery bypass graft (~09/17/16) History of tubal ligation History of removal of cyst History of repair of right rotator cuff History of right hip replacement History of cholecystectomy History of foot surgery History of facial surgery Social History Smoking Status: Never smoker alcohol intake: current alcohol intake frequency: a few times a month caffeine: No Vital Signs Vital Signs Vital Signs: 11/21/23 11:47 11/21/23 12:00 11/21/23 12:00 Temperature Temperature Source Pulse Rate 66 59 L 61 Pulse Strength Respiratory Rate 15 17 16 Respiratory Effort Respiratory Depth Respiratory Pattern Blood Pressure 131/63 H 118/61 124/87 H Blood Pressure Mean 85 80 99 Blood Pressure Source Blood Pressure Position Blood Pressure Location Pulse Ox 97 99 Oxygen Delivery Method Room Air Room Air 11/21/23 12:30 11/21/23 13:00 11/21/23 13:30 Temperature Temperature Source Pulse Rate 62 60 61 Pulse Strength Respiratory Rate 16 16 16 Respiratory Effort Respiratory Depth Respiratory Pattern Blood Pressure 118/61 151/73 H 138/80 H Blood Pressure Mean 80 99 99 Blood Pressure Source Blood Pressure Position Blood Pressure Location Pulse Ox 99 99 99 Oxygen Delivery Method Room Air 11/21/23 14:00 11/21/23 15:11 11/21/23 16:00 Temperature 97.2 F L Temperature Source Oral Pulse Rate 59 L 54 L 62 Pulse Strength Respiratory Rate 16 17 16 Respiratory Effort Respiratory Depth Respiratory Pattern Blood Pressure 118/64 142/69 H 141/64 H Blood Pressure Mean 82 93 89 Blood Pressure Source Blood Pressure Position Blood Pressure Location Pulse Ox 98 97 99 Oxygen Delivery Method Room Air 11/21/23 17:00 11/21/23 17:35 11/21/23 18:00 Temperature 97.8 F 97.7 F L Temperature Source Temporal Pulse Rate 63 61 53 L Pulse Strength Respiratory Rate 16 16 18 Respiratory Effort Respiratory Depth Respiratory Pattern Blood Pressure 151/80 H 151/80 H 150/65 H Blood Pressure Mean 103 103 93 Blood Pressure Source Monitor Blood Pressure Position Semi-Fowlers Blood Pressure Location Left Arm Pulse Ox 98 99 98 Oxygen Delivery Method Room Air 11/21/23 19:55 11/21/23 19:55 11/21/23 20:15 Temperature Temperature Source Pulse Rate Pulse Strength Normal (2+) Respiratory Rate Respiratory Effort Normal Respiratory Depth Normal Respiratory Pattern Normal Blood Pressure Blood Pressure Mean Blood Pressure Source Blood Pressure Position Blood Pressure Location Pulse Ox 99 99 Oxygen Delivery Method Room Air Room Air 11/21/23 20:15 11/21/23 21:00 11/22/23 01:15 Temperature 97.2 F L 96.9 F L Temperature Source Temporal Temporal Pulse Rate 67 68 Pulse Strength Respiratory Rate 18 18 Respiratory Effort Normal Non-Labored Respiratory Depth Normal Respiratory Pattern Normal Blood Pressure 129/62 H 127/56 H Blood Pressure Mean 84 79 Blood Pressure Source Monitor Monitor Blood Pressure Position Semi-Fowlers Supine Blood Pressure Location Left Arm Left Arm Pulse Ox 97 92 Oxygen Delivery Method Room Air Room Air Room Air 11/22/23 05:15 11/22/23 05:15 11/22/23 08:50 Temperature 97.4 F L 97.6 F L Temperature Source Temporal Oral Pulse Rate 65 61 Pulse Strength Respiratory Rate 16 16 Respiratory Effort Normal Non-Labored Respiratory Depth Normal Respiratory Pattern Normal Blood Pressure 130/72 H 144/62 H Blood Pressure Mean 91 89 Blood Pressure Source Monitor Monitor Blood Pressure Position Supine Semi-Fowlers Blood Pressure Location Left Arm Left Arm Pulse Ox 94 98 Oxygen Delivery Method Room Air Room Air Room Air 11/22/23 08:50 11/22/23 09:02 11/22/23 10:00 Temperature Temperature Source Pulse Rate 61 Pulse Strength Normal (2+) Respiratory Rate Respiratory Effort Normal Non-Labored Respiratory Depth Normal Respiratory Pattern Normal Blood Pressure 144/62 H Blood Pressure Mean Blood Pressure Source Blood Pressure Position Blood Pressure Location Pulse Ox Oxygen Delivery Method Room Air Weight Weight: 70 kg Body Mass Index (BMI) 38.2 NIHSS NIHSS Nursing Documentation NIHSS Nursing Documentation: NIHSS: Ischemic Stroke/TIA Start: 11/21/23 17:42 Text: For PCU Patients: NIH and Neuro Check every 4 Status: Complete hours, PRN and with change in RN caregiver. Freq: [id number] Protocol: Activity Type Activity Date Activity User E-sign Co-sign Detail Recorded Client Recorded Date Recorded By Document 11/22/23 05:15 [facility] [id number] 11/22/23 06:09 [facility] 11/22/23 05:15 NIH Stroke Scale [NIHSS] A score of 0 is normal or asymptomatic . Total possible score is 42. Inpatient: RN or Physician to activate a stroke alert for onset of new stroke symptoms or with NIHSS increase >/= 3 points. Following change in neurological status, NIHSS will be performed per physician order or more frequently PRN. -1a. Level of Consciousness Alert; keenly responsive -1b. LOC Questions Answers BOTH questions correctly. -1c. LOC Commands Performs both tasks correctly . -2. Best Gaze Normal -3. Visual No visual loss -5a. Left Arm No drift; arm holds 90 (or 45 ) degrees for full 10 seconds -5b. Right Arm No drift; arm holds 90 (or 45 ) degrees for full 10 seconds -6a. Left Leg No drift; leg holds 30-degree position for full 5 seconds -6b. Right Leg No drift; leg holds 30-degree position for full 5 seconds -7. Limb Ataxia Absent -8. Sensory Normal; no sensory loss -9. Best Language No aphasia; normal -10. Dysarthria Normal -11. Extinction and Inattention No abnormality -Total 0 Query Text:A score of 0 is normal or asymptomatic. Total possible score is 42 . ED: Notify Physician for NIHSS increase by > / = 3 points. Inpatient: RN or Physician to activate a stroke alert for NIHSS increase of > / = 3 points. Coma Scale [Assess] -Eye Opening Spontaneous -Motor Obeys Commands -Verbal Oriented [Total] -Coma Scale Total 15 Physical Exam Neuro Neuro Narrative: -? General: Laying comfortably in bed; in no acute distress. -? HENT: Normal oropharynx and mucosa. Normal external appearance of ears and nose. Exophthalmos. -? Neck: Supple, no pain or tenderness -? CV:? No peripheral edema. -? Pulmonary:? Normal respiratory effort. -? Ext: No cyanosis, edema, or deformity -? Skin: No rash. Normal palpation of skin.? -? Musculoskeletal: full range of motion; no joint tenderness. Normal digits and nails by inspection. No clubbing. -? NEURO: -? Mental Status: The patient was alert and oriented to time, place, and person. Normal recent/remote memory, concentration, and general fund of knowledge. -? Language: speech is fluent? Naming, repetition, fluency, and comprehension intact. -? Cranial Nerves: PERRL mm/brisk. EOMI, visual crouch full, no facial asymmetry, facial sensation intact, hearing intact, tongue midline, no evidence of atrophy or fibrillations. As performed by the nurse. Sternocleidomastoid and trapezius were equally strong. Soft palate raises equally, no uvular deviations -? Motor: normal bulk, tone, and strength throughout. No pronator drift or satelliting. Upper and lower extremities equal bilaterally. l R L l R L -? Tone: is normal and bulk is normal -? Sensation- Intact to light touch bilaterally -? Coordination: No dysmetria on [id number]-[id number]-[id number], finger follow finger or [id number]. -? Gait- deferred Lab / Micro Data 11/22/23 06:49 11/22/23 06:49 Labs: Laboratory Results - last 24 hr 11/21/23 10:50: Sodium 136, Potassium 4.6, Chloride 105, Carbon Dioxide 26.0, Anion Gap 5, BUN 15, Creatinine 0.82, Est GFR (MDRD) Af Amer 86, Est GFR (MDRD) Non-Af 71, BUN/Creatinine Ratio 18.3, Glucose 120 H, Calcium 10.0, Magnesium 2.2, Troponin I High Sens 4 11/21/23 11:50: Urine Color Straw, Urine Clarity Clear, Urine pH 7.0, Ur Specific [place] 1.005, Urine Protein Negative, Urine Glucose (UA) Normal, Urine Ketones Negative, Urine Occult Blood Negative, Urine Nitrite Negative, Urine Bilirubin Negative, Urine Urobilinogen Normal, Ur Leukocyte Esterase Negative, Urine RBC 0 SEEN, Urine WBC 0 SEEN, Ur Squamous Epith Cells 0 SEEN, Urine Bacteria 0 SEEN, Urine Mucus 0 SEEN 11/21/23 18:10: POC Glucose 82 11/21/23 22:58: POC Glucose 114 H 11/22/23 04:54: POC Glucose 123 H 11/22/23 06:49: WBC 4.5, RBC 4.81, Hgb 14.1, Hct 44.2, MCV 91.9, MCH 29.3, MCHC 31.9 L, RDW Std Deviation 43.6, RDW Coeff of Dimas 12.9, Plt Count 213, MPV 10.0, Immature Gran % (Auto) 0.200, Neut % (Auto) 72.7 H, Lymph % (Auto) 15.7 L, [place] % (Auto) 7.0, Eos % (Auto) 4.0, Baso % (Auto) 0.4, Absolute Neuts (auto) 3.2, A bsolute Lymphs (auto) 0.70 L, Nucleated RBC % 0, Sodium 140, Potassium 4.4, C hloride 108 H, Carbon Dioxide 26.0, Anion Gap 6, BUN 14, Creatinine 0.80, Estim Creat Clear Calc 52.06, Est GFR (MDRD) Af Amer 88, Est GFR (MDRD) Non-Af 73, BUN/Creatinine Ratio 17.5, Glucose 117 H, Calcium 9.6, Total Bilirubin 0.40, AST 14 L, ALT 18, Alkaline Phosphatase 90, Total Protein 6.5, Albumin 3.4, Globulin 3.1, Albumin/Globulin Ratio 1.1, Triglycerides 172, Cholesterol 130, LDL Cholesterol 38, VLDL Cholesterol 34, HDL Cholesterol 58, TSH 3.250 Imaging Radiology Impression Head/Neck CTA 11/21/23 10:47 IMPRESSION: Cerebral and cerebellar atrophy. 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 Electronically Signed: Matty Hannah MD at 12:39 EDT , Chest X-Ray 11/21/23 11:32 IMPRESSION: No radiographic evidence of acute cardiopulmonary disease. Electronically Signed: Melvi Murphy MD at 12:26 EDT , Brain MRI 11/21/23 17:42 IMPRESSION: Chronic ischemic changes. No evidence of acute infarct or hemorrhage. Electronically Signed: Franklin Wells DO at 20:47 EDT , Echocardiogram 11/21/23 17:42 Interpretation Summary The left ventricular ejection fraction is 65 %. The left atrium is mildly enlarged. Bubble contrast study is negative for PFO/ASD. Mild (1+) mitral valve insufficiency. Ordering Physician: Eloisa Gallardo Referring Physician: Joss Briones Performed By: Laurie Sloan, DEREK, RVT Active Medications Active Medications Active Medications: Current Medications Generic Name Dose Route Start Last Admin Trade Name Freq PRN Reason Stop Dose Admin Acetaminophen 650 mg 11/21/23 17:42 Acetaminophen 325 Mg Tablet PO Q4H PRN PRN Pain 1-10 Or Fever>99.6 Apixaban 5 mg 11/22/23 10:00 11/22/23 09:02 Apixaban 5 Mg Tablet PO 5 mg BID MYLENE Administration Aspirin 81 mg 11/22/23 20:00 Aspirin E.C. 81 Mg Tablet PO DAILY@2000 MYLENE Glucagon 1 mg 11/21/23 17:42 Glucagon 1 Mg/Ml Syringe IM X1 PRN Hypoglycemia Protocol Hydralazine HCl 5 mg 11/21/23 17:42 Hydralazine 20 Mg/Ml Vial IV 11/22/23 17:42 Q30M PRN maintain BP parameters with HR <60 Dextrose 250 mls @ 0 mls/hr 11/21/23 17:42 Dextrose 10%-Water IV .Q0M PRN HYPOGLYCEMIA Protocol As Directed Metoprolol Tartrate 25 mg 11/22/23 10:00 11/22/23 09:02 Metoprolol Tartrate 25 Mg Tablet PO 25 mg BID MYLENE Administration Protocol Nitroglycerin 0.4 mg 11/21/23 17:42 Nitroglycerin (Inpatient Use) 0.4 Mg Tab.Subl SL Q5M PRN CARDIAC/CHEST PAIN Ondansetron HCl 4 mg 11/21/23 17:42 Ondansetron 4 Mg/2 Ml Vial IV Q8H PRN PRN NAUSEA/VOMITING Pancrelipase 1 cap 11/22/23 08:00 11/22/23 09:02 Creon 12,[address] Capsule PO 1 cap BIDCM MYLENE Administration Pancrelipase 1 cap 11/22/23 08:00 11/22/23 09:02 Creon 24,[address] Capsule PO 1 cap BIDCM MYLENE Administration Pantoprazole Sodium 40 mg 11/22/23 10:00 11/22/23 09:01 Pantoprazole Sodium 40 Mg Tablet PO 40 mg DAILY MYLENE Administration Senna/Docusate Sodium 2 tablet 11/21/23 17:42 Senna/Docusate Sodium 1 Tablet PO BID PRN PRN Constipation Sertraline HCl 25 mg 11/22/23 10:00 11/22/23 09:01 Sertraline 50 Mg Tablet PO 25 mg DAILY MYLENE Administration Sodium Chloride 10 - 40 ml 11/21/23 17:46 0.9% Saline Lock 10 Ml Syringe IV UD PRN SALINE FLUSH
--- NOTE | 2023-11-22 11:15 | CASEMGMT ---
NIA GROVES into pt room, pt sitting up in bed in no distress. Pt states she lives alone in a single story home with 4 steps to enter with a rail. Pt reports she is typically I in ADL and IADLs. Pt has a cane but does not typically use. Pt drives. Pt denies any homegoing needs. NIA GROVES to follow.
[2023-11-22 11:58] VITALS: BMI 38.2
--- NOTE | 2023-11-22 12:36 | CHAPLAIN ---
Type of Pastoral Visit _x__ Initial Visit ___ Follow-up Visit ___ On-call Visit ___ General Patient Visit ___ Spiritual Assessment ___ Family Conference ___ Bereavement ___ Rapid Response ___ Code Blue ___ Other (describe below) Pastoral Care Referral From _x__ Patient ___ Family ___ Nurse ___ Physician ___ Resident Services Coordinator ___ Piano Accompanist ___ Other (describe below) Sacrament/Intervention _x__ Active listening ___ Anointing ___ Holiness ___ Bereavement ___ Communion ___ Jewels exploration ___ _x__ Life review _x__ Prayer ___ Reconciliation ___ Sacrament of Sick _x__ Supportive presence ___ Wedding ___ Other (describe below) Pastoral Comments time given to listen to patient describe her sudden health issue and how it shocked me; pt goal is to have answers as to what and why; pt has family support and a mormonism connection; pt is pleasant to talk with but acknowledges her desire for answers and peace of mind; pt is talkative; pt welcomes a prayer
--- NOTE | 2023-11-22 13:16 | DS.PCM_ITS ---
Providers Date of Admission: 11/21/23 Date of Discharge: 11/22/23 Primary Care Physician: Dr. Joss Salas, DO Consultations 11/21/23 17:42 Consult: Tele-Neurology Routine Consulting Provider: [facility] Reason for Consult: Acute Ischemic Stroke/TIA EMERGENT Consult: No MD Notified: Yes Date Notified: 11/21/23 Time Notified: 16:30 Method of Notification: ED Physician Initiated Nursing Unit Staff Notify [facility] of Tele-Neurology Consult: Yes Reason For Visit: TIA/ATAXIA Diagnosis Discharge Diagnosis (1) Dizziness: Status: Acute Code(s): R42 - Dizziness and giddiness (2) Ataxic gait: Status: Acute Code(s): R26.0 - Ataxic gait Plan: DISCHARGE DIAGNOSIS: #1. Acute ataxic gait/disequilibrium, dizziness, resolved with concern for possible posterior stroke complicated by underlying right lower extremity debility with shortness status, stroke ruled out, possible TIA versus inner ear pathology #2. Recent urinary tract infection, unclear organism, started on course of abx outpatient, completed inpatient #3. 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 CAD s/p HALL to LAD, SVG to first diagonal, SVG to second diagonal, SVG to obtuse marginal, and SVG to PDA in August 2016 #5. Post-operative PAF #6. Hypertension #7. Hyperlipidemia #8. Rheumatoid arthritis #9. Anxiety and depression #10. Chronic Kidney Disease Stage II per GFR trending #11. GERD #12. CODE STATUS: DNR-CCA, no intubation. Medications at Discharge Home Medications aspirin 81 mg tablet,delayed release 81 mg PO DAILY@1999 heart health 11/26/16 sertraline 25 mg tablet 25 mg PO DAILY mental health 11/25/17 cholecalciferol (vitamin D3) 50 mcg (2,000 unit) tablet 2,000 unit PO DAILY vitamin 01/19/19 clindamycin HCl 150 mg capsule 150 mg PO ONCE PRN Dentist 06/01/21 [id number]-wongjor 36,000-114,000-180,000 unit capsule,delay rel (Creon) 1 cap PO BID 10/15/22 Al hyd-Mg tr-alg ac-sod bicarb 80 mg-14.2 mg chewable tablet (Gaviscon) 1 tab PO DAILY PRN heartburn 05/03/23 dexlansoprazole 60 mg capsule,biphase delayed release 60 mg PO DAILY heartburn 05/03/23 metoprolol tartrate 25 mg tablet 25 mg PO BID #180 tabs 06/14/23 evolocumab 140 mg/mL subcutaneous pen injector (Repatha SureClick) 140 mg subcut Q2W Hyperlipidemia, cannot take statins #6 mL 07/01/23 apixaban 5 mg tablet (Eliquis) 5 mg PO BID #180 tabs 07/22/23 ciprofloxacin HCl 500 mg tablet 500 mg PO BID 11/21/23 Hospital Course Operations None Procedures 2-D Echocardiogram and EKG Summary of Care Provided Minutes Spent on Discharge: 35 Hospital Course: The patient is an 82 y/o F w/ PMHx: Rheumatoid arthritis, HTN, HLD, Anxiety and Depression, GERD, CAD s/p CABG, Hx post-op transient PAF, CKD stage II per GFR trending who presents to the [facility] ED on 11/21/23 with history of dizziness, ataxic gait and feeling off balance with weakness and double vision starting at 8 AM with history concurrently of mildly shortened right lower extremity secondary to prior hip fracture and ankle shattered in an accident that she does have some gait debility baseline but given this change prompted ED evaluation.Workup in the ED included CTA head and neck with cerebral and cerebellar atrophy, tight stenosis in the supraclinoid portion of the right carotid artery just distal to the cavernous portion otherwise unremarkable, chest x-ray with no acute cardiopulmonary findings, CBC with WBC 4.4, hemoglobin 13.4, platelet 198 with lymphopenia, coags with PT 15.6 otherwise unremarkable, BMP not marked appearing aside glucose 120, urinalysis unremarkable, EKG with SR. Admitted to PCU, CTA head and neck with cerebellar and cerebral atrophy, tight stenosis in the supraclinoid portion of the right carotid artery just distal to This portion, MRI of the brain with chronic ischemic changes with no acute infarct or hemorrhage, ECHO with negative bubble study with LVEF 65%, mildly enlarged LA, mild MVI, PT/OT/Speech/Nutrition evaluation per protocol. Magnesium 2.2. FLP with triglycerides 172, cholesterol 130, LDL 38, VLDL 34, HDL 58, TSH 3.250, pending hemoglobin A1c. Initially maintain on permissive hypertension, but given MRI findings resumed metoprolol therapy. Will maintain on aspirin and apixaban, noted statin intolerance with myalgias on repatha already outpatient with Cardiology of note. Maintained on fall and aspiration precautions. Neurology consulted with recommended continued aspirin therapy, recommended statin however as noted patient intolerant with LDL goal less than 70, routine workup for stroke inpatient which is already been obtained in addition to their recommendation of event monitor at discharge; however, she has already had this prior and has underlying history of PAF of note. Patient discharged to home with recommended PCP, Cardiology follow-up with event monitor ordered per Neurology recommendation with then follow-up with Cardiology recommended following for review as well as Vascular surgery to continue to assess/evaluate for stenotic carotid region with carotid US requested prior to discharge. Weight / BMI Weight Weight: 154 lb 5.177 oz Body Mass Index (BMI) 38.2 ABG / Lab / Microbiology Data 11/22/23 06:49 11/22/23 06:49 Laboratory: Laboratory Results - last 24 hr 11/21/23 10:50: Magnesium 2.2 11/21/23 18:10: POC Glucose 82 11/21/23 22:58: POC Glucose 114 H 11/22/23 04:54: POC Glucose 123 H 11/22/23 06:49: WBC 4.5, RBC 4.81, Hgb 14.1, Hct 44.2, MCV 91.9, MCH 29.3, MCHC 31.9 L, RDW Std Deviation 43.6, RDW Coeff of Dimas 12.9, Plt Count 213, MPV 10.0, Immature Gran % (Auto) 0.200, Neut % (Auto) 72.7 H, Lymph % (Auto) 15.7 L, Cameron % (Auto) 7.0, Eos % (Auto) 4.0, Baso % (Auto) 0.4, Absolute Neuts (auto) 3.2, A bsolute Lymphs (auto) 0.70 L, Nucleated RBC % 0, Sodium 140, Potassium 4.4, C hloride 108 H, Carbon Dioxide 26.0, Anion Gap 6, BUN 14, Creatinine 0.80, Estim Creat Clear Calc 52.06, Est GFR (MDRD) Af Amer 88, Est GFR (MDRD) Non-Af 73, BUN/Creatinine Ratio 17.5, Glucose 117 H, Calcium 9.6, Total Bilirubin 0.40, AST 14 L, ALT 18, Alkaline Phosphatase 90, Total Protein 6.5, Albumin 3.4, Globulin 3.1, Albumin/Globulin Ratio 1.1, Triglycerides 172, Cholesterol 130, LDL Cholesterol 38, VLDL Cholesterol 34, HDL Cholesterol 58, TSH 3.250 Radiography Diagnostic Testing: Radiology Impression Brain MRI 11/21/23 17:42 IMPRESSION: Chronic ischemic changes. No evidence of acute infarct or hemorrhage. Electronically Signed: Franklin HawkinsjessyfredericDO at 20:47 EDT , Echocardiogram 11/21/23 17:42 Interpretation Summary The left ventricular ejection fraction is 65 %. The left atrium is mildly enlarged. Bubble contrast study is negative for PFO/ASD. Mild (1+) mitral valve insufficiency. Ordering Physician: Eloisa Gallardo Referring Physician: Joss Briones Performed By: Laurie Sloan RDCS, RVT D/C Instructions Discharge Diet: Low fat / Low cholesterol May resume sexual activity in: No Restrictions Weight Bearing Status: Weight bearing as tolerated Call your doctor if you observe: Fever of 101 or Higher, Shortness of breath, Dizziness, Fainting spells, Swelling in the ankles, Increased palpitations (irregular heartbeat), Calf discomfort, Uncontrolled pain and - (Any recurrent concerning neurological symptoms.) Meaningful Use Info Meaningful Use Meaningful Use Diagnoses (Choose all that apply): None applicable Ischemic Stroke Statin Dosing Therapy Reference: STATIN DOSE THERAPY REFERENCE: * Patients > 75 years receive moderate or high dose statin therapy. * Patients 75 years or YOUNGER should receive HIGH intensity statin dose unless contraindicated. You will be required to document reason for non-treatment if statin daily dose does not meet guidelines. HIGH DOSE STATIN THERAPY DAILY Atorvastatin > than or = to 40 mg Rosuvastatin > than or = to 20 mg Amlodipine + Atorvastatin > than or = to 2.5/40 mg Ezetimibe + Simvastatin 10/80 mg Simvastatin 80mg Discharge Plan Admission Admit Date/Time: 11/21/23 16:28 Primary Reason for Your Visit: Gait disturbance/disequilibrium/dizziness, possible TIA, CVA ruled out. Attending Provider: Eloisa Gallardo Primary Care Provider: Joss Salas Consulting Providers: Deejay Chinchilla; Chantal Rowe; Emi Miner; Karlee Duran; Brinda Toure; Dre Elizabeth; Julieta Alston; Mc Larsen; Ramana Wagner; Sandip Calderon; Conchita Manuel; Stephane Hartman; Lupe Faulkner; Leandro Louis; Boyd Bowling; Chace Medrano; Toño Singh; Romain Hill; Vicenta Lara; Dante Polanco; Liang Naik Instructions Additional Instructions / Restrictions: ADDITIONAL FOLLOW-UP CARE/HOSPITALIZATION REVIEW: #1. Acute ataxic gait/disequilibrium, dizziness with concern for possible posterior stroke complicated by underlying right lower extremity debility with shortness status, stroke ruled out, possible TIA: --CTA head and neck with cerebral and cerebellar atrophy, tight stenosis in the supraclinoid portion of the right carotid artery just distal to the cavernous portion otherwise unremarkable. --MRI of the brain with chronic ischemic changes with no acute infarct or hemorrhage. --ECHO with negative bubble study with LVEF 65%, mildly enlarged LA, mild MVI. --FLP with triglycerides 172, cholesterol 130, LDL 38, VLDL 34, HDL 58. --Maintained on aspirin and apixaban, noted statin intolerance with myalgias on repatha already outpatient with Cardiology per their note and restarted on metoprolol once MRI resulted. --Per Neurology recommendation requested 30 day event monitor set-up with follow-up with Cardiology as noted. --Additional, carotid US requested with read pending at discharge with requested follow-up with Vascular surgery to assure ongoing follow-up and evaluation of noted stenotic region. Discharge Orders/Prescriptions Prescriptions: Continued sertraline 25 mg tablet 25 mg PO DAILY cholecalciferol (vitamin D3) 2,000 unit tablet 2,000 unit PO DAILY clindamycin HCl 150 mg capsule 150 mg PO ONCE PRN (Reason: Dentist) Patient Comments: pt state she takes when she goes to the dentist. taken in april, but not within the past week. Creon 36,000-114,000- 180,000 unit capsule,delayed release(DR/EC) 1 cap PO BID Patient Comments: pt states she hasnt had med in about 3 weeks, on backorder Rx Instructions: administer with meals and/or snacks aspirin 81 MG tablet 81 mg PO DAILY@2000 dexlansoprazole 60 mg capsule,biphase delayed releas 60 mg PO DAILY Rx Instructions: takes in am Gaviscon 80-14.2 mg tablet,chewable 1 tab PO DAILY PRN (Reason: heartburn) ciprofloxacin HCl 500 mg tablet 500 mg PO BID metoprolol tartrate 25 mg tablet 25 mg PO BID Qty: 180 3RF Repatha SureClick 140 mg/mL pen injector 140 mg SC Q2W Qty: 6 3RF Eliquis 5 mg tablet 5 mg PO BID Qty: 180 4RF Other Ambulatory Orders: 30 Day Event Recorder Preventi (Routine) Timeframe: 1 Day Facility: [facility] - Location: Cardiovascular Services Ordered By: Dr. Eloisa Gallardo Referrals / Follow Up: Joel Ham MD [Med Staff - Active Staff] - (Follow-up outpatient with first open visit to have ongoing assessment noted stenosis carotid artery ideally within 4-8 weeks.) Joss Salas DO [Primary Care Provider] - (Follow-up within 3-5 days to review admission.) Malika Henson NP, SUPPORT SERVICES TECH-C [Non-Staff -Ordering Privileges] - (Please follow-up with Cardiology as previously arranged or within 4-6 weeks following completion of 30-day event monitor per neurology recommendation.) Disposition Disposition (needs filled in before D/C Order can be placed): Home, Self Care Charges/Coding Visit Charges Inpatient E&M: 61154 Disch Hosp >30min
[2023-11-22 14:35] VITALS: BP 138/71; PULSE 71; RESP 18; TEMP 36.6; O2SAT 97
--- NOTE | 2023-11-22 15:04 | CASEMGMT ---
SW did not complete a PHQ 9 with patient as it is not definite she had a TIA or stroke. Nadiya Mark PAID INTERN JESSIE
[2023-11-22 19:39] LABS: Hemoglobin A1c 5.6 % (3.8-5.6)
== END 2023-11-22 13:09 | disposition home or self-care (01) ==
LOC: ED 16:40 → PCU 17:13
PROVIDERS: Admitting Provider Internal Medicine; Emergency Provider Emergency Medicine; PCP Family Medicine; Visit Provider Family Medicine
DX: R26.0 Ataxic gait (principal); I48.0 Paroxysmal atrial fibrillation; R42 Dizziness and giddiness; I12.9 Hypertensive chronic kidney disease with stage 1 through stage 4 chronic kidney disease, or unspecified chronic kidney disease; Z79.01 Long term (current) use of anticoagulants; R53.1 Weakness; E78.2 Mixed hyperlipidemia; I25.10 Atherosclerotic heart disease of native coronary artery without angina pectoris; K21.9 Gastro-esophageal reflux disease without esophagitis; Z66 Do not resuscitate; N18.2 Chronic kidney disease, stage 2 (mild); Z79.82 Long term (current) use of aspirin; Z79.899 Other long term (current) drug therapy; I25.2 Old myocardial infarction; Z95.1 Presence of aortocoronary bypass graft; N39.0 Urinary tract infection, site not specified; E55.9 Vitamin D deficiency, unspecified
CPT/HCPCS: 36415; 70496; 70498; 70551; 71045; 80048; 80053; 80061; 81001; 82962; 83036; 83735; 84443; 84484; 85025; 85610; 85730; 93005; 93306; 93880; 94668; 94762; 96360; 96361; 99221; 99252; 99284; J7030; Q9967; A4216; G0378; G0463

== ENCOUNTER 2024-02-18 01:25 | Emergency (ER) | payer MEDICARE, SELFPAY ==
[2024-02-18 01:27] VITALS: BP 140/53; PULSE 81; RESP 14; TEMP 36.5; O2SAT 98; BMI 25.0
--- NOTE | 2024-02-18 01:30 | EKG12_ITS ---
Test Reason : CP Blood Pressure : */* mmHG Vent. Rate : 85 BPM Atrial Rate : 85 BPM P-R Int : 136 ms QRS Dur : 78 ms QT Int : 316 ms P-R-T Axes : 47 50 52 degrees QTcB Int : 376 ms Sinus rhythm with frequent Premature ventricular complexes in a pattern of bigeminy Otherwise normal ECG Confirmed by IGNACIO THOMPSON, DARON ([id number]), greeting card editor KAMRAN CHAVEZ ([id number]) on 02/18/2024 1:55:09 PM Referred By: Confirmed By: DARON PIERRE MD
--- NOTE | 2024-02-18 01:37 | ED.VIS.CHEST ---
HPI History of Present Illness Chief Complaint: Palpitations [facility] Medical History Wears hearing aid in both ears Osteoporosis Myocardial infarct Hemorrhoids Arthritis Mixed hyperlipidemia Essential hypertension Postoperative atrial fibrillation Angina pectoris Hypercalcemia Vitamin D deficiency Dyslipidemia Hypertension NSTEMI (non-ST elevated myocardial infarction) Osteoarthritis GERD (gastroesophageal reflux disease) Home Medications ?Medication ?Instructions ?Recorded ?Last Taken ?Type aspirin 81 mg tablet,delayed 81 mg PO DAILY@1999 heart health 11/26/16 05/03/23 History release sertraline 25 mg tablet 25 mg PO DAILY mental health 11/25/17 05/03/23 History cholecalciferol (vitamin D3) 50 2,000 unit PO DAILY vitamin 01/19/19 05/02/23 History mcg (2,000 unit) tablet clindamycin HCl 150 mg capsule 150 mg PO ONCE PRN Dentist 06/01/21 11/21/23 History lvxxqb-sccuzsra-chkofeh 1 cap PO BID 10/15/22 Unknown History 36,000-114,000-180,000 unit capsule,delay rel (Creon) Al hyd-Mg tr-alg ac-sod bicarb 80 1 tab PO DAILY PRN heartburn 05/03/23 Unknown History mg-14.2 mg chewable tablet (Gaviscon) dexlansoprazole 60 mg 60 mg PO DAILY heartburn 05/03/23 05/03/23 History capsule,biphase delayed release metoprolol tartrate 25 mg tablet 25 mg PO BID #180 tabs 06/14/23 11/21/23 Rx evolocumab 140 mg/mL subcutaneous 140 mg subcut Q2W Hyperlipidemia, 07/01/23 Unknown Rx pen injector (Osbaldo Diego) cannot take statins #6 mL apixaban 5 mg tablet (Eliquis) 5 mg PO BID #180 tabs 07/22/23 11/21/23 Rx pantoprazole 40 mg tablet,delayed 40 mg PO 02/18/24 Unknown History release Allergy/AdvReac Type Severity Reaction Status Date / Time Sblcqce-IGD-TbK Reductase AdvReac Severe myalgias Verified 02/18/24 01:26 Inhibitor (Uiibjpq-Eqz-Ujh Reductase Inhibitor) Penicillins AdvReac Itching Verified 02/18/24 01:26 Tetanus Vaccines and Toxoid AdvReac Swelling Verified 02/18/24 01:26 (Tetanus Vaccines & Toxoid) Family History Mother Heart disease Father Heart disease Brother Heart disease Brother Heart disease Sister Heart disease Surgical History History of coronary artery bypass graft (~09/17/16) History of tubal ligation History of removal of cyst History of repair of right rotator cuff History of right hip replacement History of cholecystectomy History of foot surgery History of facial surgery Social History Smoking Status: Never smoker alcohol intake: current alcohol intake frequency: a few times a month caffeine: No EXAM Physical Exam Const Vital Signs: 02/18/24 01:27 02/18/24 01:31 02/18/24 02:25 Temperature 97.7 F L Temperature Source Oral Pulse Rate 81 69 Respiratory Rate 14 16 Respiratory Effort Normal Blood Pressure 140/53 H 112/58 L Blood Pressure Mean 82 76 Pulse Ox 98 96 Oxygen Delivery Method Room Air Room Air 02/18/24 03:00 Temperature Temperature Source Pulse Rate 56 L Respiratory Rate 12 Respiratory Effort Blood Pressure 119/59 L Blood Pressure Mean 79 Pulse Ox 97 Oxygen Delivery Method Room Air MDM MDM MDM Narrative Medical decision making narrative: HISTORY OF PRESENT ILLNESS: 83-year-old female presents with concern for abnormal heart rate. Per EMS patient woke up from sleep secondary to her watch alarming her with her heart rate in the 30s. Patient denies any symptoms. Denies any symptoms, chest pain, palpitations, shortness of breath, lightheadedness, fatigue, dizziness. REVIEW OF SYSTEMS: Pertinent positives: As per HPI Pertinent negatives: As per HPI PHYSICAL EXAM: Nursing triage notes reviewed, Vital signs reviewed Constitutional: please see mdm HENT: MMM Eyes: Pupils equal round and reactive to light, Extraocular muscles intact Neck: No stridor, no JVD, full neck ROM Lungs: Clear to auscultation, No wheezing or rales. No increased work of breathing, no conversational dyspnea, no accessory muscle use, no nasal flaring. No respiratory distress noted Heart: Regular rate and rhythm, No murmurs, No rubs and No gallops, 2+ distal pulses (radial, femoral, posterior tibial) in all extremities Abdomen: Soft, there is no tenderness, rigidity, rebound or guarding, no obvious peritoneal signs, no palpable pulsatile abdominal masses, no auscultated abdominal bruit : No CVAT Extremities: No edema Neuro: No focal neurological deficits, cranial nerves II through XII intact, 5/5 strength in all extremities. Intact sensation to light touch in all extremities, 2+ reflexes bilateral patella tendons. Normal gait. No ataxia. Skin: No rash or lesions noted MEDICAL DECISION MAKING: Chief Complaint: Abnormal heart rate External records reviewed: Reviewed prior medications: Currently on Eliquis and metoprolol Factors affecting care: atrial fibrillation, hypertension, hyperlipidemia Social determinants of health: none History obtained from others: none Consults: Cardiology (Dr. Israel) MDM Narrative: The patient was initially hemodynamically stable, afebrile and nontoxic-appearing. Exam without focal cardiopulmonary abnormalities. I considered the following differential diagnosis: Arrhythmia, anemia, electrolyte disturbance, ACS ALL IMAGES (IF OBTAINED) HAVE BEEN PERSONALLY REVIEWED AND INTERPRETED BY MYSELF. EKG with normal sinus rhythm at a rate of 85, normal axis, normal intervals, UT interval 136, no signs of heart block, no signs of ischemia, noted frequent PVCs and bigeminy. The frequent PVCs are new from prior EKGs. High-sensitivity troponin is negative, no evidence of myocardial ischemia CBC without leukocytosis, severe anemia, no thrombocytopenia. BMP without evidence of significant electrolyte abnormalities, no anion gap, no acute kidney injury. I have personally reviewed the patient's chest x-ray. Chest x-ray is unremarkable for pulmonary edema, pneumothorax, pneumonia or focal cardiopulmonary abnormality. The synthesis of the patient's history, physical exam, labs images suggest likely frequent PVCs. Patient's radial metoprolol. She is asymptomatic. No indication for admission at this time. Attempted to discuss with the [employer] crm developer on-call Dr. Israel however did not receive a call back. Given patient PVCs are not life-threatening to keep the patient in the ED until received a call back and discharged her. The patient and/or family, caregivers express understanding. The patient and/or family, caregivers agrees with the plan. Shared decision making: I will have a discussion with the patient and or visitors regarding risk/benefits of further testing or admission. They will be made aware of of the risk/benefits inherent in this decision they will be given the opportunity to voice understanding. Total critical care time today provided was at least 0 minutes. This excludes separately billable procedures. Critical care time (if documented) is secondary to the patient having high probability of clinically significant/life threatening deterioration in the patient's condition which required my urgent intervention. Impression: 1. PVCs 2. History of atrial fibrillation Dispo: Discharge home This note was generated with [employer] dictation software. It may contain incorrect words, spelling, and punctuation that were not noted in review of the chart prior to signing. Lab Data Labs: Laboratory Results - last 24 hr 02/18/24 01:25 WBC 5.0 RBC 4.66 Hgb 14.2 Hct 42.5 MCV 91.2 MCH 30.5 MCHC 33.4 RDW Std Deviation 46.5 H RDW Coeff of Dimas 13.9 Plt Count 189 MPV 10.6 Sodium 140 Potassium 3.9 Chloride 108 H Carbon Dioxide 26.0 Anion Gap 6 BUN 18 Creatinine 1.04 H Estim Creat Clear Calc 38.32 Est GFR (MDRD) Af Amer 65 Est GFR (MDRD) Non-Af 54 L BUN/Creatinine Ratio 17.3 Glucose 116 H Calcium 9.9 Troponin I High Sens 6 Radiography Diagnostic Testing: Clinical Impression(s) from Imaging Studies Chest X-Ray 02/18/24 01:53 IMPRESSION: No radiographic evidence of acute cardiopulmonary disease. Electronically Signed: Arnaldo Weinstein MD at 2:12 EST Reading Location ID and State: [facility] / [place] Tel , Service support , Discharge Plan Triage Chief Complaint: Palpitations ED Provider: Brian Savage Dx/Rx/DC Orders Clinical Impression: PVC's (premature ventricular contractions) Instructions: PVCs Prescriptions: No Action sertraline 25 mg tablet 25 mg PO DAILY cholecalciferol (vitamin D3) 2,000 unit tablet 2,000 unit PO DAILY clindamycin HCl 150 mg capsule 150 mg PO ONCE PRN (Reason: Dentist) Patient Comments: pt state she takes when she goes to the dentist. taken in april, but not within the past week. Creon 36,000-114,000- 180,000 unit capsule,delayed release(DR/EC) 1 cap PO BID Patient Comments: pt states she hasnt had med in about 3 weeks, on backorder Rx Instructions: administer with meals and/or snacks aspirin 81 MG tablet 81 mg PO DAILY@2000 dexlansoprazole 60 mg capsule,biphase delayed releas 60 mg PO DAILY Rx Instructions: takes in am Gaviscon 80-14.2 mg tablet,chewable 1 tab PO DAILY PRN (Reason: heartburn) pantoprazole 40 mg tablet,delayed release (DR/EC) 40 mg PO metoprolol tartrate 25 mg tablet 25 mg PO BID Qty: 180 3RF Repatha SureClick 140 mg/mL pen injector 140 mg SC Q2W Qty: 6 3RF Eliquis 5 mg tablet 5 mg PO BID Qty: 180 4RF Primary Care Provider: Joss Salas Referrals: Jorge L Merchant MD [Med Staff - Active Staff] - Activity Restrictions/Additional Instructions: Thank you for trusting us with your care today! Your presentation today is likely secondary to premature ventricular contractions. These are abnormal heart rhythms however they are not life-threatening. Please return to the emergency department if your symptoms change or worsen. Please follow with your P[facility]eder for further outpatient evaluation and management. Print Language: Guatemalan Disposition Disposition: Home, Self Care
--- NOTE | 2024-02-18 01:53 | RAD_ITS ---
INDICATION: palpitations EXAMINATION/TECHNIQUE: X-RAY - XR Chest 1 View COMPARISON: CR ChestAug 2023 11:21am FINDINGS: LINES/DEVICES: None. LUNGS: No consolidation, edema or effusion. No pneumothorax. MEDIASTINUM AND CARDIOVASCULAR STRUCTURES: Cardiac silhouette not enlarged. Central airways and mediastinal contour are unremarkable. BONES AND SOFT TISSUES: Unremarkable. RAD/Chest 1 View (Portable) IMPRESSION: No radiographic evidence of acute cardiopulmonary disease. Electronically Signed: Arnaldo Weinstein MD at 2:12 EST ,
[2024-02-18 01:57] LABS: Hematocrit 42.5 % (37-47); Hemoglobin 14.2 g/dL (12.0-15.0); Mean Corp Hgb Conc 33.4 g/dL (32-36); Mean Corpuscular Hgb 30.5 pg (27.0-32.0); Mean Corpuscular Volume 91.2 fL (81-99); Mean Platelet Vol. 10.6 fl (6.2-12.0); Platelet Count 189 K/mm3 (150-450); RBC Distribution Width CV 13.9 % (11.6-14.6); RBC Distribution Width SD 46.5 fl (35.1-43.9); Red Blood Count 4.66 M/mm3 (4.2-5.4)
[2024-02-18 02:15] LABS: Anion Gap 6 (5-15); BUN 18 mg/dL (7-18); BUN/Creat Ratio 17.3 RATIO (10-20); Calcium,Total 9.9 mg/dL (8.5-10.1); Chloride 108 mmol/L (98-107); Creatinine, Serum 1.04 mg/dL (0.55-1.02); EST Glomerular Filtration Rate 54 mL/min (>60); Est Glom Filt Rate - Afr Amer 65 mL/min (>60); Estimated Creatinine Clearance 38.32 ml/min; Glucose 116 mg/dL (74-106); Potassium 3.9 mmol/L (3.5-5.1); Sodium Level 140 mmol/L (136-145); Troponin-I HS 6 pg/mL (3.0-54.0)
[2024-02-18 02:25] VITALS: BP 112/58; PULSE 69; RESP 16; O2SAT 96
[2024-02-18 03:00] VITALS: BP 119/59; PULSE 56; RESP 12; O2SAT 97
[2024-02-18 03:55] VITALS: BP 119/56; PULSE 72; RESP 17; TEMP 36.5; O2SAT 97
== END 2024-02-18 03:59 | disposition home or self-care (01) ==
PROVIDERS: Emergency Provider Emergency Medicine; PCP Family Medicine; Visit Provider Emergency Medicine
DX: I49.3 Ventricular premature depolarization (principal); I48.91 Unspecified atrial fibrillation; I10 Essential (primary) hypertension; I25.2 Old myocardial infarction; E78.2 Mixed hyperlipidemia; E55.9 Vitamin D deficiency, unspecified; K21.9 Gastro-esophageal reflux disease without esophagitis; M81.0 Age-related osteoporosis without current pathological fracture; M19.90 Unspecified osteoarthritis, unspecified site; Z95.1 Presence of aortocoronary bypass graft; Z87.19 Personal history of other diseases of the digestive system; Z90.49 Acquired absence of other specified parts of digestive tract; Z79.01 Long term (current) use of anticoagulants; Z79.82 Long term (current) use of aspirin; Z96.641 Presence of right artificial hip joint; Z79.899 Other long term (current) drug therapy
CPT/HCPCS: 71045; 80048; 84484; 85027; 93005; 99285

== ENCOUNTER → 2024-09-09 | Outpatient (CLI) | payer MEDICARE, SELFPAY ==
[2024-09-09 13:30] LABS: AST(SGOT) 19 U/L (<=31); Alanine Aminotransfer ALT/SGPT 14 U/L (<=34); Albumin, Serum 4.3 g/dL (3.4-4.8); Alkaline Phosphatase 87 U/L (35-104); Bilirubin, Direct 0.35 mg/dL (0.00-0.30); Cholesterol 137 mg/dL (<=200); Globulin 2.4 g/dL (2.2-4.2); High Density Lipoprotein 67 mg/dL; Low Density Lipoprotein Calc. 40 mg/dL; Protein, Total 6.7 g/dL (5.9-8.4); Total Bilirubin 0.83 mg/dL (0.00-1.30); Triglycerides 149 mg/dL; Very Low Density Lipoprotein 30 mg/dL (5-40); cholesterol:hdl ratio screen 2.04
== END | disposition home or self-care (01) ==
LOC: LAB 11:16
PROVIDERS: PCP Family Medicine; Referring Provider Nurse Practitioner Gerontology; Visit Provider Nurse Practitioner Gerontology
DX: E78.2 Mixed hyperlipidemia (principal)
CPT/HCPCS: 36415; 80061; 80076

== ENCOUNTER → 2025-01-19 | Outpatient (CLI) | payer MEDICARE, SELFPAY ==
[2025-01-19 15:55] LABS: Hematocrit 40.7 % (37-47); Hemoglobin 13.3 g/dL (12.0-15.0); Immature Granulocytes Count 0.030 X10^3/uL (0.0-0.0); Mean Corp Hgb Conc 32.7 g/dL (32-36); Mean Corpuscular Volume 92.3 fL (81-99); Mean Platelet Vol. 10.2 fl (6.2-12.0); NRBC Flagged by Analyzer 0 % (0-5); Platelet Count 236 K/mm3 (150-450); RBC Distribution Width CV 13.2 % (11.6-14.6); RBC Distribution Width SD 44.2 fl (35.1-43.9); Red Blood Count 4.41 M/mm3 (4.2-5.4); White Blood Count 6.6 K/mm3 (4.4-11.0)
[2025-01-19 18:41] LABS: Anion Gap 12 (5-15); BUN 14 mg/dL (4-19); BUN/Creat Ratio 18.0 RATIO (10-20); Calcium,Total 9.9 mg/dL (7.6-11.0); Carbon Dioxide 21.6 mmol/L (21.0-32.0); Chloride 107 mmol/L (98-108); Glucose 78 mg/dL (70-99); Potassium 4.0 mmol/L (3.3-5.1); Vitamin D,25 Hydroxy 33.6 ng/mL (30-100)
== END | disposition home or self-care (01) ==
LOC: LAB 14:37
PROVIDERS: PCP Family Medicine; Referring Provider Family Medicine; Visit Provider Family Medicine
DX: I25.10 Atherosclerotic heart disease of native coronary artery without angina pectoris (principal); I10 Essential (primary) hypertension; M85.80 Other specified disorders of bone density and structure, unspecified site
CPT/HCPCS: 36415; 80048; 82306; 85025

== ENCOUNTER 2025-02-04 08:57 | Emergency (ER) | payer MEDICARE, SELFPAY ==
[2025-02-04 08:58] VITALS: BP 132/79; PULSE 91; RESP 16; TEMP 36.3; O2SAT 98; BMI 24.7
--- NOTE | 2025-02-04 09:08 | CT_ITS ---
PROCEDURE: ABDOMEN/PELVIS W IV CONT ONLY 02/04/2025 REASON FOR EXAM: DIARRHEA TECHNIQUE: Procedure Code: [id number] Modality: CT Procedure: ABDOMEN/PELVIS W IV CONT ONLY Coronal and Sagittal reconstruction series were provided. CONTRAST: Isovue 370 VOLUME: 98 mL One or more dose reduction techniques were used (e.g., Automated exposure control, adjustment of the mA and/or kV according to patient size, use of iterative reconstruction technique. RADIATION DOSE SUMMARY: CTDlvol: 35 mGy DLP: 522 mGycm COMPARISON: August 26, 2019 FINDINGS: Lung bases: Mild subpleural scarring right lower lobe. Granuloma left lower lobe. Liver: Mild, diffuse fatty liver. Gallbladder: Cholecystectomy. Smooth intrahepatic and extrahepatic biliary duct dilation likely on the basis of age and cholecystectomy status. Spleen: Normal Pancreas: Normal Adrenals: Normal Kidneys: Left midpole cyst 1.6 x 2.4 cm. No collecting system dilation or calculus. Bladder: Empty. Quality degraded by metallic artifact of the right hip. Reproductive Organs: Hysterectomy. Right adnexal cyst is 3.4 x 2.7 cm in water density. Left ovary this is associated with a smaller cyst measuring 1.1 x 1.2 cm. Bowel: The stomach appears normal. Small bowel is normal. Diarrheal state is present. Diverticulosis without diverticulitis. Appendix: Normal Lymph nodes: None appear enlarged Vasculature: Severe atherosclerotic plaque without aneurysm. Peritoneum / Retroperitoneum: No free air, free fluid or mass. Bones: Curvature lumbar spine to the right. Moderate disc space narrowing, marginal endplate spurring L5/S1. Lower lumbar facet hypertrophy. CT/Abdomen/Pelvis W IV Cont ONLY IMPRESSION: 1. Diarrheal state. Consider a mild colitis. 2. Diverticulosis without diverticulitis. 3. Bilateral ovarian cysts with the largest on the right. These have a simple appearance. ACR White Paper recommendations (Jaquez, et al. J Am Amanda Radiol 2020;17:248-254) suggest the following: No furt her imaging. 4. Hysterectomy 5. Cholecystectomy. Biliary ductal dilation likely on the basis of age and ch olecystectomy status. Correlate with obstructive laboratory indices. No mass near the pancreatic head or ampulla. No choledoch olithiasis. 6. Fatty liver Reading Location: [id number]
--- NOTE | 2025-02-04 09:09 | EX.ED.DYSGE1 ---
HPI History of Present Illness Chief Complaint: Diarrhea Narrative Narrative: Patient is a 84-year-old female with past medical history hypertension, CABG, atrial fibrillation on Eliquis who presents to the emergency department with a chief complaint of diarrhea. Patient states that she has had diarrhea for about 2 weeks now. When I inquire about what changed today that brought her in and she states that she just feels rundown and overall not well. Patient states that about a month ago she did take clindamycin however notes that she did not develop diarrhea right after this. She denies any black stools denies any blood in her stool denies any sick contacts [facility] Medical History History of hypertension Carotid arterial disease Wears hearing aid in both ears Osteoporosis Myocardial infarct Hemorrhoids Arthritis Mixed hyperlipidemia Essential hypertension Postoperative atrial fibrillation Angina pectoris Hypercalcemia Vitamin D deficiency Dyslipidemia Hypertension NSTEMI (non-ST elevated myocardial infarction) Osteoarthritis GERD (gastroesophageal reflux disease) Home Medications ?Medication ?Instructions ?Recorded ?Last Taken ?Type aspirin 81 mg tablet,delayed 81 mg PO DAILY@1999 heart health 11/26/16 02/03/25 History release sertraline 25 mg tablet 25 mg PO DAILY mental health 11/25/17 02/03/25 History cholecalciferol (vitamin D3) 50 2,000 unit PO DAILY vitamin 01/19/19 02/03/25 History mcg (2,000 unit) tablet clindamycin HCl 150 mg capsule 150 mg PO ONCE PRN Dentist 06/01/21 01/04/25 History Al hyd-Mg tr-alg ac-sod bicarb 80 1 tab PO DAILY PRN heartburn 05/03/23 Unknown History mg-14.2 mg chewable tablet (Gaviscon) pantoprazole 40 mg tablet,delayed 40 mg PO DAILY gerd 02/18/24 02/03/25 History release evolocumab 140 mg/mL subcutaneous 140 mg subcut Q2W Hyperlipidemia, 04/30/24 01/22/25 Rx pen injector (Osbaldo Diego) cannot take statins #6 mL metoprolol tartrate 25 mg tablet 25 mg PO BID heart #180 tabs 07/20/24 02/03/25 Rx apixaban 5 mg tablet (Eliquis) 5 mg PO BID heart #180 tabs 08/20/24 02/03/25 Rx calcium 600 mg (as 1 tab PO DAILY supplement 02/04/25 02/03/25 History carbonate)-vitamin D3 5 mcg (200 unit) tablet (Calcium 600 + D(3)) fluocinolone acetonide oil 0.01 % 5 drp otic (ear) DAILY itching 02/04/25 01/30/25 History ear drops [id number] 2 cap PO TIDCM diarrhea 02/04/25 02/03/25 History (pork)36,000-114,000-180k unit capsule,del rel (Creon) ondansetron 4 mg disintegrating 4 mg PO Q6H PRN nausea and 02/04/25 Unknown Rx tablet vomiting #20 tabs potassium chloride 20 mEq oral 20 meq PO BID 5 days #30 ea 02/04/25 Unknown Rx packet turmeric 400 mg capsule 400 mg PO BID arthritis 02/04/25 02/03/25 History Allergy/AdvReac Type Severity Reaction Status Date / Time Qufvqqy-APL-OoL Reductase AdvReac Severe myalgias Verified 02/04/25 08:58 Inhibitor (Xfxviil-Xtf-Dqq Reductase Inhibitor) Penicillins AdvReac Itching Verified 02/04/25 08:58 Tetanus Vaccines and Toxoid AdvReac Swelling Verified 02/04/25 08:58 (Tetanus Vaccines & Toxoid) Family History Mother Heart disease Father Heart disease Brother Heart disease Brother Heart disease Sister Heart disease Surgical History History of coronary artery bypass graft (~09/17/16) History of tubal ligation History of removal of cyst History of repair of right rotator cuff History of right hip replacement History of cholecystectomy History of foot surgery History of facial surgery Social History Smoking Status: Never smoker alcohol intake: current alcohol intake frequency: a few times a month caffeine: No ROS ROS ED ROS Narrative Constitutional: Denies any fevers, chills, headaches Abdomen: Complains of diarrhea as noted above denies nausea vomiting : Denies urinary symptoms Neurological: Denies any numbness, weakness, tingling Musculoskeletal: Denies back pain Skin: Denies any rashes or lesions EXAM Physical Exam Narrative Exam Narrative: General: Patient lying in bed rest comfortably did not appear to be in acute distress Head: Atraumatic, normocephalic Eyes: PERRL bilaterally, EOMI bilaterally, no conjunctival injection noted Neck: Soft, supple, trachea midline Cardiovascular: Regular rate Abdomen: Soft, nondistended, no tenderness palpation no rebound or guarding on exam Extremities: +4/5 strength noted in the bilateral upper and lower extremities Neurological: Patient follow commands knew that she was at [facility] year is 2024 Skin: Warm, dry, tact no rashes or lesions noted Const Vital Signs: 02/04/25 08:58 02/04/25 10:57 02/04/25 12:00 Temperature 97.3 F L Temperature Source Oral Pulse Rate 91 72 83 Respiratory Rate 16 14 18 Blood Pressure 132/79 H 125/59 H 127/46 H Blood Pressure Mean 96 81 73 Pulse Ox 98 98 100 Oxygen Delivery Method Room Air Room Air MDM MDM MDM Narrative Medical decision making narrative: Patient is a 84-year-old female who presents to the emergency department the chief complaint of 2 weeks of diarrhea. On the differential diagnose includes but not limited to constipation, bowel obstruction, C. difficile although have low suspicion for this. Once workup is obtained reviewed she will be reevaluated. Patient CBC reviewed and showed no evidence leukocytosis white blood count normal 7.6, hemoglobin 15.4, platelet count 261. Patient sodium was 134, potassium low indicating hypokalemia at 3.2 she was given 40 mill equivalents of supplementation here in the emergency department. Patient's AST and ALT are 42 and 39 respectively total bilirubin normal at 1.07. Patient lipase normal at 20. Patient's CT abdomen pelvis with IV contrast reviewed which showed mild colitis noted. Diverticulosis without diverticulitis. Bilateral ovarian cyst with largest on the right these have similar appearance. Hysterectomy. Cholecystectomy biliary ductal dilation likely on the basis of age and cholecystectomy status correlate with obstructive laboratory indices which was not found here today. Fatty liver noted. Patient C. difficile came back negative. On reevaluation patient she would like to go home at this point time. She is advised to follow-up with her doctors in outpatient setting and she is requesting to follow-up with Dr. Byrant as well which she was given referral to. She is advised to the Zofran as needed for nausea. Family ember at bedside is also agreeable Splane all question concerns answered she was discharged home in stable condition Lab Data Labs: Laboratory Results - last 24 hr 02/04/25 09:25 WBC 7.6 RBC 5.14 Hgb 15.4 H Hct 46.0 MCV 89.5 MCH 30.0 MCHC 33.5 RDW Std Deviation 41.7 RDW Coeff of Dimas 12.7 Plt Count 261 MPV 10.0 Immature Gran % (Auto) 0.400 Neut % (Auto) 79.9 H Lymph % (Auto) 12.0 L [place] % (Auto) 6.6 Eos % (Auto) 0.8 Baso % (Auto) 0.3 Absolute Neuts (auto) 6.1 Absolute Lymphs (auto) 0.91 Nucleated RBC % 0 Sodium 134 Potassium 3.2 L Chloride 101 Carbon Dioxide 16.7 L Anion Gap 17 H BUN 24 H Creatinine 1.19 Estim Creat Clear Calc 30.39 L Est GFR (MDRD) Non-Af 45 L BUN/Creatinine Ratio 19.8 Glucose 134 H Calcium 10.6 Total Bilirubin 1.07 AST 42 H ALT 39 H Alkaline Phosphatase 130 H Total Protein 7.2 Albumin 4.5 Globulin 2.7 Albumin/Globulin Ratio 1.6 Lipase 20 Radiography Diagnostic Testing: Clinical Impression(s) from Imaging Studies Abdomen/Pelvis CT 02/04/25 09:08 IMPRESSION: 1. Diarrheal state. Consider a mild colitis. 2. Diverticulosis without diverticulitis. 3. Bilateral ovarian cysts with the largest on the right. These have a simple appearance. ACR White Paper recommendations (Jaquez, et al. J Am Amanda Radiol 2020;17:248-254) suggest the following: No further imaging. 4. Hysterectomy 5. Cholecystectomy. Biliary ductal dilation likely on the basis of age and cholecystectomy status. Correlate with obstructive laboratory indices. No mass near the pancreatic head or ampulla. No choledocholithiasis. 6. Fatty liver Reading Location: [id number] Discharge Plan Triage Chief Complaint: Diarrhea ED Provider: Vijay Chang Dx/Rx/DC Orders Clinical Impression: Diarrhea, Colitis, Essential hypertension, History of CAD (coronary artery disease) Prescriptions: New ondansetron 4 mg tablet,disintegrating 4 mg PO Q6H PRN (Reason: nausea and vomiting) Qty: 20 0RF potassium chloride 20 mEq packet 20 meq PO BID 5 Days Qty: 30 0RF No Action sertraline 25 mg tablet 25 mg PO DAILY cholecalciferol (vitamin D3) 2,000 unit tablet 2,000 unit PO DAILY clindamycin HCl 150 mg capsule 150 mg PO ONCE PRN (Reason: Dentist) Patient Comments: pt state she takes when she goes to the dentist. taken in april, but not within the past week. aspirin 81 MG tablet 81 mg PO DAILY@1999 Gaviscon 80-14.2 mg tablet,chewable 1 tab PO DAILY PRN (Reason: heartburn) pantoprazole 40 mg tablet,delayed release (DR/EC) 40 mg PO DAILY fluocinolone acetonide oil 0.01 % drops 5 drp otic (ear) DAILY Creon 36,000-114,000- 180,000 unit capsule,delayed release(DR/EC) 2 cap PO TIDCM Patient Comments: TAKE 2 CAPSULES BY MOUTH WITH MEALS AND 1 CAPSULE WITH SNACKS turmeric 400 mg capsule 400 mg PO BID calcium carbonate-vitamin D3 [Calcium 600 + D(3)] 600 mg-5 mcg (200 unit) tablet 1 tab PO DAILY Repatha SureClick 140 mg/mL pen injector 140 mg SC Q2W Qty: 6 3RF Patient Comments: pt states she takes every other saturday metoprolol tartrate 25 mg tablet 25 mg PO BID Qty: 180 3RF Eliquis 5 mg tablet 5 mg PO BID Qty: 180 3RF Rx Instructions: Patient's phone number [phone] Primary Care Provider: Joss Salas Referrals: Joss Salas DO [Primary Care Provider, Family Practice] Deshawn Bryant DO [Med Staff - Active Staff, Gastroenterology] Activity Restrictions/Additional Instructions: Your blood work did not show any acute findings today. Take potassium as prescribed and use Zofran as needed. Follow-up with Dr. Bryant in the outpatient setting. Return with worsening symptoms or any concerns. Your CT showed evidence of colitis no surgical findings were noted today. Print Language: Chadian Disposition Disposition: Home, Self Care
[2025-02-04 09:28] LABS: Hematocrit 46.0 % (37-47); Hemoglobin 15.4 g/dL (12.0-15.0); Immature Granulocytes Count 0.030 X10^3/uL (0.0-0.0); Mean Corp Hgb Conc 33.5 g/dL (32-36); Mean Corpuscular Volume 89.5 fL (81-99); Mean Platelet Vol. 10.0 fl (6.2-12.0); NRBC Flagged by Analyzer 0 % (0-5); Platelet Count 261 K/mm3 (150-450); RBC Distribution Width CV 12.7 % (11.6-14.6); RBC Distribution Width SD 41.7 fl (35.1-43.9); Red Blood Count 5.14 M/mm3 (4.2-5.4); White Blood Count 7.6 K/mm3 (4.4-11.0)
[2025-02-04] MEDS: 0.9% Normal Saline (1000mL) 1,000 ML 999 ML IV (09:28)
[2025-02-04 09:59] LABS: AST(SGOT) 42 U/L (<=31); Alanine Aminotransfer ALT/SGPT 39 U/L (<=34); Albumin, Serum 4.5 g/dL (3.4-4.8); Alkaline Phosphatase 130 U/L (35-104); Anion Gap 17 (5-15); BUN 24 mg/dL (4-19); BUN/Creat Ratio 19.8 RATIO (10-20); Calcium,Total 10.6 mg/dL (7.6-11.0); Carbon Dioxide 16.7 mmol/L (21.0-32.0); Chloride 101 mmol/L (98-108); Estimated Creatinine Clearance 30.39 ml/min (50-250); Globulin 2.7 g/dL (2.2-4.2); Glucose 134 mg/dL (70-99); Lipase 20 U/L (13-75); Potassium 3.2 mmol/L (3.3-5.1)
[2025-02-04] MEDS: Potassium Chloride Oral Tablet 20 MEQ 40 MEQ PO (10:56)
[2025-02-04 10:57] VITALS: BP 125/59; PULSE 72; RESP 14; O2SAT 98
[2025-02-04 12:00] VITALS: BP 127/46; PULSE 83; RESP 18; O2SAT 100
[2025-02-04 13:40] VITALS: BP 128/71; PULSE 76; RESP 18; TEMP 36.1; O2SAT 96
== END 2025-02-04 13:41 | disposition home or self-care (01) ==
PROVIDERS: Emergency Provider Emergency Medicine; PCP Family Medicine; Visit Provider Emergency Medicine
DX: K52.9 Noninfective gastroenteritis and colitis, unspecified (principal); I48.91 Unspecified atrial fibrillation; E87.6 Hypokalemia; K57.30 Diverticulosis of large intestine without perforation or abscess without bleeding; N83.201 Unspecified ovarian cyst, right side; N83.202 Unspecified ovarian cyst, left side; I10 Essential (primary) hypertension; I25.2 Old myocardial infarction; E55.9 Vitamin D deficiency, unspecified; E78.5 Hyperlipidemia, unspecified; K21.9 Gastro-esophageal reflux disease without esophagitis; M81.0 Age-related osteoporosis without current pathological fracture; I25.10 Atherosclerotic heart disease of native coronary artery without angina pectoris; Z95.1 Presence of aortocoronary bypass graft; Z79.01 Long term (current) use of anticoagulants; Z79.82 Long term (current) use of aspirin; Z79.899 Other long term (current) drug therapy; Z90.710 Acquired absence of both cervix and uterus; Z90.49 Acquired absence of other specified parts of digestive tract
CPT/HCPCS: 74177; 80053; 83690; 85025; 87493; 96360; 96361; 99283; Q9967

== ENCOUNTER 2025-02-07 16:49 | Emergency (ER) | payer MEDICARE, SELFPAY ==
[2025-02-07 16:50] VITALS: BP 129/72; PULSE 89; RESP 16; TEMP 36.6; O2SAT 98; BMI 24.3
--- OUTSIDE RECORDS SUMMARY | 2025-02-07 18:13 | XMS RPT_ITS | CCD ---
Author Organization [facility] Care Team Providers Care Software Maintenance Engineer Name Role Phone Audelia Skelton Unavailable Unavailable REFERRING, TRISTIN DOTY SCOTT Unavailable Unavailable NOEL BRUNSON Unavailable Unavailable EVERARDO CANTU Unavailable Unavailable Dr. Joss Salas Primary Care Provider [phone] Dr. Joss Salas Referring Provider [phone] Sixto SAS ETL DEVELOPER, SAS ETL DEVELOPER-C Malika Attending Provider Dr. Joss Salas Primary Care Provider [phone] Dr. Joss Salas Referring Provider [phone] Sixto RAMIREZ NP-C Malika Attending Provider Dr. Joss Salas Primary Care Provider [phone] Dr[address] Joss Salas Referring Provider [phone] Elan Barrios Attending Provider [phone] Dr. Joss Salas Primary Care Provider [phone] Dr. Joss Salas Referring Provider [phone] Eder AVILA, [place] Keila Milner Attending Provider Dr. Joss Salas Primary Care Provider [phone] Kee Sanchez Emergency Provider Dr. Rina Cosby Attending Provider Dr. Rina Cosby Admit Provider Dr. Rina Cosby Other Provider Dr. Lulu Knight Attending Provider Dr. Lulu Knight Other Provider Dr. Neftaly Yanez Other Provider Dr. Rina Cosby Referring Provider Dr. Lulu Knight Referring Provider Dr. Neftaly Yanez Attending Provider Dr. Joss Salas Referring Provider Sixto SAS ETL DEVELOPER, SAS ETL DEVELOPER-C Malika Attending Provider Dr. Joel Ham Attending Provider Dr. Joss Salas DO Primary Care Provider Dr. Joss Salas DO Referring Provider Sixto SAS ETL DEVELOPER-C, Malika Attending Provider [phone] Sixto SAS ETL DEVELOPER-C, Malika Referring Provider [phone] Malika Henson Attending Unavailable Malika Henson Referring Unavailable Josue, Joss Primary Care Unavailable Vijay Chang Attending Unavailable Josue, Joss Primary Care Unavailable Brian Savage Attending Unavailable Josue, Joss Primary Care Unavailable Josue, Joss Attending Unavailable Josue, Joss Referring Unavailable Josue, Joss Primary Care Unavailable Malika Henson Attending Unavailable Josue, Joss Referring Unavailable Josue, Joss Primary Care Unavailable Josue, Joss Primary Care Unavailable Jorge L Merchant Attending Unavailable Josue, Joss Referring Unavailable Josue, Joss Attending Unavailable Josue, Joss Referring Unavailable Josue, Joss Primary Care Unavailable Allergies Allergy Classification Reported Allergen(s) Allergy Type Date of Onset Reaction(s) Facility (2 sources) Hmg-Coa Reductase Inhibitors (Statins) drug allergy 11-14-2016 myalgias [facility] Work Phone: (1 source) Penicillins (Antibiotic) drug allergy 11-14-2016 [facility] Work Phone: (1 source) TETNUS TOXOID drug allergy 11-14-2016 [facility] Work Phone: (11 sources) Penicillins; Translations: [Penicillins] Propensity to adverse reactions 08-30-2021 Itching [facility] (11 sources) Jjnlhfj-Bnz-Dqr Reductase Inhibitor; Translations: [Voislpy-Hbc-Hzg Reductase Inhibitor] Propensity to adverse reactions 08-30-2021 myalgias [facility] (11 sources) Tetanus Vaccines and Toxoid; Translations: [Tetanus Vaccines and Toxoid] Propensity to adverse reactions 08-30-2021 Swelling [facility] Comment on above: SWELLING AT SITE OF INJECTION Medications Current Medications Medication Drug Class(es) Dates Sig (Normalized) Sig (Original) Al Hyd-Mg Tr-Alg Ac-Sod Bicarb (Gaviscon) 80-14.2 mg tablet,chewable (2 sources) Start: 05-03-2023 Al Hyd-Mg Tr-Alg Ac-Sod Bicarb (Gaviscon) 80-14.2 mg tablet,chewable Active 1 {tbl} PO DAILY as needed for heartburn May 03, 2023 1:00am aluminum hydroxide 80 mg / magnesium trisilicate 14.2 mg chewable tablet (3 sources) Start: 05-03-2023 take 1 tablet by mouth once daily Al Hyd-Mg Tr-Alg Ac-Sod Bicarb (Gaviscon) 80-14.2 mg tablet,chewable Active 1 TABLET PO DAILY May 03, 2023 12:00am aspirin 81 mg delayed release oral tablet (20 sources) Nonsteroidal Anti-inflammatory Drug Start: 11-26-2016 take 1 tablet by mouth once daily Aspirin 81 MG tablet Active 81 mg PO DAILY@1999November 26, 2016 12:00am Start: 11-14-2016 take 1 tablet by davion th once daily ASPIRIN EC LOW DOSE 81 MG TBEC One tablet by mouth daily ASPIRIN [id number] Elan Barrios MD Start: 04-11-2015 End: 04-14-2015 take 1 tablet by mouth once daily Aspirin 81 MG tablet Discontinued 81 mg PO DAILY@799April 11, 2015 1:00am April 14, 2015 3:00pm cholecalciferol 0.05 mg oral tablet (20 sources) Vitamin D Start: 01-19-2019 take 1 tablet by mouth once daily Cholecalciferol (Vitamin D3) 2,000 unit tablet Active 2000 U PO DAILY January 19, 2019 12:00am Start: 04-11-2015 End: 11-26-2016 take 1 capsule by mouth once daily Cholecalciferol (Vitamin D3) (Vitamin D3) 400 UNIT capsule Discontinued 400 U PO DAILY April 11, 2015 1:00am November 26, 2016 1:12pm clindamycin 150 mg oral capsule (11 sources) Lincosamide Antibacterial Start: 06-01-2021 take 1 capsule by mouth once as needed Clindamycin Hcl 150 mg capsule Active 150 mg PO ONCE as needed for Dentist June 01, 2021 1:00am Start: 11-15-2016 take 2 tablets by mo [facility] every hour CLINDAMYCIN HCL 300 MG CAPS 2 tablets by mouth 1 hr prior to procedure CLINDAMYCIN HCL [id number] Elan Barrios MD dexlansoprazole 60 mg delayed release oral capsule (3 sources) Proton Pump Inhibitor Start: 05-03-2023 take 60 mg by mouth once daily in the morning Dexlansoprazole Active 60 MG PO DAILY May 03, 2023 12:00am takes in am pantoprazole 40 mg delayed release oral tablet (2 sources) Proton Pump Inhibitor Start: 02-18-2024 Pantoprazole 40 mg tablet,delayed release (DR/EC) Active 40 mg PO February 18, 2024 1:00am sertraline 25 mg oral tablet (10 sources) Serotonin Reuptake Inhibitor Start: 11-25-2017 take 1 tablet by mouth once daily Sertraline 25 mg tablet Active 25 mg PO DAILY November 25, 2017 12:00am Completed/Discontinued Medications Medication Drug Class(es) Dates Sig (Normalized) Sig (Original) acetaminophen 325 mg / HYDROcodone bitartrate 5 mg oral tablet (10 sources) Opioid Agonist Start: 08-26-2019 End: 08-29-2019 Hydrocodone-Acetami nophen 1 TABLET tablet Discontinued 1 {tbl} PO EVERY 6 HOURS NEEDED as needed for Pain 01 01August 26, 2019 August 28, 2019 12:00am August 29, 2019 12:02am Start: 08-26-2019 End: 08-29-2019 take 1 tablet by mouth every six hours as needed Hydrocodone-Acetaminophen Discontinued 1 TABLET PO EVERY 6 HOURS NEEDED 01 01August 26, 2019 August 28, 2019 11:02pm alendronic acid 70 mg oral tablet (20 sources) Bisphosphonate Start: 03-15-2021 End: 05-03-2023 Alendronate 70 mg tablet Discontinued 70 mg PO SA March 15, 2021 1:00am May 03, 2023 3:51pm Start: 11-25-2017 End: 03-15-2021 take 1 tablet by mouth every week Alendronate 10 mg tablet Discontinued 10 mg PO EVERY WEEK April 18, 2020 4:06pm March 15, 2021 3:02pm amylase [id number] unt / lipase [id number] unt / protease [id number] unt delayed release oral capsule (6 sources) Start: 10-15-2022 End: 09-07-2024 take [id number] capsules by mouth twice daily at mealtime Uzjntc-Dramcqfg-Kyamusg (Creon) 36,000-114,000- 180,000 unit capsule,delayed release(DR/EC) Discontinued 1 NMA PO TWICE A DAY October 15, 2022 12:00am September 07, 2024 3:06pm administer with meals and/or snacks apixaban 5 mg oral tablet (20 sources) Factor Xa Inhibitor Start: 02-07-2018 End: 08-20-2024 take 1 tablet by mouth twice daily Apixaban (Eliquis) 5 mg tablet Discontinued 5 mg PO TWICE A DAY 180 February 21, 2024 1:53pm August 20, 2024 4:22pm ascorbic acid 500 mg oral tablet (5 sources) Vitamin C Start: 05-03-2023 End: 05-23-2023 take 1 tablet by mouth once daily Ascorbic Acid (Vitamin C) (Vitamin C) 500 mg tablet Discontinued 500 mg PO DAILY May 03, 2023 1:00am May 23, 2023 11:30am azithromycin 250 mg oral tablet (10 sources) Macrolide Antimicrobial Start: 05-02-2019 End: 07-21-2019 take 2-5 tablets by mouth once daily Azithromycin (Zithromax Z-Remy) 250 mg tablet Discontinued 0 PO .COMPLEX 6 May 02, 2019 1:00am July 21, 2019 11:34am take 500 mg today (day 1), then 250 mg for 4 days (days 2-5) PO calcium carbonate 1500 mg oral tablet (10 sources) Start: 04-11-2015 End: 11-26-2016 take 1 tablet by mouth once daily Calcium Carbonate 600 MG tablet Discontinued 600 mg PO DAILY April 11, 2015 1:00am November 26, 2016 1:12pm calcium carbonate 1500 mg / cholecalciferol 800 unt oral tablet (10 sources) Vitamin D Start: 02-07-2018 End: 05-02-2019 Calcium Carbonate-Vitamin D3 (Caltrate With Vitamin D3) 600 mg(1,500mg) -800 unit tablet Discontinued 1 {tbl} PO DAILY February 07, 2018 1:00am May 02, 2019 2:55pm chlorhexidine gluconate 1.2 mg/ml mouthwash (5 sources) Start: 05-03-2023 End: 05-23-2023 take 1 mL by mouth twice daily Chlorhexidine Gluconate 0.12 % mouthwash Discontinued 15 mL PO TWICE A DAY May 03, 2023 1:00am May 23, 2023 11:31am ciprofloxacin 500 mg oral tablet (2 sources) Quinolone Antimicrobial Start: 11-21-2023 End: 11-26-2023 take 1 tablet by mouth twice daily Ciprofloxacin Hcl 500 mg tablet Discontinued 500 mg PO TWICE A DAY November 21, 2023 12:00am November 26, 2023 10:31am Clindamycin 300 mg/50 ml-Ns (8 sources) Start: 11-26-2016 End: 02-07-2018 Clindamycin 300 mg/50 ml-Ns Discontinued 300 MG PO NEEDED November 25, 2016 11:00pm February 07, 2018 9:20am Start: 11-26-2016 End: 02-07-2018 Clindamycin 300 mg/50 ml-Ns Discontinued 300 MG PO NEEDED November 26, 2016 12:00am February 07, 2018 10:20am Clindamycin 300 mg/50 ml-Ns 300 MG capsule (2 sources) Start: 11-26-2016 End: 02-07-2018 Clindamycin 300 mg/50 ml-Ns 300 MG capsule Discontinued 300 mg PO NEEDED as needed for Not Specified November 26, 2016 12:00am February 07, 2018 10:20am clopidogrel 75 mg oral tablet (13 sources) [id number] Platelet Inhibitor Start: 11-14-2016 End: 11-25-2017 take 1 tablet by mouth once daily Clopidogrel 75 MG tablet Discontinued 75 mg PO DAILY November 26, 2016 12:00am November 25, 2017 11:38am colestipol hydrochloride 1000 mg oral tablet (20 sources) Bile Acid Sequestrant Start: 01-26-2019 End: 10-20-2020 Colestipol (Colestid) 1 gram tablet Discontinued 1 g PO DAILY January 26, 2019 5:06pm July 21, 2019 11:42am Dexlansoprazole 60 mg capsule,biphase delayed releas (2 sources) Start: 05-03-2023 End: 03-09-2024 take 1 capsule by mouth once daily in the morning Dexlansoprazole 60 mg capsule,biphase delayed releas Discontinued 60 mg PO DAILY May 03, 2023 1:00am March 09, 2024 2:25pm takes in am 1 ml evolocumab 140 mg/ml auto-injector (20 sources) PCSK9 Inhibitor Start: 04-20-2020 End: 04-30-2024 Evolocumab (Repatha Sureclick) 140 mg/mL pen injector Discontinued 140 mg SC every 2 weeks July 01, 2023 3:15pm April 30, 2024 4:06pm Start: 01-29-2019 End: 05-02-2019 Evolocumab (Repatha Sureclic k) 140 mg/mL pen injector Discontinued 140 mg SC every 2 weeks January 29, 2019 12:00am May 02, 2019 2:55pm hydroCHLOROthiazide 25 mg oral tablet (10 sources) Thiazide Diuretic Start: 04-11-2015 End: 11-26-2016 take 1 tablet by mouth once daily Hydrochlorothiazide 25 MG tablet Discontinued 25 mg PO DAILY April 11, 2015 1:00am November 26, 2016 1:12pm hydroxychloroquine sulfate 200 mg oral tablet (20 sources) Antirheumatic Agent Start: 04-16-2022 End: 05-03-2023 Hydroxychloroquine (Plaquenil) 200 mg tablet Discontinued 300 mg PO DAILY April 16, 2022 4:39pm May 03, 2023 3:46pm Start: 05-12-2021 End: 04-16-2022 Hydroxychloroquine 200 mg ta blet Discontinued 100 mg PO AT BEDTIME May 12, 2021 1:00am April 16, 2022 4:40pm Start: 05-12-2021 End: 04-16-2022 take 100 mg by mouth at bedtime Hydroxychloroquine Discontinued 100 MG PO AT BEDTIME May 12, 2021 12:00am April 16, 2022 3:40pm Start: 05-02-2019 End: 04-16-2022 take 1 tablet by mouth once daily Hydroxychloroquine (Plaquenil) 200 mg tablet Discontinued 200 mg PO DAILY March 15, 2021 3:03pm April 16, 2022 4:40pm Start: 11-25-2017 End: 05-02-2019 Hydroxychloroquine 200 mg ta blet Discontinued 300 mg PO DAILY November 25, 2017 11:36am May 02, 2019 2:55pm Start: 11-25-2017 End: 05-02-2019 take 300 mg by mouth once daily Hydroxychloroquine Discontinued 300 MG PO DAILY November 25, 2017 10:36am May 02, 2019 1:55pm Start: 04-11-2015 End: 11-25-2017 take 1 tablet by mouth once daily Hydroxychloroquine 200 MG tablet Discontinued 200 mg PO DAILY April 11, 2015 1:00am November 25, 2017 11:39am melatonin 5 mg oral tablet (2 sources) Start: 11-14-2016 take 1 tablet by mouth once daily as needed MELATONIN 5 MG TABS One tablet by mouth daily as needed MELATONIN [id number] Elan Barrios MD melatonin 5 mg / vitamin b6 1 mg oral tablet (10 sources) Start: 11-26-2016 End: 02-07-2018 Melatonin-Pyridoxine (Vit B6) 1 EACH tablet Discontinued 1 NMA PO November 26, 2016 12:00am February 07, 2018 10:21am Start: 11-26-2016 End: 02-07-2018 Melatonin-Pyridoxine (Vit B6 ) Discontinued 1 EACH PO November 25, 2016 11:00pm February 07, 2018 9:21am meloxicam 15 mg oral tablet (20 sources) Nonsteroidal Anti-inflammatory Drug Start: 04-18-2020 End: 03-15-2021 take 1 tablet by mouth once daily as needed Meloxicam 15 mg tablet Discontinued 15 mg PO DAILY as needed April 18, 2020 1:00am March 15, 2021 3:04pm Start: 11-25-2017 End: 05-02-2019 take 1 tablet by mouth once daily as needed Meloxicam 15 mg tablet Discontinued 15 mg PO DAILY as needed November 25, 2017 12:00am May 02, 2019 2:55pm Start: 02-18-2017 MELOXICAM 15 M G TABS as needed MELOXICAM [id number] Arya Peacock NP Start: 04-11-2015 End: 04-14-2015 take 1 tablet by mouth once daily Meloxicam 15 MG tablet Discontinued 15 mg PO DAILY April 11, 2015 1:00am April 14, 2015 3:01pm metoprolol tartrate 25 mg oral tablet (20 sources) beta-Adrenergic Fabián Start: 11-25-2017 End: 07-20-2024 take 1 tablet by mouth twice daily Metoprolol Tartrate 25 mg tablet Discontinued 25 mg PO TWICE A DAY June 14, 2023 11:58am July 20, 2024 9:46am Start: 11-14-2016 take 1 tablet by davion th twice daily METOPROLOL TARTRATE 25 MG TABS One tablet by mouth twice daily METOPROLOL TARTRATE [id number] Arya Peacock NP [place]-3 Fatty Acids-Fish Oil ([place] 3 Fish Oil Softgel) 1 EACH Capsule. (10 sources) Start: 04-11-2015 End: 04-14-2015 take 1 capsule by mouth once daily [place]-3 Fatty Acids-Fish Oil ([place] 3 Fish Oil Softgel) 1 EACH Capsule. Discontinued 1 NMA PO DAILY April 11, 2015 1:00am April 14, 2015 3:01pm Start: 04-11-2015 End: 04-14-2015 take 1 capsule by mouth once daily [place]-3 Fatty Acids-Fish Oil ([place] 3 Fish Oil Softgel) 1 EACH Capsule. Discontinued 1 EACH PO DAILY April 11, 2015 12:00am April 14, 2015 2:01pm Start: 04-11-2015 End: 04-14-2015 take 1 capsule by mouth once daily [place]-3 Fatty Acids-Fish Oil ([place] 3 Fish Oil Softgel) 1 EACH Capsule. Discontinued 1 EACH PO DAILY April 11, 2015 1:00am April 14, 2015 3:01pm omeprazole 20 mg delayed release oral capsule (10 sources) Proton Pump Inhibitor Start: 11-25-2017 End: 01-19-2019 take 1 capsule by mouth every other day Omeprazole 20 mg capsule,delayed release(/EC) Discontinued 20 mg PO .every other day November 25, 2017 12:00am January 19, 2019 11:15am Problems Active Problems Problem Classification Problem Date Documented Date Episodic/Chronic Acute myocardial infarction (1 source) Non-ST elevation (NSTEMI) myocardial infarction; Translations: [Non-ST elevation (NSTEMI) myocardial infarction] Onset: 11-14-2016 11-14-2016 Chronic Blindness and vision defects (2 sources) Diplopia; Translations: [Diplopia] 11-30-2023 Episodic Cardiac dysrhythmias (2 sources) Multiple premature ventricular complexes; Translations: [Ventricular premature depolarization] 02-26-2024 Chronic Complications of surgical procedures or medical care (20 sources) Atrial fibrillation; Translations: [Other postprocedural complications and disorders of the circulatory system, not elsewhere classified] Episodic Conditions associated with dizziness or vertigo (4 sources) Dizziness; Translations: [Dizziness and giddiness] 05-27-2023 Episodic Coronary atherosclerosis and other heart disease (20 sources) Atherosclerotic heart disease of [place] coronary artery without angina pectoris; Translations: [Coronary atherosclerosis] Onset: 11-14-2016 11-14-2016 Chronic Comment on above: S/P CABG with HALL t o LAD, SVG to first diagonal, SVG to second diagonal, SVG to obtuse marginal, and SVG to PDA in August 2016; Disorders of lipid metabolism (20 sources) Hyperlipidemia; Translations: [Dyslipidemia] Onset: 11-14-2016 11-14-2016 Chronic Esophageal disorders (12 sources) Gastroesophageal reflux disease; Translations: [Gastro-esophageal reflux disease without esophagitis] 11-25-2017 Chronic Essential hypertension (20 sources) Hypertensive disorder; Translations: [Essential hypertension] Onset: 11-14-2016 11-14-2016 Chronic Nonspecific chest pain (10 sources) Chest pain; Translations: [Chest pain, unspecified] 05-21-2021 Episodic Nutritional deficiencies (10 sources) Vitamin D deficiency; Translations: [Vitamin D deficiency, unspecified] 11-25-2017 Chronic Osteoarthritis (10 sources) Osteoarthritis; Translations: [Unspecified osteoarthritis, unspecified site] 11-25-2017 Chronic Osteoporosis (1 source) Age-related osteoporosis without current pathological fracture; Translations: [Age-related osteoporosis without current pathological fracture] Onset: 02-04-2025 Chronic Other circulatory disease (2 sources) Disorder of carotid artery; Translations: [Disorder of arteries and arterioles, unspecified] 11-30-2023 Chronic Other circulatory disease (5 sources) H/O: heart disorder; Translations: [Personal history of other diseases of the circulatory system] 05-03-2023 Episodic Other circulatory disease (2 sources) Personal history of other diseases of the circulatory system; Translations: [Personal history of other diseases of circulatory system] 05-04-2023 Episodic Other circulatory disease (2 sources) H/O: hypertension; Translations: [Personal history of other diseases of the circulatory system] 11-30-2023 Episodic Other lower respiratory disease (5 sources) Dyspnea on exertion; Translations: [Other forms of dyspnea] 05-03-2023 Episodic Other lower respiratory disease (5 sources) Dyspnea; Translations: [Dyspnea, unspecified] 05-03-2023 Episodic Other lower respiratory disease (2 sources) Dyspnea, unspecified; Translations: [Other respiratory abnormalities] 05-04-2023 Episodic Other lower respiratory disease (2 sources) Other forms of dyspnea; Translations: [Other respiratory abnormalities] 05-04-2023 Episodic Other nervous system disorders (2 sources) Ataxic gait; Translations: [Ataxic gait] 11-30-2023 Episodic Other nutritional; endocrine; and metabolic disorders (10 sources) Hypercalcemia; Translations: [Hypercalcemia] 11-25-2017 Chronic Unclassified (1 source) Long-term drug therapy; Translations: [Other care home (current) drug therapy] Onset: 11-14-2016 11-14-2016 Unclassified (1 source) Unknown / UNK(Unknown) Onset: 10-03-2016 Past or Other Problems Problem Classification Problem Date Documented Da te Episodic/Chronic Cardiac dysrhythmias (1 source) Palpitations; Translations: [Palpitations] Onset: 03-19-2024 Episodic Coronary atherosclerosis and other heart disease (6 sources) Presence of aortocoronary bypass graft; Translations: [Aortocoronary bypass status] Onset: 08-30-2016 11-14-2016 Episodic Pleurisy; pneumothorax; pulmonary collapse (1 source) Pleural effusion Onset: 10-03-2016 Episodic Unclassified (1 source) Liver function tests abnormal; Translations: [Abnormal results of liver function studies] Onset: 11-14-2016 11-14-2016 Episodic Results Test Name Value Interpretation Reference Range Facility Abdomen/Pelvis W IV Cont ONL Yon 02-04-2025 Abdomen/Pelvis W IV Cont ONLY [facility] Imaging Services [facility] [address] [place], [place] [address] Abdomen/Pelvis W IV Cont ONLY MR#: [id number] Acct: [id number] Name: WESTON MASON Rep #: [id number] : [id number] F 84 From: Jorden Causey MD PCP: Dr. Joss Salas DO Status: REG ER Study: Abdomen/Pelvis W IV Cont ONLY Date of Exam: Exam# [id number] Ordering Dr: Vijay Chang DO PROCEDURE: ABDOMEN/PELVIS W IV CONT ONLY 02/04/2025 REASON FOR EXAM: DIARRHEA TECHNIQUE: Procedure Code: [id number] Modality: CT Procedure: ABDOMEN/PELVIS W IV CONT ONLY Coronal and Sagittal reconstruction series were provided. CONTRAST: Isovue 370 VOLUME: 98 mL One or more dose reduction techniques were used (e.g., Automated exposure control, adjustment of the mA and/or kV according to patient size, use of iterative reconstruction technique. RADIATION DOSE SUMMARY: CTDlvol: 35 mGy DLP: 522 mGycm COMPARISON: August 26, 2019 FINDINGS: Lung bases: Mild subpleural scarring right lower lobe. Granuloma left lower lobe. Liver: Mild, diffuse fatty liver. Gallbladder: Cholecystectomy. Smooth intrahepatic and extrahepatic biliary duct dilation likely on the basis of age and cholecystectomy status. Spleen: Normal Pancreas: Normal Adrenals: Normal Kidneys: Left midpole cyst 1.6 x 2.4 cm. No collecting system dilation or calculus. Bladder: Empty. Quality degraded by metallic artifact of the right hip. Reproductive Organs: Hysterectomy. Right adnexal cyst is 3.4 x 2.7 cm in water density. Left ovary this is associated with a smaller cyst measuring 1.1 x 1.2 cm. Bowel: The stomach appears normal. Small bowel is normal. Diarrheal state is present. Diverticulosis without diverticulitis. Appendix: Normal Lymph nodes: None appear enlarged Vasculature: Severe atherosclerotic plaque without aneurysm. Peritoneum / Retroperitoneum: No free air, free fluid or mass. Bones: Curvature lumbar spine to the right. Moderate disc space narrowing, marginal endplate spurring L5/S1. Lower lumbar facet hypertrophy. CT/Abdomen/Pelvis W IV Cont ONLY IMPRESSION: 1. Diarrheal state. Consider a mild colitis. 2. Diverticulosis without diverticulitis. 3. Bilateral ovarian cysts with the largest on the right. These have a simple appearance. ACR White Paper recommendations (Jaquez, et al. J Am Amanda Radiol 2020;17:248-254) suggest the following: No further imaging. 4. Hysterectomy 5. Cholecystectomy. Biliary ductal dilation likely on the basis of age and cholecystectomy status. Correlate with obstructive laboratory indices. No mass near the pancreatic head or ampulla. No choledocholithiasis. 6. Fatty liver Reading Location: [id number] CC: Dr. Joss Salas, DO; Dr. Vijay Chang, DO Dope Sprayer: Signed Normal [facility] CBC W/Diff, Automatedon 11-0 Absolute Lymph 0.91 X10 3/uL Normal 0.83-4.51 [facility] Comment on above: Performed By: #### L 100.0100, L501.2450, L500.4050 ####[facility] [id number] [place], [address] Absolute Neut 6.1 X10 3/uL Normal 2.0-7.7 [facility] Comment on above: Performed By: #### L 100.0100, L501.2450, L500.4050 ####[facility] [id number] [place], [address] Basophils/100 WBC (Bld) 0.3 % Normal 0-1 [facility] Comment on above: Performed By: #### L 100.0100, L501.2450, L500.4050 ####[facility] [id number] [place], [address] Eosinophils/100 WBC (Bld) 0.8 % Normal 0-5 [facility] Comment on above: Performed By: #### L 100.0100, L501.2450, L500.4050 ####[facility] [id number] [place], [address] Erythrocyte distribution width (RBC) [Ratio] 12.7 % Normal 11.6-14.6 [facility] Comment on above: Performed By: #### L 100.0100, L501.2450, L500.4050 ####[facility] [id number] [place], [address] Hematocrit (Bld) [Volume fraction] 46.0 % Normal 37-47 [facility] Comment on above: Performed By: #### L 100.0100, L501.2450, L500.4050 ####[facility] [id number] [place], [address] Hemoglobin (Bld) [Mass/Vol] 15.4 g/dL High 12.0-15.0 [facility] Comment on above: Performed By: #### L 100.0100, L501.2450, L500.4050 ####[facility] [address] [place], [address] IG% 0.400 Normal 0.0-0.9 [facility] Comment on above: Result Comment: IG% - Immature Granulocytes (promyelocytes, myelocytes and metamyelocytes) > 1% indicates that a LEFT SHIFT is Present. Performed By: #### L 100.0100, L501.2450, L500.4050 ####[facility] [address] [place], [address] Lymphocytes/100 WBC (Bld) 12.0 % Low 19-41 [facility] Comment on above: Performed By: #### L 100.0100, L501.2450, L500.4050 ####[facility] [address] [place], [address] MCH (RBC) [Entitic mass] 30.0 pg Normal 27.0-32.0 [facility] Comment on above: Performed By: #### L 100.0100, L501.2450, L500.4050 ####[facility] [address] [place], [address] MCHC (RBC) [Mass/Vol] 33.5 g/dL Normal 32-36 [facility] Comment on above: Performed By: #### L 100.0100, L501.2450, L500.4050 ####[facility] [address] [place], [address] MCV (RBC) [Entitic vol] 89.5 fL Normal 81-99 [facility] Comment on above: Performed By: #### L 100.0100, L501.2450, L500.4050 ####[facility] [address] [place], [address] Monocytes/100 WBC (Bld) 6.6 % Normal 0-10 [facility] Comment on above: Performed By: #### L 100.0100, L501.2450, L500.4050 ####[facility] [address] [place], [address] Neutrophils/100 WBC (Bld) 79.9 % High 47-70 [facility] Comment on above: Performed By: #### L 100.0100, L501.2450, L500.4050 ####[facility] [address] [place], [address] Nucleated RBC (Bld) [#/Vol] 0 10*3/uL Normal 0-5 [facility] Comment on above: Performed By: #### L 100.0100, L501.2450, L500.4050 ####[facility] [address] [place], [address] Platelet mean volume (Bld) [Entitic vol] 10.0 fL Normal 6.2-12.0 [facility] Comment on above: Performed By: #### L 100.0100, L501.2450, L500.4050 ####[facility] [address] [place], [address] Platelets (Bld) [#/Vol] 261 10*3/uL Normal 150-450 [facility] Comment on above: Performed By: #### L 100.0100, L501.2450, L500.4050 ####[facility] [address] [place], [address] RBC (Bld) [#/Vol] 5.14 10*6/uL Normal 4.2-5.4 [facility] Comment on above: Performed By: #### L 100.0100, L501.2450, L500.4050 ####[facility] [address] [place], [address] RDW SD 41.7 fl Normal 35.1-43.9 [facility] Comment on above: Performed By: #### L 100.0100, L501.2450, L500.4050 ####[facility] [address] [place], [address] WBC (Bld) [#/Vol] 7.6 10*3/uL Normal 4.4-11.0 [facility] Comment on above: Performed By: #### L 100.0100, L501.2450, L500.4050 ####[facility] [address] [place], [address] CDIFF (PCR)on 02-04-2025 CDIFF Is the patient receiving laxatives? N Pending 027 027 NAP1-B1 Presumptive Negative *for epidemiolologic???us e C. Diff PCR Negative- No toxigenic C. Diff Detected Normal [facility] Comment on above: Performed By: #### M 100.6796 #### [facility] Laboratory [address] [place], [address] Comprehensive Metabolic Prof ilon 02-04-2025 Albumin [Mass/Vol] 4.5 g/dL Normal 3.4-4.8 [facility] Comment on above: Performed By: #### L 100.0100, L501.2450, L500.4050 ####[facility] [address] [place], [address] Albumin/Globulin [Mass ratio] 1.6 {ratio} Normal 0.9-2.4 [facility] Comment on above: Performed By: #### L 100.0100, L501.2450, L500.4050 ####[facility] [address] [place], [address] ALK PHOS 130 U/L High 35-104 [facility] Comment on above: Performed By: #### L 100.0100, L501.2450, L500.4050 ####[facility] [address] [place], [address] ALT [Catalytic activity/Vol] 39 U/L High <=34 [facility] Comment on above: Performed By: #### L 100.0100, L501.2450, L500.4050 ####[facility] [address] [place], [address] AST [Catalytic activity/Vol] 42 U/L High <=31 [facility] Comment on above: Performed By: #### L 100.0100, L501.2450, L500.4050 ####[facility] [address] [place], [address] Bilirubin [Mass/Vol] 1.07 mg/dL Normal 0.00-1.30 [facility] Comment on above: Performed By: #### L 100.0100, L501.2450, L500.4050 ####[facility] [address] [place], [address] BUN/CRE 19.8 RATIO Normal 10-20 [facility] Comment on above: Performed By: #### L 100.0100, L501.2450, L500.4050 ####[facility] [address] [place], [address] Calcium [Mass/Vol] 10.6 mg/dL Normal 7.6-11.0 [facility] Comment on above: Performed By: #### L 100.0100, L501.2450, L500.4050 ####[facility] [address] [place], [address] Chloride [Moles/Vol] 101 mmol/L Normal 98-108 [facility] Comment on above: Performed By: #### L 100.0100, L501.2450, L500.4050 ####[facility] [address] [place], [address] CO2 [Moles/Vol] 16.7 mmol/L Low 21.0-32.0 [facility] Comment on above: Performed By: #### L 100.0100, L501.2450, L500.4050 ####[facility] [address] [place], [address] Creatinine [Mass/Vol] 1.19 mg/dL Normal 0.70-1.20 [facility] Comment on above: Performed By: #### L 100.0100, L501.2450, L500.4050 ####[facility] [address] [place], [address] ECRCL 30.39 ml/min Low 50-250 [facility] Comment on above: Performed By: #### L 100.0100, L501.2450, L500.4050 ####[facility] [address] [place], [address] GAP 17 High 5-15 [facility] Comment on above: Performed By: #### L 100.0100, L501.2450, L500.4050 ####[facility] [address] [place], [address] GFR/1.73 sq M.predicted among non-blacks MDRD (S/P/Bld) [Vol rate/Area] 45 mL/min/{1.73_m2} Low >60 [facility] Comment on above: Result Comment: mL/m in/1.73m2 CKD-EPI Creatinine Equation (2020) Performed By: #### L 100.0100, L501.2450, L500.4050 ####[facility] [address] [place], [address] Globulin (S) [Mass/Vol] 2.7 g/dL Normal 2.2-4.2 [facility] Comment on above: Performed By: #### L 100.0100, L501.2450, L500.4050 ####[facility] [address] [place], [address] Glucose [Mass/Vol] 134 mg/dL High 70-99 [facility] Comment on above: Performed By: #### L 100.0100, L501.2450, L500.4050 ####[facility] [address] [place], [address] Potassium [Moles/Vol] 3.2 mmol/L Low 3.3-5.1 [facility] Comment on above: Performed By: #### L 100.0100, L501.2450, L500.4050 ####[facility] [address] [place], [address] Sodium [Moles/Vol] 134 mmol/L Normal 133-145 [facility] Comment on above: Performed By: #### L 100.0100, L501.2450, L500.4050 ####[facility] [address] [place], [address] T PROT 7.2 g/dL Normal 5.9-8.4 [facility] Comment on above: Performed By: #### L 100.0100, L501.2450, L500.4050 ####[facility] [address] [place], [address] Urea nitrogen [Mass/Vol] 24 mg/dL High 4-19 [facility] Comment on above: Performed By: #### L 100.0100, L501.2450, L500.4050 ####[facility] [address] [place], [address] Emergency Department Summary on 02-04-2025 Emergency Department Summary [facility] Medical Records Department [address] [place] [address] Emergency Department Summary 02/04/25 MR#: [id number] Acct: [id number] Name: WESTON MASON Rep #: [id number] : 1940 84 From: Vijay Chang DO PCP: Dr. Joss Salas DO Status:REG ER Location: ED HPI History of Present Illness Chief Complaint: Diarrhea Narrative Narrative: Patient is a 84-year-old female with past medical history hypertension, CABG, atrial fibrillation on Eliquis who presents to the emergency department with a chief complaint of diarrhea. Patient states that she has had diarrhea for about 2 weeks now. When I inquire about what changed today that brought her in and she states that she just feels rundown and overall not well. Patient states that about a month ago she did take clindamycin however notes that she did not develop diarrhea right after this. She denies any black stools denies any blood in her stool denies any sick contacts [facility] Medical History History of hypertension Carotid arterial disease Wears hearing aid in both ears Osteoporosis Myocardial infarct Hemorrhoids Arthritis Mixed hyperlipidemia Essential hypertension Postoperative atrial fibrillation Angina pectoris Hypercalcemia Vitamin D deficiency Dyslipidemia Hypertension NSTEMI (non-ST elevated myocardial infarction) Osteoarthritis GERD (gastroesophageal reflux disease) Home Medications ???Medication ???Instructions ???Recorded ???Last Taken ???Type aspirin 81 mg tablet,delayed 81 mg PO DAILY@1999 heart health 0 11/26/16 02/03/25 History release sertraline 25 mg tablet 25 mg PO DAILY mental health 11/2502/03/25 History cholecalciferol (vitamin D3) 50 2,000 unit PO DAILY vitamin 02/03/25 History mcg (2,000 unit) tablet clindamycin HCl 150 mg capsule 150 mg PO ONCE PRN Dentist 2 01/04/25 History Al hyd-Mg tr-alg ac-sod bicarb 80 1 tab PO DAILY PRN heartburn 05/25 Unknown History mg-14.2 mg chewable tablet (Gaviscon) pantoprazole 40 mg tablet,delayed 40 mg PO DAILY gerd 02/18/2408/23 History release evolocumab 140 mg/mL subcutaneous 140 mg subcut Q2W Hyperlipidemia, 04/30/24 01/22/25 Rx pen injector (norberto EvyKemaljoseph) cannot take statins #6 mL metoprolol tartrate 25 mg tablet 25 mg PO BID heart #180 tabs 07/2002/03/25 Rx apixaban 5 mg tablet (Eliquis) 5 mg PO BID heart #180 tabs 02/03/25 Rx calcium 600 mg (as 1 tab PO DAILY supplement 02/04/25 02/03/25 History carbonate)-vitamin D3 5 mcg (200 unit) tablet (Calcium 600 + D(3)) fluocinolone acetonide oil 0.01 % 5 drp otic (ear) DAILY itching 01/30/25 History ear drops awpgkl-aturckye-bhyc ase 2 cap PO TIDCM diarrhea 02/04/25 1 04/05/24 History (pork)36,000-114,000 -180k unit capsule,del rel (Creon) ondansetron 4 mg disintegrating 4 mg PO Q6H PRN nausea and 5 Unknown Rx tablet vomiting #20 tabs potassium chloride 20 mEq oral 20 meq PO BID 5 days #30 ea Unknown Rx packet turmeric 400 mg capsule 400 mg PO BID arthritis 02/04/25 1 04/05/24 History Allergy/AdvReac Type Severity Reaction Status Date / Time Linnspa-DZV-EdF Reductase AdvReac Severe myalgias Verified 02/04/25 08:58 Inhibitor (Jmavukd-Duq-Ile Reductase Inhibitor) Penicillins AdvReac Itching Verified 02/04/25 08:58 Tetanus Vaccines and Toxoid AdvReac Swelling Verified 02/04/25 08:58 (Tetanus Vaccines Toxoid) Family History Mother Heart disease Father Heart disease Brother Heart disease Brother Heart disease Sister Heart disease Surgical History History of coronary artery bypass graft ( 09/17/16) History of tubal ligation History of removal of cyst History of repair of right rotator cuff History of right hip replacement History of cholecystectomy History of foot surgery History of facial surgery Social History Smoking Status: Never smoker alcohol intake: current alcohol intake frequency: a few times a month caffeine: No ROS ROS ED ROS Narrative Constitutional: Denies any fevers, chills, headaches Abdomen: Complains of diarrhea as noted above denies nausea vomiting : Denies urinary symptoms Neurological: Denies any numbness, weakness, tingling Musculoskeletal: Denies back pain Skin: Denies any rashes or lesions EXAM Physical Exam Narrative Exam Narrative: General: Patient lying in bed rest comfortably did not appear to be in acute distress Head: Atraumatic, normocephalic Eyes: PERRL bilaterally, EOMI bilaterally, no conjunctival injection noted Neck: Sof (more content not included)... Normal [facility] Lipaseon 02-04-2025 Lipase [Catalytic activity/Vol] 20 U/L Normal 13-75 [facility] Comment on above: Result Comment: [place] ho note: LIPASE revised reference range effective 22. New Lipase methodology. Expected to produce lower values than the previous assay method. NEW Reference Range: 13 - 75 U/L Performed By: #### L 100.0100, L501.2450, L500.4050 ####[facility] [address] [place], [address] Basic Metabolic Profile (BMP )on 01-19-2025 BUN/CRE 18.0 RATIO Normal 01-18 [facility] Comment on above: Performed By: #### L 500.2500, L100.0100, L506.1001 #### [facility] [address] [place], [address] Calcium [Mass/Vol] 9.9 mg/dL Normal 7.6-11.0 [facility] Comment on above: Performed By: #### L 500.2500, L100.0100, L506.1001 #### [facility] [address] [place], [address] Chloride [Moles/Vol] 107 mmol/L Normal 98-108 [facility] Comment on above: Performed By: #### L 500.2500, L100.0100, L506.1001 #### [facility] [address] [place], [address] CO2 [Moles/Vol] 21.6 mmol/L Normal 21.0-32.0 [facility] Comment on above: Performed By: #### L 500.2500, L100.0100, L506.1001 #### [facility] [address] [place], [address] Creatinine [Mass/Vol] 0.79 mg/dL Normal 0.70-1.20 [facility] Comment on above: Performed By: #### L 500.2500, L100.0100, L506.1001 #### [facility] [address] [place], [address] GAP 12 Normal 5-15 [facility] Comment on above: Performed By: #### L 500.2500, L100.0100, L506.1001 #### [facility] [address] [place], [address] GFR/1.73 sq M.predicted among non-blacks MDRD (S/P/Bld) [Vol rate/Area] 74 mL/min/{1.73_m2} Normal >60 [facility] Comment on above: Result Comment: mL/m in/1.73m2 CKD-EPI Creatinine Equation (2020) Performed By: #### L 500.2500, L100.0100, L506.1001 #### [facility] [address] [place], [address] Glucose [Mass/Vol] 78 mg/dL Normal 70-99 [facility] Comment on above: Performed By: #### L 500.2500, L100.0100, L506.1001 #### [facility] [address] [place], [address] Potassium [Moles/Vol] 4.0 mmol/L Normal 3.3-5.1 [facility] Comment on above: Performed By: #### L 500.2500, L100.0100, L506.1001 #### [facility] [address] [place], [address] Sodium [Moles/Vol] 141 mmol/L Normal 133-145 [facility] Comment on above: Performed By: #### L 500.2500, L100.0100, L506.1001 #### [facility] [address] [place], [address] Urea nitrogen [Mass/Vol] 14 mg/dL Normal 4-19 [facility] Comment on above: Performed By: #### L 500.2500, L100.0100, L506.1001 #### [facility] [address] [place], [address] CBC W/Diff, Automatedon 10-2 Absolute Lymph 1.47 X10 3/uL Normal 0.83-4.51 [facility] Comment on above: Performed By: #### L 500.2500, L100.0100, L506.1001 #### [facility] [address] [place], [address] Absolute Neut 4.4 X10 3/uL Normal 2.0-7.7 [facility] Comment on above: Performed By: #### L 500.2500, L100.0100, L506.1001 #### [facility] [address] [place], [address] Basophils/100 WBC (Bld) 0.3 % Normal 0-1 [facility] Comment on above: Performed By: #### L 500.2500, L100.0100, L506.1001 #### [facility] [address] [place], [address] Eosinophils/100 WBC (Bld) 2.1 % Normal 0-5 [facility] Comment on above: Performed By: #### L 500.2500, L100.0100, L506.1001 #### [facility] [address] [place], [address] Erythrocyte distribution width (RBC) [Ratio] 13.2 % Normal 11.6-14.6 [facility] Comment on above: Performed By: #### L 500.2500, L100.0100, L506.1001 #### [facility] [address] [place], [address] Hematocrit (Bld) [Volume fraction] 40.7 % Normal 37-47 [facility] Comment on above: Performed By: #### L 500.2500, L100.0100, L506.1001 #### [facility] [address] [place], [address] Hemoglobin (Bld) [Mass/Vol] 13.3 g/dL Normal 12.0-15.0 [facility] Comment on above: Performed By: #### L 500.2500, L100.0100, L506.1001 #### [facility] [address] [place], [address] IG% 0.500 Normal 0.0-0.9 [facility] Comment on above: Result Comment: IG% - Immature Granulocytes (promyelocytes, myelocytes and metamyelocytes) > 1% indicates that a LEFT SHIFT is Present. Performed By: #### L 500.2500, L100.0100, L506.1001 #### [facility] [address] [place], [address] Lymphocytes/100 WBC (Bld) 22.2 % Normal 19-41 [facility] Comment on above: Performed By: #### L 500.2500, L100.0100, L506.1001 #### [facility] [address] [place], [address] MCH (RBC) [Entitic mass] 30.2 pg Normal 27.0-32.0 [facility] Comment on above: Performed By: #### L 500.2500, L100.0100, L506.1001 #### [facility] [address] [place], [address] MCHC (RBC) [Mass/Vol] 32.7 g/dL Normal 32-36 [facility] Comment on above: Performed By: #### L 500.2500, L100.0100, L506.1001 #### [facility] [address] [place], [address] MCV (RBC) [Entitic vol] 92.3 fL Normal 81-99 [facility] Comment on above: Performed By: #### L 500.2500, L100.0100, L506.1001 #### [facility] [address] [place], [address] Monocytes/100 WBC (Bld) 9.1 % Normal 0-10 [facility] Comment on above: Performed By: #### L 500.2500, L100.0100, L506.1001 #### [facility] [address] [place], [address] Neutrophils/100 WBC (Bld) 65.8 % Normal 47-70 [facility] Comment on above: Performed By: #### L 500.2500, L100.0100, L506.1001 #### [facility] [address] [place], [address] Nucleated RBC (Bld) [#/Vol] 0 10*3/uL Normal 0-5 [facility] Comment on above: Performed By: #### L 500.2500, L100.0100, L506.1001 #### [facility] [address] [place], [address] Platelet mean volume (Bld) [Entitic vol] 10.2 fL Normal 6.2-12.0 [facility] Comment on above: Performed By: #### L 500.2500, L100.0100, L506.1001 #### [facility] [address] [place], [address] Platelets (Bld) [#/Vol] 236 10*3/uL Normal 150-450 [facility] Comment on above: Performed By: #### L 500.2500, L100.0100, L506.1001 #### [facility] [address] [place], [address] RBC (Bld) [#/Vol] 4.41 10*6/uL Normal 4.2-5.4 [facility] Comment on above: Performed By: #### L 500.2500, L100.0100, L506.1001 #### [facility] [address] [place], [address] RDW SD 44.2 fl High 35.1-43.9 [facility] Comment on above: Performed By: #### L 500.2500, L100.0100, L506.1001 #### [facility] [address] [place], [address] WBC (Bld) [#/Vol] 6.6 10*3/uL Normal 4.4-11.0 [facility] Comment on above: Performed By: #### L 500.2500, L100.0100, L506.1001 #### [facility] [address] [place], [address] Vitamin D,25 Hydroxyon 01-19 Vitamin D 25-OH 33.6 ng/mL Normal 30-100 [facility] Comment on above: Result Comment: La min D Status Deficiency: <20 ng/mL (50nmol/L) Insufficiency: 20-30 ng/mL (50-75 nmol/L) Sufficiency: 30-100 ng/mL (75-250 nmol/L) Toxicity: >100 ng/mL (>250 nmol/L) Performed By: #### L 500.2500, L100.0100, L506.1001 ####[facility] [address] [place], [place], [id number] Bilirubin directOrdered By: Malika Henson on 09-09-2024 Bilirubin.direct [Mass/Vol] 0.35 mg/dL High 0.00-0.30 [facility] Bilirubin, totalOrdered By: Malika Henson on 09-09-2024 Bilirubin [Mass/Vol] 0.83 mg/dL 0.00-1.30 [facility] Calculated very low density lipoprotein (VLDL) cholesterol measurementOrdered By: Malika Henson on 09-09-2024 Calculated very low density lipoprotein (VLDL) cholesterol measurement 30 mg/dL 5-40 [facility] LDL calc ser/plasOrdered By: Malika Henson on 09-09-2024 Cholesterol in LDL [Mass/Vol] 40 mg/dL [facility] Comment on above: Wsqedkkesg=177-988 m g/dL & Higher Xzey=787 mg/dL or greater Laboratory - Chemistry and C hemistry - challengeOrdered By: Malika Henson on 09-09-2024 AST [Catalytic activity/Vol] 19 U/L <32 [facility] Lipid Profileon 09-09-2024 CHOL:HDL 2.04 Normal [facility] Comment on above: Performed By: #### L 500.3400, L500.4100 ####[facility] [address] [place], [place], [id number] Cholesterol [Mass/Vol] 137 mg/dL Normal <=200 [facility] Comment on above: Result Comment: Chol esterol level, Desirable <200 mg/dL Borderline high cholesterol 200-239 mg/dL High cholesterol >=240 mg/dL Recommendations of the NCEP Adult Treatment Panel for the following risk-cutoff thresholds for the [place] population. Performed By: #### L 500.3400, L500.4100 ####[facility] [address] [place], [address] Cholesterol in HDL [Mass/Vol] 67 mg/dL Normal [facility] Comment on above: Result Comment: Gema onal Cholesterol Education Program (NCEP) guidelines: <40 mg/dL: Low HDL-cholesterol (major risk factor for CHD) >= 60 mg/dL: High HDL-cholesterol (negative risk factor for CHD) HDL-cholesterol is affected by a number of factors, e.g. smoking, exercise, hormones, sex and age. Performed By: #### L 500.3400, L500.4100 ####[facility] [address] [place], [address] Cholesterol in LDL [Mass/Vol] 40 mg/dL Normal [facility] Comment on above: Result Comment: Bord zozicb=038-641 mg/dL Higher Gskm=466 mg/dL or greater Performed By: #### L 500.3400, L500.4100 ####[facility] [address] [place], [address] Cholesterol in VLDL [Mass/Vol] 30 mg/dL Normal 5-40 [facility] Comment on above: Performed By: #### L 500.3400, L500.4100 ####[facility] [address] [place], [address] Triglyceride [Mass/Vol] 149 mg/dL Normal [facility] Comment on above: Result Comment: The drugs N-Acetylcysteine and Metamizole may falsely depress this assay. Normal range: <150 mg/dL Borderline High: 150-199 mg/dL High: 200-499 mg/dL Very High: >500 mg/dL Performed By: #### L 500.3400, L500.4100 ####[facility] [address] [place], [address] Liver Profileon 09-09-2024 Albumin [Mass/Vol] 4.3 g/dL Normal 3.4-4.8 [facility] Comment on above: Performed By: #### L 500.3400, L500.4100 ####[facility] [address] [place], [address] ALK PHOS 87 U/L Normal 35-104 [facility] Comment on above: Performed By: #### L 500.3400, L500.4100 ####[facility] [address] [place], [address] ALT [Catalytic activity/Vol] 14 U/L Normal <=34 [facility] Comment on above: Performed By: #### L 500.3400, L500.4100 ####[facility] [address] [place], [address] AST [Catalytic activity/Vol] 19 U/L Normal <=31 [facility] Comment on above: Performed By: #### L 500.3400, L500.4100 ####[facility] [address] [place], [address] Bilirubin [Mass/Vol] 0.83 mg/dL Normal 0.00-1.30 [facility] Comment on above: Performed By: #### L 500.3400, L500.4100 ####[facility] [address] [place], [address] Bilirubin.direct [Mass/Vol] 0.35 mg/dL High 0.00-0.30 [facility] Comment on above: Performed By: #### L 500.3400, L500.4100 ####[facility] [address] [place], [address] Globulin (S) [Mass/Vol] 2.4 g/dL Normal 2.2-4.2 [facility] Comment on above: Performed By: #### L 500.3400, L500.4100 ####[facility] [address] [place], [place], [id number] T PROT 6.7 g/dL Normal 5.9-8.4 [facility] Comment on above: Performed By: #### L 500.3400, L500.4100 ####[facility] [address] [place], [place], [address] Screening total cholesterol/ high density lipoprotein (HDL) cholesterol ratioOrdered By: Malika Henson on 09-09-2024 Cholesterol.total/Chol esterol in HDL [Mass ratio] 2.04 {ratio} [facility] Serum globulin measurementOr dered By: Malika Henson on 09-09-2024 Globulin (S) [Mass/Vol] 2.4 g/dL 2.2-4.2 [facility] Serum or plasma alanine escoto otransferase (ALT) measurementOrdered By: Malika Henson on 09-09-2024 ALT [Catalytic activity/Vol] 14 U/L <35 [facility] Serum or plasma albumin john urement (mass/volume)Ordered By: Malika Henson on 09-09-2024 Albumin [Mass/Vol] 4.3 g/dL 3.4-4.8 [facility] Serum or plasma alkaline sekou sphatase measurementOrdered By: Malika Henson on 09-09-2024 ALP [Catalytic activity/Vol] 87 U/L 35-104 [facility] Serum or plasma cholesterol in HDL measurement (mass/volume)Ordered By: Malika Henson on 09-09-2024 Cholesterol in HDL [Mass/Vol] 67 mg/dL >40 [facility] Comment on above: National Cholesterol Education Program (NCEP) guidelines:<40 mg/dL: Low HDL-cholesterol (major risk factor for CHD)>= 60 mg/dL: High HDL-cholesterol (negative risk factor for CHD)HDL-cholesterol is affected by a number of factors, e.g. smoking, exercise, hormones, sex and age. Serum or plasma cholesterol measurement (mass/volume)Ordered By: Malika Henson on 09-09-2024 Cholesterol [Mass/Vol] 137 mg/dL <201 [facility] Comment on above: Cholesterol level, D esirable <200 mg/dLBorderline high cholesterol 200-239 mg/dLHigh cholesterol >=240 mg/dLRecommendations of the NCEP Adult Treatment Panel for the following risk-cutoff thresholds for the [place] population. Total proteinOrdered By: Yanick Henson on 09-09-2024 Protein [Mass/Vol] 6.7 g/dL 5.9-8.4 [facility] Triglycerides measurementOrd ered By: Malika Henson on 09-09-2024 Triglyceride [Mass/Vol] 149 mg/dL <199 [facility] Comment on above: The drugs N-Acetylcy steine and Metamizole may falsely depress this assay. Normal range: <150 mg/dLBorderline High: 150-199 mg/dLHigh: 200-499 mg/dLVery High: >500 mg/dL Cardiology Visit Reporton Cardiology Visit Report [facility] [address] [place] [address] OFFICE VISIT Date of Service: 09/07/24 MR#: [id number] Acct: [id number] Name: WESTON MASON Rep #: [id number] : 1940 Provider: NAVA zepeda Age/Sex: 83/F Location: [facility] Status: Signed HPI HPI History of Present Illness Details: Patient is a 83-year-old white female who cardiovascular follow-up visit. In January 2024, patient was sitting in bed when her iWatch told her that her heart rate was in the 40 bpm range. It subsequently told her it was 30 and then it warned her to call EMS. She did and the EMS came to the house. An EKG done at the house showed a heart rate of 78 bpm with ventricular bigeminy. This probably represents the etiology of her heart rate in the 30-40 range as her watch was seeing every other beat. When her pulse was taken by the oncology coordinator they got the same 35 to 40 bpm pulse however the EKG showed a heart rate of 78. The patient had no symptoms whatsoever denied any syncope near syncope he had no shortness of breath. Patient does carry a history of paroxysmal atrial fibrillation her iWatch did not identify atrial fibs. She is also status post bypass graft surgery with a HALL to the LAD and a vein graft to the diagonal 1 diagonal 2 OM1 and PDA of the right coronary artery in 2017. She has a history of mixed hyperlipidemia and hypertension. Blood pressure is well-controlled in the office today. The patient had a 14-day event monitor November 29, 2023 which showed less than 1% PVCs and less than 1% PACs. There was no atrial fibrillation there was one 9 beat run of VT noted. The patient denied any syncope or near syncope. Patient also had carotid duplexes done in October 2023 which were less than 50% bilateral. An echocardiogram November 21, 2023 showed an EF of 65% the left atrium was mildly enlarged bubble contrast study was negative for PFO there was 1+ mitral regurgitation. From a cardiac standpoint, the patient is doing well. She denies any palpitations, chest pain, pressure or heaviness. She does have SOB with exertion-this is nothing new or worsening. She denies Orthopnea, and PND. She does not have bleeding issues; no blood in urine, stool, or nosebleeds. She denies any decrease in energy level, myalgias, or claudication. She does not have edema, or sudden weight gain. She denies lightheadedness, dizziness, syncopal or near syncopal episodes, and headaches. Intake Vital Signs 03/09/24 13:23 09/07/24 07:04 Height 5 ft 4 in 5 ft 4 in Weight: 155 lb BMI 26.6 BP 129/76 H Blood Pressure Location Lt brachial Position Sitting Respiration 18 Pulse 63 Pulse Source Monitor Pulse Oximetry (%) 97 Intake Visit Reasons: 6 M [employer] Sales Representative Required: No Is patient in pain?: No Allergies Qpbdete-YVE-XyC Reductase Inhibitor (Nrhndcd-Otp-Jgn Reductase Inhibitor) Adverse Reaction (Severe, Verified 09/07/24 15:18) myalgias Penicillins Adverse Reaction (Verified 09/07/24 15:18) Itching Tetanus Vaccines and Toxoid (Tetanus Vaccines Toxoid) Adverse Reaction (Verified 09/07/24 15:18) Swelling Medications ???Medication ???Instructions ???Recorded ???Confirmed ???Type aspirin 81 mg tablet,delayed 81 mg PO DAILY@2000 heart health 0 11/26/16 09/07/24 History release sertraline 25 mg tablet 25 mg PO DAILY mental health 11/2509/07/24 History cholecalciferol (vitamin D3) 50 2,000 unit PO DAILY vitamin 09/07/24 History mcg (2,000 unit) tablet clindamycin HCl 150 mg capsule 150 mg PO ONCE PRN Dentist 2 09/07/24 History Al hyd-Mg tr-alg ac-sod bicarb 80 1 tab PO DAILY PRN heartburn 05/2509/07/24 History mg-14.2 mg chewable tablet (Gaviscon) pantoprazole 40 mg tablet,delayed 40 mg PO 02/18/24 09/07/24 Histor y release evolocumab 140 mg/mL subcutaneous 140 mg subcut Q2W Hyperlipidemia, 04/30/24 09/07/24 Rx pen injector (Osbaldo Diego) cannot take statins #6 mL metoprolol tartrate 25 mg tablet 25 mg PO BID #180 tabs 07/20/24 Rx apixaban 5 mg tablet (Eliquis) 5 mg PO BID [facility]axing to [facility] 09/07/24 Rx [facility] #180 tabs Ejection fraction %: 65 Have you fallen in the past year?: No PFSH Medical History History of hypertension Carotid arterial disease Wears hearing aid in both ears Osteoporosis Myocardial infarct Hemorrhoids Arthritis Mixed hyperlipidemia Essential hypertension Postoperative atrial fibrillation Angina pectoris Hypercalcemia Vitamin D deficiency Dyslipidemia Hypertension NSTEMI (non-ST elevated myocardial infarction) Osteoarthritis GERD (gastroesophageal reflux disease) Surgical History (Reviewed 09/10/24 @ 10:30 by Malika Henson NP, [employer] DEVELOPER (more content not included)... Normal [facility] Cardiology Visit Reporton Cardiology Visit Report [facility] [address] [place], [place] [address] OFFICE VISIT Date of Service: 03/09/24 MR#: [id number] Acct: [id number] Name: WESTON MASON Rep #: [id number] : 1940 Provider: Dr. Jorge L anthony MD Age/Sex: 83/F Location: [facility] Status: Signed HPI HPI History of Present Illness Details: Patient is a 3-year-old white female who comes today for monitoring of her cardiovascular status. She was recently in the emergency department 02/18/2024. Patient was sitting in bed when her iWatch told her that her heart rate was in the 40 bpm range. It subsequently told her it was 30 and then it warned her to call EMS. She did and the EMS came to the house. An EKG done at the house showed a heart rate of 78 bpm with ventricular bigeminy. This probably represents the etiology of her heart rate in the 30-40 range as her watch was seeing every other beat. When her pulse was taken by the oncology coordinator they got the same 35 to 40 bpm pulse however the EKG showed a heart rate of 78. The patient had no symptoms whatsoever denied any syncope near syncope he had no shortness of breath. Patient does carry a history of paroxysmal atrial fibrillation her iWatch did not identify atrial fibs. She is also status post bypass graft surgery with a HALL to the LAD and a vein graft to the diagonal 1 diagonal 2 OM1 and PDA of the right coronary artery in 2017. She has a history of mixed hyperlipidemia and hypertension. Blood pressure is well-controlled in the office today. Patient reports that she feels fine she is up and about regular activity levels with no restrictions. She does tell me that the event that she had had when I had originally seen her in October 2023 at the dentist office was later confirmed to be related to urinary tract infection that caused her to be lightheaded and have the symptoms that she was having in front of the bilingual receptionist. This is fully detailed in my October 2023 office note. Patient denies any anginal type symptoms she denies any PND orthopnea. The patient had a 14-day event monitor November 29, 2023 which showed less than 1% PVCs and less than 1% PACs. There was no atrial fibrillation there was one 9 beat run of VT noted. The patient denied any syncope or near syncope. Patient also had carotid duplexes done in October 2023 which were less than 50% bilateral. An echocardiogram November 21, 2023 showed an EF of 65% the left atrium was mildly enlarged bubble contrast study was negative for PFO there was 1+ mitral regurgitation. Intake Vital Signs 02/18/24 01:27 03/09/24 13:23 Height 5 ft 4 in 5 ft 4 in Weight: 146 lb BMI 25.0 BP 116/69 Blood Pressure Location Lt brachial Position Sitting Respiration 18 Pulse 74 Pulse Source Monitor Pulse Oximetry (%) 97 Oxygen Delivery Method room air Intake Visit Reasons: S/P [facility] ER 02/17 PVCs [employer] Sales Representative Required: No Accompanied by: Self Is patient in pain?: No Allergies Wkbjphu-QRN-NpJ Reductase Inhibitor (Prwhqwu-Jsu-Luh Reductase Inhibitor) Adverse Reaction (Severe, Verified 03/09/24 13:23) myalgias Penicillins Adverse Reaction (Verified 03/09/24 13:23) Itching Tetanus Vaccines and Toxoid (Tetanus Vaccines Toxoid) Adverse Reaction (Verified 03/09/24 13:23) Swelling Medications ???Medication ???Instructions ???Recorded ???Confirmed ???Type aspirin 81 mg tablet,delayed 81 mg PO DAILY@1999 heart health 11/26/16 03/09/24 History release sertraline 25 mg tablet 25 mg PO DAILY mental health 11/25/17 03/09/24 History cholecalciferol (vitamin D3) 50 2,000 unit PO DAILY vitamin 01/19/19 03/09/24 History mcg (2,000 unit) tablet clindamycin HCl 150 mg capsule 150 mg PO ONCE PRN Dentist 06/01/21 03/09/24 History gffqgn-vhthuxms-akme ase 1 cap PO BID 10/15/22 03/09/24 History 36,000-114,000-180,0 00 unit capsule,delay rel (Creon) Al hyd-Mg tr-alg ac-sod bicarb 80 1 tab PO DAILY PRN heartburn 05/03/23 03/09/24 History mg-14.2 mg chewable tablet (Gaviscon) metoprolol tartrate 25 mg tablet 25 mg PO BID #180 tabs 06/14/23 03/09/24 Rx evolocumab 140 mg/mL subcutaneous 140 mg subcut Q2W Hyperlipidemia, 07/01/23 03/09/24 Rx pen injector (Osbaldo Diego) cannot take statins #6 mL pantoprazole 40 mg tablet,delayed 40 mg PO 02/18/24 03/09/24 History release apixaban 5 mg tablet (Eliquis) 5 mg PO BID #180 tabs 02/21/24 03/09/24 Rx Ejection fraction %: 65 Have you fallen in the past year?: No [facility] Medical History History of hypertension Carotid arterial disease Wears hearing aid in both ears Osteoporosis Myocardial infarct Hemorrhoids Arthritis Mixed hyperlipidemia Essential hypertension Postoperative atrial fibrillation Angina pectoris Hypercalcemia Vitamin D (more content not included)... Normal [facility] 12 Lead EKGon 02-18-2024 12 Lead EKG [facility] [address] [place] [address] 12 Lead EKG 02/18/24 0130 MR#: [id number] Acct: [id number] Name: WESTON MASON Rep #: [id number] : 1940 83 From: Isael Israel MD Attending Dr: Status: DEP ER Ordering Dr: Brian Savage DO Date: 02/18/24 Location: ED Sex: F C Admitted: Test Reason : CP Blood Pressure : */* mmHG Vent. Rate : 85 BPM Atrial Rate : 85 BPM P-R Int : 136 ms QRS Dur : 78 ms QT Int : 316 ms P-R-T Axes : 47 50 52 degrees QTcB Int : 376 ms Sinus rhythm with frequent Premature ventricular complexes in a pattern of bigeminy Otherwise normal ECG Confirmed by ISAEL ISRAEL MD ([id number]), commercial production editor KAMRAN CHAVEZ ([id number]) on 02/18/2024 1:55:09 PM Referred By: Confirmed By: ISAEL ISRAEL MD 02/18/24 1355 Date Isael Israel MD CC: Dr. Joss Salas DO; Dr. Brian Savage DO Signed Normal [facility] Basic Metabolic Profile (BMP )on 02-18-2024 BUN/CRE 17.3 RATIO Normal 01-18 [facility] Comment on above: Order Comment: 'TROP ' Serial specimen #1, #2 or #3: 1 Performed By: #### L 501.4020, L500.2500, L100.0500 #### [facility] [address] [place], [address] CA,Total 9.9 mg/dL Normal 8.5-10.1 [facility] Comment on above: Order Comment: 'TROP ' Serial specimen #1, #2 or #3: 1 Performed By: #### L 501.4020, L500.2500, L100.0500 #### [facility] [address] [place], [address] Chloride [Moles/Vol] 108 mmol/L High 98-107 [facility] Comment on above: Order Comment: 'TROP ' Serial specimen #1, #2 or #3: 1 Performed By: #### L 501.4020, L500.2500, L100.0500 #### [facility] [address] [place], [address] CO2 [Moles/Vol] 26.0 mmol/L Normal 21.0-32.0 [facility] Comment on above: Order Comment: 'TROP ' Serial specimen #1, #2 or #3: 1 Performed By: #### L 501.4020, L500.2500, L100.0500 #### [facility] [address] [place], [address] Creatinine [Mass/Vol] 1.04 mg/dL High 0.55-1.02 [facility] Comment on above: Order Comment: 'TROP ' Serial specimen #1, #2 or #3: 1 Result Comment: The validity of the calculated GFR GFRAA in patients over 70 years has not been determined. Clinical correlation is essential. Performed By: #### L 501.4020, L500.2500, L100.0500 #### [facility] [address] [place], [address] ECRCL 38.32 ml/min Normal [facility] Comment on above: Order Comment: 'TROP ' Serial specimen #1, #2 or #3: 1 Performed By: #### L 501.4020, L500.2500, L100.0500 #### [facility] [address] [place], [address] EST GFR - AA 65 mL/min Normal >60 [facility] Comment on above: Order Comment: 'TROP ' Serial specimen #1, #2 or #3: 1 Result Comment: Afri can Filipino GFR Calc Performed By: #### L 501.4020, L500.2500, L100.0500 #### [facility] [address] [place], [address] GAP 6 Normal 5-15 [facility] Comment on above: Order Comment: 'TROP ' Serial specimen #1, #2 or #3: 1 Performed By: #### L 501.4020, L500.2500, L100.0500 #### [facility] [address] [place], [address] GFR/1.73 sq M.predicted among non-blacks MDRD (S/P/Bld) [Vol rate/Area] 54 mL/min/{1.73_m2} Low >60 [facility] Comment on above: Order Comment: 'TROP ' Serial specimen #1, #2 or #3: 1 Result Comment: Non- GFR Calc Performed By: #### L 501.4020, L500.2500, L100.0500 #### [facility] [address] [place], [address] Glucose [Mass/Vol] 116 mg/dL High 74-106 [facility] Comment on above: Order Comment: 'TROP ' Serial specimen #1, #2 or #3: 1 Result Comment: Fast ing Glucose result from 100 to 125 mg/dL suggests IMPAIRED HOMEOSTASIS per A.D.A. criteria. Performed By: #### L 501.4020, L500.2500, L100.0500 #### [facility] [address] [place], [address] Potassium [Moles/Vol] 3.9 mmol/L Normal 3.5-5.1 [facility] Comment on above: Order Comment: 'TROP ' Serial specimen #1, #2 or #3: 1 Performed By: #### L 501.4020, L500.2500, L100.0500 #### [facility] [address] [place], [address] Sodium [Moles/Vol] 140 mmol/L Normal 136-145 [facility] Comment on above: Order Comment: 'TROP ' Serial specimen #1, #2 or #3: 1 Performed By: #### L 501.4020, L500.2500, L100.0500 #### [facility] [address] [place], [address] Urea nitrogen [Mass/Vol] 18 mg/dL Normal 7-18 [facility] Comment on above: Order Comment: 'TROP ' Serial specimen #1, #2 or #3: 1 Performed By: #### L 501.4020, L500.2500, L100.0500 #### [facility] [address] [place], [address] CBC-Complete Blood Cnt No Di ffon 02-18-2024 Erythrocyte distribution width (RBC) [Ratio] 13.9 % Normal 11.6-14.6 [facility] Comment on above: Performed By: #### L 501.4020, L500.2500, L100.0500 #### [facility] [address] [place], [address] Hematocrit (Bld) [Volume fraction] 42.5 % Normal 37-47 [facility] Comment on above: Performed By: #### L 501.4020, L500.2500, L100.0500 #### [facility] [address] [place], [address] Hemoglobin (Bld) [Mass/Vol] 14.2 g/dL Normal 12.0-15.0 [facility] Comment on above: Performed By: #### L 501.4020, L500.2500, L100.0500 #### [facility] [address] [place], [address] MCH (RBC) [Entitic mass] 30.5 pg Normal 27.0-32.0 [facility] Comment on above: Performed By: #### L 501.4020, L500.2500, L100.0500 #### [facility] [address] [place], [address] MCHC (RBC) [Mass/Vol] 33.4 g/dL Normal 32-36 [facility] Comment on above: Performed By: #### L 501.4020, L500.2500, L100.0500 #### [facility] [address] [place], [address] MCV (RBC) [Entitic vol] 91.2 fL Normal 81-99 [facility] Comment on above: Performed By: #### L 501.4020, L500.2500, L100.0500 #### [facility] [address] [place], [address] Platelet mean volume (Bld) [Entitic vol] 10.6 fL Normal 6.2-12.0 [facility] Comment on above: Performed By: #### L 501.4020, L500.2500, L100.0500 #### [facility] [address] [place], [address] Platelets (Bld) [#/Vol] 189 10*3/uL Normal 150-450 [facility] Comment on above: Performed By: #### L 501.4020, L500.2500, L100.0500 #### [facility] [address] [place], [address] RBC (Bld) [#/Vol] 4.66 10*6/uL Normal 4.2-5.4 [facility] Comment on above: Performed By: #### L 501.4020, L500.2500, L100.0500 #### [facility] [address] [place], [address] RDW SD 46.5 fl High 35.1-43.9 [facility] Comment on above: Performed By: #### L 501.4020, L500.2500, L100.0500 #### [facility] [address] [place], [address] WBC (Bld) [#/Vol] 5.0 10*3/uL Normal 4.4-11.0 [facility] Comment on above: Performed By: #### L 501.4020, L500.2500, L100.0500 #### [facility] [address] [place] [place], [address] Chest 1 View (Portable)on Chest 1 View (Portable) [facility] Imaging Services [address] [place] [address] Chest 1 View (Portable) MR#: [id number] Acct: [id number] Name: WESTON MASON Rep #: [id number] : 1940 F 83 From: Arnaldo Marshall PCP: Dr. Joss Salsa DO Status: PRE ER Study: Chest 1 View (Portable) Date of Exam: 02/18/24 Exam# [id number] Ordering Dr: Brian Savage DO [id number] INDICATION: palpitations EXAMINATION/TECHNIQU E: X-RAY - XR Chest 1 View COMPARISON: CR ChestAug 2023 11:21am ____ FINDINGS: LINES/DEVICES: None. LUNGS: No consolidation, edema or effusion. No pneumothorax. MEDIASTINUM AND CARDIOVASCULAR STRUCTURES: Cardiac silhouette not enlarged. Central airways and mediastinal contour are unremarkable. BONES AND SOFT TISSUES: Unremarkable. RAD/Chest 1 View (Portable) IMPRESSION: No radiographic evidence of acute cardiopulmonary disease. Electronically Signed: Arnaldo Weinstein MD at 2:12 EST Reading Location ID and State: [facility] / [place] Tel , Service support , CC: Dr. Joss Salas DO; Dr. Brian Savage DO Dope Sprayer: Signed Normal [facility] Emergency Department Summary on 02-18-2024 Emergency Department Summary [facility] Medical Records Department [address] [place] [address] Emergency Department Summary 02/18/24 MR#: [id number] Acct: [id number] Name: WESTON MASON Rep #: [id number] : 1940 83 From: Brian Savage DO PCP: Dr. Joss Salas DO Status:REG ER Location: ED HPI History of Present Illness Chief Complaint: Palpitations [facility] Medical History Wears hearing aid in both ears Osteoporosis Myocardial infarct Hemorrhoids Arthritis Mixed hyperlipidemia Essential hypertension Postoperative atrial fibrillation Angina pectoris Hypercalcemia Vitamin D deficiency Dyslipidemia Hypertension NSTEMI (non-ST elevated myocardial infarction) Osteoarthritis GERD (gastroesophageal reflux disease) Home Medications ???Medication ???Instructions ???Recorded ???Last Taken ???Type aspirin 81 mg tablet,delayed 81 mg PO DAILY@1999 heart health 11/26/16 05/03/23 History release sertraline 25 mg tablet 25 mg PO DAILY mental health 11/25/17 05/03/23 History cholecalciferol (vitamin D3) 50 2,000 unit PO DAILY vitamin 01/19/19 05/02/23 History mcg (2,000 unit) tablet clindamycin HCl 150 mg capsule 150 mg PO ONCE PRN Dentist 06/01/21 11/21/23 History zxjqvp-fokorpny-qtkt ase 1 cap PO BID 10/15/22 Unknown History 36,000-114,000-180,0 00 unit capsule,delay rel (Creon) Al hyd-Mg tr-alg ac-sod bicarb 80 1 tab PO DAILY PRN heartburn 05/03/23 Unknown History mg-14.2 mg chewable tablet (Gaviscon) dexlansoprazole 60 mg 60 mg PO DAILY heartburn 05/03/23 05/03/23 History capsule,biphase delayed release metoprolol tartrate 25 mg tablet 25 mg PO BID #180 tabs 06/14/23 11/21/23 Rx evolocumab 140 mg/mL subcutaneous 140 mg subcut Q2W Hyperlipidemia, 07/01/23 Unknown Rx pen injector (Os[place]lo Diego) cannot take statins #6 mL apixaban 5 mg tablet (Eliquis) 5 mg PO BID #180 tabs 07/22/23 11/21/23 Rx pantoprazole 40 mg tablet,delayed 40 mg PO 02/18/24 Unknown History release Allergy/AdvReac Type Severity Reaction Status Date / Time Eokibko-FUD-EjF Reductase AdvReac Severe myalgias Verified 02/18/24 01:26 Inhibitor (Hgxjsfi-Ift-Wci Reductase Inhibitor) Penicillins AdvReac Itching Verified 02/18/24 01:26 Tetanus Vaccines and Toxoid AdvReac Swelling Verified 02/18/24 01:26 (Tetanus Vaccines Toxoid) Family History Mother Heart disease Father Heart disease Brother Heart disease Brother Heart disease Sister Heart disease Surgical History History of coronary artery bypass graft ( 09/17/16) History of tubal ligation History of removal of cyst History of repair of right rotator cuff History of right hip replacement History of cholecystectomy History of foot surgery History of facial surgery Social History Smoking Status: Never smoker alcohol intake: current alcohol intake frequency: a few times a month caffeine: No EXAM Physical Exam Const Vital Signs: 02/18/24 01:27 02/18/24 01:31 02/18/24 02:25 Temperature 97.7 F L Temperature Source Oral Pulse Rate 81 69 Respiratory Rate 14 16 Respiratory Effort Normal Blood Pressure 140/53 H 112/58 L Blood Pressure Mean 82 76 Pulse Ox 98 96 Oxygen Delivery Method Room Air Room Air 02/18/24 03:00 Temperature Temperature Source Pulse Rate 56 L Respiratory Rate 12 Respiratory Effort Blood Pressure 119/59 L Blood Pressure Mean 79 Pulse Ox 97 Oxygen Delivery Method Room Air [facility] [place] Medical decision making narrative: HISTORY OF PRESENT ILLNESS: 83-year-old female presents with concern for abnormal heart rate. Per EMS patient woke up from sleep secondary to her watch alarming her with her heart rate in the 30s. Patient denies any symptoms. Denies any symptoms, chest pain, palpitations, shortness of breath, lightheadedness, fatigue, dizziness. REVIEW OF SYSTEMS: Pertinent positives: As per HPI Pertinent negatives: As per HPI PHYSICAL EXAM: Nursing triage notes reviewed, Vital signs reviewed Constitutional: please see mdm HENT: MMM Eyes: Pupils equal round and reactive to light, Extraocular muscles intact Neck: No stridor, no JVD, full neck ROM Lungs: Clear to auscultation, No wheezing or rales. No increased work of breathing, no conversational dyspnea, no accessory muscle use, no nasal flaring. No respiratory distress noted Heart: Regular rate and rhythm, No murmurs, No rubs and No gallops, 2+ distal pulses (radial, femoral, posterior tibial) in all extremities Abdomen: Soft, there is no tenderness, rigidity, rebound or guarding, no (more content not included)... Normal [facility] L501.4020on 02-18-2024 TROPONIN-I HS 6 pg/mL Normal 3.0-54.0 [facility] Comment on above: Order Comment: 'TROP ' Serial specimen #1, #2 or #3: 1 Result Comment: Plea se Note: New Test Units and Gender Specific Reference Ranges. For more information see Policy Stat Procedure [place] High Sensitivity Troponin (TNIH) and attachments. Performed By: #### L 501.4020, L500.2500, L100.0500 #### [facility] Laboratory [address] [place], [address] Absolute lymphocyte countOrd ered By: Rina Cosby on 05-04-2023 Lymphocytes Auto (Unsp spec) [#/Vol] 0.73 10*3/uL 0.83-4.51 [facility] Automated lymphocyte count a s percentage of total leukocytesOrdered By: Rina Cosby on 05-04-2023 Lymphocytes/100 WBC Auto (Unsp spec) 17.2 % 19-41 [facility] Basophil percentageOrdered B y: Rina Cosby on 05-04-2023 Basophils/100 WBC (Bld) 0.7 % 0-1 [facility] Chloride [Moles/Vol] 112 mmol/L 98-107 [facility] Cholesterol [Mass/Vol] 120 mg/dL <200 [facility] Comment on above: <200 mg/dL Desirable 200-240 mg/dL Borderline >240 mg/dL High Risk Eosinophils/100 WBC (Bld) 2.1 % 0-5 [facility] Glucose [Mass/Vol] 115 mg/dL 74-106 [facility] Comment on above: Fasting Glucose resu lt from 100 to 125 mg/dL suggests IMPAIRED HOMEOSTASIS per A.D.A. criteria. Hemoglobin (Bld) [Mass/Vol] 13.1 g/dL 12.0-15.0 [facility] Monocytes/100 WBC (Bld) 8.5 % 0-10 [facility] Neutrophils (Bld) [#/Vol] 3.0 10*3/uL 2.0-7.7 [facility] Neutrophils/100 WBC (Bld) 71.0 % 47-70 [facility] Potassium [Moles/Vol] 4.1 mmol/L 3.5-5.1 [facility] Sodium [Moles/Vol] 141 mmol/L 136-145 [facility] Triglyceride [Mass/Vol] 145 mg/dL <199 [facility] Comment on above: The drugs N-Acetylcy steine and Metamizole may falsely depress this assay.Serum Triglycerides Reference Interval Normal <150 mg/dL Borderline high 150 - 199 mg/dL High 200 - 499 mg/dL Very High > or = 500 mg/dL WBC (Bld) [#/Vol] 4.2 10*3/uL 4.4-11.0 [facility] Determination of erythrocyte mean corpuscular volume (MCV)Ordered By: Rina Cosby on 05-04-2023 MCV (RBC) [Entitic vol] 90.8 fL 81-99 [facility] Erythrocyte distribution wid th ratioOrdered By: Rina Cosby on 05-04-2023 Erythrocyte distribution width (RBC) [Ratio] 12.7 % 11.6-14.6 [facility] Erythrocyte distribution wid th standard deviationOrdered By: Rina Cosby on 05-04-2023 Erythrocyte distribution width (RBC) [Entitic vol] 41.8 fL 35.1-43.9 [facility] Hematocrit Auto (Bld) [Volum e fraction]Ordered By: Rina Cosby on 05-04-2023 Hematocrit (Bld) [Volume fraction] 39.6 % 37-47 [facility] High density lipoprotein (HD L) measurementOrdered By: Rina Cosby on 05-04-2023 Cholesterol in HDL (Body fld) [Mass/Vol] 60 mg/dL >40 [facility] Comment on above: The drugs N-Acetylcy steine and Metamizole may falsely depress this assay. Reference Range HDL <40 mg/dL Low HDL Cholesterol HDL >or= 60 mg/dL High HDL Cholesterol Immature granulocytes/100 WB C Auto (Bld)Ordered By: Rina Cosby on 05-04-2023 Immature granulocytes/100 WBC (Bld) 0.500 % 0.0-0.9 [facility] Comment on above: IG% - Immature Granu locytes (promyelocytes, myelocytes and metamyelocytes) > 1% indicates that a LEFT SHIFT is Present. Laboratory - Chemistry and C hemistry - challengeOrdered By: Rina Cosby on 05-04-2023 CO2 [Moles/Vol] 26.0 mmol/L 21.0-32.0 [facility] Urea nitrogen/Creatinine [Mass ratio] 19.3 mg/mg 10-20 [facility] Laboratory - Hematology and Cell countsOrdered By: Rina Cosby on 05-04-2023 MCH (RBC) [Entitic mass] 30.0 pg 27.0-32.0 [facility] MCHC (RBC) [Mass/Vol] 33.1 g/dL 32-36 [facility] Nucleated RBC/100 WBC (Bld) [Ratio] 0 % 0-5 [facility] Platelets (Bld) [#/Vol] 183 10*3/uL 150-450 [facility] Low density lipoprotein (LDL ) cholesterol measurementOrdered By: Rina Cosby on 05-04-2023 Cholesterol in LDL (Body fld) [Moles/Vol] 31 mg/dL 0-130 [facility] No Panel InformationOrdered By: Rina Cosby on 05-04-2023 Estimated Creatinine Clearance Calc 50.53 ml/min [facility] Estimated GFR (MDRD) Amer 108 mL/min >60 [facility] Comment on above: GFR Calc Estimated GFR (MDRD) Non-Af Amer 89 mL/min >60 [facility] Comment on above: Non- GFR Calc Platelet mean volume Chris-Ec ker (Bld) [Entitic vol]Ordered By: Rina Cosby on 05-04-2023 Platelet mean volume (Bld) [Entitic vol] 9.5 fL 6.2-12.0 [facility] RBC Auto (Bld) [#/Vol]Ordere d By: Rina Cosby on 05-04-2023 RBC (Bld) [#/Vol] 4.36 10*6/uL 4.2-5.4 [facility] Serum or plasma calcium john urement (mass/volume)Ordered By: Rina Cosby on 05-04-2023 Calcium [Mass/Vol] 9.6 mg/dL 8.5-10.1 [facility] Serum or plasma creatinine m easurement (mass/volume)Ordered By: Rina Cosby on 05-04-2023 Creatinine [Mass/Vol] 0.67 mg/dL 0.55-1.02 [facility] Comment on above: The validity of the calculated GFR & GFRAA in patients over 70 years has not been determined. Clinical correlation is essential. Serum or plasma thyroid stim ulating hormone (TSH) measurement (units/volume)Ordered By: Rina Cosby on 05-04-2023 TSH Qn 2.27 uIU/mL 0.358-3.74 [facility] Serum or plasma urea nitroge n measurement (mass/volume)Ordered By: Rina Cosby on 05-04-2023 Urea nitrogen [Mass/Vol] 13 mg/dL 7-18 [facility] Thin prep Papanicolaou smear with manual screeningOrdered By: Rina Cosby on 05-04-2023 Thin prep Papanicolaou smear with manual screening 3 5-15 [facility] Very low density lipoprotein (VLDL) cholesterol measurementOrdered By: Rina Cosby on 05-04-2023 Cholesterol in VLDL Calc [Moles/Vol] 29 mg/dL 5-40 [facility] Absolute lymphocyte countOrd ered By: Kee Sanchez on 05-03-2023 Lymphocytes Auto (Unsp spec) [#/Vol] 0.72 10*3/uL 0.83-4.51 [facility] Automated lymphocyte count a s percentage of total leukocytesOrdered By: Kee Sanchez on 05-03-2023 Lymphocytes/100 WBC Auto (Unsp spec) 15.1 % 19-41 [facility] Basophil percentageOrdered B y: Kee Sanchez on 05-03-2023 Basophils/100 WBC (Bld) 0.6 % 0-1 [facility] Chloride [Moles/Vol] 112 mmol/L 98-107 [facility] Eosinophils/100 WBC (Bld) 2.1 % 0-5 [facility] Glucose [Mass/Vol] 99 mg/dL 74-106 [facility] Hemoglobin (Bld) [Mass/Vol] 14.2 g/dL 12.0-15.0 [facility] Monocytes/100 WBC (Bld) 7.1 % 0-10 [facility] Neutrophils (Bld) [#/Vol] 3.5 10*3/uL 2.0-7.7 [facility] Neutrophils/100 WBC (Bld) 74.5 % 47-70 [facility] Potassium [Moles/Vol] 4.3 mmol/L 3.5-5.1 [facility] Sodium [Moles/Vol] 141 mmol/L 136-145 [facility] WBC (Bld) [#/Vol] 4.8 10*3/uL 4.4-11.0 [facility] Determination of erythrocyte mean corpuscular volume (MCV)Ordered By: Kee Sanchez on 05-03-2023 MCV (RBC) [Entitic vol] 93.1 fL 81-99 [facility] Erythrocyte distribution wid th ratioOrdered By: Kee Sanchez on 05-03-2023 Erythrocyte distribution width (RBC) [Ratio] 12.7 % 11.6-14.6 [facility] Erythrocyte distribution wid th standard deviationOrdered By: Kee Sanchez on 05-03-2023 Erythrocyte distribution width (RBC) [Entitic vol] 43.4 fL 35.1-43.9 [facility] Hematocrit Auto (Bld) [Volum e fraction]Ordered By: Kee Sanchez on 05-03-2023 Hematocrit (Bld) [Volume fraction] 43.5 % 37-47 [facility] Immature granulocytes/100 WB C Auto (Bld)Ordered By: Kee Sanchez on 05-03-2023 Immature granulocytes/100 WBC (Bld) 0.600 % 0.0-0.9 [facility] Comment on above: IG% - Immature Granu locytes (promyelocytes, myelocytes and metamyelocytes) > 1% indicates that a LEFT SHIFT is Present. Laboratory - Chemistry and C hemistry - challengeOrdered By: Kee Sanchez on 05-03-2023 CO2 [Moles/Vol] 28.0 mmol/L 21.0-32.0 [facility] Urea nitrogen/Creatinine [Mass ratio] 18.2 mg/mg 10-20 [facility] Laboratory - Hematology and Cell countsOrdered By: Kee Sanchez on 05-03-2023 MCH (RBC) [Entitic mass] 30.4 pg 27.0-32.0 [facility] MCHC (RBC) [Mass/Vol] 32.6 g/dL 32-36 [facility] Nucleated RBC/100 WBC (Bld) [Ratio] 0 % 0-5 [facility] Platelets (Bld) [#/Vol] 209 10*3/uL 150-450 [facility] No Panel InformationOrdered By: Rina Cosby on 05-03-2023 Troponin I High Sensitivity 4 pg/mL 3.0-54.0 [facility] Comment on above: Please Note: New Charley t Units and Gender Specific Reference Ranges. For more information see Policy Stat Procedure [place] High Sensitivity Troponin (TNIH) and attachments. No Panel InformationOrdered By: Lulu Knight on 05-03-2023 D-Dimer Quantitative (PE/DVT) 0.34 FEU/ug/m 0.27-0.49 [facility] Comment on above: NORMAL D-Dimer level (<0.50) indicates no DVT or PE. No Panel InformationOrdered By: Kee Sanchez on 05-03-2023 Estimated Creatinine Clearance Calc 52.27 ml/min [facility] Estimated GFR (MDRD) Amer 92 mL/min >60 [facility] Comment on above: GFR Calc Estimated GFR (MDRD) Non-Af Amer 76 mL/min >60 [facility] Comment on above: Non- GFR Calc Troponin I High Sensitivity 4 pg/mL 3.0-54.0 [facility] Comment on above: Please Note: New Charley t Units and Gender Specific Reference Ranges. For more information see Policy Stat Procedure [place] High Sensitivity Troponin (TNIH) and attachments. Platelet mean volume Chris-Ec ker (Bld) [Entitic vol]Ordered By: Kee Sanchez on 05-03-2023 Platelet mean volume (Bld) [Entitic vol] 9.3 fL 6.2-12.0 [facility] RBC Auto (Bld) [#/Vol]Ordere d By: Kee Sanchez on 05-03-2023 RBC (Bld) [#/Vol] 4.67 10*6/uL 4.2-5.4 [facility] Serum or plasma calcium john urement (mass/volume)Ordered By: Kee Sanchez on 05-03-2023 Calcium [Mass/Vol] 10.0 mg/dL 8.5-10.1 [facility] Serum or plasma creatinine m easurement (mass/volume)Ordered By: Kee Sanchez on 05-03-2023 Creatinine [Mass/Vol] 0.77 mg/dL 0.55-1.02 [facility] Comment on above: The validity of the calculated GFR & GFRAA in patients over 70 years has not been determined. Clinical correlation is essential. Serum or plasma urea nitroge n measurement (mass/volume)Ordered By: Kee Sanchez on 05-03-2023 Urea nitrogen [Mass/Vol] 14 mg/dL 7-18 [facility] Thin prep Papanicolaou smear with manual screeningOrdered By: Kee Sanchez on 05-03-2023 Thin prep Papanicolaou smear with manual screening 1 5-15 [facility] Absolute lymphocyte countOrd ered By: Dr. Parish on 04-30-2022 Lymphocytes Auto (Unsp spec) [#/Vol] 0.86 10*3/uL 0.83-4.51 [facility] Basophil percentageOrdered B y: Dr. Parish on 04-30-2022 Basophils/100 WBC (Bld) 0.9 % 0-1 [facility] Bilirubin [Mass/Vol] 0.50 mg/dL 0.20-1.00 [facility] Comment on above: For patients on eltr ombopag therapy, use of Dimension [place] TBIL is not recommended. Chloride [Moles/Vol] 107 mmol/L 98-107 [facility] Eosinophils/100 WBC (Bld) 3.8 % 0-5 [facility] Glucose [Mass/Vol] 96 mg/dL 74-106 [facility] Neutrophils (Bld) [#/Vol] 3.0 10*3/uL 2.0-7.7 [facility] Neutrophils/100 WBC (Bld) 66.9 % 47-70 [facility] Potassium [Moles/Vol] 4.4 mmol/L 3.5-5.1 [facility] Protein [Mass/Vol] 6.7 g/dL 6.4-8.2 [facility] Sodium [Moles/Vol] 141 mmol/L 136-145 [facility] WBC (Bld) [#/Vol] 4.5 10*3/uL 4.4-11.0 [facility] Blood erythrocytes count (nu mber/volume)Ordered By: Dr. Parish on 04-30-2022 RBC (Bld) [#/Vol] 4.74 10*6/uL 4.2-5.4 [facility] Blood hemoglobin measurement (mass/volume)Ordered By: Dr. Parish on 04-30-2022 Hemoglobin (Bld) [Mass/Vol] 14.5 g/dL 12.0-15.0 [facility] Blood lymphocytes/100 leukoc ytesOrdered By: Dr. Parish on 04-30-2022 Lymphocytes/100 WBC (Bld) 19.1 % 19-41 [facility] Blood monocytes/100 leukocyt esOrdered By: Dr. Parish on 04-30-2022 Monocytes/100 WBC (Bld) 8.9 % 0-10 [facility] Blood platelet mean volumeOr dered By: Dr. Parish on 04-30-2022 Platelet mean volume (Bld) [Entitic vol] 10.1 fL 6.2-12.0 [facility] Determination of erythrocyte mean corpuscular volume (MCV)Ordered By: Dr. Parish on 04-30-2022 MCV (RBC) [Entitic vol] 94.3 fL 81-99 [facility] Hematocrit Auto (Bld) [Volum e fraction]Ordered By: Dr. Parish on 04-30-2022 Hematocrit (Bld) [Volume fraction] 44.7 % 37-47 [facility] Laboratory - Chemistry and C hemistry - challengeOrdered By: Dr. Parish on 04-30-2022 ALP [Catalytic activity/Vol] 91 U/L 45-117 [facility] ALT [Catalytic activity/Vol] 33 U/L 13-56 [facility] CO2 [Moles/Vol] 26.0 mmol/L 21.0-32.0 [facility] Globulin (S) [Mass/Vol] 3.1 g/dL 2.2-4.2 [facility] Urea nitrogen/Creatinine [Mass ratio] 18.9 mg/mg 10-20 [facility] Laboratory - Hematology and Cell countsOrdered By: Dr. Parish on 04-30-2022 Erythrocyte distribution width (RBC) [Entitic vol] 43.7 fL 35.1-43.9 [facility] Erythrocyte distribution width (RBC) [Ratio] 12.6 % 11.6-14.6 [facility] Immature granulocytes/100 WBC (Bld) 0.400 % 0.0-0.9 [facility] Comment on above: IG% - Immature Granu locytes (promyelocytes, myelocytes and metamyelocytes) > 1% indicates that a LEFT SHIFT is Present. MCH (RBC) [Entitic mass] 30.6 pg 27.0-32.0 [facility] Nucleated RBC/100 WBC (Bld) [Ratio] 0 % 0-5 [facility] MCHC Auto (RBC) [Mass/Vol]Or dered By: Dr. Parish on 04-30-2022 MCHC (RBC) [Mass/Vol] 32.4 g/dL 32-36 [facility] No Panel InformationOrdered By: Dr. Parish on 04-30-2022 Estimated GFR (MDRD) Amer 83 mL/min >60 [facility] Comment on above: GFR Calc Estimated GFR (MDRD) Non-Af Amer 68 mL/min >60 [facility] Comment on above: Non- GFR Calc Platelets bldOrdered By: Dr. Parish on 04-30-2022 Platelets (Bld) [#/Vol] 230 10*3/uL 150-450 [facility] Serum or plasma albumin john urement (mass/volume)Ordered By: Dr. Parish on 04-30-2022 Albumin [Mass/Vol] 3.6 g/dL 3.2-5.0 [facility] Serum or plasma albumin/glob ulin mass ratioOrdered By: Dr. Parish on 04-30-2022 Albumin/Globulin [Mass ratio] 1.2 {ratio} 0.9-2.4 [facility] Serum or plasma calcium john urement (mass/volume)Ordered By: Dr. Parish on 04-30-2022 Calcium [Mass/Vol] 9.8 mg/dL 8.5-10.1 [facility] Serum or plasma creatinine m easurement (mass/volume)Ordered By: Dr. Parish on 04-30-2022 Creatinine [Mass/Vol] 0.85 mg/dL 0.55-1.02 [facility] Comment on above: The validity of the calculated GFR & GFRAA in patients over 70 years has not been determined. Clinical correlation is essential. Serum or plasma urea nitroge n measurement (mass/volume)Ordered By: Dr. Parish on 04-30-2022 Urea nitrogen [Mass/Vol] 16 mg/dL 7-18 [facility] Thin prep Papanicolaou smear with manual screeningOrdered By: Dr. Parish on 04-30-2022 Thin prep Papanicolaou smear with manual screening 24 U/L 15-37 [facility] Thin prep Papanicolaou smear with manual screening 8 5-15 [facility] Basophil percentageOrdered B y: Dr. Barrios on 04-17-2022 Bilirubin [Mass/Vol] 0.70 mg/dL 0.20-1.00 [facility] Comment on above: For patients on eltr ombopag therapy, use of Dimension [place] TBIL is not recommended. Cholesterol [Mass/Vol] 138 mg/dL <200 [facility] Comment on above: <200 mg/dL Desirable 200-240 mg/dL Borderline >240 mg/dL High Risk Protein [Mass/Vol] 6.7 g/dL 6.4-8.2 [facility] Triglyceride [Mass/Vol] 124 mg/dL <199 [facility] Comment on above: The drugs N-Acetylcy steine and Metamizole may falsely depress this assay.Serum Triglycerides Reference Interval Normal <150 mg/dL Borderline high 150 - 199 mg/dL High 200 - 499 mg/dL Very High > or = 500 mg/dL Direct bilirubinOrdered By: Dr. Barrios on 04-17-2022 Bilirubin.direct [Mass/Vol] 0.18 mg/dL 0.00-0.30 [facility] Laboratory - Chemistry and C hemistry - challengeOrdered By: Dr. Barrios on 04-17-2022 ALP [Catalytic activity/Vol] 74 U/L 45-117 [facility] ALT [Catalytic activity/Vol] 25 U/L 13-56 [facility] Globulin (S) [Mass/Vol] 3.0 g/dL 2.2-4.2 [facility] Serum or plasma albumin john urement (mass/volume)Ordered By: Dr. Barrios on 04-17-2022 Albumin [Mass/Vol] 3.7 g/dL 3.2-5.0 [facility] Serum or plasma cholesterol in HDL measurement (mass/volume)Ordered By: Dr. Barrios on 04-17-2022 Cholesterol in HDL [Mass/Vol] 74 mg/dL >40 [facility] Comment on above: The drugs N-Acetylcy steine and Metamizole may falsely depress this assay. Reference Range HDL <40 mg/dL Low HDL Cholesterol HDL >or= 60 mg/dL High HDL Cholesterol Serum or plasma cholesterol in VLDL measurement (mass/volume)Ordered By: Dr. Barrios on 04-17-2022 Cholesterol in VLDL [Mass/Vol] 25 mg/dL 5-40 [facility] Serum or plasma low density lipoprotein (LDL) cholesterol measurement (mass/volume)Ordered By: Dr. Barrios on 04-17-2022 Cholesterol in LDL [Mass/Vol] 39 mg/dL 0-130 [facility] Thin prep Papanicolaou smear with manual screeningOrdered By: Dr. Barrios on 04-17-2022 Thin prep Papanicolaou smear with manual screening 19 U/L 15-37 [facility] No Panel Informationon 0727 -2022 Stool Neutral Fats Normal . [facility] Work Phone: Comment on above: Normal (<60 Droplets /HPF) Qualitative fecal fat or lip idson 10-25-2021 Fat Ql (Stl) Increased . [facility] Work Phone: Comment on above: Normal (<100 Droplet s/HPF)Performed at: [address] [id number] Director: Tirso Braxton PhD, Phone: [phone] Absolute lymphocyte counton 09-15-2021 Lymphocytes Auto (Unsp spec) [#/Vol] 0.79 10*3/uL 0.83-4.51 [facility] Work Phone: Basophil percentageon 2021 Basophils/100 WBC (Bld) 0.8 % 0-1 [facility] Work Phone: Bilirubin [Mass/Vol] 0.50 mg/dL 0.20-1.00 [facility] Work Phone: Comment on above: For patients on eltr ombopag therapy, use of Dimension [place] TBIL is not recommended. Chloride [Moles/Vol] 110 mmol/L 98-107 [facility] Work Phone: Eosinophils/100 WBC (Bld) 3.8 % 0-5 [facility] Work Phone: Glucose [Mass/Vol] 128 mg/dL 74-106 [facility] Work Phone: Comment on above: Fasting Glucose resu lt greater than or equal to 126 mg/dL suggests DIABETES MELLITUS per A.D.A. criteria. Neutrophils (Bld) [#/Vol] 2.6 10*3/uL 2.0-7.7 [facility] Work Phone: Neutrophils/100 WBC (Bld) 66.9 % 47-70 [facility] Work Phone: Potassium [Moles/Vol] 4.2 mmol/L 3.5-5.1 [facility] Work Phone: Protein [Mass/Vol] 6.3 g/dL 6.4-8.2 [facility] Work [facility]: Sodium [Moles/Vol] 141 mmol/L 136-145 [facility] Work Phone: WBC (Bld) [#/Vol] 3.9 10*3/uL 4.4-11.0 [facility] Work Phone: Blood erythrocytes count (nu mber/volume)on 09-15-2021 RBC (Bld) [#/Vol] 4.56 10*6/uL 4.2-5.4 [facility]: Blood hemoglobin measurement (mass/volume)on 09-15-2021 Hemoglobin (Bld) [Mass/Vol] 14.2 g/dL 12.0-15.0 [facility] Work Phone: Blood lymphocytes/100 leukoc yteson 09-15-2021 Lymphocytes/100 WBC (Bld) 20.1 % 19-41 [facility] Work Phone: Blood monocytes/100 leukocyt eson 09-15-2021 Monocytes/100 WBC (Bld) 7.1 % 0-10 [facility] Work Phone: Blood platelet mean volumeon 09-15-2021 Platelet mean volume (Bld) [Entitic vol] 9.5 fL 6.2-12.0 [facility] Work Phone: Determination of erythrocyte mean corpuscular volume (MCV)on 09-15-2021 MCV (RBC) [Entitic vol] 93.4 fL 81-99 [facility] Work Phone: Hematocrit Auto (Bld) [Volum e fraction]on 09-15-2021 Hematocrit (Bld) [Volume fraction] 42.6 % 37-47 [facility] Work Phone: Laboratory - Chemistry and C hemistry - challengeon 09-15-2021 ALP [Catalytic activity/Vol] 78 U/L 45-117 [facility] Work Phone: ALT [Catalytic activity/Vol] 21 U/L 13-56 [facility] Work Phone: CO2 [Moles/Vol] 25.0 mmol/L 21.0-32.0 [facility] Work Phone: Globulin (S) [Mass/Vol] 2.8 g/dL 2.2-4.2 [facility] Work Phone: Urea nitrogen/Creatinine [Mass ratio] 20.1 mg/mg 10-20 [facility] Work Phone: Laboratory - Hematology and Cell countson 09-15-2021 Erythrocyte distribution width (RBC) [Entitic vol] 44.2 fL 35.1-43.9 [facility] Work Phone: Erythrocyte distribution width (RBC) [Ratio] 12.9 % 11.6-14.6 [facility] Work Phone: Immature granulocytes/100 WBC (Bld) 1.300 % 0.0-0.9 [facility] Work Phone: Comment on above: IG% - Immature Granu locytes (promyelocytes, myelocytes and metamyelocytes) > 1% indicates that a LEFT SHIFT is Present. MCH (RBC) [Entitic mass] 31.1 pg 27.0-32.0 [facility] Work Phone: Nucleated RBC/100 WBC (Bld) [Ratio] 0 % 0-5 [facility] Work Phone: MCHC Auto (RBC) [Mass/Vol]on 09-15-2021 MCHC (RBC) [Mass/Vol] 33.3 g/dL 32-36 [facility] Work Phone: No Panel Informationon 09-15 Estimated GFR (MDRD) Amer 73 mL/min >60 [facility] Work Phone: Comment on above: GFR Calc Estimated GFR (MDRD) Non-Af Amer 61 mL/min >60 [facility] Work Phone: Comment on above: Non- GFR Calc Platelets bldon 09-15-2021 Platelets (Bld) [#/Vol] 205 10*3/uL 150-450 [facility] Work Phone: Serum or plasma albumin john urement (mass/volume)on 09-15-2021 Albumin [Mass/Vol] 3.5 g/dL 3.2-5.0 [facility] Work Phone: Serum or plasma albumin/glob ulin mass ratioon 09-15-2021 Albumin/Globulin [Mass ratio] 1.2 {ratio} 0.9-2.4 [facility] Work Phone: Serum or plasma calcium john urement (mass/volume)on 09-15-2021 Calcium [Mass/Vol] 9.7 mg/dL 8.5-10.1 [facility] Work Phone: Serum or plasma creatinine m easurement (mass/volume)on 09-15-2021 Creatinine [Mass/Vol] 0.94 mg/dL 0.55-1.02 [facility] Work Phone: Comment on above: The validity of the calculated GFR & GFRAA in patients over 70 years has not been determined. Clinical correlation is essential. Serum or plasma urea nitroge n measurement (mass/volume)on 09-15-2021 Urea nitrogen [Mass/Vol] 19 mg/dL 7-18 [facility] Work Phone: Thin prep Papanicolaou smear with manual screeningon 09-15-2021 Thin prep Papanicolaou smear with manual screening 14 U/L 15-37 [facility] Work Phone: Thin prep Papanicolaou smear with manual screening 6 5-15 [facility] Work Phone: Office Visit: Dc 02-19-20 Documentation of current medications (procedure) Done Invalid Interpretation Code [facility] Work Phone: Fall risk assessment No Invalid Interpretation Code [facility] Work Phone: [phone] Office Visiton 11-15-2016 Left ventricular Ejection fraction 60 % Invalid Interpretation Code [facility] Work Phone: [phone] Replaced Document: Per MON Observationson 11-15-2016 EKG QRS axis 34 deg Invalid Interpretation Code [facility] Work Phone: [phone] Interpretation Sinus Rhythm -Left atrial enlargement. - Negative precordial T-waves -Probably normal -consider anteroseptal ischemia. 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 The exam is rotated towards the right. The left diaphragm is elevated. No consolidation seen. No pneumothorax. Multilevel degenerative spurs seen in the spine. There are right upper quadrant surgical clips. IMPRESSION: Elevated left diaphragm. Interpreted By: John Chinchillareliminary Report By: John Chinchilla MDElectronically Signed By: John Chinchilla MD Dictated Date: 10/03/2016 12:37:50 PM Prelim Date: 10/03/2016 12:37:50 PM Sign Date: 10/03/2016 12:40:16 PM Normal [facility] Vital Signs Date Time Vital Sign Value Performing Clinician Guillermo dwo 09-07-2024 07:04-0400 Body height 162.[address] Joss Salas DO Work Phone: [facility] 09-07-2024 07:04-0400 Body mass index (BMI) [Ratio] 26.6 kg/m2 Dr. Joss Salas DO Work Phone: [facility] 09-07-2024 07:04-0400 Body weight 70.[address] Joss Salas DO Work Phone: [facility] 09-07-2024 07:04-0400 Diastolic blood pressure 76 mm[Hg] Dr. Joss Salas DO Work Phone: [facility] 09-07-2024 07:04-0400 Heart rate 63 /min Dr. Joss Salas DO Work Phone: [facility] 09-07-2024 07:04-0400 Respiratory rate 18 /min Dr. Joss Salas DO Work Phone: [facility] 09-07-2024 07:04-0400 SaO2% (BldA) [Mass fraction] 97 % Dr. Joss Salas DO Work Phone: [facility] 09-07-2024 07:04-0400 Systolic blood pressure 129 mm[Hg] Dr. Joss Salas DO Work Phone: [facility] 05-23-2023 10:28-0500 Body height 160.[address] Joss Salas Work Phone: [facility] 05-23-2023 10:28-0500 Body mass index (BMI) [Ratio] 27.1 kg/m2 Dr. Joss Salas Work Phone: [facility] 05-23-2023 10:28-0500 Body weight 69.[address] Joss Salas Work Phone: [facility] 05-23-2023 10:28-0500 Diastolic blood pressure 81 mm[Hg] Dr. Joss Salas Work Phone: [facility] 05-23-2023 10:28-0500 Heart rate 64 /min Dr. Joss Salas Work Phone: [facility] 05-23-2023 10:28-0500 Respiratory rate 18 /min Dr. Joss Salas Work Phone: [facility] 05-23-2023 10:28-0500 SaO2% (BldA) [Mass fraction] 97 % Dr. Joss Salas Work Phone: [facility] 05-23-2023 10:28-0500 Systolic blood pressure 132 mm[Hg] Dr. Joss Salas Work Phone: [facility] 05-04-2023 09:13-0500 Heart rate 83 /min Dr. Joss Salas Work Phone: [facility] 05-04-2023 09:11-0500 Body temperature 97.9 [degF] Dr. Joss Salas Work Phone: [facility] 05-04-2023 09:11-0500 Diastolic blood pressure 69 mm[Hg] Dr. Joss Salas Work Phone: [facility] 05-04-2023 09:11-0500 Respiratory rate 12 /min Dr. Joss Salas Work Phone: [facility] 05-04-2023 09:11-0500 SaO2% (BldA) [Mass fraction] 98 % Dr. Joss Salas Work Phone: [facility] 05-04-2023 09:11-0500 Systolic blood pressure 136 mm[Hg] Dr. Joss Salas Work Phone: [facility] 05-03-2023 16:42-0500 Body height 160.[address] Joss Salas Work Phone: [facility] 05-03-2023 16:42-0500 Body mass index (BMI) [Ratio] 26.9 kg/m2 Dr. Joss Salas Work Phone: [facility] 05-03-2023 16:42-0500 Body weight [address] Joss Salas Work Phone: [facility] 05-03-2023 14:28-0500 Diastolic blood pressure 73 mm[Hg] Dr. Joss Salas Work Phone: [facility] 05-03-2023 14:28-0500 Heart rate 63 /min Dr. Joss Salas Work Phone: [facility] 05-03-2023 14:28-0500 Respiratory rate 18 /min Dr. Joss Salas Work Phone: [facility] 05-03-2023 14:28-0500 SaO2% (BldA) [Mass fraction] 97 % Dr. Joss Salas Work Phone: [facility] 05-03-2023 14:28-0500 Systolic blood pressure 147 mm[Hg] Dr. Joss Salas Work Phone: [facility] 05-03-2023 11:41-0500 Body height 162.[address] Joss Salas Work Phone: [facility] 05-03-2023 11:41-0500 Body mass index (BMI) [Ratio] 26.7 kg/m2 Dr. Joss Salas Work Phone: [facility] 05-03-2023 11:41-0500 Body temperature 97.3 [degF] Dr. Joss Salas Work Phone: [facility] 05-03-2023 11:41-0500 Body weight 70.[address] Joss Salas Work Phone: [facility] 10-15-2022 14:33-0400 Body height 162.[address] Joss Salas Work Phone: [facility] 10-15-2022 14:33-0400 Body mass index (BMI) [Ratio] 21.2 kg/m2 Dr. Joss Salas Work Phone: [facility] 10-15-2022 14:33-0400 Body weight 56.[address] Joss Salas Work Phone: [facility] 10-15-2022 14:33-0400 Diastolic blood pressure 75 mm[Hg] Dr. Joss Salas Work Phone: [facility] 10-15-2022 14:33-0400 Heart rate 65 /min Dr. Joss Salas Work Phone: [facility] 10-15-2022 14:33-0400 Respiratory rate 18 /min Dr. Joss Salas Work Phone: [facility] 10-15-2022 14:33-0400 SaO2% (BldA) [Mass fraction] 96 % Dr. Joss Salas Work Phone: [facility] 10-15-2022 14:33-0400 Systolic blood pressure 125 mm[Hg] Dr. Joss Salas Work Phone: [facility] 04-16-2022 15:38-0500 Body height 162.[address] Joss Salas Work Phone: [facility] 04-16-2022 15:38-0500 Body mass index (BMI) [Ratio] 26.2 kg/m2 Dr. Joss Salas Work Phone: [facility] 04-16-2022 15:38-0500 Body weight 69.[address] Joss Salas Work Phone: [facility] 04-16-2022 15:38-0500 Diastolic blood pressure 64 mm[Hg] Dr. Joss Salas Work Phone: [facility] 04-16-2022 15:38-0500 Heart rate 76 /min Dr. Joss Salas Work Phone: [facility] 04-16-2022 15:38-0500 Respiratory rate 16 /min Dr. Joss Salas Work Phone: [facility] 04-16-2022 15:38-0500 Systolic blood pressure 120 mm[Hg] Dr. Joss Salas Work Phone: [facility] 08-30-2021 13:20-0400 Body height 162.[address] Joss Salas Work Phone: [facility] Work Phone: 08-30-2021 13:20-0400 Body weight 69.[address] Joss Salas Work Phone: [facility] Work Phone: 08-30-2021 13:20-0400 Diastolic blood pressure 76 mm[Hg] Dr. Joss Salas Work Phone: [facility] Work Phone: 08-30-2021 13:20-0400 Heart rate 61 /min Dr. Joss Salas Work Phone: [facility] Work Phone: 08-30-2021 13:20-0400 Respiratory rate 18 /min Dr. Joss Salas Work Phone: [facility] Work Phone: 08-30-2021 13:20-0400 SaO2% (BldA) [Mass fraction] 98 % Dr. Joss Salas Work Phone: [facility] Work Phone: 08-30-2021 13:20-0400 Systolic blood pressure 132 mm[Hg] Dr. Joss Salas Work Phone: [facility] Work Phone: 06-01-2021 11:41-0500 Body mass index (BMI) [Ratio] 26.2 kg/m2 Dr. Joss Salas Work Phone: [facility] Work Phone: 06-01-2021 11:41-0500 Body weight 69.[address] Joss Salas Work Phone: [facility] Work Phone: 06-01-2021 11:41-0500 Diastolic blood pressure 80 mm[Hg] Dr. Joss Salas Work Phone: [facility] Work Phone: 06-01-2021 11:41-0500 Heart rate 69 /min Dr. Joss Salas Work Phone: [facility] Work Phone: 06-01-2021 11:41-0500 Respiratory rate 18 /min Dr. Joss Salas Work Phone: [facility] Work Phone: 06-01-2021 11:41-0500 SaO2% (BldA) [Mass fraction] 98 % Dr. Joss Salas Work Phone: [facility] Work Phone: 06-01-2021 11:41-0500 Systolic blood pressure 127 mm[Hg] Dr. Joss Salas Work Phone: [facility] Work Phone: 10-20-2020 14:33-0400 Body mass index (BMI) [Ratio] 26.7 kg/m2 Dr. Joss Salas Work Phone: [facility] Work Phone: 02-18-2017 08:43-0500 BMI (Body Mass Index) 24.97 kg/m2 [facility] Work Phone: 02-18-2017 08:43-0500 BP Diastolic 62 mm[Hg] [facility] Work Phone: 02-18-2017 08:43-0500 BP Systolic 112 mm[Hg] [facility] Work Phone: 02-18-2017 08:43-0500 Height 160.02 cm [facility] Work Phone: 02-18-2017 08:43-0500 Pulse (Heart Rate) 84 /min [facility] Work Phone: 02-18-2017 08:43-0500 Respiratory Rate 20 /min Audeliatanesha Skelton [facility] Work Phone: 02-18-2017 08:43-0500 Weight 63.96 kg Audeliatanesha Skelton [facility] Work Phone: Encounters Encounter Date Encounter Type Care Provider Facility Start: 02-04-2025 End: 02-04-2025 Emergency department patient visit Vijay Chang Facility:[facility] Start: 01-19-2025 End: 01-19-2025 ambulatory Joss Josue Facility:[facility] Start: 09-09-2024 End: 09-09-[address] Joss Salas DO Work Phone: [facility] Work Phone: Start: 09-09-2024 End: 09-09-2024 Patient encounter procedure Malika Henson [employer] DEVELOPER-C -Laboratory Work Phone: Start: 09-09-2024 End: 09-09-2024 ambulatory Malika Henson Facility:[facility] Start: 09-07-2024 End: 09-07-2024 Patient encounter procedure Malika Henson NP-C -[facility] Work Phone: Start: 09-07-2024 End: 09-07-[address] Joss Salas DO Work Phone: [facility] Work Phone: Start: 03-09-2024 End: 03-09-2024 ambulatory Joss Salas [facility] Start: 02-18-2024 End: 02-18-2024 Emergency department patient visit Brian Savage Facility:[facility] Start: 06-03-2023 Non-patient / Non-visit Dr. Zulema Salas Work Phone: [facility] Work Phone: Start: 05-31-2023 Non-patient / Non-visit Dr. Zulema Salas Work Phone: [facility] Start: 05-31-2023 End: 05-31-[address] Joss Salas Work Phone: [facility] Work Phone: Start: 05-31-2023 End: 05-31-[address] [facility] Start: 05-23-2023 End: 05-23-[address] Joss Salas Work Phone: [facility] Work Phone: Start: 05-04-2023 Non-patient / Non-visit Dr. Zulema Salas Work Phone: [facility] Work Phone: Start: 05-04-2023 Non-patient / Non-visit Dr. Zulema Salas Work Phone: [facility] Start: 05-03-2023 Non-patient / Non-visit Dr. Zulema Salas Work Phone: [facility] Start: 05-03-2023 End: 05-04-2023 Evaluation and management of inpatient Dr. Joss Salas Work Phone: [facility]-Progressive Care Unit Work Phone: Start: 05-03-2023 End: 05-04-[address] Joss Salas Work Phone: [facility] Work Phone: Start: 05-03-2023 Non-patient / Non-visit Dr. Zulema Salas Work Phone: [facility] Work Phone: Start: 05-03-2023 End: 05-03-2023 Emergency department patient visit Dr. Joss Salas Work Phone: [facility]-Emergency Department Work Phone: Start: 01-09-2023 End: 01-09-[address] Joss Salas Work Phone: [facility] Work Phone: Start: 01-09-2023 End: 01-09-[address] Joss Salas Work Phone: [facility]-Outpatient Bone Densitometry Work Phone: Start: 10-15-2022 End: 10-15-[address] Joss Salas Work Phone: [facility] Work Phone: Start: 04-30-2022 End: 04-30-[address] Joss Salas Work Phone: [facility] Work Phone: Start: 04-30-2022 End: 04-30-[address] Joss Salas Work Phone: [facility]-Laboratory Start: 04-17-2022 End: 04-17-[address] Joss Salas Work Phone: [facility] Work Phone: Start: 04-17-2022 End: 04-17-[address] Joss Salas Work Phone: [facility]-Laboratory Start: 04-16-2022 End: 04-16-[address] Joss Salas Work Phone: [facility] Start: 10-25-2021 End: 10-25-[address] [facility] Start: 09-15-2021 End: 09-15-[address] [facility] Start: 08-30-2021 End: 08-30-[address] Joss Salas Work Phone: [facility] Start: 06-01-2021 End: 06-01-[address] Joss Salas Work Phone: [facility] Start: 10-03-2016 End: 10-04-2016 Ambulatory PHY WO ID REFERRING Facility:[facility] Procedures Date Procedure Procedure Detail Performing Clinician Start: 05-03-2023 Cardiovascular stres s test using pharmacologic stress agent Dr. Joss Salas Work Phone: Start: 05-03-2023 Plain chest X-ray Dr. Annia Salas Work Phone: Start: 01-09-2023 Dual energy X-ray absorptiometry Dr. Joss Salas Work Phone: Start: 02-18-2017 End: 02-18-2017 Follow Up [...] MD Start: 11-15-2016 End: 11-16-2016 Referral to stripping cutter and winder Elan jensen MD Start: 08-30-2016 History of coronary artery bypass grafting History of coronary artery bypass graft Dr. Joss Salas Work Phone: Comment on above: S/P CABG with HALL t o LAD, SVG to first diagonal, SVG to second diagonal, SVG to obtuse marginal, and SVG to PDA in August 2016; History of coronary artery bypass grafting Hx of CABG Dr. Joss Salas Work Phone: Plan of Treatment Date Care Activity Detail Author Start: 02-11-2025 ambulatory Ambulatory Facility:[facility] Start: 05-04-2023 Patient discharge [facility] Start: 05-03-2023 [facility] Start: 05-03-2023 Following clinical pathway protocol [facility] Start: 05-03-2023 Assessment of risk of venous thromboembolism [facility] Start: 05-03-2023 Inhalation therapy procedure [facility] Start: 05-03-2023 Insertion of catheter into peripheral vein [facility] Start: 05-03-2023 Measuring intake and output [facility] Start: 05-03-2023 Notification of physician [facility] Start: 05-03-2023 Providing care according to standard [facility] [facility] Start: 05-03-2023 Provision of activity privileges [facility] Start: 05-03-2023 Referral to stripping cutter and winder [facility] Start: 05-03-2023 Tobacco use cessation education [facility] Start: 05-03-2023 [facility] Start: 05-03-2023 Admission procedure [facility] Start: 05-03-2023 Hospital admission, emergency, from emergency room, medical nature [facility] Start: 05-03-2023 [facility] Start: 01-09-2023 Dual energy X-ray absorptiometry Dexa Bone Density Study [facility] Start: 01-09-2023 DXA Bone [Mass/Area] Bone density [facility] Start: 11-25-2017 End: 11-25-2017 Appointment Appointment [facility] Phone: Start: 02-18-2017 End: 02-18-2017 Follow Up Appt 9 months Follow Up Appt 9 months [facility] Phone: Start: 02-18-2017 End: 02-18-2017 PFM PFM [facility] Phone: Start: 11-15-2016 End: 11-21-2016 Cardiac Rehab Cardiac Re[facility] [address] [place], [address] [facility] Phone: Start: 11-15-2016 End: 11-15-2016 Cardiovascular stress test using treadmill Treadmill stress test (no imaging) [facility] Phone: Start: 11-15-2016 End: 11-15-2016 Ecg routine ecg w/least 12 lds w/i&r EKG (In office) [facility] Phone: Start: 11-15-2016 End: 11-15-2016 Follow Up Appt 3 months Follow Up Appt 3 months [facility] Phone: Start: 11-15-2016 End: 11-15-2016 MMM MMM [employer] Work Phone: Hepatic function panel [facility] Lipid 1996 panel - S apoorva or Plasma [facility] Patient referral [facility] Work Phone: Immunizations Immunization Date Immunization Notes Care Provider Fa [facility] 12-30-[address] Joss Salas Work Phone: [facility] 06-15-2020 Covid (Moderna) Dr. Joss rivera Work Phone: [facility] 05-18-2020 Covid (Moderna) Dr. Joss rivera Work Phone: [facility] 01-16-2016 influenza, injectabl e, quadrivalent, preservative free Dr. Joss Salas Work Phone: [facility] 01-16-2016 influenza, seasonal, injectable Dr. Joss Salas Work Phone: [facility] Payers Date Payer Category Payer Private Health Insurance [id number] 2024 Self-pay [id number] 2006 Unknown [id number] Medicare [id number] Unknown [id number] 2.16.8 [id number] Unknown [id number] 2.16.8 [id number] Unknown [id number] 2.16.8 [id number] Unknown [id number] 2.16.8 [id number] Unknown [id number] 2.16.8 [id number] Unknown [id number] 2.16.8 [id number] Unknown [id number] 2.16.8 [id number] Social History Date Type Detail Facility Start: 08-30-2021 End: 05-23-2023 Tobacco smoking status NHIS Unknown if ever smoked [facility] Start: 1940 Sex Assigned At Female W [facility] Start: 09-11-2016 Occasional [facility] Start: 09-11-2016 None [facility] Start: 09-11-2016 Spouse/ Signif icant Other [facility] Start: 09-11-2016 Non-smoker [facility] Start: 02-18-2024 Tobacco smoking status NHIS Never smoked tobacco (finding) [facility] Goals Date Patient Goal Desired Activity /State Functional Status Date Assessment Result Facility 05-04-2023 Functional status Ambulates [facility] Work Phone: Mental Status Date Assessment Result Facility 05-04-2023 Cognitive function Voice/Name [facility] Work Phone: 05-03-2023 Cognitive function Voice/Name [facility] Work Phone: Clinical Notes 08-30-2016 to 09-07-2024 Note Date & Type Note Facility 09-07-2024 Evaluation note Diagnosis Onset Date Resolution Postoperative atrial fibrillation acute September 07, 2024 3:02pm Atherosclerosis of [place] coronary artery of [place] heart without angina chronic September 07 025 3:02pm Essential hypertension chronic Ju 2024 3:02pm Mixed hyperlipidemia chronic September 07, 2024 3:02pm [facility] Work Phone: 1(961) 703-314802-02-2024 Consult note Author Lulu Knight [facility] May 03, 2023 4:58pm Note Date/Time May 03, 2023 4 :58pm [facility] Medical Records Department [address] [place] [address] Consultation - Cardiology 05/03/23 1652 MR#: [id number] Acct: [id number] Name: WESTON MASON Rep #:[id number] : 1940 82 From: Lulu Knight MD PCP: Dr. Joss Salas, DO Status:ADM LINDA Location: [place] [address] Assessment & Plan Assessment/Plan (1) History of CAD (coronary artery disease): (2) Hx of CABG: (3) History of coronary artery bypass graft: (4) Exertional dyspnea: (5) Angina pectoris: PLAN: 82-year-old patient admitted through the ED?[facility] With symptoms of left arm discomfort with increasing symptoms of shortness of breath on exertion. Evidently the symptoms have been for a couple of months andis worse with exertion relieved with rest. She been seen and followed at the cardiology clinic and she has been stable from cardiac standpoint Patient has history of CAD status post CABG August 2016 With HALL to LAD, SVG to OM, SVG to diagonal, SVG to PDA. Also had a history of hyperlipidemia and hypertension She usually checks her blood pressure at home she noted blood pressure elevated to the range of 170s. Card exam essentially normal Cardiac care plan recommendations; I reviewed the current evaluation in the hospital which included the EKG I do not see an significant ST?T abnormality in the EKG And the cardiac biomarkers have been negative. Also reviewed and discussed her current medication continue current treatment Will evaluate dysphagia and further with a D-dimer level as well Lexiscan sestamibi and echocardiogram which will be set up for tomorrow. Lulu Knight MD,FAC,[facility] HPI Consult Data Date of Consult: 05/03/23 HPI Narrative Reason for Consultation: Chest pain/unstable angina HPI Narrative: WESTON MASON, is a 82 F who presents [facility] Medical History Angina pectoris Arthritis Dyslipidemia Essential hypertension GERD (gastroesophageal reflux disease) Hemorrhoids Hypercalcemia Hypertension Mixed hyperlipidemia Myocardial infarct NSTEMI (non-ST elevated myocardial infarction) Osteoarthritis Osteoporosis Postoperative atrial fibrillation Vitamin D deficiency Wears hearing aid in both ears Home Medications aspirin 81 mg tablet,delayed release 81 mg PO DAILY@1999 heart health 11/26/16 [History Last Taken 05/03/23] sertraline 25 mg tablet 25 mg PO DAILY mental health 11/25/17 [History Last Taken 05/03/23] cholecalciferol (vitamin D3) 50 mcg (2,000 unit) tablet 2,000 unit PO DAILY vitamin 01/19/19 [History Last Taken 05/02/23] clindamycin HCl 150 mg capsule 150 mg PO ONCE PRN Dentist 06/01/21 [History Last Taken Unknown] metoprolol tartrate 25 mg tablet 25 mg PO BID #180 tabs 06/19/22 [Rx Last Taken 05/03/23] fosqda-pyozyarb-mnvdsqq 36,000-114,000-180,000 unit capsule,delay rel (Creon) 1 cap PO BID 10/15/22 [History Last Taken Unknown] apixaban 5 mg tablet (Eliquis) 5 mg PO BID #180 tabs 02/15/23 [Rx Last Taken 05/03/23] evolocumab 140 mg/mL subcutaneous pen injector (Repatha SureClick) 140 mg [id number] Hyperlipidemia, cannot take statins #2 mL 04/03/23 [Rx Last Taken 05/02/23] Al hyd-Mg tr-alg ac-sod bicarb 80 mg-14.2 mg chewable tablet (Gaviscon) 1 tab PODAILY PRN heartburn 05/03/23 [History Last Taken Unknown] ascorbic acid (vitamin C) 500 mg tablet (Vitamin C) 500 mg PO DAILY supplement 05/03/23 [History Last Taken 05/02/23] chlorhexidine gluconate 0.12 % mouthwash 15 ml PO BID dental implant 05/03/23 [History Last Taken Unknown] dexlansoprazole 60 mg capsule,biphase delayed release 60 mg PO DAILY heartburn 05/03/23 [History Last Taken 05/03/23] Allergy/AdvReac Type Severity Reaction Status Date / Time Vqtsuem-WUO-IwG Reductase AdvReac Severe myalgias Verified 10/15/22 14:33 Inhibitor [Qguagpq-Onk-Sfz Reductase Inhibitor] Penicillins AdvReac Itching Verified 10/15/22 14:33 Tetanus Vaccines and Toxoid AdvReac Swelling Verified 10/15/22 14:33 [Tetanus Vaccines & Toxoid] Family History Mother Heart disease Father Heart disease Brother Heart disease Brother Heart disease Sister Heart disease Surgical History History of cholecystectomy History of coronary artery bypass graft (~09/17/16) History of facial surgery History of foot surgery History of removal of cyst History of repair of right rotator cuff History of right hip replacement History of tubal ligation Social History Smoking Status: Never smoker alcohol intake: current alcohol intake frequency: a few times a month caffeine: No Physical Exam Cardio Cardio Narrative: Seen and evaluated bedside along with the nursing staff engine monitor showed normal sinus Cardiac exam S1-S2 regular Chest exam clear to auscultation bilaterally Examination lower extremity no lower extremity edema. Risk Stratification Risk Stratification Applicable: Yes Age >/= 65: Yes >/= 3 CAD Risk Factors (HTN, HLD, DM, family hx of CAD, or current smoker): Yes Aspirin Use in the Past 7 Days: Yes Severe Angina (>/= episodes in 24 hours): No EKG ST Changes >/= 0.5mm: No Positive Cardiac Marker: No GLORIA Risk Stratification Score: 3 GLORIA % Risk: 13% Risk Objective Data Vital Signs: Vital Signs Temp Pulse Resp BP Pulse Ox O2 Del Method 97.3 F L 63 18 147/73 H 97 Room Air 05/03/23 11:41 05/03/23 14:28 05/03/23 14:28 05/03/23 14:28 05/03/23 14:28 05/03/23 13:41 Oxygen Delivery Method Room Air Weight: 152 lb 1.903 oz Body Mass Index (BMI) 26.9 Lab / Micro Data 05/03/23 12:55 05/03/23 12:55 Labs: Laboratory Results - last 24 hr 05/03/23 12:55: WBC 4.8, RBC 4.67, Hgb 14.2, Hct 43.5, MCV 93.1, MCH 30.4, MCHC 32.6, RDW Std Deviation 43.4, RDW Coeff of Dimas 12.7, Plt Count 209, MPV 9.3, Immature Gran % (Auto) 0.600, Neut % (Auto) 74.5 H, Lymph % (Auto) 15.1 L, Bleckley % (Auto) 7.1, Eos % (Auto) 2.1, Baso % (Auto) 0.6, Absolute Neuts (auto) 3.5, Absolute Lymphs (auto) 0.72 L, Nucleated RBC % 0, Sodium 141, Potassium 4.3, Chloride 112 H, Carbon Dioxide 28.0, Anion Gap 1 L, BUN 14, Creatinine 0.77, Estim Creat Clear Calc 52.27, Est GFR (MDRD) Af Amer 92, Est GFR (MDRD) Non-Af 76, BUN/Creatinine Ratio 18.2, Glucose 99, Calcium 10.0, Troponin I High Sens 4 05/03/23 15:50: Troponin I High Sens 5 Rhythm Strip Rhythm Strip: Sinus Rhythm Rate: 80 Ectopy: None Cardiology Labs/Tests 05/03/23 12:55: WBC 4.8, RBC 4.67, Hgb 14.2, Hct 43.5, MCV 93.1, MCH 30.4, MCHC 32.6, Plt Count 209, MPV 9.3, Immature Gran % (Auto) 0.600, Neut % (Auto) 74.5 H, Lymph % (Auto) 15.1 L, Bleckley % (Auto) 7.1, Eos % (Auto) 2.1, Baso % (Auto) 0.6,Absolute Neuts (auto) 3.5, Nucleated RBC % 0, Sodium 141, Potassium 4.3, Chloride 112 H, Carbon Dioxide 28.0, Anion Gap 1 L, BUN 14, Creatinine 0.77, EstGFR (MDRD) Af Amer 92, Est GFR (MDRD) Non-Af 76, BUN/Creatinine Ratio 18.2, Glucose 99, Calcium 10.0 Rhythm: EKG: ECHO: Stress Test: Cardiac Cath: PCI: CT Surgery: Holter monitor: EPS: PPM: CXR: Chest CT Scan: Radiography Diagnostic Testing: Radiology Impression Chest X-Ray 05/03/23 12:45 IMPRESSION: No acute abnormality is seen. Electronically Signed: Matty Hannah MD at 13:23 EST Reading Location ID and State: [facility] / [place] , Service support , 05/03/23 [id number] <Electronically signed by Lulu Knight MD> Cosigner Signature (if applicable): CC: Dr. Lulu Knight MD; Dr. Joss Salas DO~ Signed [facility] Work Phone: 1(449) 110-287702-02-2024 Discharge summary Author Kee Sanchez [facility] May 03, 2023 4:23pm Note Date/Time May 03, 2023 1 2:54pm [facility] Medical Records Department [address] [place] [id number] Emergency Department Summary 05/03/23 MR#: [id number] Acct: [id number] Name: WESTON MASON Rep #:[id number] : 1940 82 From: Kee Sanchez MD PCP: Dr. Joss Salas DO Status:ADM LINDA Location: [place] [address] HPI History of Present Illness Chief Complaint: Upper Extremity Injury Detail of Chief Complaint: Exertional dyspnea for weeks to months. Atypical left arm pain. Informant: patient Onset/Context/Timing Onset: Weeks and Month(s) Context: gradual and exertion Timing: Intermittent Quality: Positive for Dyspnea on exertion Current Severity: Gone Maximum Severity: Mild Worsened by: Exertion Relieved by: Rest Associated Symptoms Negative for cough or rhinorrhea Chest Pain: Positive for None Narrative Narrative: 82-year-old female history of prior AK, A-fib, CAD on Eliquis. She had a 5 way bypass 78 years ago at [facility]. Patient states over the last several weeks to months she has had exertional dyspnea worse with steps and walking. She denies any chest pain. The last several days she has had 8 traumatic left arm pain that comes and goes. No history of DVT or PE. No recent cardiac workup. Denies recent stress test. PE Risk Factors: Negative for Cancer, OCP + Smoking + > 35, Prior DVT or PE, Recent immobilization, Recent surgery or Recent travel Prior similar symptoms: No Recent Illness/Hospitalization: No PFSH PFSH Medical History Angina pectoris Arthritis Dyslipidemia Essential hypertension GERD (gastroesophageal reflux disease) Hemorrhoids Hypercalcemia Hypertension Mixed hyperlipidemia Myocardial infarct NSTEMI (non-ST elevated myocardial infarction) Osteoarthritis Osteoporosis Postoperative atrial fibrillation Vitamin D deficiency Wears hearing aid in both ears Home Medications aspirin 81 mg tablet,delayed release 81 mg PO DAILY@1999 heart health 11/26/16 [History Last Taken 05/11/21] sertraline 25 mg tablet 25 mg PO DAILY mental health 11/25/17 [History Last Taken 05/12/21] cholecalciferol (vitamin D3) 50 mcg (2,000 unit) tablet 2,000 unit PO DAILY vitamin 01/19/19 [History Last Taken 05/12/21] alendronate 70 mg tablet 70 mg PO SA BONES 03/15/21 [History Last Taken 05/06/21] clindamycin HCl 150 mg capsule 150 mg PO ONCE PRN Dentist 06/01/21 [History Last Taken Unknown] hydroxychloroquine 200 mg tablet (Plaquenil) 300 mg PO DAILY arthritis 04/16/22 [History Last Taken Unknown] metoprolol tartrate 25 mg tablet 25 mg PO BID #180 tabs 06/19/22 [Rx Last Taken Unknown] nxswcu-xhhmmydk-jfdxdwf 36,000-114,000-180,000 unit capsule,delay rel (Creon) 1 cap PO BID 10/15/22 [History Last Taken Unknown] apixaban 5 mg tablet (Eliquis) 5 mg PO BID #180 tabs 02/15/23 [Rx Last Taken Unknown] evolocumab 140 mg/mL subcutaneous pen injector (Osbaldo RatliffKemaljoseph) 140 mg [id number] Hyperlipidemia, cannot take statins #2 mL 04/03/23 [Rx Last Taken Unknown] Allergy/AdvReac Type Severity Reaction Status Date / Time Hmioije-TNH-OhW Reductase AdvReac Severe myalgias Verified 10/15/22 14:33 Inhibitor [Gtuxazg-Ubm-Mlm Reductase Inhibitor] Penicillins AdvReac Itching Verified 10/15/22 14:33 Tetanus Vaccines and Toxoid AdvReac Swelling Verified 10/15/22 14:33 [Tetanus Vaccines & Toxoid] Family History Mother Heart disease Father Heart disease Brother Heart disease Brother Heart disease Sister Heart disease Surgical History History of cholecystectomy History of coronary artery bypass graft (~09/17/16) History of facial surgery History of foot surgery History of removal of cyst History of repair of right rotator cuff History of right hip replacement History of tubal ligation Social History Smoking Status: Never smoker alcohol intake: current alcohol intake frequency: a few times a month caffeine: No ROS ROS ED ROS Narrative Exertional dyspnea. Atypical left arm pain. Review of Systems ROS Unobtainable: Denies due to encephalopathy Constitutional Constitutional ED: Denies chills or fever(s) Eyes Eyes: Denies blurry vision ENT ENT ED: Denies ear pain Cardiovascular Cardiovascular: Denies chest pain, orthopnea, palpitations or racing heartbeat Respiratory/Chest Respiratory/Chest: Reports dyspnea and dyspnea on exertion; Denies cough or orthopnea Gastrointestinal Gastrointestinal: Denies abdominal pain Genitourinary Genitourinary ED: Denies dysuria or hematuria Musculoskeletal Musculoskeletal: Denies arthralgias, back pain or myalgias Integumentary Denies abscess or Abrasions Neurologic Neurologic: Denies headache(s) or paresthesias Psychiatric Psychiatric: Denies anxiety or depression Endocrine Endocrinology: Denies cold intolerance Hematologic/Lymphatic Hematologic/Lymphatic: Denies easy bleeding, easy bruising or lymphadenopathy Allergic/Immunologic Allergic/Immunologic ED: Denies mouth swelling, tongue swelling or urticaria EXAM Physical Exam Narrative Exam Narrative: 82-year-old female vital signs stable afebrile. Pulse ox 98% on room air no signs hypoxia. H EENT exam unremarkable. Neck nontender no JVD. Lungs are to auscultation bilaterally. Heart regular rate and rhythm rate about 80 no murmur. Chest wall nontender. Abdomen soft nontender. Moving all 4 extremities. Nontender no edema. Equal symmetrical radial pulses. Neurologically she is awake and alert with no focal motor deficits. Const Vital Signs: 05/03/23 11:41 05/03/23 12:58 05/03/23 13:01 Temperature 97.3 F L Temperature Source Temporal Pulse Rate 79 Respiratory Rate 16 Respiratory Effort Normal Blood Pressure 144/77 H Blood Pressure Mean 99 Pulse Ox 98 Oxygen Delivery Method Room Air Room Air Positive well nourished and well developed; Negative for obese, cachectic, contractures or unkempt General Appearance ED: well developed and NAD; Negative for unkempt, cachectic, contractures or pallor Nutritional Appearance: Negative for cachectic or obese HEENT Reports moist mucous membranes; Denies dry mucous membranes or other atraumatic; Negative for trauma, tenderness or other Mouth ED: No dry mucous membranes Mouth: No dry mucous membranes Eyes PERRL and EOMs intact bilaterally General Eye ED: Negative for pale conjunctiva, scleral icterus or other Neck no lymphadenopathy, supple, no meningeal signs and no JVD General: Negative for tenderness Lymph Lymphatic: Negative for other Chest Wall Chest: Negative for other Resp normal respiratory effort and clear to auscultation bilaterally Effort and Inspection: Negative for pain with movement Auscultation: Negative for rales, rhonchi or wheezes Cardio regular rate, regular rhythm, S1 normal heart sound, S2 normal heart sound and no murmurs Rate: Negative for bradycardia or tachycardic Rhythm: Negative for abnormal rhythm GI non-tender, non-distended and no masses Auscultation: normoactive bowel sounds Palpation: soft; Negative for tender, guarding or rebound tenderness present Back/Spine no CVA tenderness and normal to inspection General Back: Negative for CVA tenderness or tenderness Extremity normal to inspection General Extremety ED: Negative for edema or tenderness General Extremity: Negative for edema Neuro oriented x3 and CN's II-XII intact bilaterally Sensorium / Orientation: alert, oriented to person, oriented to place and oriented to time; Negative for orientation impaired or confused Speech: speech normal Motor Exam: strength 5/5 throughout Psych mental status grossly normal Appearance: Negative for unkempt Attitude: No agitated Mood & Affect: Negative for depressed, anxious or tearful Thought Process: normal thought process Skin no wounds and skin turgor normal General Skin Exam: Negative for jaundice or pallor Lesions: no lesions Rashes: no rashes Trauma: Negative for abrasion or laceration MDM MDM MDM Narrative Medical decision making narrative: 80-year-old female history of prior fibroid bypass and prior AK with exertional dyspnea progressing over the last several weeks to months. Today had atypical left arm pain that clinically did not appear to be musculoskeletal nor is reproducible. She will be put through a cardiac workup and discussion of inpatient versus outpatient stress testing. Repeat exam at 2:12 PM patient doing well. Symptom-free. She and I and her daughter discussed all her test results. Also her symptoms of exertional dyspnea now nonreproducible arm pain with her history of a 5 way bypass I think she needs stress testing or further cardiac workup they are comfortable with theplan. I have the hospitalist page. History & Record Review Discussion w/independent historian: Patient Additional record(s) reviewed:: Prior inpatient record, Prior outpatient record,Prior ED visit, Prior labs and No prior records Lab Data Attestation: I reviewed the patient's lab results. Lab results narrative: CBC normal. White count of 4. H&H 14 and 43. Platelets 209. Electrolytes gap of 1. Normal BUN and creatinine. Glucose 99. Initial troponin 4. Chest x-ray unremarkable. Labs: Laboratory Results - last 24 hr 05/03/23 12:55 WBC 4.8 RBC 4.67 Hgb 14.2 Hct 43.5 MCV 93.1 MCH 30.4 MCHC 32.6 RDW Std Deviation 43.4 RDW Coeff of Dimas 12.7 Plt Count 209 MPV 9.3 Immature Gran % (Auto) 0.600 Neut % (Auto) 74.5 H Lymph % (Auto) 15.1 L Bleckley % (Auto) 7.1 Eos % (Auto) 2.1 Baso % (Auto) 0.6 Absolute Neuts (auto) 3.5 Absolute Lymphs (auto) 0.72 L Nucleated RBC % 0 Sodium 141 Potassium 4.3 Chloride 112 H Carbon Dioxide 28.0 Anion Gap 1 L BUN 14 Creatinine 0.77 Estim Creat Clear Calc 52.27 Est GFR (MDRD) Af Amer 92 Est GFR (MDRD) Non-Af 76 BUN/Creatinine Ratio 18.2 Glucose 99 Calcium 10.0 Troponin I High Sens 4 Radiography Chest X-Ray - ED: 1 View, Read by ED Physician, Normal, Heart, Lungs, Mediastinum, Bony Structures, No Acute Disease and Chronic Changes Diagnostic Testing: Clinical Impression(s) from Imaging Studies Chest X-Ray 05/03/23 12:45 IMPRESSION: No acute abnormality is seen. Electronically Signed: Matty Hannah MD at 13:23 EST , Chest x-ray, portable, single view shows no acute abnormality. Interpreted bothby myself and radiologist. Prior sternotomy. Normal cardiac silhouette. No infiltrates. No effusions. Rhythm Strip Rhythm Strip: Sinus Rhythm Rate: 80 Ectopy: None EKG Initial EKG: Attestation: I personally reviewed and interpreted this EKG as follows: Interpretation: Sinus Rhythm and No Acute Injury Pattern Comments: Normal sinus rhythm rate 80 no acute signs of AK or ischemia. No dysrhythmia. No S1Q3T3. Discharge Plan Triage Chief Complaint: Upper Extremity Injury ED Provider: Kee Sanchez Dx/Rx/DC Orders Clinical Impression: Exertional dyspnea, Hx of CABG, History of CAD (coronary artery disease) Prescriptions: No Action sertraline 25 mg tablet 25 mg PO DAILY cholecalciferol (vitamin D3) 2,000 unit tablet 2,000 unit PO DAILY hydroxychloroquine [Plaquenil] 200 mg tablet 300 mg PO DAILY alendronate 70 mg tablet 70 mg PO SA clindamycin HCl 150 mg capsule 150 mg PO ONCE PRN (Reason: Dentist) Creon 36,000-114,000- 180,000 unit capsule,delayed release(DR/EC) 1 cap PO BID Rx Instructions: administer with meals and/or snacks aspirin 81 MG tablet 81 mg PO DAILY@2000 metoprolol tartrate 25 mg tablet 25 mg PO BID Qty: 180 3RF Eliquis 5 mg tablet 5 mg PO BID Qty: 180 4RF Repatha SureClick 140 mg/mL pen injector 140 mg SC Q2W Qty: 2 11RF Primary Care Provider: Joss Salas Referrals: Joss Salas DO [Primary Care Provider] - Disposition Disposition: Acute Care Hospital [facility] What to do if you have Problems For any increased pain, shortness of breath, bleeding, nausea or vomiting, chestpain, or any unexpected problems, contact your Primary Care Provider. Call [facility] ([phone]) or report to the closest Emergency Room. Call 911 if necessary. 05/03/23 1623 <Electronically signed by Kee Sanchez MD> Cosigner Signature (if applicable): CC: Dr. Joss Salas, ~ Signed [facility] Work Phone: 1(547) 180-167502-02-2024 History and physical note Author Rina Cosby [facility] May 03, 2023 3:05pm Note Date/Time May 03, 2023 3 :01pm [facility] Medical Records Department [address] [place] [address] H&P Exam - Hospitalist 05/03/23 1452 MR#: [id number] Acct: [id number] Name: WESTON MASON Rep #:[id number] : 1940 82 From: Rina Cosby MD PCP: Dr. Joss Salas DO Status:REG ER Location: ED HPI - General General Date of Admission: 05/03/23 Date of Service: 05/03/23 Chief Complaint: Arm pain and SOB HPI Narrative WESTON MASON, is a 82 F with a history of coronary artery disease status post CABG around 2016, A-fib on [facility], RA who presented to [facility] 05/03/2023 due to increasing shortness of breath on exertion and left armdiscomfort. Reports that the shortness of breath has been present for a couple of months and is worse with exertion and better with rest and over the past couple weeks she began to have dull left arm pain that radiates down her left arm has difficulty associating any relieving or exacerbating factors. In the EDworkup fairly benign however given patient's risk factors and history hospitalist contacted for admission for cardiac workup. Patient evaluated with family member at bedside and she reports she has been trying to ignore her symptoms thinking that maybe they will get better however today she is having shortness of breath and arm pain and overall was not feeling well and said that these are the same symptoms she had before she was evaluated and had to have herCABG after which her symptoms subsequently went away. No swelling in extremities, denies any other current complaints. [facility] Medical History Angina pectoris Arthritis Dyslipidemia Essential hypertension GERD (gastroesophageal reflux disease) Hemorrhoids Hypercalcemia Hypertension Mixed hyperlipidemia Myocardial infarct NSTEMI (non-ST elevated myocardial infarction) Osteoarthritis Osteoporosis Postoperative atrial fibrillation Vitamin D deficiency Wears hearing aid in both ears Home Medications aspirin 81 mg tablet,delayed release 81 mg PO DAILY@1999 heart health 11/26/16 [History Last Taken 05/03/23] sertraline 25 mg tablet 25 mg PO DAILY mental health 11/25/17 [History Last Taken 05/03/23] cholecalciferol (vitamin D3) 50 mcg (2,000 unit) tablet 2,000 unit PO DAILY vitamin 01/19/19 [History Last Taken 05/02/23] clindamycin HCl 150 mg capsule 150 mg PO ONCE PRN Dentist 06/01/21 [History Last Taken Unknown] metoprolol tartrate 25 mg tablet 25 mg PO BID #180 tabs 06/19/22 [Rx Last Taken 05/03/23] rxtmfv-jzzpjtnd-yssekxk 36,000-114,000-180,000 unit capsule,delay rel (Creon) 1 cap PO BID 10/15/22 [History Last Taken Unknown] apixaban 5 mg tablet (Eliquis) 5 mg PO BID #180 tabs 02/15/23 [Rx Last Taken 05/03/23] evolocumab 140 mg/mL subcutaneous pen injector (Repatha SureClick) 140 mg [id number] Hyperlipidemia, cannot take statins #2 mL 04/03/23 [Rx Last Taken 05/02/23] Al hyd-Mg tr-alg ac-sod bicarb 80 mg-14.2 mg chewable tablet (Gaviscon) 1 tab PODAILY PRN heartburn 05/03/23 [History Last Taken Unknown] ascorbic acid (vitamin C) 500 mg tablet (Vitamin C) 500 mg PO DAILY supplement 05/03/23 [History Last Taken 05/02/23] chlorhexidine gluconate 0.12 % mouthwash 15 ml PO BID dental implant 05/03/23 [History Last Taken Unknown] dexlansoprazole 60 mg capsule,biphase delayed release 60 mg PO DAILY heartburn 05/03/23 [History Last Taken 05/03/23] Allergy/AdvReac Type Severity Reaction Status Date / Time Egywbzj-EAV-QqM Reductase AdvReac Severe myalgias Verified 10/15/22 14:33 Inhibitor [Sjaabdc-Jxv-Iml Reductase Inhibitor] Penicillins AdvReac Itching Verified 10/15/22 14:33 Tetanus Vaccines and Toxoid AdvReac Swelling Verified 10/15/22 14:33 [Tetanus Vaccines & Toxoid] Family History Mother Heart disease Father Heart disease Brother Heart disease Brother Heart disease Sister Heart disease Surgical History History of cholecystectomy History of coronary artery bypass graft (~09/17/16) History of facial surgery History of foot surgery History of removal of cyst History of repair of right rotator cuff History of right hip replacement History of tubal ligation Social History Smoking Status: Never smoker alcohol intake: current alcohol intake frequency: a few times a month caffeine: No ROS ROS Narrative General: Denies fever/chills HENT: Denies headache, denies stuffy nose, denies sore throat EYES: Denies changes in vision Resp: Denies cough, increasing shortness of breath on exertion Cardiac: Denies chest pain does have pain into the left arm GI: Denies abdominal pain, denies changes in bowel, denies nausea/vomiting : Denies changes in urination Extremity: Denies swelling MSK: Denies weakness Neuro: Denies any numbness/tingling Heme: Denies any bleeding or bruising Skin: Denies rashes Psychiatric: No complaints voiced Vital Signs Vital Signs Vital Signs: 05/03/23 11:41 05/03/23 12:58 05/03/23 13:01 Temperature 97.3 F L Temperature Source Temporal Pulse Rate 79 Respiratory Rate 16 Respiratory Effort Normal Blood Pressure 144/77 H Blood Pressure Mean 99 Pulse Ox 98 Oxygen Delivery Method Room Air Room Air 05/03/23 13:41 05/03/23 14:28 Temperature Temperature Source Pulse Rate 71 63 Respiratory Rate 16 18 Respiratory Effort Blood Pressure 137/68 H 147/73 H Blood Pressure Mean 91 97 Pulse Ox 96 97 Oxygen Delivery Method Room Air Weight Weight: 70.624 kg Body Mass Index (BMI) 26.7 Physical Exam Narrative General: Alert, oriented, no apparent distress HEENT: Atraumatic, normocephalic Eyes: Anicteric, normal conjunctiva, extraocular movements grossly intact Neck: Supple Respiratory: Clear to auscultation bilaterally, normal respiratory effort Cardiovascular: Regular rate and rhythm GI: Soft, nontender, nondistended Extremities: No edema Musculoskeletal: Moving all extremities Neuro: No overt focal neurological deficits Skin: No rashes appreciated Psych: Cooperative Results Lab / Micro Data 05/03/23 12:55 05/03/23 12:55 Labs: Laboratory Results - last 24 hr 05/03/23 12:55: WBC 4.8, RBC 4.67, Hgb 14.2, Hct 43.5, MCV 93.1, MCH 30.4, MCHC 32.6, RDW Std Deviation 43.4, RDW Coeff of Dimas 12.7, Plt Count 209, MPV 9.3, Immature Gran % (Auto) 0.600, Neut % (Auto) 74.5 H, Lymph % (Auto) 15.1 L, Bleckley % (Auto) 7.1, Eos % (Auto) 2.1, Baso % (Auto) 0.6, Absolute Neuts (auto) 3.5, Absolute Lymphs (auto) 0.72 L, Nucleated RBC % 0, Sodium 141, Potassium 4.3, Chloride 112 H, Carbon Dioxide 28.0, Anion Gap 1 L, BUN 14, Creatinine 0.77, Estim Creat Clear Calc 52.27, Est GFR (MDRD) Af Amer 92, Est GFR (MDRD) Non-Af 76, BUN/Creatinine Ratio 18.2, Glucose 99, Calcium 10.0, Troponin I High Sens 4 Rhythm Strip Rhythm Strip: Sinus Rhythm Rate: 80 Ectopy: None Imaging Radiology Impression Chest X-Ray 05/03/23 12:45 IMPRESSION: No acute abnormality is seen. Electronically Signed: Matty Hannah MD at 13:23 EST , Assessment & Plan Assessment/Plan (1) Dyspnea: (2) Atherosclerosis of [place] coronary artery of [place] heart without angina pectoris: (3) Essential hypertension: (4) GERD (gastroesophageal reflux disease): (5) Postoperative atrial fibrillation: PLAN: Plan #SOB and arm pain, concern for anginal equivalent -Has history of CABG in 2016 and reports she had the same symptoms leading up tothat and the symptoms resolved after intervention -Patient had a stress test in 2021 which was negative, given patient's history and symptoms unclear if repeating stress test is of high utility as if it was negative I would still have suspicion that this could be anginal equivalent so we will consult cardiology for stress versus cath -EKG normal sinus rhythm with rate of 80 -Initial troponin 4, will trend troponin -Will order echo -Aspirin, patient intolerant of statins -Continue beta-fabián -Lipid panel in the a.m. -Heart healthy diet, n.p.o. at midnight in the event patient does require any testing or intervention # A-fib -Presently normal sinus rhythm -Continue metoprolol -Continue Eliquis #Rheumatoid arthritis -Patient on hydroxychloroquine #HPL -Intolerant of statins -On repatha at home #GERD -Continue PPI -Not complaining of any symptoms of GERD # Depression -Does not seem to be presently having any symptoms -Continue sertraline #DVT ppx: Sol Cosby MD Charges/Coding Visit Charges Inpatient E&M: 63349 Init Hosp L2 05/03/23 1505 <Electronically signed by Rina Cosby MD> Cosigner Signature (if applicable): CC: Dr. Joss Salas, DO; Dr. Rina Cosby MD~ Signed [facility] Work Phone: [phone] Evaluation note* Diagnosis Onset Date Resolution Status Postoperative atrial fibrillation acute [id number] chronic Essential hypertension chron ic History of coronary artery bypass graft August, chronic Mixed hyperlipidemia chronic Postoperative atrial fibrillation acute [id number] chronic Essential hypertension chron ic Mixed hyperlipidemia chronic [facility] Work Phone: [phone]) 916-813506-01-2017 Evaluation note* Diagnosis Onset Date Resolution Status Postoperative atrial fibrillation acute [id number] chronic Essential hypertension chron ic History of coronary artery bypass graft August, chronic Mixed hyperlipidemia chronic [facility] Work Phone: [phone] Evaluation note* Diagnosis Onset Date Resolution Status Dyspnea acute Exertional dyspnea acute History of CAD (coronary artery disease) acute History of coronary artery bypass graft August, chronic Postoperative atrial fibrillation acute [id number] chronic Essential hypertension chron ic GERD (gastroesophageal reflux disease) chronic Angina pectoris resolved [facility] Work Phone: [phone] 226-658206-01-2017 Evaluation note* Diagnosis Onset Date Resolution Status Dyspnea acute Exertional dyspnea acute History of CAD (coronary artery disease) acute History of coronary artery bypass graft August, chronic Postoperative atrial fibrillation acute [id number] chronic Essential hypertension chron ic GERD (gastroesophageal reflux disease) chronic Angina pectoris resolved Dizziness acute Postoperative atrial fibrillation acute [id number] chronic Essential hypertension chron ic Mixed hyperlipidemia chronic [facility] Work Phone: Discharge summary Author Neftaly Yanez [facility] May 04, 2023 1:04pm Note Date/Time May 04, 2023 1 :00pm [facility] Medical Records Department [address] [place] [address] Instructions for Home/Discharge Instructions 05/04/23 1259 MR#: [id number] Acct: [id number] Name: WESTON MASON Rep #:[id number] : 1940 82 From: Neftaly correa MD PCP: Dr. Joss Salas, DO Status:ADM LINDA Discharge Instructions Diet Discharge Diet: Low fat / Low cholesterol Activity Discharge Activity: Return to Normal Activity Dressing / Incision Call your doctor if you observe: Fever of 101 or Higher, Shortness of breath, Dizziness, Fainting spells, Swelling in the ankles, Chest pain and Increased palpitations (irregular heartbeat) Follow Up Care Test Results: Test results from this visit will be discussed in further detail at your follow- up appointment, if applicable. Discharge Plan Admission Admit Date/Time: 05/03/23 15:00 Attending Provider: Neftaly Yanez Primary Care Provider: Joss Salas Consulting Providers: Lulu Knight; Rina Cosby Discharge Orders/Prescriptions Prescriptions: Continued sertraline 25 mg tablet 25 mg PO DAILY cholecalciferol (vitamin D3) 2,000 unit tablet 2,000 unit PO DAILY clindamycin HCl 150 mg capsule 150 mg PO ONCE PRN (Reason: Dentist) Patient Comments: pt state she takes when she goes to the dentist. taken in april, but not within the past week. Creon 36,000-114,000- 180,000 unit capsule,delayed release(DR/EC) 1 cap PO BID Patient Comments: pt states she hasnt had med in about 3 weeks, on backorder Rx Instructions: administer with meals and/or snacks aspirin 81 MG tablet 81 mg PO DAILY@2000 dexlansoprazole 60 mg capsule,biphase delayed releas 60 mg PO DAILY Rx Instructions: takes in am Gaviscon 80-14.2 mg tablet,chewable 1 tab PO DAILY PRN (Reason: heartburn) chlorhexidine gluconate 0.12 % mouthwash 15 ml PO BID Patient Comments: daughter states she is going to take a cotton ball and dab some of this mouthwash on dental implant. implant scheduled for 05/29/23, pt not using this med yet ascorbic acid (vitamin C) [Vitamin C] 500 mg tablet 500 mg PO DAILY metoprolol tartrate 25 mg tablet 25 mg PO BID Qty: 180 3RF Eliquis 5 mg tablet 5 mg PO BID Qty: 180 4RF Repatha SureClick 140 mg/mL pen injector 140 mg SC Q2W Qty: 2 11RF Referrals / Follow Up: Jorge L Merchant MD [Med Staff - Active Staff] - Within 1 Month Joss Salas DO [Primary Care Provider] - Within 1 Week Disposition Disposition (needs filled in before D/C Order can be placed): Home, Self Care 05/04/23 1304<Electronically signed by Neftaly Yanez MD>Neftaly Yanez MD CC: Dr. Lulu Knight MD; Dr. Joss Salas DO; Dr. Rina Cosby MD ~ Signed [facility] Work Phone: Evaluation note* Diagnosis Onset Date Resolution Status Postoperative atrial fibrillation acute [id number] chronic Essential hypertension chron ic Mixed hyperlipidemia chronic [facility] Work Phone: Evaluation noteNo assessment information available [facility] Work Phone: Evaluation note* Diagnosis Onset Date Resolution Status Admit Date Postoperative atrial fibrillation ac franky September 07, 2024 3:02pm Atherosclerosis of [place] coronary artery of [place] heart without angina chronic September 07, 2024 3 :02pm Essential hypertension chronic Ju 2024 3:02pm Mixed hyperlipidemia chronic September 07, 2024 3:02pm [facility] Work Phone: History and physical note Author Rina Cosby [facility] May 03, 2023 3:05pm Note Date/Time May 03, 2023 3 :01pm [facility] Medical Records Department [address] [place] [address] H&P Exam - Hospitalist 05/03/23 1452 MR#: [id number] Acct: [id number] Name: WESTON MASON Rep #:[id number] : 1940 82 From: Rina Cosby MD PCP: Dr. Joss Salas, DO Status:REG ER Location: ED HPI - General General Date of Admission: 05/03/23 Date of Service: 05/03/23 Chief Complaint: Arm pain and SOB HPI Narrative WESTON MASON, is a 82 F with a history of coronary artery disease status post CABG around 2016, A-fib on [facility] who presented to [facility] 05/03/2023 due to increasing shortness of breath on exertion and left armdiscomfort. Reports that the shortness of breath has been present for a couple of months and is worse with exertion and better with rest and over the past couple weeks she began to have dull left arm pain that radiates down her left arm has difficulty associating any relieving or exacerbating factors. In the EDworkup fairly benign however given patient's risk factors and history hospitalist contacted for admission for cardiac workup. Patient evaluated with family member at bedside and she reports she has been trying to ignore her symptoms thinking that maybe they will get better however today she is having shortness of breath and arm pain and overall was not feeling well and said that these are the same symptoms she had before she was evaluated and had to have herCABG after which her symptoms subsequently went away. No swelling in extremities, denies any other current complaints. [facility] Medical History Angina pectoris Arthritis Dyslipidemia Essential hypertension GERD (gastroesophageal reflux disease) Hemorrhoids Hypercalcemia Hypertension Mixed hyperlipidemia Myocardial infarct NSTEMI (non-ST elevated myocardial infarction) Osteoarthritis Osteoporosis Postoperative atrial fibrillation Vitamin D deficiency Wears hearing aid in both ears Home Medications aspirin 81 mg tablet,delayed release 81 mg PO DAILY@2000 heart health 11/26/16 [History Last Taken 05/03/23] sertraline 25 mg tablet 25 mg PO DAILY mental health 11/25/17 [History Last Taken 05/03/23] cholecalciferol (vitamin D3) 50 mcg (2,000 unit) tablet 2,000 unit PO DAILY vitamin 01/19/19 [History Last Taken 05/02/23] clindamycin HCl 150 mg capsule 150 mg PO ONCE PRN Dentist 06/01/21 [History Last Taken Unknown] metoprolol tartrate 25 mg tablet 25 mg PO BID #180 tabs 06/19/22 [Rx Last Taken 05/03/23] ulcjih-wtezsako-xxrqsqr 36,000-114,000-180,000 unit capsule,delay rel (Creon) 1 cap PO BID 10/15/22 [History Last Taken Unknown] apixaban 5 mg tablet (Eliquis) 5 mg PO BID #180 tabs 02/15/23 [Rx Last Taken 05/03/23] evolocumab 140 mg/mL subcutaneous pen injector (Repatha SureClick) 140 mg [id number] Hyperlipidemia, cannot take statins #2 mL 04/03/23 [Rx Last Taken 05/02/23] Al hyd-Mg tr-alg ac-sod bicarb 80 mg-14.2 mg chewable tablet (Gaviscon) 1 tab PODAILY PRN heartburn 05/03/23 [History Last Taken Unknown] ascorbic acid (vitamin C) 500 mg tablet (Vitamin C) 500 mg PO DAILY supplement 05/03/23 [History Last Taken 05/02/23] chlorhexidine gluconate 0.12 % mouthwash 15 ml PO BID dental implant 05/03/23 [History Last Taken Unknown] dexlansoprazole 60 mg capsule,biphase delayed release 60 mg PO DAILY heartburn 05/03/23 [History Last Taken 05/03/23] Allergy/AdvReac Type Severity Reaction Status Date / Time Ljqdyhy-UAF-KwQ Reductase AdvReac Severe myalgias Verified 10/15/22 14:33 Inhibitor [Ivfrvpo-Xav-Ohz Reductase Inhibitor] Penicillins AdvReac Itching Verified 10/15/22 14:33 Tetanus Vaccines and Toxoid AdvReac Swelling Verified 10/15/22 14:33 [Tetanus Vaccines & Toxoid] Family History Mother Heart disease Father Heart disease Brother Heart disease Brother Heart disease Sister Heart disease Surgical History History of cholecystectomy History of coronary artery bypass graft (~09/17/16) History of facial surgery History of foot surgery History of removal of cyst History of repair of right rotator cuff History of right hip replacement History of tubal ligation Social History Smoking Status: Never smoker alcohol intake: current alcohol intake frequency: a few times a month caffeine: No ROS ROS Narrative General: Denies fever/chills HENT: Denies headache, denies stuffy nose, denies sore throat EYES: Denies changes in vision Resp: Denies cough, increasing shortness of breath on exertion Cardiac: Denies chest pain does have pain into the left arm GI: Denies abdominal pain, denies changes in bowel, denies nausea/vomiting : Denies changes in urination Extremity: Denies swelling MSK: Denies weakness Neuro: Denies any numbness/tingling Heme: Denies any bleeding or bruising Skin: Denies rashes Psychiatric: No complaints voiced Vital Signs Vital Signs Vital Signs: 05/03/23 11:41 05/03/23 12:58 05/03/23 13:01 Temperature 97.3 F L Temperature Source Temporal Pulse Rate 79 Respiratory Rate 16 Respiratory Effort Normal Blood Pressure 144/77 H Blood Pressure Mean 99 Pulse Ox 98 Oxygen Delivery Method Room Air Room Air 05/03/23 13:41 05/03/23 14:28 Temperature Temperature Source Pulse Rate 71 63 Respiratory Rate 16 18 Respiratory Effort Blood Pressure 137/68 H 147/73 H Blood Pressure Mean 91 97 Pulse Ox 96 97 Oxygen Delivery Method Room Air Weight Weight: 70.624 kg Body Mass Index (BMI) 26.7 Physical Exam Narrative General: Alert, oriented, no apparent distress HEENT: Atraumatic, normocephalic Eyes: Anicteric, normal conjunctiva, extraocular movements grossly intact Neck: Supple Respiratory: Clear to auscultation bilaterally, normal respiratory effort Cardiovascular: Regular rate and rhythm GI: Soft, nontender, nondistended Extremities: No edema Musculoskeletal: Moving all extremities Neuro: No overt focal neurological deficits Skin: No rashes appreciated Psych: Cooperative Results Lab / Micro Data 05/03/23 12:55 05/03/23 12:55 Labs: Laboratory Results - last 24 hr 05/03/23 12:55: WBC 4.8, RBC 4.67, Hgb 14.2, Hct 43.5, MCV 93.1, MCH 30.4, MCHC 32.6, RDW Std Deviation 43.4, RDW Coeff of Dimas 12.7, Plt Count 209, MPV 9.3, Immature Gran % (Auto) 0.600, Neut % (Auto) 74.5 H, Lymph % (Auto) 15.1 L, Bleckley % (Auto) 7.1, Eos % (Auto) 2.1, Baso % (Auto) 0.6, Absolute Neuts (auto) 3.5, Absolute Lymphs (auto) 0.72 L, Nucleated RBC % 0, Sodium 141, Potassium 4.3, Chloride 112 H, Carbon Dioxide 28.0, Anion Gap 1 L, BUN 14, Creatinine 0.77, Estim Creat Clear Calc 52.27, Est GFR (MDRD) Af Amer 92, Est GFR (MDRD) Non-Af 76, BUN/Creatinine Ratio 18.2, Glucose 99, Calcium 10.0, Troponin I High Sens 4 Rhythm Strip Rhythm Strip: Sinus Rhythm Rate: 80 Ectopy: None Imaging Radiology Impression Chest X-Ray 05/03/23 12:45 IMPRESSION: No acute abnormality is seen. Electronically Signed: Matty Hannah MD at 13:23 EST , Assessment & Plan Assessment/Plan (1) Dyspnea: (2) Atherosclerosis of [place] coronary artery of [place] heart without angina pectoris: (3) Essential hypertension: (4) GERD (gastroesophageal reflux disease): (5) Postoperative atrial fibrillation: PLAN: Plan #SOB and arm pain, concern for anginal equivalent -Has history of CABG in 2017 and reports she had the same symptoms leading up tothat and the symptoms resolved after intervention -Patient had a stress test in 2021 which was negative, given patient's history and symptoms unclear if repeating stress test is of high utility as if it was negative I would still have suspicion that this could be anginal equivalent so we will consult cardiology for stress versus cath -EKG normal sinus rhythm with rate of 80 -Initial troponin 4, will trend troponin -Will order echo -Aspirin, patient intolerant of statins -Continue beta-fabián -Lipid panel in the a.m. -Heart healthy diet, n.p.o. at midnight in the event patient does require any testing or intervention # A-fib -Presently normal sinus rhythm -Continue metoprolol -Continue Eliquis #Rheumatoid arthritis -Patient on hydroxychloroquine #HPL -Intolerant of statins -On repatha at home #GERD -Continue PPI -Not complaining of any symptoms of GERD # Depression -Does not seem to be presently having any symptoms -Continue sertraline #DVT ppx: Sol Cosby MD Charges/Coding Visit Charges Inpatient E&M: 87298 Init Hosp L2 05/03/23 1505 <Electronically signed by Rina Cosby MD> Cosigner Signature (if applicable): CC: Dr. Joss Salas DO; Dr. Rina Cosby MD~ Signed [facility] Work Phone: Progress note Author Lulu Knight [facility] May 04, 2023 12:29pm Note Date/Time May 04, 2023 1 2:29pm [facility] Medical Records Department [address] [place] [address] Progress Note - Cardiology 05/04/23 1225 MR#: [id number] Acct: [id number] Name: WESTON MASON Rep #:[id number] : 1940 82 From: Lulu Knight MD PCP: Dr. Joss Salas, DO Status:ADM LINDA Location: [place] [address] Subjective Subjective Seen and evaluated today at bedside along with the nursing staff Symptoms of chest pain resolved no further reported symptoms Objective Data Vital Signs: Vital Signs Temp Pulse Resp BP Pulse Ox O2 Del Method 97.9 F 83 12 136/69 H 98 Room Air 05/04/23 09:11 05/04/23 09:13 05/04/23 09:11 05/04/23 09:11 05/04/23 09:11 05/04/23 09:11 Oxygen Delivery Method Room Air Weight: 152 lb 1.903 oz Body Mass Index (BMI) 26.9 Intake & Output: Intake and Output for Last 24 Hours 05/02/23 05/03/23 05/04/23 23:59 23:59 23:59 Intake Total 240 / 540 300 / 300 Balance 240 / 540 300 / 300 Lab / Micro Data 05/04/23 05:29 05/04/23 05:29 Labs: Laboratory Results - last 24 hr 05/03/23 12:55: WBC 4.8, RBC 4.67, Hgb 14.2, Hct 43.5, MCV 93.1, MCH 30.4, MCHC 32.6, RDW Std Deviation 43.4, RDW Coeff of Dimas 12.7, Plt Count 209, MPV 9.3, Immature Gran % (Auto) 0.600, Neut % (Auto) 74.5 H, Lymph % (Auto) 15.1 L, Bleckley % (Auto) 7.1, Eos % (Auto) 2.1, Baso % (Auto) 0.6, Absolute Neuts (auto) 3.5, Absolute Lymphs (auto) 0.72 L, Nucleated RBC % 0, D-Dimer Quant (PE/DVT) 0.34, Sodium 141, Potassium 4.3, Chloride 112 H, Carbon Dioxide 28.0, Anion Gap 1 L, BUN 14, Creatinine 0.77, Estim Creat Clear Calc 52.27, Est GFR (MDRD) Af Amer 92, Est GFR (MDRD) Non-Af 76, BUN/Creatinine Ratio 18.2, Glucose 99, Calcium 10.0, Troponin I High Sens 4 05/03/23 15:50: Troponin I High Sens 5 05/03/23 19:17: Troponin I High Sens 4 05/04/23 05:29: WBC 4.2 L, RBC 4.36, Hgb 13.1, Hct 39.6, MCV 90.8, MCH 30.0, MCHC 33.1, RDW Std Deviation 41.8, RDW Coeff of Dimas 12.7, Plt Count 183, MPV 9.5, Immature Gran % (Auto) 0.500, Neut % (Auto) 71.0 H, Lymph % (Auto) 17.2 L, Bleckley % (Auto) 8.5, Eos % (Auto) 2.1, Baso % (Auto) 0.7, Absolute Neuts (auto) 3.0, Absolute Lymphs (auto) 0.73 L, Nucleated RBC % 0, Sodium 141, Potassium 4.1, Chloride 112 H, Carbon Dioxide 26.0, Anion Gap 3 L, BUN 13, Creatinine 0.67, Estim Creat Clear Calc 50.53, Est GFR (MDRD) Af Amer 108, Est GFR (MDRD) Non-Af 89, BUN/Creatinine Ratio 19.3, Glucose 115 H, Calcium 9.6, Triglycerides 145, Cholesterol 120, LDL Cholesterol 31, VLDL Cholesterol 29, HDL Cholesterol 60, TSH 2.27 Rhythm Strip Rhythm Strip: Sinus Rhythm Rate: 80 Ectopy: None Cardiology Labs/Tests 05/03/23 12:55: WBC 4.8, RBC 4.67, Hgb 14.2, Hct 43.5, MCV 93.1, MCH 30.4, MCHC 32.6, Plt Count 209, MPV 9.3, Immature Gran % (Auto) 0.600, Neut % (Auto) 74.5 H, Lymph % (Auto) 15.1 L, [place]ck[place] % (Auto) 7.1, Eos % (Auto) 2.1, Baso % (Auto) 0.6,Absolute Neuts (auto) 3.5, Nucleated RBC % 0, D-Dimer Quant (PE/DVT) 0.34, Sodium 141, Potassium 4.3, Chloride 112 H, Carbon Dioxide 28.0, Anion Gap 1 L, BUN 14, Creatinine 0.77, Est GFR (MDRD) Af Amer 92, Est GFR (MDRD) Non-Af 76, BUN/Creatinine Ratio 18.2, Glucose 99, Calcium 10.0 05/04/23 05:29: WBC 4.2 L, RBC 4.36, Hgb 13.1, Hct 39.6, MCV 90.8, MCH 30.0, MCHC 33.1, Plt Count 183, MPV 9.5, Immature Gran % (Auto) 0.500, Neut % (Auto) 71.0 H, Lymph % (Auto) 17.2 L, [place] % (Auto) 8.5, Eos % (Auto) 2.1, Baso % (Auto) 0.7, Absolute Neuts (auto) 3.0, Nucleated RBC % 0, Sodium 141, Potassium 4.1, Chloride 112 H, Carbon Dioxide 26.0, Anion Gap 3 L, BUN 13, Creatinine 0.67, Est GFR (MDRD) Af Amer 108, Est GFR (MDRD) Non-Af 89, BUN/Creatinine Ratio19.3, Glucose 115 H, Calcium 9.6, Triglycerides 145, Cholesterol 120, LDL Cholesterol 31, VLDL Cholesterol 29, HDL Cholesterol 60 Rhythm: EKG: ECHO: Stress Test: Cardiac Cath: PCI: CT Surgery: Holter monitor: EPS: PPM: CXR: Chest CT Scan: Radiography Diagnostic Testing: Radiology Impression Chest X-Ray 05/03/23 12:45 IMPRESSION: No acute abnormality is seen. Electronically Signed: Matty Hannah MD at 13:23 EST , Assessment & Plan Assessment/Plan (1) History of CAD (coronary artery disease): (2) History of coronary artery bypass graft: (3) Hx of CABG: (4) Exertional dyspnea: PLAN: Plan 82-year-old patient with known history of CAD -CABG 2017 Paroxysmal A-fib has been on Eliquis. Presented to the hospital with increasingsymptoms of shortness of breath on exertion and symptoms of chest pain with someradiation to the left arm She had further evaluation by nuclear stress test which showed no evidence of reversible ischemia. Cardiac care plan recommendation I reviewed and discussed all her current medication. Patient has a extensive cardiac history with a history of CABG 2017 With HALL to LAD, SVG to diagonal, SVG to OM and SVG to PDA. Also she has a atrial fibrillation and has been on anticoagulation with Eliquis. 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 Underlying cardiac rhythm is normal sinus And the EKG showed normal sinus rhythm Recommend to follow-up with the cardiology team to establish for cardiac care Patient can be discharged from cardiac standpoint. 05/04/23 1229 <Electronically signed by Lulu Knight MD> Cosigner Signature (if applicable): CC: ~ Signed [facility] Work Phone: Reason for referral (narrative)No reason for referral information availableHenry [facility] Work Phone: Summary Purpose Family History No Family History Records Found Relationship Condition Age at Onset Recorded Date/T francois mother Cardiac disease Unknown father Cardiac disease Unknown brother Cardiac disease Unknown sister Cardiac disease Unknown Advance Directives No Advanced Directives Records Found Advance Directive Response Recorded Date/ Time Advance Directives Yes April 11, 2015 9:17am Living Will Yes May 12 7:39pm Power of Fingerprint Clerk No May 12, 2021 7:39pm Advance Directive Response Recorded Date/ Time Advance Directives Yes April 11, 2015 8:17am Living Will Yes May 12 6:39pm Power of Fingerprint Clerk No May 12, 2021 6:39pm Advance Directive Response Recorded Date/ Time Name of Medical Power of Fingerprint Clerk Vicki - [facility] May 03, 2023 12:58pm Advance Directives Yes April 11, 2015 8:17am Living Will Yes May 03 12:58pm Power of Fingerprint Clerk Yes May 03, 2023 12:58pm Advance Directive Response Recorded Date/ Time Name of Medical Power of Fingerprint Clerk Vicki - [facility] May 03, 2023 12:58pm Advance Directives Yes April 11, 2015 8:17am Living Will Yes May 03 4:56pm Power of Fingerprint Clerk No May 03, 2023 4:56pm Advance Directive Response Recorded Date/ Time Advance Directives Yes April 11, 2015 9:17am Chief Complaint and Reason for Visit Chief Complaint CP 10 m fu K21.0, Q66.7 Reason for Visit Postoperative atrial fibrillation [id number] Essential hypertension History of coronary artery bypass graft Mixed hyperlipidemia Postoperative atrial fibrillation [id number] Essential hypertension Mixed hyperlipidemia Chief Complaint 10 m fu K21.0, Q66.7 STOOL FOR FECAL Reason for Visit Postoperative atrial fibrillation [id number] Essential hypertension Mixed hyperlipidemia Chief Complaint 1 Y FU E ORDER Reason for Visit Postoperative atrial fibrillation [id number] Essential hypertension History of coronary artery bypass graft Mixed hyperlipidemia Chief Complaint 6 M FU COMPLETING BISPHOSPHONATE COURSE Reason for Visit Postoperative atrial fibrillation [id number] Essential hypertension Mixed hyperlipidemia Chief Complaint COMPLETING BISPHOSPH WALTER COURSE UPPER EXT UPPER EXT Chief Complaint COMPLETING BISPHOSPH WALTER COURSE UPPER EXT CP R/O CP R/O CP R/O Reason for Visit Dyspnea Exertional dyspnea History of CAD (coronary artery disease) History of coronary artery bypass graft Postoperative atrial fibrillation [id number] Essential hypertension GERD (gastroesophageal reflux disease) Angina pectoris Chief Complaint UPPER EXT CP R/O CP R/O CP R/O CP R/O S/P [facility] 05/05 DIZZINESS Amb Documentation Reason for Visit Dyspnea Exertional dyspnea History of CAD (coronary artery disease) History of coronary artery bypass graft Postoperative atrial fibrillation [id number] Essential hypertension GERD (gastroesophageal reflux disease) Angina pectoris Dizziness Postoperative atrial fibrillation [id number] Essential hypertension Mixed hyperlipidemia Chief Complaint Admit Date 6 M FU September 07, 2024 3:02p m Reason for Visit Admit Date Postoperative atrial fibrillation September 072024 3:02pm Atherosclerosis of [place] ronary artery of [place] heart without angina September 07, 2024 3:02pm Essential hypertension September 07, 2024 3: 02pm Mixed hyperlipidemia September 07, 2024 3:02 pm Additional Source Comments INFORMATION SOURCE (unrecogn ized section and content) DATE CREATED AUTHOR 09/25/2017 [facility] DATE CREATED AUTHOR AUTHOR'S ORGANIZ ATION 02/06/2025 [facility] Goals (unrecognized section and content) Goals may be documented in a n alternate sectionGoals may be documented in an alternate sectionGoals may be documented in an alternate sectionGoals may be documented in an alternate sectionGoals may be documented in an alternate sectionGoals may be documented in an alternate sectionGoals may be documented in an alternate sectionGoals may be documented in an alternate section Care Teams (unrecognized sec tion and content) Team Status: Active Member Role Status Dates Dr. Jsos Salas DO Family Provider Active Dr. Joss Saals DO Primary Care Provider Active Team Status: Inactive Member Role Status Dates Dr. Joss Salas , DO Primary Care Provider, Referrin g Provider Active Dr. Elan Barrios MD Attending Provider Active Team Status: Inactive Member Role Status Dates Dr. Joss Salas DO Primary Care Provider Active Dr. Elan Barrios MD Attending Provider, Referring Provider Active Team Status: Inactive Member Role Status Dates Dr. Joss Salas DO Primary Care Provider Active Dr. Jovanna Parish MD Attending Provider, Referring Provider Active Team Status: Inactive Member Role Status Dates Dr. Joss Salas DO Primary Care Provider, Referrin g Provider Active Keila Gaines PA, PA Attending Provider Active Team Status: Inactive Member Role Status Dates Dr. Joss Salas , DO Primary Care Prov ider, Attending Provider, Referring Provider Active Team Status: Active Member Role Status Dates Dr. Joss Salas DO Primary Care Provider Active Dr. Kee Sanchez MD Emergency Provider Active Dr. Rina Cosby MD Attending Provider Active Team Status: Inactive Member Role Status Dates Dr. Joss Salas DO Primary Care Provider Active Dr. Kee Sanchez MD Emergency Provider Active Team Status: Active Member Role Status Dates Dr. Joss Salas DO Primary Care Provider Active Dr. Kee Sanchez MD Emergency Provider Active Dr. Rina Cosby MD Admit Provider, Other Provider A ctive Dr. Lulu Knight MD Attending Provider, Other Provid er Active Team Status: Active Member Role Status Dates Dr. Joss Salas DO Primary Care Provider Active Dr. Kee Sanchez MD Emergency Provider Active Dr. Rina Cosby MD Admit Provider, Other Provider A ctive Dr. Lulu Knight MD Attending Provider, Other Provid er Active Dr. Neftaly Yanez MD Other Provider Active Team Status: Inactive Member Role Status Dates Dr. Joss Salas DO Primary Care Provider Active Dr. Kee Sanchez MD Emergency Provider Active Dr. Rina Cosby MD Admit Provider, Other Provider A ctive Dr. Lulu Knight MD Other Provider Active Dr. Neftaly Yanez MD Attending Provider Active Team Status: Active Member Role Status Dates Dr. Joss Salas DO Primary Care Provider Active Dr. Kee Sanchez MD Emergency Provider Active Dr. Rina Cosby MD Admit Provider, Re ferring Provider, Other Provider Active Dr. Lulu Knight MD Attending Provider, Other Provid er Active Team Status: Active Member Role Status Dates Dr. Joss Salas DO Primary Care Provider Active Dr. Kee Sanchez MD Emergency Provider Active Dr. Rina Cosby MD Admit Provider, Other Provider A ctive Dr. Lulu Knight MD Attending Provider , Referring Provider, Other Provider Active Dr. Neftaly Yanez MD Other Provider Active Team Status: Active Member Role Status Dates Dr. Joss Salas DO Primary Care Provider Active Dr. Kee Sanchez MD Emergency Provider Active Dr. Rina Cosby MD Admit Provider, Other Provider A ctive Dr. Lulu Knight MD Other Provider Active Dr. Neftaly Yanez MD Attending Provider, Other Provider Active Team Status: Inactive Member Role Status Dates Dr. Joss Salas DO Primary Care Provider, Referrin g Provider Active Malika Henson SAS ETL DEVELOPER, SAS ETL DEVELOPER-C Attending Provider Active Team Status: Active Member Role Status Dates Dr. Joss Salas DO Primary Care Provider Active Dr. Joel Ham MD Attending Provider Active Team Status: Active Member Role Status Dates Dr. Joss Salas DO Primary Care Provider Active Malika Henson SAS ETL DEVELOPER, SAS ETL DEVELOPER-C Attending Provider Active Team Status: Inactive Member Role Status Dates Dr. Joss Salas DO Primary Care Provider Active Malika Henson NP, SAS ETL DEVELOPER-C Attending Provider, Referring P tyrone Active Team Status: Inactive Member Role Status Dates Dr. Joss Saals DO Primary Care Provider Active Start: September 07, 2024 End: September 07, 2024 Dr. Joss Salas DO Referring Provider Active Start: September 07, 2024 End: September 07, 2024 Malika Henson SAS ETL DEVELOPER, SAS ETL DEVELOPER-C Attending Provider Active Start: September 07, 2024 End: September 07, 2024 Team Status: Inactive Member Role Status Dates Dr. Joss Salas DO Primary Care Provider Active Start: September 09, 2024 End: September 09, 2024 Malika Henson SAS ETL DEVELOPER, SAS ETL DEVELOPER-C Attending Provider Active Start: September 09, 2024 End: September 09, 2024 Malika Henson SAS ETL DEVELOPER, SAS ETL DEVELOPER-C Referring Provider Active Start: September 09, 2024 End: September 09, 2024 FOR RECORDS PERTAINING TO PATIENTS WHO ARE [...] BE BASED ON THE PRIMARY CLINICAL RECORDS. [facility] [employer] [facility]. provides no warranty or guarantee of the accuracy or completeness of information in this document.
--- NOTE | 2025-02-07 18:30 | EX.ED.DYSGE1 ---
HPI History of Present Illness Chief Complaint: Diarrhea Narrative Narrative: Chief complaint and HPI: 84-year-old female with past medical history of HTN, CABG, atrial fibrillation on Eliquis presents for evaluation of diarrhea. Patient states that she has had diarrhea for approximately 3 weeks. States she was seen in our emergency department several days ago in which she was discharged home. States she cannot make an appointment with GI until March. Patient states she only has abdominal pain when having a bowel movement. She denies any fever, chills, shortness of breath, chest pain, nausea, vomiting, dysuria. States she has had little p.o. intake secondary to low appetite. Review of systems: See HPI Medications: As listed on the chart Allergies: As listed on the chart PFSH: Per chart Vital signs: As listed on the chart. Reviewed. Physical exam: Gen: A&O x3, NAD Head: Normocephalic, atraumatic Eyes: No sclera icterus, conjunctiva clear ENT: Mildly drymucous membranes CV: RRR, no murmurs, no peripheral edema Resp: Lungs CTA BL, no w/r/c GI: Abd soft, non-distended, non-tender, no r/r/g Musc: Full ROM, no deformity Skin: Warm, dry Neuro: Alert, oriented, grossly intact, sensation intact Psych: Cooperative, appropriate mood and affect [facility] Medical History History of hypertension Carotid arterial disease Wears hearing aid in both ears Osteoporosis Myocardial infarct Hemorrhoids Arthritis Mixed hyperlipidemia Essential hypertension Postoperative atrial fibrillation Angina pectoris Hypercalcemia Vitamin D deficiency Dyslipidemia Hypertension NSTEMI (non-ST elevated myocardial infarction) Osteoarthritis GERD (gastroesophageal reflux disease) Home Medications ?Medication ?Instructions ?Recorded ?Last Taken ?Type aspirin 81 mg tablet,delayed 81 mg PO DAILY@1999 heart health 11/26/16 02/03/25 History release sertraline 25 mg tablet 25 mg PO DAILY mental health 11/25/17 02/03/25 History cholecalciferol (vitamin D3) 50 2,000 unit PO DAILY vitamin 01/19/19 02/03/25 History mcg (2,000 unit) tablet clindamycin HCl 150 mg capsule 150 mg PO ONCE PRN Dentist 06/01/21 01/04/25 History Al hyd-Mg tr-alg ac-sod bicarb 80 1 tab PO DAILY PRN heartburn 05/03/23 Unknown History mg-14.2 mg chewable tablet (Gaviscon) pantoprazole 40 mg tablet,delayed 40 mg PO DAILY gerd 02/18/24 02/03/25 History release evolocumab 140 mg/mL subcutaneous 140 mg subcut Q2W Hyperlipidemia, 04/30/24 01/22/25 Rx pen injector (Osbaldo Diego) cannot take statins #6 mL metoprolol tartrate 25 mg tablet 25 mg PO BID heart #180 tabs 07/20/24 02/03/25 Rx calcium 600 mg (as 1 tab PO DAILY supplement 02/04/25 02/03/25 History carbonate)-vitamin D3 5 mcg (200 unit) tablet (Calcium 600 + D(3)) fluocinolone acetonide oil 0.01 % 5 drp otic (ear) DAILY itching 02/04/25 01/30/25 History ear drops peqctp-mhvmpqur-emotmgh 2 cap PO TIDCM diarrhea 02/04/25 02/03/25 History (pork)36,000-114,000-180k unit capsule,del rel (Creon) ondansetron 4 mg disintegrating 4 mg PO Q6H PRN nausea and 02/04/25 Unknown Rx tablet vomiting #20 tabs potassium chloride 20 mEq oral 20 meq PO BID 5 days #30 ea 02/04/25 Unknown Rx packet turmeric 400 mg capsule 400 mg PO BID arthritis 02/04/25 02/03/25 History Allergy/AdvReac Type Severity Reaction Status Date / Time [id number] Reductase AdvReac Severe myalgias Verified 02/07/25 16:51 Inhibitor (Mamnvqb-Xmk-Kxw Reductase Inhibitor) Penicillins AdvReac Itching Verified 02/07/25 16:51 Tetanus Vaccines and Toxoid AdvReac Swelling Verified 02/07/25 16:51 (Tetanus Vaccines & Toxoid) Family History Mother Heart disease Father Heart disease Brother Heart disease Brother Heart disease Sister Heart disease Surgical History History of coronary artery bypass graft (~09/17/16) History of tubal ligation History of removal of cyst History of repair of right rotator cuff History of right hip replacement History of cholecystectomy History of foot surgery History of facial surgery Social History Smoking Status: Never smoker alcohol intake: current alcohol intake frequency: a few times a month caffeine: No EXAM Physical Exam Const Vital Signs: 02/07/25 16:50 02/07/25 17:56 02/07/25 18:50 Temperature 97.8 F Temperature Source Oral Pulse Rate 89 84 Respiratory Rate 16 14 Respiratory Effort Normal Respiratory Pattern Normal Blood Pressure 129/72 H 125/68 H Blood Pressure Mean 91 87 Pulse Ox 98 98 Oxygen Delivery Method Room Air Room Air 02/07/25 20:00 Temperature Temperature Source Pulse Rate 77 Respiratory Rate 12 Respiratory Effort Respiratory Pattern Blood Pressure 126/57 H Blood Pressure Mean 80 Pulse Ox 98 Oxygen Delivery Method Room Air MDM MDM MDM Narrative Medical decision making narrative: 84-year-old female with past medical history of HTN, CABG, atrial fibrillation on Eliquis presents for evaluation of diarrhea. Patient states that she has had diarrhea for approximately 3 weeks. On chart review, patient was seen on 02/04/2025. At that time she had laboratory workup performed that showed some mild electrolyte abnormalities. She did CT abdomen pelvis that showed mild colitis. Her C. difficile was negative. She was discharged home. At presentation, patient no acute distress. Vital signs stable other than mild hypertension. Differential diagnosis includes but is not limited to IBS, gastroenteritis, electrolyte abnormality, dehydration, UTI. Given patient's abdominal exam is benign and she just had CT abdomen pelvis I do not think any repeat is needed at this time. Will add on ova parasites, stool panel, stool lactoferrin/WBC. Will not repeat C. difficile. Will perform basic labs including a urine. CBC without leukocytosis or anemia. Patient does have mild hemoconcentration of 15.6 likely secondary to mild dehydration. Patient receiving fluids. Platelet count unremarkable. CMP shows mild dehydration without GET. No significant electrolyte abnormality. No transaminitis. Lipase unremarkable. Lactic acid unremarkable. UA positive for ketones which is consistent with mild dehydration. Negative for UTI. Enteric stool panel, ova parasites, and stool lactoferrin/WBC pending and will take several days to result. At this point in time, no clear etiology for patient's chronic watery diarrhea. She has no leukocytosis. Recommended adding fiber to her diet. Keeping up with fluid intake and p.o. intake. Recommend her following up with her primary care physician and keeping her GI appointment. Patient and family confirmed understand the plan. Patient stable to discharge home. Impression: 1. Chronic diarrhea 2. Mild dehydration Lab Data Labs: Laboratory Results - last 24 hr 02/07/25 02/07/25 02/07/25 18:00 18:10 18:28 WBC 8.1 RBC 5.12 Hgb 15.6 H Hct 45.8 MCV 89.5 MCH 30.5 MCHC 34.1 RDW Std Deviation 42.9 RDW Coeff of Dimas 13.1 Plt Count 272 MPV 10.8 Immature Gran % (Auto) 0.100 Neut % (Auto) 80.6 H Lymph % (Auto) 10.9 L [place] % (Auto) 6.6 Eos % (Auto) 1.6 Baso % (Auto) 0.2 Absolute Neuts (auto) 6.6 Absolute Lymphs (auto) 0.89 Nucleated RBC % 0 Sodium 136 Potassium 4.8 Chloride 107 Carbon Dioxide 16.0 L Anion Gap 13 BUN 20 H Creatinine 0.95 Estim Creat Clear Calc 38.07 L Est GFR (MDRD) Non-Af 59 L BUN/Creatinine Ratio 20.8 H Glucose 118 H Lactic Acid 1.1 Calcium 10.8 Magnesium 2.1 Total Bilirubin 0.66 AST 25 ALT 27 Alkaline Phosphatase 97 Total Protein 7.1 Albumin 4.3 Globulin 2.8 Albumin/Globulin Ratio 1.5 Lipase 25 Urine Color Yellow Urine Clarity Clear Urine pH 5.0 Ur Specific [place] 1.020 Urine Protein 30 H Urine Glucose (UA) Normal Urine Ketones 15 H Urine Occult Blood 10 H Urine Nitrite Negative Urine Bilirubin 3 H Urine Urobilinogen 1 H Ur Leukocyte Esterase 100 H Urine RBC 0-5 SEEN Urine WBC 0-5 SEEN Ur Squamous Epith Cells 0-5 SEEN Ur Renal Epithelial Cell 0-5 SEEN Calcium Oxalate Crystal 2+ Amorphous Sediment 1+ Urine Bacteria 2+ Hyaline Casts 0-5 SEEN Urine Mucus 0 SEEN Discharge Plan Triage Chief Complaint: Diarrhea ED Provider: Donald Lui Dx/Rx/DC Orders Prescriptions: No Action sertraline 25 mg tablet 25 mg PO DAILY cholecalciferol (vitamin D3) 2,000 unit tablet 2,000 unit PO DAILY clindamycin HCl 150 mg capsule 150 mg PO ONCE PRN (Reason: Dentist) Patient Comments: pt state she takes when she goes to the dentist. taken in april, but not within the past week. aspirin 81 MG tablet 81 mg PO DAILY@1999 Gaviscon 80-14.2 mg tablet,chewable 1 tab PO DAILY PRN (Reason: heartburn) pantoprazole 40 mg tablet,delayed release (DR/EC) 40 mg PO DAILY fluocinolone acetonide oil 0.01 % drops 5 drp otic (ear) DAILY Creon 36,000-114,000- 180,000 unit capsule,delayed release(DR/EC) 2 cap PO TIDCM Patient Comments: TAKE 2 CAPSULES BY MOUTH WITH MEALS AND 1 CAPSULE WITH SNACKS turmeric 400 mg capsule 400 mg PO BID calcium carbonate-vitamin D3 [Calcium 600 + D(3)] 600 mg-5 mcg (200 unit) tablet 1 tab PO DAILY ondansetron 4 mg tablet,disintegrating 4 mg PO Q6H PRN (Reason: nausea and vomiting) Qty: 20 0RF potassium chloride 20 mEq packet 20 meq PO BID 5 Days Qty: 30 0RF Repatha SureClick 140 mg/mL pen injector 140 mg SC Q2W Qty: 6 3RF Patient Comments: pt states she takes every other saturday metoprolol tartrate 25 mg tablet 25 mg PO BID Qty: 180 3RF Primary Care Provider: Joss Salas Referrals: Joss Salas DO [Primary Care Provider, Family Practice] Print Language: Icelandic
[2025-02-07] MEDS: 0.9% Normal Saline (1000mL) 1,000 ML 999 ML IV (18:32)
[2025-02-07 18:38] LABS: Hematocrit 45.8 % (37-47); Hemoglobin 15.6 g/dL (12.0-15.0); Immature Granulocytes Count 0.010 X10^3/uL (0.0-0.0); Mean Corp Hgb Conc 34.1 g/dL (32-36); Mean Corpuscular Volume 89.5 fL (81-99); Mean Platelet Vol. 10.8 fl (6.2-12.0); NRBC Flagged by Analyzer 0 % (0-5); Platelet Count 272 K/mm3 (150-450); RBC Distribution Width CV 13.1 % (11.6-14.6); RBC Distribution Width SD 42.9 fl (35.1-43.9); Red Blood Count 5.12 M/mm3 (4.2-5.4); White Blood Count 8.1 K/mm3 (4.4-11.0)
[2025-02-07 18:50] VITALS: BP 125/68; PULSE 84; RESP 14; O2SAT 98
[2025-02-07 18:59] LABS: Lipase 25 U/L (13-75); Magnesium 2.1 mg/dL (1.5-2.2)
[2025-02-07 19:02] LABS: Mucous, Urine 0 SEEN /hpf (<or=2+)
[2025-02-07 19:06] LABS: Color, Urine Yellow (Yellow); Glucose, Dipstick Normal (Normal); Ketone-Dipstick 15 mg/dl (Negative); Leukocyte Esterase-Dipstick 100 /ul (Negative); Nitrite-Dipstick Negative (Negative); Occult Blood-Urine 10 /ul (Negative); Protein-Dipstick 30 mg/dl (Negative); Specific Gravity, Urine 1.020 (1.002-1.030); Urine Bilirubin Dipstick 3 mg/dL (Negative)
[2025-02-07 19:07] LABS: AST(SGOT) 25 U/L (<=31); Alanine Aminotransfer ALT/SGPT 27 U/L (<=34); Albumin, Serum 4.3 g/dL (3.4-4.8); Alkaline Phosphatase 97 U/L (35-104); Anion Gap 13 (5-15); BUN 20 mg/dL (4-19); BUN/Creat Ratio 20.8 RATIO (10-20); Calcium,Total 10.8 mg/dL (7.6-11.0); Carbon Dioxide 16.0 mmol/L (21.0-32.0); Chloride 107 mmol/L (98-108); Estimated Creatinine Clearance 38.07 ml/min (50-250); Globulin 2.8 g/dL (2.2-4.2); Glucose 118 mg/dL (70-99); Potassium 4.8 mmol/L (3.3-5.1)
[2025-02-07 19:11] LABS: Calcium Oxalate Crystals Ur 2+ /hpf (<or=2+); Red Blood Cells-Urine 0-5 SEEN /hpf (0-5); Squamous Epithelial Cells - UA 0-5 SEEN /hpf (5-10)
[2025-02-07 20:00] VITALS: BP 126/57; PULSE 77; RESP 12; O2SAT 98
[2025-02-07 20:18] VITALS: BP 117/57; PULSE 80; RESP 23; TEMP 36.6; O2SAT 100
== END 2025-02-07 20:27 | disposition home or self-care (01) ==
PROVIDERS: Emergency Provider Surgery; PCP Family Medicine; Visit Provider Surgery
DX: K52.9 Noninfective gastroenteritis and colitis, unspecified (principal); I48.91 Unspecified atrial fibrillation; E86.0 Dehydration; I10 Essential (primary) hypertension; I25.2 Old myocardial infarction; M81.0 Age-related osteoporosis without current pathological fracture; E55.9 Vitamin D deficiency, unspecified; K21.9 Gastro-esophageal reflux disease without esophagitis; E78.5 Hyperlipidemia, unspecified; Z95.1 Presence of aortocoronary bypass graft; Z90.49 Acquired absence of other specified parts of digestive tract; Z79.01 Long term (current) use of anticoagulants; Z79.82 Long term (current) use of aspirin; Z79.899 Other long term (current) drug therapy
CPT/HCPCS: 80053; 81001; 83605; 83630; 83690; 83735; 85025; 87177; 87209; 87506; 96360; 96361; 99285; A4216

== ENCOUNTER → 2025-02-11 | Outpatient (CLI) | payer MEDICARE, SELFPAY ==
--- NOTE | 2025-02-11 13:21 | BD_ITS ---
PROCEDURE: DEXA BONE DENSITY STUDY 02/11/2025 REASON FOR EXAM: F, age 84 y/o . Postmenopausal. TECHNIQUE: Procedure Code: BDDBD Modality: DX Procedure: DEXA BONE DENSITY STUDY COMPARISON: January 09, 2023. FINDINGS: BMD and T-SCORES Lumbar spine: 0.961 g/cm2, T-score -0.5 Levels: L1 through L4 Change from prior: Improvement of 6.2%. Left femoral neck: 0.738 g/cm2, T-score -1.0 Femoral neck comparison data not recommended for monitoring change. Left total hip: 0.874 g/cm2, T-score -0.6 Change from prior: Improvement of 1.6%. The World Health Organization has defined the following categories based on bone density: Normal bone density: T-score equal to or greater than -1.0 Osteopenia: T-score between -1.0 and -2.5 Osteoporosis: T-score equal to or less than -2.5 FRAX (or Comparable) Fracture Risk Assessment: 10 Year Probability of Fracture: Major Osteoporotic Fracture: 25% Hip Fracture: 6.1% (Note: FRAX is not to be reported in setting of normal range bone density, osteoporosis on DEXA, known history of osteoporosis, prior osteoporotic hip or vertebral fracture, or for any patient undergoing pharmacological treatment for bone loss.) The National Osteoporosis Foundation (NOF) recommends pharmacological treatment for patients with a FRAX 10-year risk of 3% or higher for a hip fracture, or 20% or higher for a major osteoporotic fracture, to prevent osteoporosis and reduce fracture risk. The patient does meet the pharmacological treatment recommendations for prevention of osteoporosis. BD/Dexa Bone Density Study IMPRESSION: OSTEOPENIA. Recommend follow-up as clinically warranted. Reading Location: [place] [id number]
== END | disposition home or self-care (01) ==
LOC: OPBD 13:20
PROVIDERS: PCP Family Medicine; Referring Provider Family Medicine; Visit Provider Family Medicine
DX: M85.80 Other specified disorders of bone density and structure, unspecified site (principal); Z78.0 Asymptomatic menopausal state
CPT/HCPCS: 77080

== ENCOUNTER → 2025-02-19 | Outpatient (CLI) | payer MEDICARE, SELFPAY ==
[2025-02-19 18:15] LABS: Anion Gap 20 (5-15); BUN 39 mg/dL (4-19); BUN/Creat Ratio 28.7 RATIO (10-20); Calcium,Total 10.9 mg/dL (7.6-11.0); Carbon Dioxide 16.1 mmol/L (21.0-32.0); Chloride 100 mmol/L (98-108); Glucose 115 mg/dL (70-99); Potassium 3.4 mmol/L (3.3-5.1)
== END | disposition home or self-care (01) ==
LOC: BFHLAB 14:41
PROVIDERS: PCP Family Medicine; Visit Provider Family Medicine
DX: K52.9 Noninfective gastroenteritis and colitis, unspecified (principal)
CPT/HCPCS: 36415; 80048

== ENCOUNTER → 2025-03-29 | Outpatient (CLI) | payer MEDICARE, SELFPAY ==
[2025-03-31 22:07] LABS: Calprotectin, Stool 39 ug/g (0-120)
== END | disposition home or self-care (01) ==
LOC: LABSPEC 11:24
PROVIDERS: PCP Family Medicine; Referring Provider Student in an Organized Health Care Education/Training Program; Visit Provider Student in an Organized Health Care Education/Training Program
DX: R19.7 Diarrhea, unspecified (principal)
CPT/HCPCS: 83993